=== PATIENT | female | born 1935 | race Caucasian/White ===

== ENCOUNTER 2016-05-31 07:00 | Inpatient (IN) | payer OTHER ==
[~2016-05-31] VITALS: Ht 157.5 cm; Wt 78.7 kg
[~2016-05-31 07:00] MED LIST: ALL100 PO; BCTRO; CALC0.2510 PO; CLC150 PO; CLON0.3T PO; CPROT OT; DEXT1SYP PO; NVLGIPEN SC; OXYC-57 PO
[2016-05-31] MEDS ORDERED: CLON0.3T PO (07:29)
[2016-05-31] MEDS ORDERED: NVLGI/PEN SQ ×2 (07:33)
[2016-05-31] MEDS ORDERED: CYAN500T PO (07:41)
[2016-05-31] MEDS ORDERED: OXYCODONE HCL IR 5 MG TAB (IMMEDIATE RELEASE) PO STA ×2 (08:09→15:21)
--- NOTE | 2016-05-31 08:22 | EMERGENCY ROOM VISIT NOTE ---
ED Visit Note First contact with patient: 07:02 Resident Physician Supervision Note: I was present with Dr. Hanna during the history and exam. I discussed the case with the resident and agree with the findings and plan as documented in the note. Documented By: Favio Moralez
[2016-05-31] MEDS ORDERED: CARV25TA2 PO (08:24)
[2016-05-31] MEDS ORDERED: OMEG10007 PO (08:24)
[2016-05-31] MEDS ORDERED: SITA25TA PO (08:24)
[2016-05-31] MEDS ORDERED: LEVO112T4 PO (08:24)
[2016-05-31] MEDS ORDERED: HYDR100T12 PO (08:24)
[2016-05-31] MEDS ORDERED: TRAV0.00 OP (08:24)
[2016-05-31] MEDS ORDERED: ASPI81TA28 PO (08:24)
[2016-05-31] MEDS ORDERED: NTRGSL/4 UT (08:24)
[2016-05-31] MEDS ORDERED: IMD/2 PO (08:24)
[2016-05-31] MEDS ORDERED: CYANCRY6 PO (08:24)
[2016-05-31] MEDS ORDERED: CALC667C4 PO (08:24)
[2016-05-31] MEDS ORDERED: EPOE10003 SC (08:24)
[2016-05-31 08:29] LABS: BASO % 0.2 %; BASO ABS # 0.02 K/uL (0-0.2); COMPLETE YES; EOS % 0.3 %; HEMATOCRIT 37.6 % (37-47); IG% 0.6 %; LYMPH % 17.3 %; LYMPH ABS # 1.93 K/uL (1.2-3.4); MEAN CELL VOLUME 95.2 fL (80-100); MEAN CORPUSCULAR HEMOGLOBIN 31.4 pg (25-34); MEAN PLATELET VOLUME 10.9 fL (7.4-10.4); MONO % 8.6 %; PLATELET COUNT 221 K/uL (130-400); RED BLOOD COUNT 3.95 M/uL (4.2-5.4); WHITE BLOOD COUNT 11.13 K/uL (4.8-10.8)
[2016-05-31 08:42] LABS: PARTIAL THROMBOPLASTIN RATIO 1.2; PROTHROMBIN TIME (PATIENT) 10.4 SECONDS (9.0-12.0)
--- NOTE | 2016-05-31 08:44 | EMERGENCY ROOM VISIT NOTE ---
History First contact with patient: 07:03 Chief Complaint: LEG PAIN,LEG INJURY Stated Complaint: RIGHT LEG PAIN/ LEFT KNEE PAIN History of Present Illness The patient is a 80 year old female BIBA w/ hx of DM on insulin, CKD on Dialysis ( Last Dialysis Treatment 05/28) who presents to the Emergency Room with complaints of RLE pain since day before arrival. Pain is 9/10 intensity, constant mainly located in the calf and behind the knee. She denies associated injury. She tried Tramadol last night but it did not give her relief. She denies Hx of DVT Hx of malignancy thought she is particularly concerned of it. Patient is a non-smoker, minimally active, uses a walker at home. Review of Systems See HPI for pertinent positives & negatives. A total of 10 systems reviewed and were otherwise negative. Past Medical/Surgical History Medical Problems: (1) Acute pain of right lower extremity (2) DM2 (diabetes mellitus, type 2) (3) HTN (hypertension) (4) Hyperkalemia (5) Hyperparathyroidism (6) Hypertension (7) Hypothyroid (8) Kidney stones (9) Pneumonia (10) Sepsis Surgical Problems: (1) AV fistula (2) History of parathyroid surgery (3) History of parathyroid surgery Family History Cancer Diabetes mellitus Heart disease Hypertension Social History Smoking Status: Current Every Day Smoker Marital Status: single Housing Status: lives alone Occupation Status: retired Current/Historical Medications Scheduled Allopurinol (Allopurinol), 100 MG PO DAILY Aspirin (Aspirin Ec), 81 MG PO DAILY Calcium Acetate (Phoslo 667 Mg), 1 CAP PO TIDM Carvedilol (Coreg), 25 MG PO BID Clonidine Hcl (Catapres), 0.3 MG PO BID Cyanocobalamin (Vitamin B-12), 500 MCG PO DAILY Epoetin Danielito (Epogen), 10,000 SC [id number] Ergocalciferol (Vitamin D 68266 Unit), 1 CAP PO WK Fish Oil ([place]-3), 1 CAP PO BID Hydralazine Hcl (Apresoline), 100 MG PO TID Insulin Aspart (Novolog Flexpen), 4 UNITS SQ QDB Insulin Aspart (Novolog Flexpen), 5 UNITS SQ QDD Insulin Glargine (Lantus), 10 UNITS SC QDB Levothyroxine Sodium (Levothyroxine Sodium), 1 TAB PO DAILY Loperamide Hcl (Imodium), 2 MG PO PRN UD Nitroglycerin (Nitrostat), 0.4 MG UT PRN Sitagliptin (Januvia), 25 MG PO DAILY Tramadol Hcl (Ultram), 50 MG PO Q12H Travoprost (Travatan Z), 1 DROPS OP HS Allergies Coded Allergies: Amoxicillin (Verified Allergy, Intermediate, HIVES, 05/31/16) Clavulanic Acid (Verified Allergy, Unknown, RASH, 05/31/16) INFO FROM [facility] Statins (Verified Allergy, Unknown, Unknown rxn, 05/31/16) Codeine (Verified Adverse Reaction, Mild, GIVES PT A HEADACHE, 05/31/16) Morphine (Verified Adverse Reaction, Unknown, HEADACHE, 05/31/16) INFO FROM [facility] Physical Exam Vital Signs Date Time Temp Pulse Resp B/P Pulse Ox O2 Delivery O2 Flow Rate FiO2 05/31/16 15:00 64 12 195/59 97 05/31/16 14:30 67 18 176/48 96 Room Air 05/31/16 12:50 63 05/31/16 12:28 67 20 171/54 96 Room Air 05/31/16 10:32 85 20 169/82 97 Room Air 05/31/16 08:44 36.7 72 166/45 95 Room Air 05/31/16 07:17 79 05/31/16 07:07 36.6 98 26 117/65 100 Room Air Physical Exam GENERAL: alert, well appearing, well nourished, no distress, non-toxic EYE EXAM: normal conjunctiva, PERRL and EOM's grossly intact NECK: supple, no nuchal rigidity, no adenopathy, non-tender LUNGS: Clear to auscultation. Normal chest wall mechanics HEART: + systolic murmur, S1 normal and S2 normal ABDOMEN: abdomen soft, non-tender, normo-active bowel sounds, no masses, no rebound or guarding. SKIN: no rashes and no bruising UPPER EXTREMITIES: upper extremities are grossly normal. LOWER EXTREMITIES: Joshua 2+ non-pitting edema, erythema/ flaking bilaterally, varicose veins, pulses intact NEURO EXAM: Normal sensorium, cranial nerves II-XII grossly intact, normal speech, no gross weakness of arms, no gross weakness of legs. Medical Decision & Procedures ER Provider Diagnostic Interpretation: RIGHT KNEE 1 OR 2 VIEWS ROUTINE CLINICAL HISTORY: Right knee pain COMPARISON: None. DISCUSSION: No fractures or dislocations are visualized. There are mild osteoarthritic changes. There is mild narrowing medial joint compartment. There are tiny dorsal patellar spurs. The bones appear mildly osteopenic. Vascular calcifications are visualized. IMPRESSION: Mild degenerative change. No fractures are visualized. Venous Doppler right leg RIGHT VENOUS DOPP LOWER EXT UNILAT CLINICAL HISTORY: r/o dv Right pain. Edema. TECHNIQUE: Venous Doppler COMPARISON STUDY: None FINDINGS: Normal study IMPRESSION: Normal study Arterial Doppler right leg RIGHT ART DOP DUPLEX LW EXT UNI CLINICAL HISTORY: Rt Leg pain Right pain. Claudication. TECHNIQUE: Arterial Doppler COMPARISON STUDY: None FINDINGS: Limited study. The patient declined ankle brachial indices measurements. Patient also declined arterial velocity measurements of the lower leg. Increased velocity characteristics of the right 5. This is identified uniformly throughout. Possibility of a cardiac etiology is considered, versus multilevel in flow disease. IMPRESSION: 1. Very limited study as the patient declined the bulk of the study. . 2. Increased velocity characteristics of the right thigh which may indicate inflow disease, increased cardiac output, versus multifocal stenotic change. 3. CT angiography of the lower extremities is suggested if clinically indicated. Laboratory Results 05/31/16 08:15 Red Blood Count 3.95, Mean Corpuscular Volume 95.2, Mean Corpuscular Hemoglobin 31.4, Mean Corpuscular Hemoglobin Concent 33.0, Mean Platelet Volume 10.9, Neutrophils (%) (Auto) 73.0, Lymphocytes (%) (Auto) 17.3, Monocytes (%) (Auto) 8.6, Eosinophils (%) (Auto) 0.3, Basophils (%) (Auto) 0.2, Neutrophils # (Auto) 8.12, Lymphocytes # (Auto) 1.93, Monocytes # (Auto) 0.96, Eosinophils # (Auto) 0.03, Basophils # (Auto) 0.02 05/31/16 08:15 Test 05/31/16 08:15 White Blood Count 11.13 K/uL (4.8-10.8) Red Blood Count 3.95 M/uL (4.2-5.4) Hemoglobin 12.4 g/dL (12.0-16.0) Hematocrit 37.6 % (37-47) Mean Corpuscular Volume 95.2 fL (80-100) Mean Corpuscular Hemoglobin 31.4 pg (25-34) Mean Corpuscular Hemoglobin Concent 33.0 g/dl (32-36) Platelet Count 221 K/uL (130-400) Mean Platelet Volume 10.9 fL (7.4-10.4) Neutrophils (%) (Auto) 73.0 % Lymphocytes (%) (Auto) 17.3 % Monocytes (%) (Auto) 8.6 % Eosinophils (%) (Auto) 0.3 % Basophils (%) (Auto) 0.2 % Neutrophils # (Auto) 8.12 K/uL (1.4-6.5) Lymphocytes # (Auto) 1.93 K/uL (1.2-3.4) Monocytes # (Auto) 0.96 K/uL (0.11-0.59) Eosinophils # (Auto) 0.03 K/uL (0-0.5) Basophils # (Auto) 0.02 K/uL (0-0.2) RDW Standard Deviation 52.7 fL (36.4-46.3) RDW Coefficient of Variation 15.1 % (11.5-14.5) Immature Granulocyte % (Auto) 0.6 % Immature Granulocyte # (Auto) 0.07 K/uL (0.00-0.02) Erythrocyte Sedimentation Rate 84 mm/hr (0-21) Prothrombin Time 10.4 SECONDS (9.0-12.0) Prothromb Time International Ratio 1.0 (0.9-1.1) Activated Partial Thromboplast Time 31.0 SECONDS (21.0-31.0) Partial Thromboplastin Ratio 1.2 Anion Gap 11.0 mmol/L (3-11) Est Creatinine Clear Calc Drug Dose 10.2 ml/min Estimated GFR () 9.9 Estimated GFR (Non- 8.5 BUN/Creatinine Ratio 12.9 (10-20) Calcium Level 8.7 mg/dl (8.5-10.1) C-Reactive Protein 9.71 mg/dl (0-0.29) Medications Administered Medications (Trade) Dose Ordered Sig/Bill Route Start Time Stop Time Status Last Admin Dose Admin Oxycodone HCl (Roxicodone Immediate Rel Tab) 5 mg NOW STAT PO 05/31/16 08:09 05/31/16 08:11 DC 05/31/16 08:23 5 MG Medical Decision 80 yo F w/ Hx of CKD on Dialysis( last treatment 05/28), DM, on insulin p/w RLE pain x 1 day ddx: DVT vs. Cellulitis vs. Muscular vs. Neuropathy vs. Arterial Occlusion, also considered, gout, septic joint, osteoarthritis for Knee pain CBC: Wt Ct 11.13, otherwise unremarkable BMP: K 5.2, BUN 5.9 Cr 4.6 ( Baseline 2.7-4.9) PT/INR: 10.4/1.0 PTT: 1.2 CRP: 9.7 -US Doppler RLE: normal study -Arterial Doppler RLE: limited study due to patient refusing bulk of the study due to pain, Increased velocity characteristics of the right thigh which may indicate inflow disease, increased cardiac output, versus multifocal stenotic change. - Given Oxycodone IR 5 mg for pain which provided relief. Etiology of RLE pain unknown. DVT unlikely based on negative Venous Doppler. Knee XR unremarkable ,Arterial Doppler could not rule out stenotic change. Hyper Kalemia secondary to Renal failure which will be treated with Dialysis. Cr within baseline. - Radiologist recommended CT angiogram for further evaluation, however patient is on Dialysis and contrast study would have to be coordinated with Dialysis treatment therefore case was discussed with [facility] Hospitalist BELA who agreed to evaluate her for inpatient service so that she could get CT study and dialysis of indicated Departure Information Dispostion Admitted as an inpatient Condition GOOD Referrals Jonathan Nunn MD (PCP) Patient Instructions My [facility] Resident Tracking Resident Involvement: Resident Care Provided Care Provided: Adult ED
[2016-05-31 08:56] LABS: BUN/CREATININE RATIO 12.9 (10-20); C-REACTIVE PROTEIN 9.71 mg/dl (0-0.29); CALCIUM 8.7 mg/dl (8.5-10.1); CREATININE 4.6 mg/dl (0.60-1.20); POTASSIUM 5.2 mmol/L (3.5-5.1)
--- NOTE | 2016-05-31 09:51 | DIAGNOSTIC IMAGING REPORT ---
RIGHT KNEE 1 OR 2 VIEWS ROUTINE CLINICAL HISTORY: Right knee pain COMPARISON: None. DISCUSSION: No fractures or dislocations are visualized. There are mild osteoarthritic changes. There is mild narrowing medial joint compartment. There are tiny dorsal patellar spurs. The bones appear mildly osteopenic. Vascular calcifications are visualized. IMPRESSION: Mild degenerative change. No fractures are visualized. Electronically signed by: Jake Brown M.D. 05/31/2016 9:49 AM Dictated Date/Time: 05/31/2016 9:49 AM
--- NOTE | 2016-05-31 11:25 | DIAGNOSTIC IMAGING REPORT ---
Venous Doppler right leg RIGHT VENOUS DOPP LOWER EXT UNILAT CLINICAL HISTORY: r/o dv Right pain. Edema. TECHNIQUE: Venous Doppler COMPARISON STUDY: None FINDINGS: Normal study IMPRESSION: Normal study Electronically signed by: Talha Osorio M.D. 05/31/2016 11:24 AM Dictated Date/Time: 05/31/2016 11:13 AM
--- NOTE | 2016-05-31 14:01 | DIAGNOSTIC IMAGING REPORT ---
Arterial Doppler right leg RIGHT ART DOP DUPLEX LW EXT UNI CLINICAL HISTORY: Rt Leg pain Right pain. Claudication. TECHNIQUE: Arterial Doppler COMPARISON STUDY: None FINDINGS: Limited study. The patient declined ankle brachial indices measurements. Patient also declined arterial velocity measurements of the lower leg. Increased velocity characteristics of the right 5. This is identified uniformly throughout. Possibility of a cardiac etiology is considered, versus multilevel in flow disease. IMPRESSION: 1. Very limited study as the patient declined the bulk of the study. . 2. Increased velocity characteristics of the right thigh which may indicate inflow disease, increased cardiac output, versus multifocal stenotic change. 3. CT angiography of the lower extremities is suggested if clinically indicated. Electronically signed by: Talha Osorio M.D. 05/31/2016 2:00 PM Dictated Date/Time: 05/31/2016 1:56 PM
[2016-05-31] MEDS ORDERED: ONDANSETRON INJ 2 MG/ML 2 ML VIAL IV PRN (15:00)
[2016-05-31] MEDS ORDERED: TRAM-453 PO (15:30)
[2016-05-31] MEDS ORDERED: HYDROmorphone INJ 0.5 MG/0.5 ML SYR IV PRN (15:30)
[2016-05-31] MEDS ORDERED: DEXTROSE 50% 50 ML SYR IV PRN (15:45)
[2016-05-31] MEDS ORDERED: GLUCOSE 10 TABS/TUBE PO PRN (15:45)
[2016-05-31] MEDS ORDERED: GLUCAGON FOR INJ 1 MG VIAL SQ PRN (15:45)
[2016-05-31] MEDS ORDERED: GLUCOSE 40% GEL 15 GM TUBE PO PRN (15:45)
[2016-05-31] MEDS ORDERED: HYDROmorphone INJ 0.5 MG/0.5 ML SYR IV SCH (15:45)
--- NOTE | 2016-05-31 16:00 | History and Physical ---
History & Physical Date & Time of Service: May 31, 2016 at 15:45 Chief Complaint: Right Leg Pain/ Left Knee Pain Primary Care Physician: Jonathan Nunn MD History of Present Illness Source: patient, clinic records, hospital records Patient seen and examined. 80 year old female with PMHx of ESRD on dialysis, IDDM, HTN, hypothyroidism, and HLD presents to the ED complaining of right leg pain x 1 day. Patient reports the pain is from her toes to her knee. She states yesterday it was more like a toothache but since then it has progressively worsened. She describes the pain as crampy and rates it as a 8/10. She states it radiates to the groin and hip and describes that pain as a"hurt." She states she has associated edema to the leg. She states it is very painful to walk on the leg. She denies fevers, chills, URI symptoms, chest pain, SOB, nausea, vomiting, diarrhea, dysuria, calf pain, leg erythema, or injury. She has dialysis MWF and she missed dialysis today. In the ED patient is hypertensive. Venous US is negative for DVT. Arterial US is incomplete d/t pain and a CT angio is recommended. Patient has ESRD so the hospitalist service was consulted for admission to manage possible need for contrast dye. Patient will be admitted for further workup and treatment. Past Medical/Surgical History Medical Problems: (1) DM2 (diabetes mellitus, type 2) Status: Chronic (2) HTN (hypertension) Status: Chronic (3) Hyperparathyroidism Status: Chronic (4) Hypertension Status: Chronic (5) Hypothyroid Status: Chronic (6) Kidney stones Status: Resolved (7) Pneumonia Status: Resolved Surgical Problems: (1) AV fistula Status: Resolved (2) History of parathyroid surgery Status: Resolved Family History Cancer Diabetes mellitus Heart disease Hypertension Social History Smoking Status: Former Smoker Alcohol Use: none Marital Status: single Housing status: lives alone Occupational Status: retired Multi-Drug Resistant Organisms History of MDRO: No Type of MDRO: MRSA Allergies Coded Allergies: Amoxicillin (Verified Allergy, Intermediate, HIVES, 05/31/16) Clavulanic Acid (Verified Allergy, Unknown, RASH, 05/31/16) INFO FROM [facility] Statins (Verified Allergy, Unknown, Unknown rxn, 05/31/16) Codeine (Verified Adverse Reaction, Mild, GIVES PT A HEADACHE, 05/31/16) Morphine (Verified Adverse Reaction, Unknown, HEADACHE, 05/31/16) INFO FROM [facility] Home Medications Scheduled Allopurinol (Allopurinol), 100 MG PO DAILY Aspirin (Aspirin Ec), 81 MG PO DAILY Calcium Acetate (Phoslo 667 Mg), 1 CAP PO TIDM Carvedilol (Coreg), 25 MG PO BID Clonidine Hcl (Catapres), 0.3 MG PO BID Cyanocobalamin (Vitamin B-12), 500 MCG PO DAILY Epoetin Danielito (Epogen), 10,000 SC [id number] Ergocalciferol (Vitamin D 46921 Unit), 1 CAP PO WK Fish Oil ([place]-3), 1 CAP PO BID Hydralazine Hcl (Apresoline), 100 MG PO TID Insulin Aspart (Novolog Flexpen), 4 UNITS SQ QDB Insulin Aspart (Novolog Flexpen), 5 UNITS SQ QDD Insulin Glargine (Lantus), 10 UNITS SC QDB Levothyroxine Sodium (Levothyroxine Sodium), 1 TAB PO DAILY Loperamide Hcl (Imodium), 2 MG PO PRN UD Nitroglycerin (Nitrostat), 0.4 MG UT PRN Sitagliptin (Januvia), 25 MG PO DAILY Tramadol Hcl (Ultram), 50 MG PO Q12H Travoprost (Travatan Z), 1 DROPS OP HS Review of Systems See above for pertinent positives & negatives. A total of 10 systems reviewed and were otherwise negative. Physical Exam Vital Signs Date Time Temp Pulse Resp B/P Pulse Ox O2 Delivery O2 Flow Rate FiO2 05/31/16 15:00 64 12 195/59 97 05/31/16 14:30 67 18 176/48 96 Room Air 05/31/16 12:50 63 05/31/16 12:28 67 20 171/54 96 Room Air 05/31/16 10:32 85 20 169/82 97 Room Air 05/31/16 08:44 36.7 72 166/45 95 Room Air 05/31/16 07:17 79 05/31/16 07:07 36.6 98 26 117/65 100 Room Air General Appearance: + pertinent finding (80 year old female lying in bed in NAD ) Head: normocephalic, atraumatic Eyes: PERRL, EOMI, sclerae normal ENT: hearing grossly normal, pharynx normal Neck: supple, no JVD Respiratory/Chest: chest non-tender, lungs clear, normal breath sounds, no respiratory distress, no accessory muscle use Cardiovascular: regular rate, rhythm, no gallop, no JVD, normal peripheral pulses, + systolic murmur Abdomen/GI: normal bowel sounds, non tender, soft Extremities/Musculoskelatal: + calf tenderness (right calf, ), + pertinent finding (+2 edema equal BL, erythema to BL shins, no drainage. pulses intact, extrememities warm, no cyanosis ) Neurologic/Psych: alert, oriented x 3, + pertinent finding (no focal deficits noted on gross exam ) Skin: warm/dry Lymphatic: no adenopathy Diagnostics Laboratory Results Results Past 24 Hours Test 05/31/16 08:15 Range/Units White Blood Count 11.13 4.8-10.8 K/uL Red Blood Count 3.95 4.2-5.4 M/uL Hemoglobin 12.4 12.0-16.0 g/dL Hematocrit 37.6 37-47 % Mean Corpuscular Volume 95.2 80-100 fL Mean Corpuscular Hemoglobin 31.4 25-34 pg Mean Corpuscular Hemoglobin Concent 33.0 32-36 g/dl Platelet Count 221 130-400 K/uL Mean Platelet Volume 10.9 7.4-10.4 fL Neutrophils (%) (Auto) 73.0 % Lymphocytes (%) (Auto) 17.3 % Monocytes (%) (Auto) 8.6 % Eosinophils (%) (Auto) 0.3 % Basophils (%) (Auto) 0.2 % Neutrophils # (Auto) 8.12 1.4-6.5 K/uL Lymphocytes # (Auto) 1.93 1.2-3.4 K/uL Monocytes # (Auto) 0.96 0.11-0.59 K/uL Eosinophils # (Auto) 0.03 0-0.5 K/uL Basophils # (Auto) 0.02 0-0.2 K/uL RDW Standard Deviation 52.7 36.4-46.3 fL RDW Coefficient of Variation 15.1 11.5-14.5 % Immature Granulocyte % (Auto) 0.6 % Immature Granulocyte # (Auto) 0.07 0.00-0.02 K/uL Erythrocyte Sedimentation Rate 84 0-21 mm/hr Prothrombin Time 10.4 9.0-12.0 SECONDS Prothromb Time International Ratio 1.0 0.9-1.1 Activated Partial Thromboplast Time 31.0 21.0-31.0 SECONDS Partial Thromboplastin Ratio 1.2 Sodium Level 137 136-145 mmol/L Potassium Level 5.2 3.5-5.1 mmol/L Chloride Level 104 98-107 mmol/L Carbon Dioxide Level 22 21-32 mmol/L Anion Gap 11.0 3-11 mmol/L Blood Urea Nitrogen 59 7-18 mg/dl Creatinine 4.60 0.60-1.20 mg/dl Est Creatinine Clear Calc Drug Dose 10.2 ml/min Estimated GFR () 9.9 Estimated GFR (Non- 8.5 BUN/Creatinine Ratio 12.9 10-20 Random Glucose 163 70-99 mg/dl Calcium Level 8.7 8.5-10.1 mg/dl C-Reactive Protein 9.71 0-0.29 mg/dl Diagnostic Radiology RLE ARTERIAL US Per radiologist read: IMPRESSION: 1. Very limited study as the patient declined the bulk of the study. . 2. Increased velocity characteristics of the right thigh which may indicate inflow disease, increased cardiac output, versus multifocal stenotic change. 3. CT angiography of the lower extremities is suggested if clinically indicated. RLE VENOUS US Per radiologist read: IMPRESSION: Normal study KNEE XR Per radiologist read: IMPRESSION: Mild degenerative change. No fractures are visualized. Impression Assessment and Plan RIGHT LOWER EXTREMITY PAIN -Admit to tele 80 year old female presents to the ED complaining of RLE pain x 1 day. ? claudication. Arterial doppler inconclusive as patient could not tolerate study secondary to pain. Radiology suggesting CT angiography -Distal pulses intact, extremities warm, ESR, CRP elevated, mild leukocytosis 11K -Will try arterial Doppler study again with pain control regimen prior -Oxycodone, Dilaudid prn pain -Nephrology consult placed to discuss possible contrast use if arterial Doppler still intolerable, awaiting call back -Patient may need vascular surgery consult depending on arterial US results, will hold off until study is completed -CBC, PRP, Mg in AM END STAGE RENAL DISEASE -missed dialysis today, has dialysis MWF follows with Dr. Doherty -Consult placed for Dr. Doherty for dialysis -K+ 5.2, monitor in tele IDDM -SSI coverage -BSG AC HS -consistent carb diet HLD -statin intolerance noted -continue fish oil HTN uncontrolled -running high, missed morning meds and dialysis -continue Coreg, clonidine, hydralazine -monitor in tele HYPOTHYROIDISM -continue Synthroid GOUT -continue allopurinol DVT PROPHYLAXIS: Sq heparin CODE STATUS:FULL CODE DISPO:In my clinical judgment this beneficiary meets acute admission criteria, established by [facility], that includes being hospitalized through two midnights. Patient seen in collaboration with Dr. Tolentino ATTENDING ADDENDUM care coordinated with BELA Recinos please refer to her notes for full details, I agree with her notes patient seen and examined, records reviewed by myself as well on exam, patient seen resting in bed reports right heel pain at this time right leg pain this AM, worse with movement no other symptoms VS noted and reviewed oriented x 3, not in distress, speaks in sentences with no effort nor accessory muscle use normal rate, regular rhythm, no murmurs clear breath sounds bilaterally non distended, soft, nontender grade 1 lower leg edema with erythema right > left, moderate tenderness good pedal pulses, warm no neuro deficits WBC 11.1 Crea 4.6 ASSESSMENT/PLAN> 80 year old female with history of ESRD, DM, HTN presenting with right leg pain since yesterday. RIGHT LEG PAIN POSSIBLE CELLULITIS R/O PAD - has history of MRSA 01/2016 - empiric Vancomycin ff up Arterial Doppler ESRD HD per Nephro other diagnoses and plan of care as per BELA Tolentino MD VTE Prophylaxis VTE Risk Assessment Done? Y/N: Yes Risk Level: Moderate
[2016-05-31 16:25] VITALS: BP 168/70; PULSE 66; TEMP 36.8; O2SAT 97; Ht 157.5 cm; Wt 78.7 kg
[2016-05-31] MEDS ORDERED: VANCOMYCIN CONSULT ACTIVE PRN (16:30)
[2016-05-31] MEDS: INSULIN ASPART 100 UNITS/ML 3 ML PEN SC SCH ×2 (17:20→20:19)
--- NOTE | 2016-05-31 17:26 | Pharmacy Progress Note ---
Pharmacy Antibiotic Consult Date of Service: May 31, 2016. Pharmacy Dosing Scope Pharmacy is consulted to initiate VANCOMYCIN IV dosing therapy, order appropriate labs and adjust drug dose/frequency. Subjective The patient is a 80 year old female admitted on May 31, 2016 at 15:03. Objective Height (Feet): 5 Height (Inches): 2.00 Weight (Kilograms): 77.500 Lab Results (24hrs): Laboratory Tests Test 05/31/16 08:15 BUN/Creatinine Ratio 12.9 Blood Urea Nitrogen 59 mg/dl Creatinine 4.60 mg/dl White Blood Count 11.13 K/uL Red Blood Count 3.95 M/uL Hemoglobin 12.4 g/dL Hematocrit 37.6 % Mean Corpuscular Volume 95.2 fL Mean Corpuscular Hemoglobin 31.4 pg Mean Corpuscular Hemoglobin Concent 33.0 g/dl Platelet Count 221 K/uL Mean Platelet Volume 10.9 fL Neutrophils (%) (Auto) 73.0 % Lymphocytes (%) (Auto) 17.3 % Monocytes (%) (Auto) 8.6 % Eosinophils (%) (Auto) 0.3 % Basophils (%) (Auto) 0.2 % Neutrophils # (Auto) 8.12 K/uL Lymphocytes # (Auto) 1.93 K/uL Monocytes # (Auto) 0.96 K/uL Eosinophils # (Auto) 0.03 K/uL Basophils # (Auto) 0.02 K/uL Assessment & Plan Pharmacy is consulted to initiate IV Vancomycin for possible lower extremity cellulitis. Pt w/ h/o MRSA in 01/2016. Pt w/ESRD on HD M,W,F. HD missed today - unsure if patient will receive HD this evening vs tomorrow. PLAN: Loading dose: Vancomycin 1,350 mg (~17mg/kg) IV X 1 dose * Wanted to keep volume of dosing small d/t missing HD today Goal trough level estimate: between 10 - 20 mcg/mL based on h/o MRSA. Random level has been ordered for: with AM labs. Will re-dose IV vancomycin when pre-HD vancomycin random level is in goal trough range Pharmacy will continue to follow and will adjust dose/frequency as necessary. Thank you
[2016-05-31] MEDS ORDERED: VANCOMYCIN INJ 1,350 MG in SODIUM CHLORIDE 0.9% 250ML 250 ML IV ONE (17:30)
[2016-05-31] MEDS: CALCIUM ACETATE 667MG GELCAP PO SCH (17:50)
[2016-05-31] MEDS ORDERED: DAPTOMYCIN CONSULT ACTIVE PRN ×2 (18:27)
[2016-05-31] MEDS ORDERED: DAPTOmycin IV 325 MG in SODIUM CHLORIDE 0.9% 50ML 50 ML IV SCH (19:00)
[2016-05-31 19:31] VITALS: BP 175/85; PULSE 62; TEMP 36.8; O2SAT 97
[2016-05-31] MEDS ORDERED: INSDGI SC (20:13)
[2016-05-31] MEDS: TRAVOPROST Z 0.004% OPH SOLN 2.5 ML BTL OP SCH (20:16)
[2016-05-31] MEDS: CARVEDILOL 25 MG TAB PO SCH (20:17)
[2016-05-31] MEDS: OMEGA-3 (PURIFIED FISH OIL) 1 GM CAP PO SCH (20:18)
[2016-05-31] MEDS: CLONIDINE HCL 0.3 MG TAB PO SCH (20:18)
[2016-05-31] MEDS ORDERED: ERGO500011 PO (20:29)
[2016-05-31] MEDS: HEPARIN SOD 5000 UNIT/0.5 ML CARP SQ SCH (22:13)
[2016-06-01] VITALS (20 sets, daily range): BP systolic 116–185; BP diastolic 52–73; PULSE 55–80; TEMP 36.5–37; O2SAT 92–97
[2016-06-01] MEDS: LEVOTHYROXINE 112 MCG TAB PO SCH (05:34)
[2016-06-01] MEDS: HEPARIN SOD 5000 UNIT/0.5 ML CARP SQ SCH ×3 (05:46→21:26)
[2016-06-01 06:04] LABS: HEMATOCRIT 36.9 % (37-47); MEAN CELL VOLUME 97.9 fL (80-100); MEAN CORPUSCULAR HEMOGLOBIN 31.3 pg (25-34); MEAN PLATELET VOLUME 11.2 fL (7.4-10.4); PLATELET COUNT 206 K/uL (130-400); RED BLOOD COUNT 3.77 M/uL (4.2-5.4); WHITE BLOOD COUNT 7.36 K/uL (4.8-10.8)
[2016-06-01 06:19] LABS: ESTIMATED AVERAGE GLUCOSE 140 mg/dl; HA1C FLAG Normal (Normal)
[2016-06-01 06:43] LABS: CALCIUM 8.7 mg/dl (8.5-10.1); CREATININE 4.6 mg/dl (0.60-1.20); MAGNESIUM 2.4 mg/dl (1.8-2.4); POTASSIUM 5.2 mmol/L (3.5-5.1)
[2016-06-01] MEDS: OMEGA-3 (PURIFIED FISH OIL) 1 GM CAP PO SCH ×2 (07:59→21:30)
[2016-06-01] MEDS: CALCIUM ACETATE 667MG GELCAP PO SCH ×3 (07:59→18:15)
[2016-06-01] MEDS: INSULIN ASPART 100 UNITS/ML 3 ML PEN SC SCH ×4 (07:59→21:25)
[2016-06-01] MEDS: ASPIRIN 81 MG ECTAB PO SCH (07:59)
[2016-06-01] MEDS: ALLOPURINOL 100 MG TAB PO SCH (07:59)
[2016-06-01] MEDS: CYANOCOBALAMIN 500 MCG TAB (VIT B-12) PO SCH (08:00)
[2016-06-01] MEDS: CLONIDINE HCL 0.3 MG TAB PO SCH ×2 (08:08→21:28)
[2016-06-01] MEDS: CARVEDILOL 25 MG TAB PO SCH ×2 (08:08→21:29)
[2016-06-01 08:29] LABS: HEPATITIS B AB NEG
--- NOTE | 2016-06-01 08:34 | DIAGNOSTIC IMAGING REPORT ---
Right lower extremity arterial Doppler study CLINICAL HISTORY: ? Ischemic leg pain, repeat scan following pain medication Right COMPARISON STUDY: Right lower terminate arterial Doppler study 05/31/2016. FINDINGS: Only the right lower leg arterial structures and the ankle brachial indices as were performed at the request of the referring physician. The more proximal right lower extremity arteries were completed on a study performed one hour later. The ankle-brachial index calculated with the digits/toes on the right was 0.21 and on the left was 0.15. Monophasic waveforms within the proximal right posterior tibial artery measuring 61 cm/s. No definite flow detected within the mid to distal right posterior tibial artery. Monophasic low velocity waveforms within the proximal right peroneal artery measuring 28 cm/s. Trace flow identified within the mid to distal right peroneal artery. IMPRESSION: 1. Abnormally low ankle brachial indices measuring 0.21 on the right and 0.15 and the left. 2. No flow detected within the mid to distal right posterior tibial artery suggestive of occlusion. 3. Trace flow identified within the mid to distal right peroneal artery. Electronically signed by: Balaji Duque M.D. 06/01/2016 8:32 AM Dictated Date/Time: 06/01/2016 8:25 AM
--- NOTE | 2016-06-01 09:27 | NEPHROLOGY CONSULTATION ---
DATE OF CONSULTATION: 06/01/2016 DATE OF CONSULTATION: 06/01/2016. ATTENDING OF RECORD: Dr. Tolentino. REASON FOR CONSULTATION: End-stage renal disease. HISTORY OF PRESENT ILLNESS: This is a 80-year-old female who dialyzes Mondays, Wednesdays, and Fridays at the [facility], last treatment was Tuesday. The patient also last week developed what appeared to be Afib with RVR; however, patient at that time refused to come into the ER to be evaluated. The patient's heart rate is currently under control. The patient has chronic leg swelling, unable to tolerate aggressive UF on dialysis and continues to have baseline swelling of the lower extremities. The patient states that she started to have pain in her right lower extremity that was very tender to palpation and was warm. Venous ultrasound was negative for DVT. However, was unable to complete the arterial ultrasound so they were considering possibly doing a CT angio to further evaluate an arterial blood clot. The patient still does urinate and was hesitant to give more contrast. The patient had more pain meds and tolerated the arterial ultrasound which showed abnormally low ABIs measuring 0.21 on the right and 0.15 on the left. No flow detected within the mid to distal right posterior tibial artery suggestive of occlusion, trace flow identified within the mid to distal right peroneal artery. Vascular surgery has been consulted. This morning pain is much better. Swelling has improved. Legs elevated. PAST MEDICAL HISTORY: Type 2 diabetes, hypertension, renal osteodystrophy, hypothyroidism, nephrolithiasis, end-stage renal disease secondary to diabetes. PAST SURGICAL HISTORY: Parathyroid adenoma removal, AV fistula creation. FAMILY HISTORY: Significant for diabetes and hypertension. SOCIAL HISTORY: Former smoker, no alcohol, no drugs. Lives alone. CURRENT MEDICATIONS: Daptomycin 325 IV q. 48 hours, allopurinol 100 mg daily, aspirin 81 mg daily, vitamin B12 500 mcg daily, Synthroid 112 mcg daily, heparin 5000 units subQ q. 8, Coreg 25 mg p.o. b.i.d., clonidine 0.3 mg p.o. b.i.d., hydralazine 100 mg p.o. t.i.d., fish oil 1 gram p.o. b.i.d., PhosLo 1 p.o. t.i.d. with meals. REVIEW OF SYSTEMS: No fevers or chills. No headaches, no blurry vision, no dysphagia, no chest pain, no shortness of breath, no nausea or vomiting, no diarrhea or constipation, no dysuria. Only complaint is the right lower extremity pain and swelling which is improving. All other review of systems otherwise negative. PHYSICAL EXAMINATION: VITAL SIGNS: Temperature 36.5, pulse 64, respiratory rate 18, blood pressure 185 systolic, satting 97% on room air. GENERAL: Awake, alert, oriented x3. EYES: No scleral icterus. EARS, NOSE, THROAT: Moist mucous membranes. NECK: Supple. PULMONARY: Clear to auscultation. CARDIAC: A 2/6 systolic murmur. ABDOMEN: Bowel sounds positive, soft, nontender. EXTREMITIES: +1 edema with some erythema of both extremities. Appears to be better compared to admission. NEUROLOGICALLY: Nonfocal. DERMATOLOGIC: Does have some chronic venous stasis changes as well as some erythema of the right lower extremity. No ulcers noted. LABORATORY DATA: White count 7, H\T\H 11 and 36, platelet count is 206, sodium level is 140, potassium is 5.2, chloride 107, bicarb is 21, BUN 60, creatinine is 4.6, glucose 99. Hemoglobin A1c 6.5, calcium is 8.7. Mag is 2.4. INR is 1. IMPRESSION AND PLAN: 1. End-stage renal disease: Did not have dialysis yesterday. Will plan on dialysis today and try to remove 1 liter as blood pressure tolerates. The patient does tend to cramp easily. Lungs are clear and edema in the lower extremities does appear better so okay if unable to remove fluid. We will dialyze to help lower the potassium and clear toxins. 2. Anemia of renal failure. Hemoglobin levels are above 11, so will hold on Procrit at this time. 3. Renal osteodystrophy. We will continue the patient's phosphate binders and follow phosphorus levels intermittently. I appreciate consultation. PABLO
--- NOTE | 2016-06-01 09:43 | Surgery Consultation ---
Consultation Date of Service Jun 01, 2016. Chief Complaint R leg pain History of Present Illness The patient is a 80 year old female with hx of DMII, HTN, ESRD on HD, seen in consultation today for RLE pain in setting of PAD. Pt states she was ambulating as normal at home with her walker until 2 days ago when she developed severe pain in RLE from knee to foot, which worsened yesterday to radiation to thigh as well, so came to ED for evaluation. Pt denies any known injury. States RLE pain much improved today. Admits chronic edema in BLE, worse in RLE, no worse than usual for her. Denies VILLALOBOS, fever, chills, chest pain , SOB abd pain, N,V, rest pain, ulcerations, claudication, other complaints. US demonstrates diffuse atherosclerosis of BLE, with significantly decreased OSCAR , although study difficult d/t pt pain level. Vitals Vital Signs Past 12 Hours Date Time Temp Pulse Resp B/P Pulse Ox O2 Delivery O2 Flow Rate FiO2 06/01/16 08:17 36.5 64 18 185/68 97 Room Air 06/01/16 08:00 Room Air 06/01/16 04:00 Room Air 06/01/16 02:54 37.0 66 17 143/52 95 Room Air 06/01/16 00:00 36.9 80 20 151/73 96 Room Air 05/31/16 23:59 Room Air Allergies Coded Allergies: Amoxicillin (Verified Allergy, Intermediate, HIVES, 05/31/16) Clavulanic Acid (Verified Allergy, Unknown, RASH, 05/31/16) INFO FROM [facility] [place] Statins (Verified Allergy, Unknown, Unknown rxn, 05/31/16) Codeine (Verified Adverse Reaction, Mild, GIVES PT A HEADACHE, 05/31/16) Morphine (Verified Adverse Reaction, Unknown, HEADACHE, 05/31/16) INFO FROM [facility] [place] Home Medications Scheduled Allopurinol (Allopurinol), 100 MG PO DAILY Aspirin (Aspirin Ec), 81 MG PO DAILY Calcium Acetate (Phoslo 667 Mg), 1 CAP PO TIDM Carvedilol (Coreg), 25 MG PO BID Clonidine Hcl (Catapres), 0.3 MG PO BID Cyanocobalamin (Vitamin B-12), 500 MCG PO DAILY Epoetin Danielito (Epogen), 10,000 SC [id number] Ergocalciferol (Vitamin D 67742 Unit), 1 CAP PO WK Fish Oil ([place]-3), 1 CAP PO BID Hydralazine Hcl (Apresoline), 100 MG PO TID Insulin Aspart (Novolog Flexpen), 4 UNITS SQ QDB Insulin Aspart (Novolog Flexpen), 5 UNITS SQ QDD Insulin Glargine (Lantus), 10 UNITS SC QDB Levothyroxine Sodium (Levothyroxine Sodium), 1 TAB PO DAILY Loperamide Hcl (Imodium), 2 MG PO PRN UD Nitroglycerin (Nitrostat), 0.4 MG UT PRN Sitagliptin (Januvia), 25 MG PO DAILY Tramadol Hcl (Ultram), 50 MG PO Q12H Travoprost (Travatan Z), 1 DROPS OP HS Problem List Medical Problems: (1) Acute pain of right lower extremity (2) DM2 (diabetes mellitus, type 2) (3) HTN (hypertension) (4) Hyperkalemia (5) Hyperparathyroidism (6) Hypertension (7) Hypothyroid (8) Kidney stones (9) Pneumonia (10) Sepsis Surgical Problems: (1) AV fistula (2) History of parathyroid surgery (3) History of parathyroid surgery Surgical / Medical History Hx Cardiac Surgery: No Hx Abdominal Surgery: No Hx Cancer Surgery: No Hx Thoracic Surgery: No Hx Orthopedic: No Hx Urinary Tract Surgery: No HX Other Surgery: Yes (perm cath) Past Medical/Surgical History: Diabetes, Heart Disease, High Cholesterol, Hypertension, Kidney Disease Family History Cancer Diabetes mellitus Heart disease Hypertension Social History Smoking Status: Never Smoker Hx Tobacco Use In Past Year?: No Hx Alcohol Use - Type & Amnt: No Hx Substance Use -Type & Amnt: No Review of Systems Constitutional: No chills, No fever, No malaise Skin: + change in color (RLE erythema) Eyes: No visual changes ENMT: No sore throat Respiratory: No LAWSON, No cough, No hemoptysis, No short of breath Cardiovascular: + edema, No chest pain, No intermittent claudication, No palpitations, No syncope Gastrointestinal: No abdominal pain, No nausea, No vomiting Neurologic: No dizziness, No headache, No lethargy, No numbness, No tingling Physical Exam Constitutional: General Apperance: well-nourished, well-developed Level of Distress: NAD, chronically ill Psychiatric: Mental Status: active & alert, normal mood, normal affect Orientation: oriented except where noted, to time, to place, to person Memory: recent memory normal, remote memory normal Head: normocephalic, atraumatic Eyes: EOM: EOMI ENMT: normal ENT inspection, hearing grossly normal Neck: supple, trachea midline Lungs: Respiratory effort: no dyspnea Auscultation: no wheezing, no rales/crackles, no rhonchi Cardiovascular: Apical Impulse: not displaced Heart Auscultation: no murmurs, no rubs, pertinent finding (irregular) Peripheral Pulses: Pulses: full and equal, in all extremities except if noted Bruits: none appreciated Carotid Pulse: normal on the left, normal on the right Brachial Pulses: normal on the left, normal on the right Radial Pulse: normal on the left, normal on the right Femoral Pulse: normal on the left, normal on the right Posterior Tibialis Pulse: pertinent finding (Nonpalpable BLE) Dorsalis Pedis Pulse: pertinent finding (+2 BLE, brisk cap refill BLE, feet warm and pink) Abdomen: Bowel Sounds: normal Inspection & Palpation: soft, non-distended, no tenderness, guarding & rebound Musculoskeletal: normal strength (5/5 throughout), normal tone Extremities: Upper Right: no cyanosis, no edema, no varicosities Upper Left: no cyanosis, no edema, no varicosities Lower Right: no cyanosis, no varicosities, no palpable cord, edema, pertinent finding (mid-distal lower leg with warmth and erythema, + edema) Lower Left: no cyanosis, no varicosities, no palpable cord, edema Neurologic: Cranial Nerves: grossly intact Sensation: grossly intact Assessment and Plan ASSESSMENT and PLAN: PAD RLE cellulitis Pt asymptomatic from PAD, no signs of distal ischemia, and RLE does appear cellulitic. OSCAR likely inaccurate. No vacular surgical intervention recommended at this time. Please call if needed.
--- NOTE | 2016-06-01 13:06 | Progress Note ---
Internal Med Progress Note Date of Service: Jun 01, 2016. Provider Documentation: SUBJECTIVE: The patient was seen and examined Feels a lot better following admission Denies any more pain in leg No Issues with the heart overnight OBJECTIVE: Vital Signs-as noted below Exam: General-No distress at rest Eyes-Normal ENT-Normal Neck-Supple Lungs-clear to ausucltate bilaterally Heart-Regular Abdomen-Benign,no masses,bowel sound present Extremities-Trace edema bilaterally ,Chronic skin changes Bilateral leg redness ,right > Left -improved Neuro-AAox3 Lab data as noted below. ASSESSMENT & PLAN: Pain right leg -Distal pulses intact, extremities warm, ESR, CRP elevated, mild leukocytosis 11K -Arterial Doppler:1. Very limited study as the patient declined the bulk of the study. . 2. Increased velocity characteristics of the right thigh which may indicate inflow disease, increased cardiac output, versus multifocal stenotic change. 3. CT angiography of the lower extremities is suggested if clinically indicated. -Appreciate Vascular surgery input-No intervention -Clinically better today -PT/OT -Oxycodone, Dilaudid prn pain Cellulitis of the legs Has chronic skin changes in Bilateral legs Redness is improved -US-negatibve for any clot END STAGE RENAL DISEASE -missed dialysis today, has dialysis MWF follows with Dr. Doherty -Consult placed for Dr. Doherty for dialysis -K+ 5.2, monitor in tele IDDM -SSI coverage -BSG AC HS -consistent carb diet -Hb A1c 6.5 Uncontrolled HTN -running high, missed morning meds and dialysis -continue Coreg, clonidine, hydralazine -BP is controlled now HYPOTHYROIDISM -continue Synthroid GOUT -continue allopurinol DVT PROPHYLAXIS: Sq heparin CODE STATUS:FULL CODE DISPO: PT/OT Social service for discharge planning Vital Signs: Date Time Temp Pulse Resp B/P Pulse Ox O2 Delivery O2 Flow Rate FiO2 06/01/16 12:00 36.5 61 16 133/71 92 2.0 06/01/16 11:37 Room Air 06/01/16 08:17 36.5 64 18 185/68 97 Room Air 06/01/16 08:00 Room Air 06/01/16 04:00 Room Air 06/01/16 02:54 37.0 66 17 143/52 95 Room Air 06/01/16 00:00 36.9 80 20 151/73 96 Room Air 05/31/16 23:59 Room Air 05/31/16 20:00 Room Air 05/31/16 19:31 36.8 62 18 175/85 97 Room Air 05/31/16 16:25 36.8 66 20 168/70 97 Room Air 05/31/16 15:00 64 12 195/59 97 05/31/16 14:30 67 18 176/48 96 Room Air Lab Results: Results Past 24 Hours Test 05/31/16 16:14 06/01/16 05:49 06/01/16 06:49 06/01/16 07:37 Range/Units Bedside Glucose 78 100 70-90 mg/dl White Blood Count 7.36 4.8-10.8 K/uL Red Blood Count 3.77 4.2-5.4 M/uL Hemoglobin 11.8 12.0-16.0 g/dL Hematocrit 36.9 37-47 % Mean Corpuscular Volume 97.9 80-100 fL Mean Corpuscular Hemoglobin 31.3 25-34 pg Mean Corpuscular Hemoglobin Concent 32.0 32-36 g/dl RDW Standard Deviation 54.8 36.4-46.3 fL RDW Coefficient of Variation 15.3 11.5-14.5 % Platelet Count 206 130-400 K/uL Mean Platelet Volume 11.2 7.4-10.4 fL Sodium Level 140 136-145 mmol/L Potassium Level 5.2 3.5-5.1 mmol/L Chloride Level 107 98-107 mmol/L Carbon Dioxide Level 21 21-32 mmol/L Anion Gap 12.0 3-11 mmol/L Blood Urea Nitrogen 60 7-18 mg/dl Creatinine 4.60 0.60-1.20 mg/dl Est Creatinine Clear Calc Drug Dose 9.7 ml/min Estimated GFR () 9.9 Estimated GFR (Non- 8.5 BUN/Creatinine Ratio 13.0 10-20 Random Glucose 99 70-99 mg/dl Estimated Average Glucose 140 mg/dl Hemoglobin A1c 6.5 4.5-5.6 % Calcium Level 8.7 8.5-10.1 mg/dl Magnesium Level 2.4 1.8-2.4 mg/dl Hepatitis B Surface Antigen NEG NEG Hepatitis B Surface Antibody NEG Test 06/01/16 11:24 Range/Units Bedside Glucose 180 70-90 mg/dl
[2016-06-01] MEDS: OXYCODONE HCL IR 5 MG TAB (IMMEDIATE RELEASE) PO PRN ×2 (14:54→22:09)
[2016-06-01] MEDS: HYDROmorphone INJ 0.5 MG/0.5 ML SYR IV PRN (18:24)
[2016-06-01] MEDS: CEPHALEXIN MONOHYDRATE 500 MG CAP PO SCH (21:31)
[2016-06-01] MEDS: TRAVOPROST Z 0.004% OPH SOLN 2.5 ML BTL OP SCH (21:32)
[2016-06-01] MEDS: DOXYCYCLINE HYCLATE 100 MG CAP PO SCH (22:06)
[2016-06-02] VITALS (22 sets, daily range): BP systolic 95–159; BP diastolic 45–80; PULSE 58–83; TEMP 36.4–36.8; O2SAT 93–99
[2016-06-02] MEDS: LEVOTHYROXINE 112 MCG TAB PO SCH (06:22)
[2016-06-02] MEDS: OXYCODONE HCL IR 5 MG TAB (IMMEDIATE RELEASE) PO PRN ×3 (06:23→21:03)
[2016-06-02] MEDS: HEPARIN SOD 5000 UNIT/0.5 ML CARP SQ SCH ×3 (06:23→20:59)
[2016-06-02] MEDS: CARVEDILOL 25 MG TAB PO SCH ×2 (07:21→21:07)
[2016-06-02] MEDS: CLONIDINE HCL 0.3 MG TAB PO SCH ×2 (07:21→21:06)
[2016-06-02] MEDS: CALCIUM ACETATE 667MG GELCAP PO SCH ×3 (08:37→16:38)
[2016-06-02] MEDS: INSULIN ASPART 100 UNITS/ML 3 ML PEN SC SCH ×4 (08:39→20:59)
[2016-06-02] MEDS: ACETAMINOPHEN 325 MG TAB PO PRN ×2 (08:43→23:28)
--- NOTE | 2016-06-02 10:03 | Dialysis Progress Note ---
Nephrology Dialysis Note Date of Service: Jun 02, 2016. Subjective 80 yo female with esrd who was seen on dialysis. swelling is better although chronically has leg edema. right leg is feeling better but left leg hurts today. has been able to stand but has not walked yet. pt afraid to go home at this time since having difficulty with ambulation but does not want to go to senior care. Objective Date Time Temp Pulse Resp B/P Pulse Ox O2 Delivery O2 Flow Rate FiO2 06/02/16 09:47 36.7 69 130/54 06/02/16 08:00 Room Air 06/02/16 07:56 36.7 65 18 155/64 97 Room Air 06/02/16 00:16 36.6 69 18 133/54 95 Room Air 06/02/16 00:01 Room Air 06/01/16 21:28 65 174/68 06/01/16 15:25 36.5 62 140/52 06/01/16 15:15 60 116/57 06/01/16 15:10 36.5 60 16 92 2.0 06/01/16 15:00 57 125/62 06/01/16 14:45 55 119/63 06/01/16 14:30 60 128/62 06/01/16 14:15 60 135/62 06/01/16 14:00 64 132/61 06/01/16 13:45 60 129/54 06/01/16 13:30 56 131/55 06/01/16 13:15 58 127/57 06/01/16 13:00 56 123/53 06/01/16 12:45 58 126/55 06/01/16 12:30 56 138/58 06/01/16 12:15 60 145/57 06/01/16 12:00 36.9 60 145/57 06/01/16 12:00 36.5 61 16 133/71 92 2.0 06/01/16 11:37 Room Air Physical Exam: General-aaox3 Eyes-no scleral icterus ENT-mmm Neck-supple Lungs-cta Heart-rrr with ectopy Abdomen-bs+ s/nt/nd Extremities-+1 edema Neuro-nonfocal Current Inpatient Medications Medications (Trade) Dose Ordered Sig/Bill Route Start Time Stop Time Status Last Admin Dose Admin Heparin Sodium (Porcine) (Heparin Sq 5000 Unit/0.5ml) 5,000 unit Q8 SQ 05/31/16 22:00 06/30/16 21:59 06/02/16 06:23 5,000 UNIT Acetaminophen (Tylenol Tab) 650 mg Q4H PRN PO 05/31/16 15:00 06/30/16 14:59 06/02/16 08:43 650 MG Ondansetron HCl (Zofran Inj) 4 mg Q6H PRN IV 05/31/16 15:00 06/30/16 14:59 Oxycodone HCl (Roxicodone Immediate Rel Tab) 5 mg Q6H PRN PO 05/31/16 15:30 06/14/16 15:29 06/02/16 06:23 5 MG Allopurinol (Zyloprim Tab) 100 mg DAILY PO 06/01/16 09:00 07/01/16 08:59 06/01/16 07:59 100 MG Aspirin (Ecotrin Tab) 81 mg DAILY PO 06/01/16 09:00 07/01/16 08:59 06/01/16 07:59 81 MG Calcium Acetate (Phoslo Cap) 667 mg TIDM PO 05/31/16 18:00 06/30/16 17:59 06/02/16 08:37 667 MG Carvedilol (Coreg Tab) 25 mg BID PO 05/31/16 21:00 06/30/16 20:59 06/01/16 21:29 25 MG Clonidine HCl (Catapres Tab) 0.3 mg BID PO 05/31/16 21:00 06/30/16 20:59 06/01/16 21:28 0.3 MG Cyanocobalamin (Vitamin B-12 Tab) 500 mcg DAILY PO 06/01/16 09:00 07/01/16 08:59 06/01/16 08:00 500 MCG Fish Oil ([place]-3 (Purified Fish Oil) Cap) 1 gm BID PO 05/31/16 21:00 06/30/16 20:59 06/01/16 21:30 1 GM Hydralazine HCl (Apresoline Tab) 100 mg TID PO 05/31/16 21:00 06/30/16 20:59 06/01/16 21:28 100 MG Levothyroxine Sodium (Synthroid Tab) 112 mcg DAILYBB PO 06/01/16 06:00 07/01/16 06:59 06/02/16 06:22 112 MCG Travoprost (Travatan Z) 1 drops HS OP 05/31/16 21:00 06/30/16 20:59 06/01/16 21:32 1 DROPS Insulin Aspart (novoLOG ASPART) SLIDING SCALE If C... ACHS SC 05/31/16 16:15 06/30/16 16:14 06/02/16 08:39 1 UNITS Glucose (Glucose 40% Gel) 15-30 GRAMS 15 GRAMS... UD PRN PO 05/31/16 15:45 06/30/16 15:44 Glucose (Glucose Chew Tab) 4-8 Tablets 4 Tabl... UD PRN PO 05/31/16 15:45 06/30/16 15:44 Dextrose (Dextrose 50% 50ML Syringe) 25-50ML OF 50% DW IV FOR... UD PRN IV 05/31/16 15:45 06/30/16 15:44 Glucagon (Glucagon Inj) 1 mg UD PRN SQ 05/31/16 15:45 06/30/16 15:44 Hydromorphone HCl (Dilaudid Inj) 0.5 mg Q6H PRN IV 05/31/16 21:30 06/14/16 21:29 06/01/16 18:24 0.5 MG Doxycycline Hyclate (Vibramycin Cap) 100 mg BID PO 06/01/16 20:00 06/11/16 20:59 06/01/16 22:06 100 MG Cephalexin Monohydrate (Keflex Cap) 500 mg QPM PO 06/01/16 21:00 06/11/16 20:59 06/01/16 21:31 500 MG Last 24 Hours Test 06/01/16 11:24 06/01/16 17:16 06/01/16 20:24 06/02/16 08:08 Bedside Glucose 180 mg/dl 125 mg/dl 150 mg/dl 129 mg/dl Assessment & Plan ESRD-pt seen on dialysis. taking off about a liter. does not tolerate aggressive uf. pt feels good but continues to have pain in legs and difficulty with walking. will plan on dialysis m-w-f while inpatient.
[2016-06-02] MEDS: ALLOPURINOL 100 MG TAB PO SCH (13:38)
[2016-06-02] MEDS: ASPIRIN 81 MG ECTAB PO SCH (13:38)
[2016-06-02] MEDS: CYANOCOBALAMIN 500 MCG TAB (VIT B-12) PO SCH (13:38)
[2016-06-02] MEDS: OMEGA-3 (PURIFIED FISH OIL) 1 GM CAP PO SCH ×2 (13:38→21:07)
[2016-06-02] MEDS: DOXYCYCLINE HYCLATE 100 MG CAP PO SCH ×2 (13:38→21:08)
--- NOTE | 2016-06-02 16:06 | Progress Note ---
Internal Med Progress Note Date of Service: Jun 02, 2016. Provider Documentation: SUBJECTIVE: The patient was seen and examined Feels a lot better following admission Denies any more pain in leg No Issues with the heart overnight Still complains of pain in legs on ambulation OBJECTIVE: Vital Signs-as noted below Exam: General-No distress at rest Eyes-Normal ENT-Normal Neck-Supple Lungs-clear to ausucltate bilaterally Heart-Regular Abdomen-Benign,no masses,bowel sound present Extremities-Trace edema bilaterally ,Chronic skin changes Bilateral leg redness ,right > Left -improved a lot No ulceration Neuro-AAox3 Lab data as noted below. ASSESSMENT & PLAN: Pain right leg -Distal pulses intact, extremities warm, ESR, CRP elevated, mild leukocytosis 11K -Arterial Doppler:1. Very limited study as the patient declined the bulk of the study. . 2. Increased velocity characteristics of the right thigh which may indicate inflow disease, increased cardiac output, versus multifocal stenotic change. 3. CT angiography of the lower extremities is suggested if clinically indicated. -Appreciate Vascular surgery input-No intervention and no additional intervention now -Clinically a little better today -PT/OT -Oxycodone, Dilaudid prn pain -increase ambulation -likely home tomorrow Cellulitis of the legs Has chronic skin changes in Bilateral legs Redness is improved US-negative for any clot Continue current oral medications END STAGE RENAL DISEASE -missed dialysis today, has dialysis MWF follows with Dr. Doherty -Consult placed for Dr. Doherty for dialysis -K+ 5.2, monitor in tele -chaec PRP tomorrow IDDM -SSI coverage -BSG AC HS -consistent carb diet -Hb A1c 6.5 Uncontrolled HTN -running high, missed morning meds and dialysis -continue Coreg, clonidine, hydralazine -BP is controlled now HYPOTHYROIDISM -continue Synthroid GOUT -continue allopurinol DVT PROPHYLAXIS: Sq heparin CODE STATUS:FULL CODE DISPO: PT/OT Likely discharge tomorrow Vital Signs: Date Time Temp Pulse Resp B/P Pulse Ox O2 Delivery O2 Flow Rate FiO2 06/02/16 15:37 36.4 70 17 117/67 98 Room Air 06/02/16 14:46 62 99 06/02/16 12:30 36.6 58 150/56 06/02/16 12:02 63 125/53 06/02/16 11:45 65 107/53 06/02/16 11:30 61 115/45 06/02/16 11:25 59 102/48 06/02/16 11:15 66 95/52 06/02/16 11:00 60 108/52 06/02/16 10:45 68 117/62 06/02/16 10:30 68 110/48 06/02/16 10:15 66 113/49 06/02/16 10:00 66 123/50 06/02/16 09:47 36.7 69 130/54 06/02/16 09:45 69 106/52 06/02/16 09:30 70 116/49 06/02/16 09:15 69 129/52 06/02/16 08:00 Room Air 06/02/16 07:56 36.7 65 18 155/64 97 Room Air 06/02/16 00:16 36.6 69 18 133/54 95 Room Air 06/02/16 00:01 Room Air 06/01/16 21:28 65 174/68 Lab Results: Results Past 24 Hours Test 06/01/16 17:16 06/01/16 20:24 06/02/16 08:08 06/02/16 11:27 Range/Units Bedside Glucose 125 150 129 130 70-90 mg/dl
[2016-06-02] MEDS ORDERED: DAPTOmycin IV 325 MG in SODIUM CHLORIDE 0.9% 50ML 50 ML IV SCH (19:00)
[2016-06-02] MEDS: TRAVOPROST Z 0.004% OPH SOLN 2.5 ML BTL OP SCH (21:08)
[2016-06-02] MEDS: CEPHALEXIN MONOHYDRATE 500 MG CAP PO SCH (21:09)
[2016-06-03] MEDS: OXYCODONE HCL IR 5 MG TAB (IMMEDIATE RELEASE) PO PRN ×3 (04:23→18:14)
[2016-06-03] MEDS: HEPARIN SOD 5000 UNIT/0.5 ML CARP SQ SCH ×3 (06:19→21:28)
[2016-06-03] MEDS: LEVOTHYROXINE 112 MCG TAB PO SCH (06:29)
[2016-06-03] MEDS: ACETAMINOPHEN 325 MG TAB PO PRN ×2 (06:34→21:11)
[2016-06-03 06:50] LABS: HEMATOCRIT 36.9 % (37-47); MEAN CELL VOLUME 97.6 fL (80-100); MEAN CORPUSCULAR HEMOGLOBIN 31.7 pg (25-34); MEAN CORPUSCULAR HGB CONC 32.5 g/dl (32-36); MEAN PLATELET VOLUME 11.3 fL (7.4-10.4); PLATELET COUNT 195 K/uL (130-400); RED BLOOD COUNT 3.78 M/uL (4.2-5.4); WHITE BLOOD COUNT 8.46 K/uL (4.8-10.8)
[2016-06-03 07:24] LABS: BUN/CREATININE RATIO 6.7 (10-20); CALCIUM 8.8 mg/dl (8.5-10.1); CREATININE 3.6 mg/dl (0.60-1.20)
[2016-06-03 07:58] VITALS: BP 162/77; PULSE 62; TEMP 36.7; O2SAT 95
[2016-06-03] MEDS: CALCIUM ACETATE 667MG GELCAP PO SCH ×3 (08:09→17:30)
[2016-06-03] MEDS: CARVEDILOL 25 MG TAB PO SCH ×2 (08:09→21:13)
[2016-06-03] MEDS: ALLOPURINOL 100 MG TAB PO SCH (08:09)
[2016-06-03] MEDS: DOXYCYCLINE HYCLATE 100 MG CAP PO SCH ×2 (08:09→21:14)
[2016-06-03] MEDS: ASPIRIN 81 MG ECTAB PO SCH (08:09)
[2016-06-03] MEDS: OMEGA-3 (PURIFIED FISH OIL) 1 GM CAP PO SCH ×2 (08:10→21:14)
[2016-06-03] MEDS: CYANOCOBALAMIN 500 MCG TAB (VIT B-12) PO SCH (08:10)
[2016-06-03] MEDS: CLONIDINE HCL 0.3 MG TAB PO SCH ×2 (08:10→21:13)
[2016-06-03] MEDS: INSULIN ASPART 100 UNITS/ML 3 ML PEN SC SCH ×4 (08:17→21:27)
[2016-06-03 11:27] VITALS: BP 162/77; PULSE 62; O2SAT 95
[2016-06-03 11:45] VITALS: BP 117/74; PULSE 64; TEMP 36.4; O2SAT 99
--- NOTE | 2016-06-03 15:30 | Progress Note ---
Internal Med Progress Note Date of Service: Jun 03, 2016. Provider Documentation: SUBJECTIVE: The patient was seen and examined Still has leg pain Has had Physical Therapy -recommended Rehab OBJECTIVE: Vital Signs-as noted below Exam: General-No distress at rest Eyes-Normal ENT-Normal Neck-Supple Lungs-clear to ausucltate bilaterally Heart-Regular Abdomen-Benign,no masses,bowel sound present Extremities-Trace edema bilaterally ,Chronic skin changes Bilateral leg redness ,right > Left -improved a lot No ulceration Neuro-AAox3 Lab data as noted below. ASSESSMENT & PLAN: Pain right leg -Distal pulses intact, extremities warm, ESR, CRP elevated, mild leukocytosis 11K -Arterial Doppler:1. Very limited study as the patient declined the bulk of the study. . 2. Increased velocity characteristics of the right thigh which may indicate inflow disease, increased cardiac output, versus multifocal stenotic change. 3. CT angiography of the lower extremities is suggested if clinically indicated. -Appreciate Vascular surgery input-No intervention and no additional intervention now -Clinically a little better today -PT/OT -Recommended Rehab -Oxycodone, Dilaudid prn pain -going to need Rehab placement -Social Service involved Cellulitis of the legs Has chronic skin changes in Bilateral legs Redness is improved US-negative for any clot Continue current oral medications Improved significantly END STAGE RENAL DISEASE -missed dialysis today, has dialysis MWF follows with Dr. Doherty -Consult placed for Dr. Doherty for dialysis -K+ 5.2, monitor in tele -check PRP tomorrow-normalized IDDM -SSI coverage -BSG AC HS -consistent carb diet -Hb A1c 6.5 Uncontrolled HTN -running high, missed morning meds and dialysis -continue Coreg, clonidine, hydralazine -BP is controlled now HYPOTHYROIDISM -continue Synthroid GOUT -continue allopurinol DVT PROPHYLAXIS: Sq heparin CODE STATUS:FULL CODE DISPO: PT/OT Likely discharge tomorrow Vital Signs: Date Time Temp Pulse Resp B/P Pulse Ox O2 Delivery O2 Flow Rate FiO2 06/03/16 11:45 36.4 64 16 117/74 99 Room Air 06/03/16 11:27 62 95 06/03/16 11:09 Room Air 06/03/16 08:00 Room Air 06/03/16 07:58 36.7 62 16 162/77 95 Room Air 06/03/16 00:28 Room Air 06/02/16 23:58 36.8 68 20 159/75 93 Room Air 06/02/16 21:05 83 159/68 06/02/16 16:30 98 Room Air 06/02/16 15:37 36.4 70 17 117/67 98 Room Air Lab Results: Results Past 24 Hours Test 06/02/16 16:07 06/02/16 19:53 06/03/16 06:03 06/03/16 07:56 Range/Units Bedside Glucose 143 140 128 70-90 mg/dl White Blood Count 8.46 4.8-10.8 K/uL Red Blood Count 3.78 4.2-5.4 M/uL Hemoglobin 12.0 12.0-16.0 g/dL Hematocrit 36.9 37-47 % Mean Corpuscular Volume 97.6 80-100 fL Mean Corpuscular Hemoglobin 31.7 25-34 pg Mean Corpuscular Hemoglobin Concent 32.5 32-36 g/dl RDW Standard Deviation 54.2 36.4-46.3 fL RDW Coefficient of Variation 15.1 11.5-14.5 % Platelet Count 195 130-400 K/uL Mean Platelet Volume 11.3 7.4-10.4 fL Sodium Level 136 136-145 mmol/L Potassium Level 4.0 3.5-5.1 mmol/L Chloride Level 98 98-107 mmol/L Carbon Dioxide Level 28 21-32 mmol/L Anion Gap 10.0 3-11 mmol/L Blood Urea Nitrogen 24 7-18 mg/dl Creatinine 3.60 0.60-1.20 mg/dl Est Creatinine Clear Calc Drug Dose 12.7 ml/min Estimated GFR () 13.3 Estimated GFR (Non- 11.5 BUN/Creatinine Ratio 6.7 10-20 Random Glucose 136 70-99 mg/dl Calcium Level 8.8 8.5-10.1 mg/dl Test 06/03/16 11:27 Range/Units Bedside Glucose 184 70-90 mg/dl
[2016-06-03 15:45] VITALS: BP 155/74; PULSE 62; TEMP 36.4; O2SAT 97
[2016-06-03 16:00] VITALS: O2SAT 97
[2016-06-03] MEDS: CEPHALEXIN MONOHYDRATE 500 MG CAP PO SCH (21:14)
[2016-06-03] MEDS: TRAVOPROST Z 0.004% OPH SOLN 2.5 ML BTL OP SCH (21:15)
[2016-06-03] MEDS: HYDROmorphone INJ 0.5 MG/0.5 ML SYR IV PRN (21:31)
[2016-06-04] VITALS (20 sets, daily range): BP systolic 85–167; BP diastolic 25–72; PULSE 55–70; TEMP 36.3–36.8; O2SAT 94–97
[2016-06-04] MEDS: OXYCODONE HCL IR 5 MG TAB (IMMEDIATE RELEASE) PO PRN ×4 (00:21→18:36)
[2016-06-04] MEDS: LEVOTHYROXINE 112 MCG TAB PO SCH (06:00)
[2016-06-04] MEDS: HEPARIN SOD 5000 UNIT/0.5 ML CARP SQ SCH ×3 (06:01→21:10)
[2016-06-04] MEDS: CALCIUM ACETATE 667MG GELCAP PO SCH ×3 (07:58→17:36)
[2016-06-04] MEDS: ALLOPURINOL 100 MG TAB PO SCH (07:58)
[2016-06-04] MEDS: ASPIRIN 81 MG ECTAB PO SCH (07:58)
[2016-06-04] MEDS: CYANOCOBALAMIN 500 MCG TAB (VIT B-12) PO SCH ×2 (07:59→19:48)
[2016-06-04] MEDS: DOXYCYCLINE HYCLATE 100 MG CAP PO SCH ×2 (07:59→19:49)
[2016-06-04] MEDS: CARVEDILOL 25 MG TAB PO SCH ×2 (07:59→19:49)
[2016-06-04] MEDS: OMEGA-3 (PURIFIED FISH OIL) 1 GM CAP PO SCH ×2 (07:59→19:51)
[2016-06-04] MEDS: CLONIDINE HCL 0.3 MG TAB PO SCH ×2 (08:00→19:50)
--- NOTE | 2016-06-04 08:14 | Nephrology Progress Note ---
Nephrology Progress Note Date of Service: Jun 04, 2016. Subjective 80 yo female with esrd who was seen on dialysis. patient continues to have pain in the legs and is agreeable to short term rehab. appetite is good. no sob. Objective Date Time Temp Pulse Resp B/P Pulse Ox O2 Delivery O2 Flow Rate FiO2 06/04/16 07:58 36.3 64 18 150/66 97 Room Air 06/04/16 02:06 Room Air 2.0 06/04/16 01:16 36.6 69 20 167/59 94 Room Air 06/03/16 16:00 97 Room Air 06/03/16 15:45 36.4 62 18 155/74 97 Room Air 06/03/16 11:45 36.4 64 16 117/74 99 Room Air 06/03/16 11:27 62 95 06/03/16 11:09 Room Air Physical Exam: General-aaox3 Eyes-no scleral icterus ENT-mmm Neck-supple Lungs-clear Heart-regular Abdomen-bs+ s/nt/nd Extremities-+1 edema Neuro-nonfocal Current Inpatient Medications Medications (Trade) Dose Ordered Sig/Bill Route Start Time Stop Time Status Last Admin Dose Admin Heparin Sodium (Porcine) (Heparin Sq 5000 Unit/0.5ml) 5,000 unit Q8 SQ 05/31/16 22:00 06/30/16 21:59 06/04/16 06:01 5,000 UNIT Acetaminophen (Tylenol Tab) 650 mg Q4H PRN PO 05/31/16 15:00 06/30/16 14:59 06/03/16 21:11 650 MG Ondansetron HCl (Zofran Inj) 4 mg Q6H PRN IV 05/31/16 15:00 06/30/16 14:59 06/02/16 12:32 4 MG Oxycodone HCl (Roxicodone Immediate Rel Tab) 5 mg Q6H PRN PO 05/31/16 15:30 06/14/16 15:29 06/04/16 06:07 5 MG Allopurinol (Zyloprim Tab) 100 mg DAILY PO 06/01/16 09:00 07/01/16 08:59 06/04/16 07:58 100 MG Aspirin (Ecotrin Tab) 81 mg DAILY PO 06/01/16 09:00 5/4/17 08:59 06/04/16 07:58 81 MG Calcium Acetate (Phoslo Cap) 667 mg TIDM PO 05/31/16 18:00 06/30/16 17:59 06/04/16 07:58 667 MG Carvedilol (Coreg Tab) 25 mg BID PO 05/31/16 21:00 06/30/16 20:59 06/04/16 07:59 25 MG Clonidine HCl (Catapres Tab) 0.3 mg BID PO 05/31/16 21:00 06/30/16 20:59 06/04/16 08:00 0.3 MG Cyanocobalamin (Vitamin B-12 Tab) 500 mcg DAILY PO 06/01/16 09:00 07/01/16 08:59 06/04/16 07:59 500 MCG Fish Oil ([place]-3 (Purified Fish Oil) Cap) 1 gm BID PO 05/31/16 21:00 06/30/16 20:59 06/04/16 07:59 1 GM Hydralazine HCl (Apresoline Tab) 100 mg TID PO 05/31/16 21:00 06/30/16 20:59 06/04/16 07:59 100 MG Levothyroxine Sodium (Synthroid Tab) 112 mcg DAILYBB PO 06/01/16 06:00 07/01/16 06:59 06/04/16 06:00 112 MCG Travoprost (Travatan Z) 1 drops HS OP 05/31/16 21:00 06/30/16 20:59 06/03/16 21:15 1 DROPS Insulin Aspart (novoLOG ASPART) SLIDING SCALE If C... ACHS SC 05/31/16 16:15 06/30/16 16:14 06/03/16 21:27 1 UNITS Glucose (Glucose 40% Gel) 15-30 GRAMS 15 GRAMS... UD PRN PO 05/31/16 15:45 06/30/16 15:44 Glucose (Glucose Chew Tab) 4-8 Tablets 4 Tabl... UD PRN PO 05/31/16 15:45 06/30/16 15:44 Dextrose (Dextrose 50% 50ML Syringe) 25-50ML OF 50% DW IV FOR... UD PRN IV 05/31/16 15:45 06/30/16 15:44 Glucagon (Glucagon Inj) 1 mg UD PRN SQ 05/31/16 15:45 06/30/16 15:44 Hydromorphone HCl (Dilaudid Inj) 0.5 mg Q6H PRN IV 05/31/16 21:30 06/14/16 21:29 06/03/16 21:31 0.5 MG Doxycycline Hyclate (Vibramycin Cap) 100 mg BID PO 06/01/16 20:00 06/11/16 20:59 06/04/16 07:59 100 MG Cephalexin Monohydrate (Keflex Cap) 500 mg QPM PO 06/01/16 21:00 06/11/16 20:59 06/03/16 21:14 500 MG Last 24 Hours Test 06/03/16 11:27 06/03/16 16:29 06/03/16 20:21 06/04/16 07:45 Bedside Glucose 184 mg/dl 121 mg/dl 166 mg/dl 125 mg/dl Assessment & Plan ESRD-pt for dialysis today and does not tolerate aggressive uf. edema rather well controlled with chronic leg elevation. volume status appears acceptable. plan on dialysis -- while inpatient.
[2016-06-04] MEDS: INSULIN ASPART 100 UNITS/ML 3 ML PEN SC SCH ×4 (09:06→21:09)
--- NOTE | 2016-06-04 16:07 | Progress Note ---
Internal Med Progress Note Date of Service: Jun 04, 2016. Provider Documentation: SUBJECTIVE: The patient was seen and examined Still has leg pain Has had Physical Therapy -recommended Rehab Severe back pain following Dialysis Not ready to be discharge today OBJECTIVE: Vital Signs-as noted below Exam: General-No distress at rest Eyes-Normal ENT-Normal Neck-Supple Lungs-clear to ausucltate bilaterally Heart-Regular Abdomen-Benign,no masses,bowel sound present Extremities-Trace edema bilaterally ,Chronic skin changes Bilateral leg redness ,right > Left -improved a lot No ulceration Neuro-AAox3 Lab data as noted below. ASSESSMENT & PLAN: Back pain Since this morning No radiation of pain No neurological symptoms Not to discharge today Pain right leg -Distal pulses intact, extremities warm, ESR, CRP elevated, mild leukocytosis 11K -Arterial Doppler:1. Very limited study as the patient declined the bulk of the study. . 2. Increased velocity characteristics of the right thigh which may indicate inflow disease, increased cardiac output, versus multifocal stenotic change. 3. CT angiography of the lower extremities is suggested if clinically indicated. -Appreciate Vascular surgery input-No intervention and no additional intervention now -PT/OT -Recommended Rehab -Oxycodone, Dilaudid prn pain -going to need Rehab placement -Social Service involved -clinically better Cellulitis of the legs Has chronic skin changes in Bilateral legs Redness is improved US-negative for any clot Continue current oral medications Improved significantly END STAGE RENAL DISEASE -missed dialysis today, has dialysis MWF follows with Dr. Doherty -Consult placed for Dr. Doherty for dialysis -K+ 5.2, monitor in tele -remains stable IDDM -SSI coverage -BSG AC HS -consistent carb diet -Hb A1c 6.5 Uncontrolled HTN -running high, missed morning meds and dialysis -continue Coreg, clonidine, hydralazine -BP is controlled now HYPOTHYROIDISM -continue Synthroid GOUT -continue allopurinol DVT PROPHYLAXIS: Sq heparin CODE STATUS:FULL CODE DISPO: PT/OT Likely discharge tomorrow Vital Signs: Date Time Temp Pulse Resp B/P Pulse Ox O2 Delivery O2 Flow Rate FiO2 06/04/16 14:58 36.8 65 18 148/71 95 Room Air 06/04/16 14:37 60 148/60 06/04/16 12:32 36.3 63 136/46 06/04/16 12:15 59 115/42 06/04/16 12:00 55 108/36 06/04/16 11:45 59 119/46 06/04/16 11:30 57 128/48 06/04/16 11:15 57 86/37 06/04/16 11:00 58 125/59 06/04/16 10:45 59 99/25 06/04/16 10:30 59 98/46 06/04/16 10:15 60 85/40 06/04/16 10:00 59 106/41 06/04/16 09:45 59 100/40 06/04/16 09:25 59 113/43 06/04/16 09:15 36.6 63 111/44 06/04/16 08:00 Room Air 06/04/16 07:58 36.3 64 18 150/66 97 Room Air 06/04/16 02:06 Room Air 2.0 06/04/16 01:16 36.6 69 20 167/59 94 Room Air Lab Results: Results Past 24 Hours Test 06/03/16 16:29 06/03/16 20:21 06/04/16 07:45 06/04/16 11:12 Range/Units Bedside Glucose 121 166 125 138 70-90 mg/dl
[2016-06-04] MEDS: CEPHALEXIN MONOHYDRATE 500 MG CAP PO SCH (19:51)
[2016-06-04] MEDS: TRAVOPROST Z 0.004% OPH SOLN 2.5 ML BTL OP SCH (19:53)
[2016-06-05] MEDS: LEVOTHYROXINE 112 MCG TAB PO SCH (06:12)
[2016-06-05] MEDS: HEPARIN SOD 5000 UNIT/0.5 ML CARP SQ SCH ×2 (06:18→14:00)
[2016-06-05] MEDS: ASPIRIN 81 MG ECTAB PO SCH (07:37)
[2016-06-05] MEDS: ALLOPURINOL 100 MG TAB PO SCH (07:37)
[2016-06-05] MEDS: DOXYCYCLINE HYCLATE 100 MG CAP PO SCH (07:38)
[2016-06-05] MEDS: CALCIUM ACETATE 667MG GELCAP PO SCH ×2 (07:38→12:10)
[2016-06-05] MEDS: CARVEDILOL 25 MG TAB PO SCH (07:39)
[2016-06-05] MEDS: CLONIDINE HCL 0.3 MG TAB PO SCH (07:39)
[2016-06-05] MEDS: OMEGA-3 (PURIFIED FISH OIL) 1 GM CAP PO SCH (07:39)
[2016-06-05 07:54] VITALS: O2SAT 95
[2016-06-05 08:37] VITALS: BP 176/71; PULSE 84; TEMP 36.8; O2SAT 97
[2016-06-05] MEDS: INSULIN ASPART 100 UNITS/ML 3 ML PEN SC SCH ×2 (08:39→13:04)
[2016-06-05] MEDS ORDERED: PSYLLIUM 58.6% PWD PACK S\\F PO ONE (10:00)
[2016-06-05] MEDS ORDERED: BISACODYL 10 MG SUPP PR ONE (10:00)
[2016-06-05] MEDS: OXYCODONE HCL IR 5 MG TAB (IMMEDIATE RELEASE) PO PRN (12:12)
[2016-06-05 14:07] VITALS: BP 176/71; PULSE 84; TEMP 36.8; O2SAT 97
[2016-06-05 14:10] VITALS: BP 148/72; PULSE 72
[2016-06-05] MEDS ORDERED: LCTX PO (14:20)
[2016-06-05] MEDS ORDERED: KFL500 PO (14:20)
[2016-06-05] MEDS ORDERED: DXY100 PO (14:20)
[2016-06-05] MEDS ORDERED: MTML PO (14:20)
--- NOTE | 2016-06-05 14:25 | Discharge Instructions ---
Discharge Instructions Date of Service Jun 05, 2016. Admission Reason for Admission: Acute Pain Of Right Lower Extremity, Hyperkalemia Discharge Discharge Diagnosis / Problem: Bilateral Leg cellulitis,PAD with bilateral leg pain,ESRD on HD Discharge Goals Goal(s): Prevent Disease Progression Activity Recommendations Activity Level: Assistance Required Therapies: Physical Therapy, Occupational Therapy . Additional Information Patient informed of condition: Yes Advance Directives: No DNR: No Level of Care: Skilled Communicable Disease: No Prognosis: Stable Oxygen at (LPM): 2 liters/min via NC as needed Norris Catheter: No Instructions / Follow-Up Instructions / Follow-Up Please make an appointment with your PCP in 1 week.Continue Hemodialysis Current Hospital Diet Patient's current hospital diet: AHA Diet (Heart Healthy), Diabetes Type 1 Diet , Renal Diet Discharge Diet Recommended Diet: Diabetes Type 2 Diet, Renal Diet Fluid Restriction: 1500 ml (6 cups) Pending Studies Studies pending at discharge: no Laboratory Results Hemoglobin A1c Test 06/01/16 05:49 Range/Units Estimated Average Glucose 140 mg/dl Hemoglobin A1c 6.5 H 4.5-5.6 % Medical Emergencies . Who to Call and When: Medical Emergencies: If at any time you feel your situation is an emergency, please call 911 immediately. . Non-Emergent Contact Non-Emergency issues call your: Primary Care Provider . Past History Medical & Surgical History: (1) Hypertension (2) DM2 (diabetes mellitus, type 2) (3) HTN (hypertension) (4) Hyperparathyroidism (5) Hypothyroid (6) Hyperkalemia (7) Acute pain of right lower extremity (8) Sepsis . "Provider Documentation" section prepared by Ene Washington. Core Measure Problem Core Measures: None
[2016-06-05] MEDS ORDERED: TRAM-453 PO (14:27)
--- NOTE | 2016-06-05 17:53 | Discharge Summary ---
Discharge Summary Date of Service Jun 05, 2016. Discharge Summary Admission Date: May 31, 2016 at 15:03 Discharge Date: Jun 05, 2016 Discharge Disposition: Rehab Principal Diagnosis: Bilateral Leg cellulitis,PAD with bilateral leg pain,ESRD on HD Secondary Diagnoses/Problems: Jethroe see H&P and Hospital Progress note Consultations: Nephrology and Vascular Surgery Medication Reconciliation New Medications: Lactobacillus Acidophilus (Lactinex) Tab 2 TAB PO BIDM, #20 TAB Cephalexin Monohydrate (Cephalexin) 500 Mg Cap 500 MG PO QPM for 5 Days, #5 CAP Doxycycline Hyclate (Doxycycline Hyclate) 100 Mg Cap 100 MG PO BID for 5 Days, #5 CAP Psyllium (Konsyl) 1 Pkt Pack 1 PKT PO QAM for 30 Days, #30 Changed Medications: Tramadol Hcl (Ultram) 50 Mg Tab 50 MG PO Q12H PRN for Pain for 10 Days, #20 TAB (Medication details modified) PRN PAIN Continued Medications: Allopurinol (Allopurinol) 100 Mg Tab 100 MG PO DAILY, #30 TAB Aspirin (Aspirin Ec) 81 Mg Tab 81 MG PO DAILY Calcium Acetate (Phoslo 667 Mg) 667 Mg Cap 1 CAP PO TIDM, CAP Carvedilol (Coreg) 25 Mg Tab 25 MG PO BID, TAB Clonidine Hcl (Catapres) 0.3 Mg Tab 0.3 MG PO BID, TAB Cyanocobalamin (Vitamin B-12) 500 Mcg Tab 500 MCG PO DAILY, TAB Epoetin Danielito (Epogen) 10,000 Unit/Ml Inj 72655 SC [id number] Ergocalciferol (Vitamin D 05794 Unit) 50,000 Unit Cap 1 CAP PO WK for 28 Days, #4 CAP 2 Refills TAKE ON SAT Fish Oil ([place]-3) 1 Ea Cap 1 CAP PO BID, CAP Hydralazine Hcl (Apresoline) 100 Mg Tab 100 MG PO TID, TAB Insulin Aspart (Novolog Flexpen) 100 Units/Ml Inj 4 UNITS SQ QDB Insulin Aspart (Novolog Flexpen) 100 Units/Ml Inj 5 UNITS SQ QDD Insulin Glargine (Lantus) 100 Unit/Ml Inj 10 UNITS SC QDB, VIAL Levothyroxine Sodium (Levothyroxine Sodium) 112 Mcg Tab 1 TAB PO DAILY, TAB Loperamide Hcl (Imodium) 2 Mg Cap 2 MG PO PRN UD, CAP Nitroglycerin (Nitrostat) 0.4 Mg Tab 0.4 MG UT PRN, BTL Sitagliptin (Januvia) 25 Mg Tab 25 MG PO DAILY, TAB Travoprost (Travatan Z) 0.004 % Mack 1 DROPS OP HS, #2.5 ML 2 Refills Admission Information HPI (per Admitting provider): Patient seen and examined. 80 year old female with PMHx of ESRD on dialysis, IDDM, HTN, hypothyroidism, and HLD presents to the ED complaining of right leg pain x 1 day. Patient reports the pain is from her toes to her knee. She states yesterday it was more like a toothache but since then it has progressively worsened. She describes the pain as crampy and rates it as a 8/10. She states it radiates to the groin and hip and describes that pain as a"hurt." She states she has associated edema to the leg. She states it is very painful to walk on the leg. She denies fevers, chills, URI symptoms, chest pain, SOB, nausea, vomiting, diarrhea, dysuria, calf pain, leg erythema, or injury. She has dialysis MWF and she missed dialysis today. In the ED patient is hypertensive. Venous US is negative for DVT. Arterial US is incomplete d/t pain and a CT angio is recommended. Patient has ESRD so the hospitalist service was consulted for admission to manage possible need for contrast dye. Patient will be admitted for further workup and treatment. Past Medical/Surgical History Medical Problems: (1) DM2 (diabetes mellitus, type 2) Status: Chronic (2) HTN (hypertension) Status: Chronic (3) Hyperparathyroidism Status: Chronic (4) Hypertension Status: Chronic (5) Hypothyroid Status: Chronic (6) Kidney stones Status: Resolved (7) Pneumonia Status: Resolved Surgical Problems: (1) AV fistula Status: Resolved (2) History of parathyroid surgery Status: Resolved Family History Cancer Diabetes mellitus Heart disease Hypertension Social History Smoking Status: Former Smoker Alcohol Use: none Marital Status: single Housing status: lives alone Occupational Status: retired Multi-Drug Resistant Organisms History of MDRO: No Type of MDRO: MRSA Allergies Coded Allergies: Amoxicillin (Verified Allergy, Intermediate, HIVES, 05/31/16) Clavulanic Acid (Verified Allergy, Unknown, RASH, 05/31/16) INFO FROM [facility] Statins (Verified Allergy, Unknown, Unknown rxn, 05/31/16) Codeine (Verified Adverse Reaction, Mild, GIVES PT A HEADACHE, 05/31/16) Morphine (Verified Adverse Reaction, Unknown, HEADACHE, 05/31/16) INFO FROM [facility] Home Medications Scheduled Allopurinol (Allopurinol), 100 MG PO DAILY Aspirin (Aspirin Ec), 81 MG PO DAILY Calcium Acetate (Phoslo 667 Mg), 1 CAP PO TIDM Carvedilol (Coreg), 25 MG PO BID Clonidine Hcl (Catapres), 0.3 MG PO BID Cyanocobalamin (Vitamin B-12), 500 MCG PO DAILY Epoetin Danielito (Epogen), 10,000 SC [id number] Ergocalciferol (Vitamin D 68892 Unit), 1 CAP PO WK Fish Oil ([place]-3), 1 CAP PO BID Hydralazine Hcl (Apresoline), 100 MG PO TID Insulin Aspart (Novolog Flexpen), 4 UNITS SQ QDB Insulin Aspart (Novolog Flexpen), 5 UNITS SQ QDD Insulin Glargine (Lantus), 10 UNITS SC QDB Levothyroxine Sodium (Levothyroxine Sodium), 1 TAB PO DAILY Loperamide Hcl (Imodium), 2 MG PO PRN UD Nitroglycerin (Nitrostat), 0.4 MG UT PRN Sitagliptin (Januvia), 25 MG PO DAILY Tramadol Hcl (Ultram), 50 MG PO Q12H Travoprost (Travatan Z), 1 DROPS OP HS Review of Systems See above for pertinent positives & negatives. A total of 10 systems reviewed and were otherwise negative. Physical Ex - H&P Physical Exam Vital Signs Date Time Temp Pulse Resp B/P Pulse Ox O2 Delivery O2 Flow Rate FiO2 05/31/16 15:00 64 12 195/59 97 05/31/16 14:30 67 18 176/48 96 Room Air 05/31/16 12:50 63 05/31/16 12:28 67 20 171/54 96 Room Air 05/31/16 10:32 85 20 169/82 97 Room Air 05/31/16 08:44 36.7 72 166/45 95 Room Air 05/31/16 07:17 79 05/31/16 07:07 36.6 98 26 117/65 100 Room Air General Appearance: + pertinent finding (80 year old female lying in bed in NAD ) Head: normocephalic, atraumatic Eyes: PERRL, EOMI, sclerae normal ENT: hearing grossly normal, pharynx normal Neck: supple, no JVD Respiratory/Chest: chest non-tender, lungs clear, normal breath sounds, no respiratory distress, no accessory muscle use Cardiovascular: regular rate, rhythm, no gallop, no JVD, normal peripheral pulses, + systolic murmur Abdomen/GI: normal bowel sounds, non tender, soft Extremities/Musculoskelatal: + calf tenderness (right calf, ), + pertinent finding (+2 edema equal BL, erythema to BL shins, no drainage. pulses intact, extrememities warm, no cyanosis ) Neurologic/Psych: alert, oriented x 3, + pertinent finding (no focal deficits noted on gross exam ) Skin: warm/dry Lymphatic: no adenopathy Diagnostics - H&P Diagnostics Laboratory Results Results Past 24 Hours Test 05/31/16 08:15 Range/Units White Blood Count 11.13 4.8-10.8 K/uL Red Blood Count 3.95 4.2-5.4 M/uL Hemoglobin 12.4 12.0-16.0 g/dL Hematocrit 37.6 37-47 % Mean Corpuscular Volume 95.2 80-100 fL Mean Corpuscular Hemoglobin 31.4 25-34 pg Mean Corpuscular Hemoglobin Concent 33.0 32-36 g/dl Platelet Count 221 130-400 K/uL Mean Platelet Volume 10.9 7.4-10.4 fL Neutrophils (%) (Auto) 73.0 % Lymphocytes (%) (Auto) 17.3 % Monocytes (%) (Auto) 8.6 % Eosinophils (%) (Auto) 0.3 % Basophils (%) (Auto) 0.2 % Neutrophils # (Auto) 8.12 1.4-6.5 K/uL Lymphocytes # (Auto) 1.93 1.2-3.4 K/uL Monocytes # (Auto) 0.96 0.11-0.59 K/uL Eosinophils # (Auto) 0.03 0-0.5 K/uL Basophils # (Auto) 0.02 0-0.2 K/uL RDW Standard Deviation 52.7 36.4-46.3 fL RDW Coefficient of Variation 15.1 11.5-14.5 % Immature Granulocyte % (Auto) 0.6 % Immature Granulocyte # (Auto) 0.07 0.00-0.02 K/uL Erythrocyte Sedimentation Rate 84 0-21 mm/hr Prothrombin Time 10.4 9.0-12.0 SECONDS Prothromb Time International Ratio 1.0 0.9-1.1 Activated Partial Thromboplast Time 31.0 21.0-31.0 SECONDS Partial Thromboplastin Ratio 1.2 Sodium Level 137 136-145 mmol/L Potassium Level 5.2 3.5-5.1 mmol/L Chloride Level 104 98-107 mmol/L Carbon Dioxide Level 22 21-32 mmol/L Anion Gap 11.0 3-11 mmol/L Blood Urea Nitrogen 59 7-18 mg/dl Creatinine 4.60 0.60-1.20 mg/dl Est Creatinine Clear Calc Drug Dose 10.2 ml/min Estimated GFR () 9.9 Estimated GFR (Non- 8.5 BUN/Creatinine Ratio 12.9 10-20 Random Glucose 163 70-99 mg/dl Calcium Level 8.7 8.5-10.1 mg/dl C-Reactive Protein 9.71 0-0.29 mg/dl Diagnostic Radiology RLE ARTERIAL US Per radiologist read: IMPRESSION: 1. Very limited study as the patient declined the bulk of the study. . 2. Increased velocity characteristics of the right thigh which may indicate inflow disease, increased cardiac output, versus multifocal stenotic change. 3. CT angiography of the lower extremities is suggested if clinically indicated. RLE VENOUS US Per radiologist read: IMPRESSION: Normal study KNEE XR Per radiologist read: IMPRESSION: Mild degenerative change. No fractures are visualized. Impression - H&P Impression Assessment and Plan RIGHT LOWER EXTREMITY PAIN -Admit to tele 80 year old female presents to the ED complaining of RLE pain x 1 day. ? claudication. Arterial doppler inconclusive as patient could not tolerate study secondary to pain. Radiology suggesting CT angiography -Distal pulses intact, extremities warm, ESR, CRP elevated, mild leukocytosis 11K -Will try arterial Doppler study again with pain control regimen prior -Oxycodone, Dilaudid prn pain -Nephrology consult placed to discuss possible contrast use if arterial Doppler still intolerable, awaiting call back -Patient may need vascular surgery consult depending on arterial US results, will hold off until study is completed -CBC, PRP, Mg in AM END STAGE RENAL DISEASE -missed dialysis today, has dialysis MWF follows with Dr. Doherty -Consult placed for Dr. Doherty for dialysis -K+ 5.2, monitor in tele IDDM -SSI coverage -BSG AC HS -consistent carb diet HLD -statin intolerance noted -continue fish oil HTN uncontrolled -running high, missed morning meds and dialysis -continue Coreg, clonidine, hydralazine -monitor in tele HYPOTHYROIDISM -continue Synthroid GOUT -continue allopurinol DVT PROPHYLAXIS: Sq heparin CODE STATUS:FULL CODE DISPO:In my clinical judgment this beneficiary meets acute admission criteria, established by [facility], that includes being hospitalized through two midnights. Patient seen in collaboration with Dr. Tolentino ATTENDING ADDENDUM care coordinated with BELA Recinos please refer to her notes for full details, I agree with her notes patient seen and examined, records reviewed by myself as well on exam, patient seen resting in bed reports right heel pain at this time right leg pain this AM, worse with movement no other symptoms VS noted and reviewed oriented x 3, not in distress, speaks in sentences with no effort nor accessory muscle use normal rate, regular rhythm, no murmurs clear breath sounds bilaterally non distended, soft, nontender grade 1 lower leg edema with erythema right > left, moderate tenderness good pedal pulses, warm no neuro deficits WBC 11.1 Crea 4.6 ASSESSMENT/PLAN> 80 year old female with history of ESRD, DM, HTN presenting with right leg pain since yesterday. RIGHT LEG PAIN POSSIBLE CELLULITIS R/O PAD - has history of MRSA 01/2016 - empiric Vancomycin ff up Arterial Doppler ESRD HD per Nephro other diagnoses and plan of care as per BELA Tolentino MD VTE Prophylaxis VTE Risk Assessment Done? Y/N: Yes Risk Level: Moderate Physical Exam (per Admitting): General Appearance: + pertinent finding (80 year old female lying in bed in NAD ) Head: normocephalic, atraumatic Eyes: PERRL, EOMI, sclerae normal ENT: hearing grossly normal, pharynx normal Neck: supple, no JVD Respiratory/Chest: chest non-tender, lungs clear, normal breath sounds, no respiratory distress, no accessory muscle use Cardiovascular: regular rate, rhythm, no gallop, no JVD, normal peripheral pulses, + systolic murmur Abdomen/GI: normal bowel sounds, non tender, soft Extremities/Musculoskelatal: + calf tenderness (right calf, ), + pertinent finding (+2 edema equal BL, erythema to BL shins, no drainage. pulses intact, extrememities warm, no cyanosis ) Neurologic/Psych: alert, oriented x 3, + pertinent finding (no focal deficits noted on gross exam ) Skin: warm/dry Lymphatic: no adenopathy Hospital Course Back pain Since this morning No radiation of pain No neurological symptoms Not to discharge today Pain right leg -Distal pulses intact, extremities warm, ESR, CRP elevated, mild leukocytosis 11K -Arterial Doppler:1. Very limited study as the patient declined the bulk of the study. . 2. Increased velocity characteristics of the right thigh which may indicate inflow disease, increased cardiac output, versus multifocal stenotic change. 3. CT angiography of the lower extremities is suggested if clinically indicated. -Appreciate Vascular surgery input-No intervention and no additional intervention now -PT/OT -Recommended Rehab -Oxycodone, Dilaudid prn pain -going to need Rehab placement -Social Service involved -clinically better Cellulitis of the legs Has chronic skin changes in Bilateral legs Redness is improved US-negative for any clot Continue current oral medications Improved significantly END STAGE RENAL DISEASE -missed dialysis today, has dialysis MWF follows with Dr. Doherty -Consult placed for Dr. Doherty for dialysis -K+ 5.2, monitor in tele -remains stable IDDM -SSI coverage -BSG AC HS -consistent carb diet -Hb A1c 6.5 Uncontrolled HTN -running high, missed morning meds and dialysis -continue Coreg, clonidine, hydralazine -BP is controlled now HYPOTHYROIDISM -continue Synthroid GOUT -continue allopurinol DVT PROPHYLAXIS: Sq heparin CODE STATUS:FULL CODE DISPO: PT/OT Likely discharge tomorrow Total time spent on discharge = 35 minutes This includes examination of the patient, discharge planning, medication reconciliation, and communication with other providers. Discharge Instructions Date of Service Jun 05, 2016. Admission Reason for Admission: Acute Pain Of Right Lower Extremity, Hyperkalemia Discharge Discharge Diagnosis / Problem: Bilateral Leg cellulitis,PAD with bilateral leg pain,ESRD on HD Discharge Goals Goal(s): Prevent Disease Progression Activity Recommendations Activity Level: Assistance Required Therapies: Physical Therapy, Occupational Therapy . Additional Information Patient informed of condition: Yes Advance Directives: No DNR: No Level of Care: Skilled Communicable Disease: No Prognosis: Stable Oxygen at (LPM): 2 liters/min via NC as needed Norris Catheter: No Instructions / Follow-Up Instructions / Follow-Up Please make an appointment with your PCP in 1 week.Continue Hemodialysis Current Hospital Diet Patient's current hospital diet: AHA Diet (Heart Healthy), Diabetes Type 1 Diet , Renal Diet Discharge Diet Recommended Diet: Diabetes Type 2 Diet, Renal Diet Fluid Restriction: 1500 ml (6 cups) Pending Studies Studies pending at discharge: no Laboratory Results Hemoglobin A1c Test 06/01/16 05:49 Range/Units Estimated Average Glucose 140 mg/dl Hemoglobin A1c 6.5 H 4.5-5.6 % Medical Emergencies . Who to Call and When: Medical Emergencies: If at any time you feel your situation is an emergency, please call 911 immediately. . Non-Emergent Contact Non-Emergency issues call your: Primary Care Provider . Past History Medical & Surgical History: (1) Hypertension (2) DM2 (diabetes mellitus, type 2) (3) HTN (hypertension) (4) Hyperparathyroidism (5) Hypothyroid (6) Hyperkalemia (7) Acute pain of right lower extremity (8) Sepsis . "Provider Documentation" section prepared by Ene Washington. Core Measure Problem Core Measures: None <Electronically signed by Ene Washington M.D.> Additional Copies To Jonathan Nunn MD
[2016-06-06] MEDS ORDERED: PSYLLIUM 58.6% PWD PACK S\\F PO SCH (08:00)
== END 2016-06-05 15:00 | DRG 602 ==
LOC: ENRESERVDT → ENRESERVTM → EDBD 07:00 → C.EDA 07:01 → C.2T 15:03 → C.4E 06-01 15:26
PROVIDERS: ADMIT Internal Medicine; ATTEND Internal Medicine
DX: L03.115 Cellulitis of right lower limb (principal); N18.6 End stage renal disease; F17.200 Nicotine dependence, unspecified, uncomplicated; E11.9 Type 2 diabetes mellitus without complications; I10 Essential (primary) hypertension; E03.9 Hypothyroidism, unspecified; E87.5 Hyperkalemia; Z99.2 Dependence on renal dialysis; M10.9 Gout, unspecified; Z79.82 Long term (current) use of aspirin; Z79.4 Long term (current) use of insulin

== ENCOUNTER 2018-05-14 09:51 | Inpatient (IN) ==
[2018-05-14] MEDS ORDERED: dilTIAZem HCl 5 MG/ML 5 ML VIAL IV ONE (10:20)
[2018-05-14 10:52] LABS: Basophils # (auto) 0.01 K/uL (0-0.2); Basophils % (auto) 0.1 %; Eosinophils # (auto) 0.07 K/uL (0-0.5); Hematocrit (blood only) 32.8 % (37-47); Hemoglobin 10.4 g/dL (12.0-16.0); Immature Granulocytes # (auto) 0.03 K/uL (0.00-0.02); Immature Granulocytes % (auto) 0.4 %; Lymphocytes # (auto) 2.58 K/uL (1.2-3.4); Lymphocytes % (auto) 35.2 %; Mean Corpuscular Hgb Conc 31.7 g/dL (32-36); Mean Corpuscular Volume 103.8 fL (80-100); Monocytes # (auto) 1.08 K/uL (0.11-0.59); Monocytes % (auto) 14.8 %; Neutrophils # (auto) 3.55 K/uL (1.4-6.5); Neutrophils % (auto) 48.5 %; Platelet Count 310 K/uL (130-400); RDW Coefficient of Variation 16.9 % (11.5-14.5); RDW Standard Deviation 64.3 fL (36.4-46.3); Red Blood Count 3.16 M/uL (4.2-5.4); White Blood Count 7.32 K/uL (4.8-10.8)
--- NOTE | 2018-05-14 10:59 | XRay Report ---
XR chest 1V portable CLINICAL HISTORY: Atypical chest pain COMPARISON STUDY: 02/24/2016 FINDINGS: The heart is the upper limits of normal in size. There are aortic calcifications present. T here is no overt failure. There is no lobar consolidation. There are no significant pleural effusions . There is mild interstitial thickening at the lung bases, improved compared the prior study.[ There is a proximal left humeral deformity which is felt to be old. IMPRESSION: Mild basilar interstitial thickening. No acute findings. Electronically signed by: Jake Brown M.D. 05/14/2018 10:58 AM
[2018-05-14 11:00] LABS: Alanine Aminotransferase 24 U/L (12-78); Albumin Level 2.2 gm/dl (3.4-5.0); Aspartate Aminotransferase 30 U/L (15-37); BUN Creatinine Ratio 10.1 (10-20); Blood Urea Nitrogen 41 mg/dl (7-18); Calcium 8.3 mg/dl (8.5-10.1); Carbon Dioxide 24 mmol/L (21-32); Chloride 100 mmol/L (98-107); Creatinine Clr Calc Pharmacy 10.6 ml/min; Est GFR (African American) 11.2; Est GFR (Non-African American) 9.7; Glucose 78 mg/dl (70-99); Magnesium 2.3 mg/dl (1.8-2.4); Potassium 4.3 mmol/L (3.5-5.1); Sodium 134 mmol/L (136-145)
[2018-05-14 11:05] LABS: Albumin Globulin Ratio 0.4 (0.9-2); Alkaline Phosphatase 866 U/L (45-117); Bilirubin,Total 0.5 mg/dl (0.2-1); Globulin 5.5 gm/dl (2.5-4.0); Phosphorus 4.3 mg/dl (2.5-4.9); Total Protein 7.7 gm/dl (6.4-8.2); Troponin I < 0.015 ng/ml (0-0.045)
[2018-05-14] MEDS ORDERED: METOPROLOL TARTRATE 1 MG/ML VIAL IV STA (11:12)
[2018-05-14] MEDS ORDERED: ACETAMINOPHEN 325 MG TAB PO STA (12:50)
--- NOTE | 2018-05-14 14:11 | History & Physical Report ---
Date of Service May 14, 2018 Assessment & Plan (1) Chest pain: * EKG with no ST elevation * No response to nitroglycerin sublingually * Patient has reproducible chest pain in the left chest with deep palpation and with movement * Troponin negative * Repeat serial troponins * Repeat serial EKG as well as EKG her chest pain * Transthoracic echocardiogram * Follow electrolytes * Admit on telemetry unit * Continue home tramadol * Will start Dilaudid 0.25 mg IV every 4 hours as needed for pain (2) Atrial fibrillation: * Diagnosed in January 2016 * Check echocardiogram * Continue home carvedilol 25 mg p.o. twice daily * Patient received 20 mg of IV Cardizem with conversion to normal sinus within a couple seconds but then reverted to A. fib. She then received 5 mg of IV metoprolol and has been in normal sinus rhythm since that point. * We will write for metoprolol tartrate 2.5 mg every 4 hours as needed arrhythmia * Follow on PCU/telemetry. * Check TSH with reflex T4 (3) Elevated alkaline phosphatase level: * This is chronic going back to 2015 * Workup outpatient * No indication to follow serially while inpatient (4) End stage renal disease on dialysis due to type 2 diabetes mellitus: * Began dialysis December 2015 * Currently with a well formed arterial venous graft in the left forearm * I spoke with Dr. Wiley who follows her as an outpatient * At this point we will output and nephrology hospice care consultant. It is anticipated the patient may be ruled out for her chest pain by morning and can be discharged from the hospital to her scheduled dialysis * Follow electrolytes and renal function * Strict I's and O's * Lantus 5 units before dinner each day * NovoLog sliding scale before meals at bedtime * Check hemoglobin A1c * Renal, cardiac, diabetic diet (5) Hyperkalemia: * Patient does have a history of hyperkalemia. * Current potassium is 4.4; magnesium is 2.3 (6) Hypothyroid: * History of hyperparathyroidism with resection 25 years ago * Patient has been on a stable dose of levothyroxine; continue home dose * Check TSH with reflex T4 * Continue outpatient meds (7) HTN (hypertension): * Continue home meds * Treat pain from chest pain * Follow on telemetry (8) DVT prophylaxis: * Heparin 5000 units subcutaneously every 12 hours * Ambulate as tolerated * No MATTHEW hose or SCDs secondary to peripheral neuropathy and chronic venous stasis of the bilateral lower extremities. History of Present Illness Chief Complaint: Chest pain Primary Care Provider: Jonathan Nunn MD Attending: Dr. Wilson This is an 82-year-old female with a past medical history of end-stage renal disease secondary to diabetes mellitus type 2 receiving hemodialysis Tuesday, Tuesday, Tuesday. She also has a history of paroxysmal atrial fib with first episode in January 2016. She has a history of hyperparathyroidism with resection, hypothyroidism, hyperkalemia, hypertension, matured AV fistula in the left forearm. She presents with chest pain starting at 07:45 a.m. this morning. The patient states that she sleeps in a recliner and was uncomfortable last night and was moving around in the recliner. This morning she woke with chest pain to her left chest midway between the axillary line and the midclavicular line. Pain has been persistent with palpation and with movement. She was given Tylenol with minimal response. She was also given nitroglycerin with no response. Troponins are negative. Other labs are otherwise consistent with her long-term hemodialysis. The patient does follow with Dr. Wiley and receives hemodialysis Tuesday. She has been on her schedule and takes all of her medications as listed. The patient has no hypoxia or shortness of breath. She has no back pain or side pain. She has no abdominal pain. No nausea or vomiting. She denies fever, chills, sweats, rigors. She has no syncope or near syncope. She has no dizziness or lightheadedness. She has no hemoptysis or pleuritic pain. She is unaware of any tachyarrhythmias. She has no cough or sputum production. She has no recent travel or recent illness. Allergies Allergy/AdvReac Type Severity Reaction Status Date / Time amoxicillin Allergy Intermediate HIVES Verified 05/14/18 12:18 clavulanic acid Allergy Unknown RASH Verified 05/14/18 12:18 Lppbksg-Fxa-Ryr Reductase Allergy Unknown Unknown rxn Verified 05/14/18 12:18 Inhibitor codeine AdvReac Mild GIVES PT A Verified 05/14/18 12:18 HEADACHE morphine AdvReac Unknown HEADACHE Verified 05/14/18 12:18 Home Medications Home Medications Medication Instructions Recorded Confirmed Type acetaminophen 1,000 mg PO Q6H PRN 05/14/18 05/14/18 History allopurinol 100 mg PO DAILY 05/14/18 05/14/18 History aspirin [Aspirin Low Dose] 81 mg PO DAILY 05/14/18 05/14/18 History carvedilol 25 mg PO BID 05/14/18 05/14/18 History epoetin mahin 1 dose IV DIRECTED 05/14/18 05/14/18 History ergocalciferol (vitamin D2) 50,000 unit PO WK 05/14/18 05/14/18 History insulin aspart U-100 [Novolog 0 unit SUBCUT PM 05/14/18 05/14/18 History Flexpen U-100 Insulin] insulin glargine [Lantus U-100 0 unit SUBCUT QAM 05/14/18 05/14/18 History Insulin] lanolin nvmxfxj-cv-w.pet-ceres 1 applic TOPICAL QID 05/14/18 05/14/18 History [Eucerin] levothyroxine 112 mcg PO QAM 05/14/18 05/14/18 History loperamide [Imodium A-D] 2 mg PO DIRECTED PRN 05/14/18 05/14/18 History nitroglycerin [Nitrostat] 0.4 mg SUBLINGUAL DIRECTED PRN 05/14/18 05/14/18 History omega-3 fatty acids [Fish Oil 1,000 mg PO BID 05/14/18 05/14/18 History Concentrate] sevelamer HCl 800 mg PO TID 05/14/18 05/14/18 History tramadol 50 mg PO BID 05/14/18 05/14/18 History travoprost [Travatan Z] 1 drp OPHTHALMIC (EYE) PM 05/14/18 05/14/18 History Past Med/Surg History Medical History Hypertension (Chronic) DM2 (diabetes mellitus, type 2) (Chronic) HTN (hypertension) (Chronic) Hyperparathyroidism (Chronic) Hypothyroid (Chronic) Atrial fibrillation, chronic Hemodialysis access site with arteriovenous graft Family History Other Family history non-contributory Social History Preferred Language: [place] Beliefs That Will Affect Care: None Current Living Situation: Alone Other Information That Helps Us Care for You: No Feels Safe at Home: Yes Safety Concerns: Feels Safe At This Time Smoking Status: Never smoker Hx Alcohol Use: No Hx Substance Use: No Immunizations: Patient received her pneumonia vaccination Patient reports receiving her influenza vaccination annually Review of Systems All systems reviewed & are unremarkable except as noted in HPI & below Physical Exam Vital Signs (Past 24 Hours): Last Vital Signs Temp 36.5 C 05/14/18 10:00 Pulse 83 05/14/18 13:40 Resp 18 05/14/18 13:40 BP 181/93 H 05/14/18 13:31 Pulse Ox 99 05/14/18 13:40 Physical Exam: GENERAL : No acute distress EYES: No icterus, gaze conjugate. Pupils equal round and reactive to light NOSE: No evidence of epistaxis MOUTH: No lesions or candidiasis. 2 upper teeth and one lower tooth present no other teeth or dentures or bridges. Bottom tooth is broken. Patient denies pain NECK: Supple CHEST: Reproducible chest pain on the left side in the fourth rib space midline between the midclavicular line in the axillary line. This is also where the patient has pain when she moves. No trauma or ecchymosis appreciated. LUNGS: CTA B/L, no wheezes, rales or rhonchi HEART: Regular, rate controlled. Telemetry currently with normal sinus rhythm ABDOMEN: Soft, NT, ND, BS Present EXTREMITIES: Matured AV fistula in left forearm. Good bruit and pulse. No LE edema, pedal pulses intact. Chronic venous stasis bilateral lower extremities. Good sensation bilateral lower extremities. No other focal deficits NEURO: A&OX3 Results & Data Laboratory Results Abnormal lab results 05/14/18 05/14/18 Range/Units 09:25 09:25 RBC 3.16 L (4.2-5.4) M/uL Hgb 10.4 L (12.0-16.0) g/dL Hct 32.8 L (37-47) % MCV 103.8 H (80-100) fL MCHC 31.7 L (32-36) g/dL RDW Std Deviation 64.3 H (36.4-46.3) fL RDW Coeff of Katerina 16.9 H (11.5-14.5) % Immature Gran # (Auto) 0.03 H (0.00-0.02) K/uL [place] # (Auto) 1.08 H (0.11-0.59) K/uL Sodium 134 L (136-145) mmol/L BUN 41 H (7-18) mg/dl Creatinine 4.10 H (0.6-1.2) mg/dl Calcium 8.3 L (8.5-10.1) mg/dl Alkaline Phosphatase 866 H (45-117) U/L Albumin 2.2 L (3.4-5.0) gm/dl Globulin 5.5 H (2.5-4.0) gm/dl Albumin/Globulin Ratio 0.4 L (0.9-2) Diagnostic Findings XR chest 1V portable CLINICAL HISTORY: Atypical chest pain COMPARISON STUDY: 02/24/2016 FINDINGS: The heart is the upper limits of normal in size. There are aortic calcifications present. There is no overt failure. There is no lobar consolidation. There are no significant pleural effusions. There is mild interstitial thickening at the lung bases, improved compared the prior study.[ There is a proximal left humeral deformity which is felt to be old. IMPRESSION: Mild basilar interstitial thickening. No acute findings. Electronically signed by: Jake Brown M.D. 05/14/2018 10:58 AM ECG Indication: chest pain Rhythm: sinus rhythm Findings: no ST elevation Code Status & VTE Plan Code Status Level 5; DNR/DNI. Patient states that she does not wish heroics in the event of cardiac arrest. In the event that she would develop respiratory failure secondary to pneumonia or a reversible cause, she may consider endotracheal intubation with mechanical ventilation but wants us to discuss that with her and her daughter at the time of the event. Critical Care Time Critical Care Time: No Supervising Physician Co-Signing Physician Notes Pt was seen and examined . Agreed with Carlos LANG exam, assessment and plan. 82-year-old female with a past medical history of end-stage renal disease on HD on MWF, diabetes mellitus type 2, paroxysmal atrial fib, hyperparathyroidism with resection, hypothyroidism, hyperkalemia, hypertension, present to the ER with reproducible chest pain associated with tachypalpitation. EKG on admission showed atrial fibrillation/flutter with a rapid ventricular response. Received 20 mg of IV Cardizem with conversion back to sinus rhythm then shortly back to atrial fibrillation/flutter where received 5 mg of IV metoprolol that converted her back to NSR. Will check Echo, cardiology consult. Continue monitor in tele. Continue Lopressor IV prn for HR above 120. MD Katie
--- NOTE | 2018-05-14 15:54 | Emergency Department Note ---
Entered by Lacy Gramajo acting as a scribe for Loren Harris MD History of Present Illness General Chief complaint: Chest Pain Stated complaint: chest pain Time Seen by Provider: 05/14/18 10:40 Source: patient History of Present Illness Onset (ago): hour(s) (3.5) Location: chest Pain Consistency: + other (persistent) Maximum Pain Intensity: 6 Exacerbated By: + other (deep breaths) Associated symptoms: + other (positive racing heartbeat) Treatments prior to arrival: other (Tylenol ) The patient is a 82 year old female who presents to the Emergency Room with complaints of persistent chest pain that began around 0700, 3.5 hours prior to arrival. She states that her pain is exacerbated by deep breaths. The patient states that her heart is racing. The patient states that she has a history of Afib. She denies taking blood thinners regularly, but states that she takes baby aspirin regularly. The patient states that she took Tylenol for her pain. The patient states that she has a history of diabetes. She was ordered IV cardizem en route by my medical command but the IV access was lost [employer]. Nursing re- established the IV and admin the cardizem on arrival. Home Medications Home Medications Medication Instructions Recorded Confirmed Type acetaminophen 1,000 mg PO Q6H PRN 05/14/18 05/14/18 History allopurinol 100 mg PO DAILY 05/14/18 05/14/18 History aspirin [Aspirin Low Dose] 81 mg PO DAILY 05/14/18 05/14/18 History carvedilol 25 mg PO BID 05/14/18 05/14/18 History epoetin mahin 1 dose IV DIRECTED 05/14/18 05/14/18 History ergocalciferol (vitamin D2) 50,000 unit PO WK 05/14/18 05/14/18 History insulin aspart U-100 [Novolog 0 unit SUBCUT PM 05/14/18 05/14/18 History Flexpen U-100 Insulin] insulin glargine [Lantus U-100 0 unit SUBCUT QAM 05/14/18 05/14/18 History Insulin] lanolin tjpccuk-fv-a.pet-ceres 1 applic TOPICAL QID 05/14/18 05/14/18 History [Eucerin] levothyroxine 112 mcg PO QAM 05/14/18 05/14/18 History loperamide [Imodium A-D] 2 mg PO DIRECTED PRN 05/14/18 05/14/18 History nitroglycerin [Nitrostat] 0.4 mg SUBLINGUAL DIRECTED PRN 05/14/18 05/14/18 History omega-3 fatty acids [Fish Oil 1,000 mg PO BID 05/14/18 05/14/18 History Concentrate] sevelamer HCl 800 mg PO TID 05/14/18 05/14/18 History tramadol 50 mg PO BID 05/14/18 05/14/18 History travoprost [Travatan Z] 1 drp OPHTHALMIC (EYE) PM 05/14/18 05/14/18 History Allergies Allergy/AdvReac Type Severity Reaction Status Date / Time amoxicillin Allergy Intermediate HIVES Verified 05/14/18 12:18 clavulanic acid Allergy Unknown RASH Verified 05/14/18 12:18 Ggapvha-Dgw-Dru Reductase Allergy Unknown Unknown rxn Verified 05/14/18 12:18 Inhibitor codeine AdvReac Mild GIVES PT A Verified 05/14/18 12:18 HEADACHE morphine AdvReac Unknown HEADACHE Verified 05/14/18 12:18 Past Med/Surg History Medical History Hypertension (Chronic) DM2 (diabetes mellitus, type 2) (Chronic) HTN (hypertension) (Chronic) Hyperparathyroidism (Chronic) Hypothyroid (Chronic) Atrial fibrillation, chronic Hemodialysis access site with arteriovenous graft Family History Other Family history non-contributory Social History Preferred Language: Setswana Beliefs That Will Affect Care: None Current Living Situation: Alone Other Information That Helps Us Care for You: No Feels Safe at Home: Yes Safety Concerns: Feels Safe At This Time Smoking Status: Never smoker Hx Alcohol Use: No Hx Substance Use: No Review of Systems See HPI for pertinent positives & negatives. and A total of 10 systems reviewed and were otherwise negative Physical Exam Vital Signs Vital Signs - 24 hr 05/15/18 23:29 05/15/18 23:51 05/16/18 00:00 Temperature 36.0 C L 36.6 C Temperature Source Oral Pulse Rate Pulse Rate [Finger] 56 L 73 Pulse Rhythm [Finger] Regular Pulse Strength [Finger] Normal Respiratory Rate 18 Respiratory Effort / Characteristics Non-Labored Spontaneous Respiratory Depth Normal Respiratory Pattern Regular Blood Pressure [Right Arm] 106/63 161/70 H Blood Pressure Mean [Right Arm] 100 Blood Pressure Position [Right Arm] Lying Pulse Oximetry 99 Oxygen Delivery Method Room Air 05/16/18 04:12 05/16/18 07:28 05/16/18 07:35 Temperature 36.5 C 37.1 C Temperature Source Oral Oral Pulse Rate 76 Pulse Rate [Finger] 70 68 Pulse Rhythm [Finger] Pulse Strength [Finger] Respiratory Rate 18 14 Respiratory Effort / Characteristics Non-Labored Spontaneous Respiratory Depth Normal Respiratory Pattern Regular Blood Pressure [Right Arm] 148/66 H 149/69 H Blood Pressure Mean [Right Arm] 93 95 Blood Pressure Position [Right Arm] Sitting Pulse Oximetry 99 97 Oxygen Delivery Method Room Air Room Air Room Air 05/16/18 12:45 05/16/18 12:52 05/16/18 14:20 Temperature 36.6 C Temperature Source Oral Pulse Rate 61 Pulse Rate [Finger] 64 62 Pulse Rhythm [Finger] Regular Pulse Strength [Finger] Normal Respiratory Rate 20 Respiratory Effort / Characteristics Respiratory Depth Respiratory Pattern Blood Pressure [Right Arm] 187/76 H 157/74 H Blood Pressure Mean [Right Arm] 113 101 Blood Pressure Position [Right Arm] Sitting Lying Pulse Oximetry 96 Oxygen Delivery Method Room Air 05/16/18 15:10 05/16/18 19:17 Temperature 36.3 C L 36.6 C Temperature Source Oral Oral Pulse Rate Pulse Rate [Finger] 62 62 Pulse Rhythm [Finger] Pulse Strength [Finger] Respiratory Rate 16 16 Respiratory Effort / Characteristics Respiratory Depth Respiratory Pattern Blood Pressure [Right Arm] 197/69 H 184/70 H Blood Pressure Mean [Right Arm] 111 108 Blood Pressure Position [Right Arm] Lying Lying Pulse Oximetry 92 96 Oxygen Delivery Method Room Air Room Air Vital signs reviewed. General: Well-appearing, in no significant distress. HEENT: No scleral icterus, PERRLA, neck supple. Atraumatic. Cardiovascular: Rapid rate and irregular rhythm. Systolic ejection murmur. Pulmonary: Left basilar crackles. Normal WOB. Abdomen: Soft, nontender, nondistended, positive bowel sounds. Musculoskeletal: Atraumatic, no peripheral edema. Neurologic: Patient awake alert and oriented x 3 Skin: Warm, dry, no rash Course 1024: Past medical records reviewed. The patient was evaluated in room C4, and a complete history and physical examination were performed. 1249: I checked on the patient and updated her. 1258: I discussed the case with Carlos Messer PA-C who will further evaluate the patient. Consultations Consultation #1: I discussed the case with Carlos Messer PA-C who will further evaluate the patient. Time: 12:58 Administered Medications Acetaminophen (Tylenol) 1,000 mg PO Q6H PRN PRN Reason: Pain Stop: 06/13/18 15:54 Last Admin: 05/15/18 13:56 Dose: 1,000 mg Documented by: [id number] Admin: 05/15/18 03:03 Dose: 1,000 mg Documented by: [id number] Admin: 05/14/18 17:36 Dose: 1,000 mg Documented by: [id number] Allopurinol (Zyloprim) 100 mg PO DAILY JOSE Stop: 06/13/18 15:54 Last Admin: 05/16/18 10:03 Dose: 100 mg Documented by: [id number] Admin: 05/15/18 08:08 Dose: 100 mg Documented by: [id number] Admin: 05/14/18 17:00 Dose: 100 mg Documented by: [id number] Aspirin (Ecotrin Ectab) 81 mg PO DAILY JOSE Stop: 06/13/18 15:54 Last Admin: 05/16/18 09:04 Dose: 81 mg Documented by: [id number] Admin: 05/15/18 08:09 Dose: 81 mg Documented by: [id number] Admin: 05/14/18 17:01 Dose: 81 mg Documented by: [id number] Baclofen (Lioresal) 5 mg PO BID JOSE Stop: 06/14/18 09:59 Last Admin: 05/16/18 09:04 Dose: 5 mg Documented by: [id number] Admin: 05/15/18 23:49 Dose: 5 mg Documented by: [id number] Admin: 05/15/18 10:34 Dose: 5 mg Documented by: [id number] Fish Oil ([place]-3 (Purified Fish Oil)) 1 gm PO BID JOSE Stop: 06/13/18 20:59 Last Admin: 05/16/18 09:04 Dose: 1 gm Documented by: [id number] Admin: 05/15/18 23:48 Dose: 1 gm Documented by: [id number] Admin: 05/15/18 08:09 Dose: 1 gm Documented by: [id number] Admin: 05/14/18 21:21 Dose: 1 gm Documented by: [id number] Heparin Sodium (Porcine) (Heparin Sodium (Porcine)) 5,000 units SQ Q12 JOSE Stop: 06/13/18 20:59 Last Admin: 05/16/18 09:05 Dose: 5,000 units Documented by: [id number] Cosigned by: [id number] Admin: 05/16/18 00:00 Dose: 5,000 units Documented by: [id number] Cosigned by: [id number] Admin: 05/15/18 08:09 Dose: 5,000 units Documented by: [id number] Cosigned by: [id number] Admin: 05/14/18 21:20 Dose: 5,000 units Documented by: [id number] Cosigned by: [id number] Hydromorphone HCl (Dilaudid) 0.25 mg IV Q4H PRN PRN Reason: Pain Stop: 05/28/18 15:54 Last Admin: 05/14/18 23:43 Dose: 0.25 mg Documented by: [id number] Admin: 05/14/18 16:58 Dose: 0.25 mg Documented by: [id number] Insulin Aspart (Novolog Flexpen) 0 units SQ ACHS JOSE Stop: 06/13/18 16:29 Last Admin: 05/16/18 17:17 Dose: Not Given Documented by: [id number] Cosigned by: [id number] Admin: 05/16/18 12:17 Dose: Not Given Documented by: [id number] Cosigned by: [id number] Admin: 05/16/18 08:37 Dose: Not Given Documented by: [id number] Cosigned by: [id number] Admin: 05/15/18 23:48 Dose: Not Given Documented by: [id number] Cosigned by: [id number] Admin: 05/15/18 17:27 Dose: 4 units Documented by: [id number] Cosigned by: [id number] Admin: 05/15/18 13:14 Dose: Not Given Documented by: [id number] Cosigned by: [id number] Admin: 05/15/18 08:11 Dose: Not Given Documented by: [id number] Cosigned by: [id number] Admin: 05/14/18 21:15 Dose: Not Given Documented by: [id number] Cosigned by: [id number] Admin: 05/14/18 17:02 Dose: Not Given Documented by: [id number] Cosigned by: [id number] Insulin Glargine (Lantus Solostar Pen) 5 units SQ DAILYBD [facility] Stop: 06/13/18 16:59 Last Admin: 05/16/18 15:56 Dose: 5 units Documented by: [id number] Cosigned by: [id number] Admin: 05/15/18 17:25 Dose: 5 units Documented by: [id number] Cosigned by: [id number] Admin: 05/14/18 17:01 Dose: 5 units Documented by: [id number] Cosigned by: [id number] Labetalol HCl (Normodyne) 5 mg IV Q6H PRN PRN Reason: For SBP above 165 Stop: 06/13/18 20:23 Last Admin: 05/15/18 03:03 Dose: 5 mg Documented by: [id number] Cosigned by: [id number] Levothyroxine Sodium (Synthroid) 112 mcg PO DAILYBB [facility] Stop: 06/14/18 06:29 Last Admin: 05/16/18 07:13 Dose: 112 mcg Documented by: [id number] Admin: 05/15/18 05:21 Dose: 112 mcg Documented by: [id number] Metoprolol Succinate (Toprol Xl) 50 mg PO BID [facility] Stop: 06/14/18 13:08 Last Admin: 05/16/18 09:03 Dose: 50 mg Documented by: [id number] Admin: 05/15/18 23:48 Dose: 50 mg Documented by: [id number] Admin: 05/15/18 13:56 Dose: 50 mg Documented by: [id number] Sevelamer HCl (Renagel) 800 mg PO AC [facility] Stop: 06/13/18 16:29 Last Admin: 05/16/18 16:32 Dose: 800 mg Documented by: [id number] Admin: 05/16/18 12:15 Dose: 800 mg Documented by: [id number] Admin: 05/16/18 08:31 Dose: 800 mg Documented by: [id number] Admin: 05/15/18 17:26 Dose: 800 mg Documented by: [id number] Admin: 05/15/18 11:25 Dose: 800 mg Documented by: [id number] Admin: 05/15/18 08:08 Dose: 800 mg Documented by: [id number] Admin: 05/14/18 17:01 Dose: 800 mg Documented by: [id number] Tramadol HCl (Ultram) 50 mg PO BID [facility] Stop: 06/13/18 20:59 Last Admin: 05/16/18 09:18 Dose: 50 mg Documented by: [id number] Admin: 05/15/18 23:59 Dose: 50 mg Documented by: [id number] Admin: 05/15/18 08:11 Dose: 50 mg Documented by: [id number] Admin: 05/14/18 21:19 Dose: 50 mg Documented by: [id number] Warfarin Sodium (Coumadin) 4 mg PO DAILY@1600 [facility] Stop: 06/14/18 15:59 Last Admin: 05/16/18 16:31 Dose: 4 mg Documented by: [id number] Admin: 05/15/18 17:26 Dose: 4 mg Documented by: [id number] Discontinued Medications Acetaminophen (Tylenol) 650 mg PO NOW STA Stop: 05/14/18 12:51 Last Admin: 05/14/18 12:59 Dose: 650 mg Documented by: [id number] Carvedilol (Coreg) 25 mg PO BID [facility] Stop: 06/13/18 20:59 Last Admin: 05/15/18 08:09 Dose: 25 mg Documented by: [id number] Admin: 05/14/18 21:20 Dose: 25 mg Documented by: [id number] Diltiazem HCl (Cardizem) Confirm Administered Dose 25 mg IV .STK-MED ONE Stop: 05/14/18 10:21 Last Increment: 05/14/18 10:23 Dose: 20 mg Documented by: [id number] Cosigned by: [id number] Heparin Sodium (Porcine) (Heparin Iv Bolus) 400 units IV Q1H [facility] Stop: 05/15/18 15:46 Last Admin: 05/16/18 19:01 Dose: Not Given Documented by: [id number] Admin: 05/16/18 19:01 Dose: Not Given Documented by: [id number] Admin: 05/16/18 19:01 Dose: Not Given Documented by: [id number] Heparin Sodium (Porcine) (Heparin Iv Bolus) 1,000 units IV ONE ONE Stop: 05/15/18 13:44 Last Admin: 05/16/18 19:01 Dose: Not Given Documented by: [id number] Hydralazine HCl (Hydralazine Hcl) 10 mg IV NOW STA Stop: 05/14/18 16:44 Last Admin: 05/14/18 16:58 Dose: 10 mg Documented by: [id number] Hydralazine HCl (Hydralazine Hcl) 5 mg IV NOW ONE Stop: 05/16/18 15:39 Last Admin: 05/16/18 15:46 Dose: 5 mg Documented by: [id number] Metoprolol Tartrate (Lopressor) 5 mg IV NOW STA Stop: 05/14/18 11:13 Last Admin: 05/14/18 11:17 Dose: 5 mg Documented by: [id number] Ondansetron HCl (Zofran) Confirm Administered Dose 4 mg .ROUTE .STK-MED ONE Stop: 05/16/18 00:00 Last Admin: 05/16/18 00:08 Dose: 4 mg Documented by: [id number] Perflutren Lipid Microsphere (Definity) 2 ml IV ONCE ONE Stop: 05/15/18 06:56 Last Admin: 05/15/18 06:56 Dose: 2 ml Documented by: [id number] Medical Decision Making Differential Diagnosis DDx: Acute coronary syndrome, pulmonary embolus, aortic dissection, musculoskeletal pain, pneumonia, pleural effusion, pneumothorax, GERD, PUD Medical Records Attestation: I reviewed the patient's medical records. Home Medications Current Medication List: was personally reviewed by me Laboratory Data Attestation: I reviewed the patient's lab results. Result diagrams: 05/15/18 06:18 05/15/18 06:18 Lab Results 05/14/18 05/14/18 05/14/18 Range/Units 09:25 09:25 09:25 WBC 7.32 (4.8-10.8) K/uL RBC 3.16 L (4.2-5.4) M/uL Hgb 10.4 L (12.0-16.0) g/dL Hct 32.8 L (37-47) % MCV 103.8 H (80-100) fL MCH 32.9 (25-34) pg MCHC 31.7 L (32-36) g/dL RDW Std Deviation 64.3 H (36.4-46.3) fL RDW Coeff of Katerina 16.9 H (11.5-14.5) % Plt Count 310 (130-400) K/uL MPV 10.0 (7.4-10.4) fL Immature Gran % (Auto) 0.4 % Neut % (Auto) 48.5 % Lymph % (Auto) 35.2 % [place] % (Auto) 14.8 % Eos % (Auto) 1.0 % Baso % (Auto) 0.1 % Immature Gran # (Auto) 0.03 H (0.00-0.02) K/uL Neut # (Auto) 3.55 (1.4-6.5) K/uL Lymph # (Auto) 2.58 (1.2-3.4) K/uL [place] # (Auto) 1.08 H (0.11-0.59) K/uL Eos # (Auto) 0.07 (0-0.5) K/uL Baso # (Auto) 0.01 (0-0.2) K/uL PT 10.2 (9.0-12.0) Seconds INR 1.0 (0.9-1.1) Sodium 134 L (136-145) mmol/L Potassium 4.3 (3.5-5.1) mmol/L Chloride 100 (98-107) mmol/L Carbon Dioxide 24 (21-32) mmol/L Anion Gap 10.0 (3-11) BUN 41 H (7-18) mg/dl Creatinine 4.10 H (0.6-1.2) mg/dl Est Cr Clr Drug Dosing 10.6 ml/min Est GFR ( Amer) 11.2 Est GFR (Non-Af Amer) 9.7 BUN/Creatinine Ratio 10.1 (10-20) Glucose 78 (70-99) mg/dl POC Glucose (70-99) Estimat Average Glucose mg/dl Hemoglobin A1c (4.5-5.6) % Calcium 8.3 L (8.5-10.1) mg/dl Phosphorus 4.3 (2.5-4.9) mg/dl Magnesium 2.3 (1.8-2.4) mg/dl Total Bilirubin 0.5 (0.2-1) mg/dl AST 30 (15-37) U/L ALT 24 (12-78) U/L Alkaline Phosphatase 866 H (45-117) U/L Troponin I < 0.015 (0-0.045) ng/ml Total Protein 7.7 (6.4-8.2) gm/dl Albumin 2.2 L (3.4-5.0) gm/dl Globulin 5.5 H (2.5-4.0) gm/dl Albumin/Globulin Ratio 0.4 L (0.9-2) Lipase 95 (73-393) U/L TSH (0.300-4.500) uIu/ml Nasal Screen MRSA (PCR) (Negative) 05/14/18 05/14/18 05/14/18 Range/Units 16:29 20:28 21:52 WBC (4.8-10.8) K/uL RBC (4.2-5.4) M/uL Hgb (12.0-16.0) g/dL Hct (37-47) % MCV (80-100) fL MCH (25-34) pg MCHC (32-36) g/dL RDW Std Deviation (36.4-46.3) fL RDW Coeff of Katerina (11.5-14.5) % Plt Count (130-400) K/uL MPV (7.4-10.4) fL Immature Gran % (Auto) % Neut % (Auto) % Lymph % (Auto) % [place] % (Auto) % Eos % (Auto) % Baso % (Auto) % Immature Gran # (Auto) (0.00-0.02) K/uL Neut # (Auto) (1.4-6.5) K/uL Lymph # (Auto) (1.2-3.4) K/uL [place] # (Auto) (0.11-0.59) K/uL Eos # (Auto) (0-0.5) K/uL Baso # (Auto) (0-0.2) K/uL PT (9.0-12.0) Seconds INR (0.9-1.1) Sodium (136-145) mmol/L Potassium (3.5-5.1) mmol/L Chloride (98-107) mmol/L Carbon Dioxide (21-32) mmol/L Anion Gap (3-11) BUN (7-18) mg/dl Creatinine (0.6-1.2) mg/dl Est Cr Clr Drug Dosing ml/min Est GFR ( Amer) Est GFR (Non-Af Amer) BUN/Creatinine Ratio (10-20) Glucose (70-99) mg/dl POC Glucose 89 104 H (70-99) Estimat Average Glucose mg/dl Hemoglobin A1c (4.5-5.6) % Calcium (8.5-10.1) mg/dl Phosphorus (2.5-4.9) mg/dl Magnesium (1.8-2.4) mg/dl Total Bilirubin (0.2-1) mg/dl AST (15-37) U/L ALT (12-78) U/L Alkaline Phosphatase (45-117) U/L Troponin I < 0.015 (0-0.045) ng/ml Total Protein (6.4-8.2) gm/dl Albumin (3.4-5.0) gm/dl Globulin (2.5-4.0) gm/dl Albumin/Globulin Ratio (0.9-2) Lipase (73-393) U/L TSH (0.300-4.500) uIu/ml Nasal Screen MRSA (PCR) (Negative) 05/14/18 05/15/18 05/15/18 Range/Units Unknown 06:18 06:18 WBC 5.40 (4.8-10.8) K/uL RBC 3.24 L (4.2-5.4) M/uL Hgb 10.7 L (12.0-16.0) g/dL Hct 33.5 L (37-47) % MCV 103.4 H (80-100) fL MCH 33.0 (25-34) pg MCHC 31.9 L (32-36) g/dL RDW Std Deviation 63.7 H (36.4-46.3) fL RDW Coeff of Katerina 17.0 H (11.5-14.5) % Plt Count 313 (130-400) K/uL MPV 9.8 (7.4-10.4) fL Immature Gran % (Auto) 0.4 % Neut % (Auto) 44.8 % Lymph % (Auto) 46.1 % [place] % (Auto) 7.2 % Eos % (Auto) 1.1 % Baso % (Auto) 0.4 % Immature Gran # (Auto) 0.02 (0.00-0.02) K/uL Neut # (Auto) 2.42 (1.4-6.5) K/uL Lymph # (Auto) 2.49 (1.2-3.4) K/uL [place] # (Auto) 0.39 (0.11-0.59) K/uL Eos # (Auto) 0.06 (0-0.5) K/uL Baso # (Auto) 0.02 (0-0.2) K/uL PT (9.0-12.0) Seconds INR (0.9-1.1) Sodium 137 (136-145) mmol/L Potassium 4.7 (3.5-5.1) mmol/L Chloride 103 (98-107) mmol/L Carbon Dioxide 24 (21-32) mmol/L Anion Gap 10.0 (3-11) BUN 54 H (7-18) mg/dl Creatinine 4.88 H* D (0.6-1.2) mg/dl Est Cr Clr Drug Dosing 8.7 ml/min Est GFR ( Amer) 9.1 Est GFR (Non-Af Amer) 7.8 BUN/Creatinine Ratio 11.1 (10-20) Glucose 93 (70-99) mg/dl POC Glucose (70-99) Estimat Average Glucose mg/dl Hemoglobin A1c (4.5-5.6) % Calcium 8.2 L (8.5-10.1) mg/dl Phosphorus (2.5-4.9) mg/dl Magnesium (1.8-2.4) mg/dl Total Bilirubin (0.2-1) mg/dl AST (15-37) U/L ALT (12-78) U/L Alkaline Phosphatase (45-117) U/L Troponin I (0-0.045) ng/ml Total Protein (6.4-8.2) gm/dl Albumin (3.4-5.0) gm/dl Globulin (2.5-4.0) gm/dl Albumin/Globulin Ratio (0.9-2) Lipase (73-393) U/L TSH 3.900 (0.300-4.500) uIu/ml Nasal Screen MRSA (PCR) Negative (Negative) 05/15/18 05/15/18 05/15/18 Range/Units 06:18 06:18 07:19 WBC (4.8-10.8) K/uL RBC (4.2-5.4) M/uL Hgb (12.0-16.0) g/dL Hct (37-47) % MCV (80-100) fL MCH (25-34) pg MCHC (32-36) g/dL RDW Std Deviation (36.4-46.3) fL RDW Coeff of Katerina (11.5-14.5) % Plt Count (130-400) K/uL MPV (7.4-10.4) fL Immature Gran % (Auto) % Neut % (Auto) % Lymph % (Auto) % [place] % (Auto) % Eos % (Auto) % Baso % (Auto) % Immature Gran # (Auto) (0.00-0.02) K/uL Neut # (Auto) (1.4-6.5) K/uL Lymph # (Auto) (1.2-3.4) K/uL [place] # (Auto) (0.11-0.59) K/uL Eos # (Auto) (0-0.5) K/uL Baso # (Auto) (0-0.2) K/uL PT (9.0-12.0) Seconds INR (0.9-1.1) Sodium (136-145) mmol/L Potassium (3.5-5.1) mmol/L Chloride (98-107) mmol/L Carbon Dioxide (21-32) mmol/L Anion Gap (3-11) BUN (7-18) mg/dl Creatinine (0.6-1.2) mg/dl Est Cr Clr Drug Dosing ml/min Est GFR ( Amer) Est GFR (Non-Af Amer) BUN/Creatinine Ratio (10-20) Glucose (70-99) mg/dl POC Glucose 85 (70-99) Estimat Average Glucose 120 mg/dl Hemoglobin A1c 5.8 H (4.5-5.6) % Calcium (8.5-10.1) mg/dl Phosphorus (2.5-4.9) mg/dl Magnesium (1.8-2.4) mg/dl Total Bilirubin (0.2-1) mg/dl AST (15-37) U/L ALT (12-78) U/L Alkaline Phosphatase (45-117) U/L Troponin I < 0.015 (0-0.045) ng/ml Total Protein (6.4-8.2) gm/dl Albumin (3.4-5.0) gm/dl Globulin (2.5-4.0) gm/dl Albumin/Globulin Ratio (0.9-2) Lipase (73-393) U/L TSH (0.300-4.500) uIu/ml Nasal Screen MRSA (PCR) (Negative) 05/15/18 05/15/18 05/15/18 Range/Units 11:16 16:11 22:48 WBC (4.8-10.8) K/uL RBC (4.2-5.4) M/uL Hgb (12.0-16.0) g/dL Hct (37-47) % MCV (80-100) fL MCH (25-34) pg MCHC (32-36) g/dL RDW Std Deviation (36.4-46.3) fL RDW Coeff of Katerina (11.5-14.5) % Plt Count (130-400) K/uL MPV (7.4-10.4) fL Immature Gran % (Auto) % Neut % (Auto) % Lymph % (Auto) % [place] % (Auto) % Eos % (Auto) % Baso % (Auto) % Immature Gran # (Auto) (0.00-0.02) K/uL Neut # (Auto) (1.4-6.5) K/uL Lymph # (Auto) (1.2-3.4) K/uL [place] # (Auto) (0.11-0.59) K/uL Eos # (Auto) (0-0.5) K/uL Baso # (Auto) (0-0.2) K/uL PT (9.0-12.0) Seconds INR (0.9-1.1) Sodium (136-145) mmol/L Potassium (3.5-5.1) mmol/L Chloride (98-107) mmol/L Carbon Dioxide (21-32) mmol/L Anion Gap (3-11) BUN (7-18) mg/dl Creatinine (0.6-1.2) mg/dl Est Cr Clr Drug Dosing ml/min Est GFR ( Amer) Est GFR (Non-Af Amer) BUN/Creatinine Ratio (10-20) Glucose (70-99) mg/dl POC Glucose 107 H 133 H 117 H (70-99) Estimat Average Glucose mg/dl Hemoglobin A1c (4.5-5.6) % Calcium (8.5-10.1) mg/dl Phosphorus (2.5-4.9) mg/dl Magnesium (1.8-2.4) mg/dl Total Bilirubin (0.2-1) mg/dl AST (15-37) U/L ALT (12-78) U/L Alkaline Phosphatase (45-117) U/L Troponin I (0-0.045) ng/ml Total Protein (6.4-8.2) gm/dl Albumin (3.4-5.0) gm/dl Globulin (2.5-4.0) gm/dl Albumin/Globulin Ratio (0.9-2) Lipase (73-393) U/L TSH (0.300-4.500) uIu/ml Nasal Screen MRSA (PCR) (Negative) 05/16/18 05/16/18 05/16/18 Range/Units 07:13 07:18 11:13 WBC (4.8-10.8) K/uL RBC (4.2-5.4) M/uL Hgb (12.0-16.0) g/dL Hct (37-47) % MCV (80-100) fL MCH (25-34) pg MCHC (32-36) g/dL RDW Std Deviation (36.4-46.3) fL RDW Coeff of Katerina (11.5-14.5) % Plt Count (130-400) K/uL MPV (7.4-10.4) fL Immature Gran % (Auto) % Neut % (Auto) % Lymph % (Auto) % [place] % (Auto) % Eos % (Auto) % Baso % (Auto) % Immature Gran # (Auto) (0.00-0.02) K/uL Neut # (Auto) (1.4-6.5) K/uL Lymph # (Auto) (1.2-3.4) K/uL [place] # (Auto) (0.11-0.59) K/uL Eos # (Auto) (0-0.5) K/uL Baso # (Auto) (0-0.2) K/uL PT 10.9 (9.0-12.0) Seconds INR 1.1 (0.9-1.1) Sodium (136-145) mmol/L Potassium (3.5-5.1) mmol/L Chloride (98-107) mmol/L Carbon Dioxide (21-32) mmol/L Anion Gap (3-11) BUN (7-18) mg/dl Creatinine (0.6-1.2) mg/dl Est Cr Clr Drug Dosing ml/min Est GFR ( Amer) Est GFR (Non-Af Amer) BUN/Creatinine Ratio (10-20) Glucose (70-99) mg/dl POC Glucose 70 107 H (70-99) Estimat Average Glucose mg/dl Hemoglobin A1c (4.5-5.6) % Calcium (8.5-10.1) mg/dl Phosphorus (2.5-4.9) mg/dl Magnesium (1.8-2.4) mg/dl Total Bilirubin (0.2-1) mg/dl AST (15-37) U/L ALT (12-78) U/L Alkaline Phosphatase (45-117) U/L Troponin I (0-0.045) ng/ml Total Protein (6.4-8.2) gm/dl Albumin (3.4-5.0) gm/dl Globulin (2.5-4.0) gm/dl Albumin/Globulin Ratio (0.9-2) Lipase (73-393) U/L TSH (0.300-4.500) uIu/ml Nasal Screen MRSA (PCR) (Negative) 05/16/18 Range/Units 15:53 WBC (4.8-10.8) K/uL RBC (4.2-5.4) M/uL Hgb (12.0-16.0) g/dL Hct (37-47) % MCV (80-100) fL MCH (25-34) pg MCHC (32-36) g/dL RDW Std Deviation (36.4-46.3) fL RDW Coeff of Katerina (11.5-14.5) % Plt Count (130-400) K/uL MPV (7.4-10.4) fL Immature Gran % (Auto) % Neut % (Auto) % Lymph % (Auto) % [place] % (Auto) % Eos % (Auto) % Baso % (Auto) % Immature Gran # (Auto) (0.00-0.02) K/uL Neut # (Auto) (1.4-6.5) K/uL Lymph # (Auto) (1.2-3.4) K/uL [place] # (Auto) (0.11-0.59) K/uL Eos # (Auto) (0-0.5) K/uL Baso # (Auto) (0-0.2) K/uL PT (9.0-12.0) Seconds INR (0.9-1.1) Sodium (136-145) mmol/L Potassium (3.5-5.1) mmol/L Chloride (98-107) mmol/L Carbon Dioxide (21-32) mmol/L Anion Gap (3-11) BUN (7-18) mg/dl Creatinine (0.6-1.2) mg/dl Est Cr Clr Drug Dosing ml/min Est GFR ( Amer) Est GFR (Non-Af Amer) BUN/Creatinine Ratio (10-20) Glucose (70-99) mg/dl POC Glucose 84 (70-99) Estimat Average Glucose mg/dl Hemoglobin A1c (4.5-5.6) % Calcium (8.5-10.1) mg/dl Phosphorus (2.5-4.9) mg/dl Magnesium (1.8-2.4) mg/dl Total Bilirubin (0.2-1) mg/dl AST (15-37) U/L ALT (12-78) U/L Alkaline Phosphatase (45-117) U/L Troponin I (0-0.045) ng/ml Total Protein (6.4-8.2) gm/dl Albumin (3.4-5.0) gm/dl Globulin (2.5-4.0) gm/dl Albumin/Globulin Ratio (0.9-2) Lipase (73-393) U/L TSH (0.300-4.500) uIu/ml Nasal Screen MRSA (PCR) (Negative) Imaging Data Radiologist's Impression: Radiology results as stated below per my review and the radiologist's interpretation: XR chest 1V portable CLINICAL HISTORY: Atypical chest pain COMPARISON STUDY: 02/24/2016 FINDINGS: The heart is the upper limits of normal in size. There are aortic calcifications present. There is no overt failure. There is no lobar consolidation. There are no significant pleural effusions. There is mild interstitial thickening at the lung bases, improved compared the prior study.[ There is a proximal left humeral deformity which is felt to be old. IMPRESSION: Mild basilar interstitial thickening. No acute findings. Electronically signed by: Jake Brown M.D. 05/14/2018 10:58 AM ECG Data Attestation: I personally reviewed and interpreted this ECG as follows: Indication: chest pain Rate (beats per minute): 142 Rhythm: atrial fibrillation (rapid) Findings: + other (previous inferior and anterior infarcts; QTC 483) and + PVC Blood Pressure Blood Pressure Findings: Elevated blood pressure Blood Pressure Disposition: further management by hospitalist MDM Narrative THis pt was evaluated and appeared to be in no distress. She is found to be in a rapid atrial fib, given 20 mg of IV cardizem with good result initially. CXR reveals no acute findings. Lab work is reassuring. Pt flipped back into a rapid atrial fib and was then given 5 mg IV metoprolol. This did help tremendously with rate control. EKG reveals no acute ischemia. Pt was d/w the hospitalist service for further management. She is aware of the plan and agrees. Impression & Plan Atrial fibrillation with rapid ventricular response Discharge Plan Visit Data *Final* Discharge Date/Time: 05/14/18 15:22 Chief Complaint: Chest Pain Stated Complaint: chest pain ED Provider: Loren Harris Discharge Problem: Atrial fibrillation with rapid ventricular response Patient Disposition: Admitted As Inpatient Discharge Instructions Interventions: ED Discharge Assessment Last Done: 05/14/18 15:22 The scribe's documentation has been prepared under my direction and personally reviewed by me in its entirety. I confirm that the note above accurately reflects all work, treatment, procedures, and medical decision making performed by me.
[2018-05-14] MEDS ORDERED: METOPROLOL TARTRATE 1 MG/ML VIAL IV PRN (15:55)
[2018-05-14] MEDS ORDERED: NITROGLYCERIN SL 0.4 MG/TAB TAB SL PRN ×2 (15:55)
[2018-05-14] MEDS ORDERED: HydrALAZINE HCL 20 MG/ML VIAL IV STA (16:43)
[2018-05-14 16:50] LABS: Prothrombin Time 10.2 Seconds (9.0-12.0)
[2018-05-14] MEDS: HYDROmorphone INJ 0.5 MG/0.5 ML SYR IV PRN ×2 (16:58→23:43)
[2018-05-14] MEDS: ALLOPURINOL 100 MG TAB PO SCH (17:00)
[2018-05-14] MEDS: SEVELAMER HCL 800 MG TABLET PO SCH (17:01)
[2018-05-14] MEDS: INSULIN GLARGINE SOLOSTAR 100 UNITS/ML 3 ML PEN SQ SCH (17:01)
[2018-05-14] MEDS: ASPIRIN 81 MG ECTAB PO SCH (17:01)
[2018-05-14] MEDS: INSULIN ASPART 100 UNITS/ML 3 ML PEN SQ SCH ×2 (17:02→21:15)
[2018-05-14] MEDS: ACETAMINOPHEN 500 MG TAB PO PRN (17:36)
[2018-05-14] MEDS: TRAMADOL HCL 50 MG TABLET PO SCH (21:19)
[2018-05-14] MEDS: CARVEDILOL 25 MG TAB PO SCH (21:20)
[2018-05-14] MEDS: HEPARIN SOD 5,000 UNIT/0.5 ML VIAL SQ SCH (21:20)
[2018-05-14] MEDS: TRAVOPROST Z 0.004% OPH SOLN 2.5 ML BTL OP SCH (21:21)
[2018-05-14] MEDS: OMEGA-3 (PURIFIED FISH OIL) 1 GM CAP PO SCH (21:21)
[2018-05-15] MEDS: LABETALOL HCL IV 5 MG/ML 20ML IV PRN (03:03)
[2018-05-15] MEDS: ACETAMINOPHEN 500 MG TAB PO PRN ×2 (03:03→13:56)
[2018-05-15] MEDS: LEVOTHYROXINE SODIUM 112 MCG TABLET PO SCH (05:21)
[2018-05-15 06:34] LABS: Basophils # (auto) 0.02 K/uL (0-0.2); Basophils % (auto) 0.4 %; Eosinophils # (auto) 0.06 K/uL (0-0.5); Eosinophils % (auto) 1.1 %; Hematocrit (blood only) 33.5 % (37-47); Hemoglobin 10.7 g/dL (12.0-16.0); Immature Granulocytes # (auto) 0.02 K/uL (0.00-0.02); Immature Granulocytes % (auto) 0.4 %; Lymphocytes # (auto) 2.49 K/uL (1.2-3.4); Lymphocytes % (auto) 46.1 %; Mean Corpuscular Hgb Conc 31.9 g/dL (32-36); Mean Corpuscular Volume 103.4 fL (80-100); Mean Platelet Volume 9.8 fL (7.4-10.4); Monocytes # (auto) 0.39 K/uL (0.11-0.59); Monocytes % (auto) 7.2 %; Neutrophils # (auto) 2.42 K/uL (1.4-6.5); Neutrophils % (auto) 44.8 %; Platelet Count 313 K/uL (130-400); RDW Standard Deviation 63.7 fL (36.4-46.3); Red Blood Count 3.24 M/uL (4.2-5.4)
[2018-05-15] MEDS ORDERED: PERFLUTREN LIPID MICROSPHERE (DEFINITY) IV ONE (06:55)
[2018-05-15 07:16] LABS: BUN Creatinine Ratio 11.1 (10-20); Calcium 8.2 mg/dl (8.5-10.1); Creatinine Clr Calc Pharmacy 8.7 ml/min; Est GFR (African American) 9.1; Est GFR (Non-African American) 7.8; Potassium 4.7 mmol/L (3.5-5.1)
[2018-05-15] MEDS: SEVELAMER HCL 800 MG TABLET PO SCH ×3 (08:08→17:26)
[2018-05-15] MEDS: ALLOPURINOL 100 MG TAB PO SCH (08:08)
[2018-05-15] MEDS: CARVEDILOL 25 MG TAB PO SCH (08:09)
[2018-05-15] MEDS: OMEGA-3 (PURIFIED FISH OIL) 1 GM CAP PO SCH ×2 (08:09→23:48)
[2018-05-15] MEDS: ASPIRIN 81 MG ECTAB PO SCH (08:09)
[2018-05-15] MEDS: HEPARIN SOD 5,000 UNIT/0.5 ML VIAL SQ SCH (08:09)
[2018-05-15] MEDS: INSULIN ASPART 100 UNITS/ML 3 ML PEN SQ SCH ×4 (08:11→23:48)
[2018-05-15] MEDS: TRAMADOL HCL 50 MG TABLET PO SCH ×2 (08:11→23:59)
[2018-05-15 09:52] LABS: Estimated Average Glucose 120 mg/dl; Hemoglobin A1C 5.8 % (4.5-5.6)
--- NOTE | 2018-05-15 10:30 | Cardiology Consultation ---
Date of Consultation May 15, 2018 Assessment & Plan (1) Atrial flutter: Symptomatic paroxysmal atrial fibrillation/flutter with rapid ventricular response status post spontaneous conversion as detailed above. [id number] Score is 7 points Start with changing carvedilol to metoprolol succinate, hopefully providing additional rhythm control as well as aiding symptomatic hypotensive spells during hemodialysis Elevated alk phos. Chart history of autoimmune liver disease . ? candidate for amiodarone therapy and anticoagulation. Consult [facility] (2) Chest pain: Reproducible left lateral chest pain Chest discomfort in association with a symptomatic paroxysmal atrial flutter. EKG is without acute changes. Troponin negative x3. Resting echocardiography with normal systolic function, without wall motion abnormalities Recommend conservative medical management. (3) End stage renal disease on dialysis due to type 2 diabetes mellitus: Hemodialysis is under the direction of Dr. Maxwell Recommend consideration for Nephrology consultation, inpatient hemodialysis (4) HTN (hypertension): See above Supervising Physician Co-Signing Physician Notes Pt seen and examined, agree with findings and assessment as per Talha Anderson PA-C. Paroxysmal atrial flutter with rvr. Hepatic history is concerning from cardiac standpoint given hepatic clearance of meds appreciate our GI colleagues input. Cont metoprolol and will start warfarin with close monitoring of INR. History of Present Illness Reason for Consultation: Chest pain. Atrial fibrillation Requesting Physician: Mr. aLra PA-C Attending Physician: Rafaela Wilson MD History of Present Illness Ms. Marinelli is an 82-year-old female who presented to [facility] ER on May 14, 2018 with complaints of chest discomfort upon awakening at 7:15 in the morning. Patient describes experiencing left sided chest pain that was reproducible with palpation of the chest, some pleuritic chest discomfort, and tachypalpitations. EKG on presentation is poor technical quality, revealing atrial fibrillation/flutter with a rapid ventricular response. Ventricular rate was 142 bpm. Possible old septal infarct. Possible old inferior infarct. QTC was 483 ms. She was given 20 mg of IV Cardizem with conversion back to sinus rhythm however shortly thereafter she reverted back to atrial fibrillation/flutter. She then received 5 mg of IV metoprolol, again with return to sinus rhythm and notably with improvement in complaints of palpitations and substernal pleuritic type pain. Serial troponins have been negative. EKG this morning reveals normal sinus rhythm at 67 bpm with sinus arrhythmia, left axis deviation, possible old inferior and anterior infarcts. QTC is 469 ms. Continuous telemetry monitoring reveals that the patient is currently in sinus rhythm in the 70s. 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 There are possible short episodes of SVT noted as well. No significant bradycardia observed on continuous telemetry monitoring. Resting echocardiography performed earlier this morning revealed normal LV chamber size with mild concentric LVH, sigmoid appearing septum. Left ventricular systolic function was normal, EF 60-65%. No segmental left ventricular wall motion abnormalities noted. Grade 1 diastolic dysfunction observed. Moderate aortic valve sclerosis noted, without significant stenosis. Moderate mitral annular calcification is noted as well. Past Medical and Surgical History: End-stage renal disease requiring hemodialysis on Mondays, Wednesdays, and Fridays under the direction of Dr. Maxwell, at [facility] [place]. 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 Specifics are unknown. Father in his 70s of bladder cancer. She has 1 brother who is alive at the age of 78 or 79, without cardiac issues. Social History: Non-smoker. No smokeless tobacco use. No alcohol. No illegal drug use. Lives alone, [facility] in [place]. . One daughter in [place]. Retired, previously working for [employer] x 43 years. Complete Review of Systems: Syncopal episode in February 2018, attributed to hypotension. Diffuse arthralgias. Intermittent nausea. No recent falls, last approximately 2 years ago. Complete review of systems is otherwise as stated above, negative, noncontributory. Allergies Allergy/AdvReac Type Severity Reaction Status Date / Time amoxicillin Allergy Intermediate HIVES Verified 05/14/18 12:18 clavulanic acid Allergy Unknown RASH Verified 05/14/18 12:18 [id number] Reductase Allergy Unknown Unknown rxn Verified 05/14/18 12:18 Inhibitor codeine AdvReac Mild GIVES PT A Verified 05/14/18 12:18 HEADACHE morphine AdvReac Unknown HEADACHE Verified 05/14/18 12:18 Home Medications Home Medications Medication Instructions Recorded Confirmed Type acetaminophen 1,000 mg PO Q6H PRN 05/14/18 05/14/18 History allopurinol 100 mg PO DAILY 05/14/18 05/14/18 History aspirin [Aspirin Low Dose] 81 mg PO DAILY 05/14/18 05/14/18 History carvedilol 25 mg PO BID 05/14/18 05/14/18 History epoetin mahin 1 dose IV DIRECTED 05/14/18 05/14/18 History ergocalciferol (vitamin D2) 50,000 unit PO WK 05/14/18 05/14/18 History insulin aspart U-100 [Novolog 0 unit SUBCUT PM 05/14/18 05/14/18 History Flexpen U-100 Insulin] insulin glargine [Lantus U-100 0 unit SUBCUT QAM 05/14/18 05/14/18 History Insulin] lanolin [id number] 1 applic TOPICAL QID 05/14/18 05/14/18 History [Eucerin] levothyroxine 112 mcg PO QAM 05/14/18 05/14/18 History loperamide [Imodium A-D] 2 mg PO DIRECTED PRN 05/14/18 05/14/18 History nitroglycerin [Nitrostat] 0.4 mg SUBLINGUAL DIRECTED PRN 05/14/18 05/14/18 History omega-3 fatty acids [Fish Oil 1,000 mg PO BID 05/14/18 05/14/18 History Concentrate] sevelamer HCl 800 mg PO TID 05/14/18 05/14/18 History tramadol 50 mg PO BID 05/14/18 05/14/18 History travoprost [Travatan Z] 1 drp OPHTHALMIC (EYE) PM 05/14/18 05/14/18 History Patient History Medical History Hypertension (Chronic) DM2 (diabetes mellitus, type 2) (Chronic) HTN (hypertension) (Chronic) Hyperparathyroidism (Chronic) Hypothyroid (Chronic) Atrial fibrillation, chronic Hemodialysis access site with arteriovenous graft Family History Other Family history non-contributory Social History Preferred Language: Estonian Beliefs That Will Affect Care: None Current Living Situation: Alone Other Information That Helps Us Care for You: No Feels Safe at Home: Yes Safety Concerns: Feels Safe At This Time Smoking Status: Never smoker Hx Alcohol Use: No Hx Substance Use: No Physical Exam Vital Signs (Past 24 Hours): Last Vital Signs Temp 36.3 C L 05/15/18 07:39 Pulse 73 05/15/18 07:39 Resp 19 05/15/18 07:39 BP 170/60 H 05/15/18 07:39 Pulse Ox 98 05/15/18 07:39 Physical Exam: General: A&Ox3. NAD. HEENT: Normocephalic. Atraumatic. PER. Conjunctiva pink, sclera clear. Neck: Transmitted systolic murmur to the base of the carotids. Bilateral carotid bruits. No JVD. Heart: RRR, 70 bpm. Grade II/ systolic ejection murmur. Normal S1 and S2. No diastolic murmur. No rub. PMI is nondisplaced. Lungs: Diminished but clear to auscultation. Abdomen: +BS. Soft. Nontender. No masses or organomegaly. Extremities: Lymphedematous changes. Stasis changes. Decreased peripheral pulses. Left upper extremity AV fistula. Limited neurological examination is without focal deficits. Results & Data Laboratory Results Laboratory Results - last 24 hr 05/14/18 05/14/18 05/14/18 09:25 09:25 09:25 WBC 7.32 RBC 3.16 L Hgb 10.4 L Hct 32.8 L MCV 103.8 H MCH 32.9 MCHC 31.7 L RDW Std Deviation 64.3 H RDW Coeff of Katerina 16.9 H Plt Count 310 MPV 10.0 Immature Gran % (Auto) 0.4 Neut % (Auto) 48.5 Lymph % (Auto) 35.2 [place] % (Auto) 14.8 Eos % (Auto) 1.0 Baso % (Auto) 0.1 Immature Gran # (Auto) 0.03 H Neut # (Auto) 3.55 Lymph # (Auto) 2.58 Erath # (Auto) 1.08 H Eos # (Auto) 0.07 Baso # (Auto) 0.01 PT 10.2 INR 1.0 Sodium 134 L Potassium 4.3 Chloride 100 Carbon Dioxide 24 Anion Gap 10.0 BUN 41 H Creatinine 4.10 H Est Cr Clr Drug Dosing 10.6 Est GFR ( Amer) 11.2 Est GFR (Non-Af Amer) 9.7 BUN/Creatinine Ratio 10.1 Glucose 78 POC Glucose Estimat Average Glucose Hemoglobin A1c Calcium 8.3 L Phosphorus 4.3 Magnesium 2.3 Total Bilirubin 0.5 AST 30 ALT 24 Alkaline Phosphatase 866 H Troponin I < 0.015 Total Protein 7.7 Albumin 2.2 L Globulin 5.5 H Albumin/Globulin Ratio 0.4 L Lipase 95 TSH Nasal Screen MRSA (PCR) 05/14/18 05/14/18 05/14/18 16:29 20:28 21:52 WBC RBC Hgb Hct MCV MCH MCHC RDW Std Deviation RDW Coeff of Katerina Plt Count MPV Immature Gran % (Auto) Neut % (Auto) Lymph % (Auto) [place] % (Auto) Eos % (Auto) Baso % (Auto) Immature Gran # (Auto) Neut # (Auto) Lymph # (Auto) [place] # (Auto) Eos # (Auto) Baso # (Auto) PT INR Sodium Potassium Chloride Carbon Dioxide Anion Gap BUN Creatinine Est Cr Clr Drug Dosing Est GFR ( Amer) Est GFR (Non-Af Amer) BUN/Creatinine Ratio Glucose POC Glucose 89 104 H Estimat Average Glucose Hemoglobin A1c Calcium Phosphorus Magnesium Total Bilirubin AST ALT Alkaline Phosphatase Troponin I < 0.015 Total Protein Albumin Globulin Albumin/Globulin Ratio Lipase TSH Nasal Screen MRSA (PCR) 05/14/18 05/15/18 05/15/18 Unknown 06:18 06:18 WBC 5.40 RBC 3.24 L Hgb 10.7 L Hct 33.5 L MCV 103.4 H MCH 33.0 MCHC 31.9 L RDW Std Deviation 63.7 H RDW Coeff of Katerina 17.0 H Plt Count 313 MPV 9.8 Immature Gran % (Auto) 0.4 Neut % (Auto) 44.8 Lymph % (Auto) 46.1 [place] % (Auto) 7.2 Eos % (Auto) 1.1 Baso % (Auto) 0.4 Immature Gran # (Auto) 0.02 Neut # (Auto) 2.42 Lymph # (Auto) 2.49 [place] # (Auto) 0.39 Eos # (Auto) 0.06 Baso # (Auto) 0.02 PT INR Sodium 137 Potassium 4.7 Chloride 103 Carbon Dioxide 24 Anion Gap 10.0 BUN 54 H Creatinine 4.88 H* D Est Cr Clr Drug Dosing 8.7 Est GFR ( Amer) 9.1 Est GFR (Non-Af Amer) 7.8 BUN/Creatinine Ratio 11.1 Glucose 93 POC Glucose Estimat Average Glucose Hemoglobin A1c Calcium 8.2 L Phosphorus Magnesium Total Bilirubin AST ALT Alkaline Phosphatase Troponin I Total Protein Albumin Globulin Albumin/Globulin Ratio Lipase TSH 3.900 Nasal Screen MRSA (PCR) Negative 05/15/18 05/15/18 05/15/18 06:18 06:18 07:19 WBC RBC Hgb Hct MCV MCH MCHC RDW Std Deviation RDW Coeff of Katerina Plt Count MPV Immature Gran % (Auto) Neut % (Auto) Lymph % (Auto) [place] % (Auto) Eos % (Auto) Baso % (Auto) Immature Gran # (Auto) Neut # (Auto) Lymph # (Auto) [place] # (Auto) Eos # (Auto) Baso # (Auto) PT INR Sodium Potassium Chloride Carbon Dioxide Anion Gap BUN Creatinine Est Cr Clr Drug Dosing Est GFR ( Amer) Est GFR (Non-Af Amer) BUN/Creatinine Ratio Glucose POC Glucose 85 Estimat Average Glucose 120 Hemoglobin A1c 5.8 H Calcium Phosphorus Magnesium Total Bilirubin AST ALT Alkaline Phosphatase Troponin I < 0.015 Total Protein Albumin Globulin Albumin/Globulin Ratio Lipase TSH Nasal Screen MRSA (PCR)
[2018-05-15] MEDS: BACLOFEN 10 MG TAB PO SCH ×2 (10:34→23:49)
--- NOTE | 2018-05-15 12:47 | Hospitalist Progress Note ---
Date of Service May 15, 2018 Assessment & Plan (1) Chest pain: Present with reproducible chest pain in the left chest with deep palpation and with movement EKG with no ST elevation Troponinx3 negative ECHO showed no wall motion abnormality with EF btw 60-65% Cardiology on board Continue carvedilol, aspirin Will add a low dose of baclofen for the muscle stiffness Currently denies any chest pain Clinically improves (2) Atrial fibrillation: Present with Afib and RVR received Cardizem 20mg IV in the ER Has been on NSR since yestereday Telemonitor showed no Afib since converting from the ER Continue home carvedilol 25 mg p.o. 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 cardiology on board recommended GI consult before starting on anticoagulant and possible amiodarone as per GI standpoint no contraindication to start on anticoagulant (3) Elevated alkaline phosphatase level: Elevated lipase 866 on admission Denies any abdominal tenderness U/S abdomen pending (4) End stage renal disease on dialysis due to type 2 diabetes mellitus: On HD on MWF Nephrology consult Will get HD dialysis today (5) Hyperkalemia: (6) Hypothyroid: TSH stable Continue levothyroxine (7) HTN (hypertension): BP elevated Possible related due to hospital setting Continue carvedilol (8) DVT prophylaxis: On Heparin subq CODE STATUS DNR Disposition Continue monitor in tele Subjective Pt was seen and examined Lying in bed with no distress Pt said that her chest pain improves She said that she is able to take deep breath now She would like to go home to[place] and planning to get HD done today once discharge from the hospital Denies any chest pain, palpitation, dizziness and SOB currently Physical Exam Vital Signs (Past 24 Hours): Last Vital Signs Temp 36.4 C L 05/15/18 10:47 Pulse 69 05/15/18 10:47 Resp 19 05/15/18 10:47 BP 153/66 H 05/15/18 10:47 Pulse Ox 98 05/15/18 10:47 Physical Exam: General- No acute distress Head- atraumatic Eyes- PERRL, EOMI, ENT- oropharynx clear Neck- supple, no JVD Lungs- diminished BS Heart- regular rhythm; +systolic murmur Abdomen- normal bowel sounds, soft, nontender Extremities- no calf tenderness Neuro- alert, oriented x 3; PERRL, EOMI; no facial palsy Skin- warm & dry
--- NOTE | 2018-05-15 13:35 | Gastrointestinal Consultation ---
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 GI is asked to evaluate as there is plans to start AC w/ coumadin - Isolated elevated ALKP - No prior diagnosis of cirrhosis - PLT, TB, INR WNL - Obtain RUQ US - No GI contraindication at this point in time to medical management of afib and rate control as outlined by cardiology - There are no signs of acute nor chronic GI bleeding - She is having formed brown stools every other day - Would start PO PPI daily as prophylaxis - No current plan for inpatient/outpatient GI testing per patient wishes Thank you for allowing us to participate in the care of this patient. Please call with any acute changes, questions or concerns. Please see addendum below with additional recommendation from my supervising physician. Present on Admission?: Yes (2) Atrial fibrillation with rapid ventricular response: Present on Admission?: Yes Supervising Physician Co-Signing Physician Notes Attending attestation I have seen, examined this patient, and agree with the findings and above by our mid-level provider ADOLPH Blanco. -No signs of chronic liver disease, isolated elevated alkaline phosph without positive AMA. This has been quite chronic in nature. -No signs of gi bleeding, but appears overall high risk for anticoagulation given HD and ambulation -Ok from GI liver standpoint, but unkown severity of liver disease. Normal MELD. No signs of decompensation. -Call with questions -Can follow up with Dr. 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 GI is asked to evaluate the pt as there is plans to start AC w/ coumadin. Pt was seen and evaluated, chart reviewed. [facility]. Notes she feels well from a GI stand point. No abd pain. No nausea, vomiting. No RUQ pain. Denies jaundiace, dark urine, che colored stools. No pruritis. Symptomatic paroxysmal atrial fibrillation/flutter with rapid ventricular response status post spontaneous conversion as detailed above. 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 Had deferred liver bx in the past. Has been on therapy w/ allopurinal without any change in LFT pattern CLAIR + at 160 speckled. AMA, ASMA negative. GGT 637. Amylase/Lipase normal. Meds: Zetia, Metformin, Allopurinal, Cardizem CD. Most recent LFTs as below. CT of the Abd/Pelv on 07/14/2004 at 611MRI: normal except adrenal mass. CT of the abd/Pel w/o contrast on 10/11/2008: No pancreatic abnormality appreciated. No biliary obstruction or hepatic abnormality seen. Abdominal ultrasound on 06/18/2004: prominence of the head of the pancreas Labs 11/21/2002: AST 46, ALT 141, Alk Phos 504 MRCP 2009: There is a question of a narrowing in the hepatic duct but there is no distention more cephalad to this suggesting this is probably not real, however, if there is a concern clinically ultrasound may be helpful to evaluate further.There are multiple lesions identified in the kidneys which are probably cysts but should probably be evaluated by ultrasound.No other definite abnormalities noted. Allergies Allergy/AdvReac Type Severity Reaction Status Date / Time amoxicillin Allergy Intermediate HIVES Verified 05/14/18 12:18 clavulanic acid Allergy Unknown RASH Verified 05/14/18 12:18 Turkyza-Gfp-Fwo Reductase Allergy Unknown Unknown rxn Verified 05/14/18 12:18 Inhibitor codeine AdvReac Mild GIVES PT A Verified 05/14/18 12:18 HEADACHE morphine AdvReac Unknown HEADACHE Verified 05/14/18 12:18 Home Medications Home Medications Medication Instructions Recorded Confirmed Type acetaminophen 1,000 mg PO Q6H PRN 05/14/18 05/14/18 History allopurinol 100 mg PO DAILY 05/14/18 05/14/18 History aspirin [Aspirin Low Dose] 81 mg PO DAILY 05/14/18 05/14/18 History carvedilol 25 mg PO BID 05/14/18 05/14/18 History epoetin mahin 1 dose IV DIRECTED 05/14/18 05/14/18 History ergocalciferol (vitamin D2) 50,000 unit PO WK 05/14/18 05/14/18 History insulin aspart U-100 [Novolog 0 unit SUBCUT PM 05/14/18 05/14/18 History Flexpen U-100 Insulin] insulin glargine [Lantus U-100 0 unit SUBCUT QAM 05/14/18 05/14/18 History Insulin] lanolin nmtjxud-ft-t.pet-ceres 1 applic TOPICAL QID 05/14/18 05/14/18 History [Eucerin] levothyroxine 112 mcg PO QAM 05/14/18 05/14/18 History loperamide [Imodium A-D] 2 mg PO DIRECTED PRN 05/14/18 05/14/18 History nitroglycerin [Nitrostat] 0.4 mg SUBLINGUAL DIRECTED PRN 05/14/18 05/14/18 History omega-3 fatty acids [Fish Oil 1,000 mg PO BID 05/14/18 05/14/18 History Concentrate] sevelamer HCl 800 mg PO TID 05/14/18 05/14/18 History tramadol 50 mg PO BID 05/14/18 05/14/18 History travoprost [Travatan Z] 1 drp OPHTHALMIC (EYE) PM 05/14/18 05/14/18 History Patient History Medical History Hypertension (Chronic) DM2 (diabetes mellitus, type 2) (Chronic) HTN (hypertension) (Chronic) Hyperparathyroidism (Chronic) Hypothyroid (Chronic) Atrial fibrillation, chronic Hemodialysis access site with arteriovenous graft Family History Other Family history non-contributory Social History Preferred Language: Pakistani Beliefs That Will Affect Care: None Current Living Situation: Alone Other Information That Helps Us Care for You: No Feels Safe at Home: Yes Safety Concerns: Feels Safe At This Time Smoking Status: Never smoker Hx Alcohol Use: No Hx Substance Use: No Review of Systems Constitutional: no fever, no body aches, no weakness, no weight loss and no weight gain Respiratory: no cough, no dyspnea, no pain on inspiration and no snoring Cardiovascular: no chest pain, no radiating jaw, neck or arm pain, no dyspnea on exertion, no palpitations and no edema Gastrointestinal: no abdominal pain, no early satiety, no heartburn, no vomiting, no coffee ground emesis, no hematemesis, no pain with swallowing, no cramping, no excessive flatulence, no constipation and no melena Physical Exam Vital Signs (Past 24 Hours): Last Vital Signs Temp 36.4 C L 05/15/18 13:00 Pulse 69 05/15/18 13:00 Resp 19 05/15/18 13:00 BP 153/66 H 05/15/18 13:00 Pulse Ox 98 05/15/18 13:00 Constitutional: + ill appearing (chronically ill appearing), cooperative and comfortable; no acute distress Respiratory: normal respiratory effort, lungs clear to auscultation Cardiovascular: Rate/Rhythm: regular rate and regular rhythm Heart Sounds: + murmur (systolic) Gastrointestinal (Abdomen): normal bowel sounds, soft, nontender, no hepatosplenomegaly Skin: no rashes, warm and dry no jaundice Psychiatric: A+Ox3, euthymic affect Results & Data Laboratory Results 05/15/18 05/15/18 05/15/18 Range/Units 11:16 07:19 06:18 WBC (4.8-10.8) K/uL RBC (4.2-5.4) M/uL Hgb (12.0-16.0) g/dL Hct (37-47) % MCV (80-100) fL MCH (25-34) pg MCHC (32-36) g/dL RDW Std Deviation (36.4-46.3) fL RDW Coeff of Katerina (11.5-14.5) % Plt Count (130-400) K/uL MPV (7.4-10.4) fL Immature Gran % (Auto) % Neut % (Auto) % Lymph % (Auto) % Scurry % (Auto) % Eos % (Auto) % Baso % (Auto) % Immature Gran # (Auto) (0.00-0.02) K/uL Neut # (Auto) (1.4-6.5) K/uL Lymph # (Auto) (1.2-3.4) K/uL Scurry # (Auto) (0.11-0.59) K/uL Eos # (Auto) (0-0.5) K/uL Baso # (Auto) (0-0.2) K/uL PT (9.0-12.0) Seconds INR (0.9-1.1) Sodium (136-145) mmol/L Potassium (3.5-5.1) mmol/L Chloride (98-107) mmol/L Carbon Dioxide (21-32) mmol/L Anion Gap (3-11) BUN (7-18) mg/dl Creatinine (0.6-1.2) mg/dl Est Cr Clr Drug Dosing ml/min Est GFR ( Amer) Est GFR (Non-Af Amer) BUN/Creatinine Ratio (10-20) Glucose (70-99) mg/dl POC Glucose 107 H 85 (70-99) Estimat Average Glucose mg/dl Hemoglobin A1c (4.5-5.6) % Calcium (8.5-10.1) mg/dl Troponin I < 0.015 (0-0.045) ng/ml TSH (0.300-4.500) uIu/ml Nasal Screen MRSA (PCR) (Negative) 05/15/18 05/15/18 05/15/18 Range/Units 06:18 06:18 06:18 WBC 5.40 (4.8-10.8) K/uL RBC 3.24 L (4.2-5.4) M/uL Hgb 10.7 L (12.0-16.0) g/dL Hct 33.5 L (37-47) % MCV 103.4 H (80-100) fL MCH 33.0 (25-34) pg MCHC 31.9 L (32-36) g/dL RDW Std Deviation 63.7 H (36.4-46.3) fL RDW Coeff of Katerina 17.0 H (11.5-14.5) % Plt Count 313 (130-400) K/uL MPV 9.8 (7.4-10.4) fL Immature Gran % (Auto) 0.4 % Neut % (Auto) 44.8 % Lymph % (Auto) 46.1 % Scurry % (Auto) 7.2 % Eos % (Auto) 1.1 % Baso % (Auto) 0.4 % Immature Gran # (Auto) 0.02 (0.00-0.02) K/uL Neut # (Auto) 2.42 (1.4-6.5) K/uL Lymph # (Auto) 2.49 (1.2-3.4) K/uL Scurry # (Auto) 0.39 (0.11-0.59) K/uL Eos # (Auto) 0.06 (0-0.5) K/uL Baso # (Auto) 0.02 (0-0.2) K/uL PT (9.0-12.0) Seconds INR (0.9-1.1) Sodium 137 (136-145) mmol/L Potassium 4.7 (3.5-5.1) mmol/L Chloride 103 (98-107) mmol/L Carbon Dioxide 24 (21-32) mmol/L Anion Gap 10.0 (3-11) BUN 54 H (7-18) mg/dl Creatinine 4.88 H* D (0.6-1.2) mg/dl Est Cr Clr Drug Dosing 8.7 ml/min Est GFR ( Amer) 9.1 Est GFR (Non-Af Amer) 7.8 BUN/Creatinine Ratio 11.1 (10-20) Glucose 93 (70-99) mg/dl POC Glucose (70-99) Estimat Average Glucose 120 mg/dl Hemoglobin A1c 5.8 H (4.5-5.6) % Calcium 8.2 L (8.5-10.1) mg/dl Troponin I (0-0.045) ng/ml TSH 3.900 (0.300-4.500) uIu/ml Nasal Screen MRSA (PCR) (Negative) 05/14/18 05/14/18 05/14/18 Range/Units Unknown 21:52 20:28 WBC (4.8-10.8) K/uL RBC (4.2-5.4) M/uL Hgb (12.0-16.0) g/dL Hct (37-47) % MCV (80-100) fL MCH (25-34) pg MCHC (32-36) g/dL RDW Std Deviation (36.4-46.3) fL RDW Coeff of Katerina (11.5-14.5) % Plt Count (130-400) K/uL MPV (7.4-10.4) fL Immature Gran % (Auto) % Neut % (Auto) % Lymph % (Auto) % Scurry % (Auto) % Eos % (Auto) % Baso % (Auto) % Immature Gran # (Auto) (0.00-0.02) K/uL Neut # (Auto) (1.4-6.5) K/uL Lymph # (Auto) (1.2-3.4) K/uL Scurry # (Auto) (0.11-0.59) K/uL Eos # (Auto) (0-0.5) K/uL Baso # (Auto) (0-0.2) K/uL PT (9.0-12.0) Seconds INR (0.9-1.1) Sodium (136-145) mmol/L Potassium (3.5-5.1) mmol/L Chloride (98-107) mmol/L Carbon Dioxide (21-32) mmol/L Anion Gap (3-11) BUN (7-18) mg/dl Creatinine (0.6-1.2) mg/dl Est Cr Clr Drug Dosing ml/min Est GFR ( Amer) Est GFR (Non-Af Amer) BUN/Creatinine Ratio (10-20) Glucose (70-99) mg/dl POC Glucose 104 H (70-99) Estimat Average Glucose mg/dl Hemoglobin A1c (4.5-5.6) % Calcium (8.5-10.1) mg/dl Troponin I < 0.015 (0-0.045) ng/ml TSH (0.300-4.500) uIu/ml Nasal Screen MRSA (PCR) Negative (Negative) 05/14/18 05/14/18 Range/Units 16:29 09:25 WBC (4.8-10.8) K/uL RBC (4.2-5.4) M/uL Hgb (12.0-16.0) g/dL Hct (37-47) % MCV (80-100) fL MCH (25-34) pg MCHC (32-36) g/dL RDW Std Deviation (36.4-46.3) fL RDW Coeff of Katerina (11.5-14.5) % Plt Count (130-400) K/uL MPV (7.4-10.4) fL Immature Gran % (Auto) % Neut % (Auto) % Lymph % (Auto) % Scurry % (Auto) % Eos % (Auto) % Baso % (Auto) % Immature Gran # (Auto) (0.00-0.02) K/uL Neut # (Auto) (1.4-6.5) K/uL Lymph # (Auto) (1.2-3.4) K/uL Scurry # (Auto) (0.11-0.59) K/uL Eos # (Auto) (0-0.5) K/uL Baso # (Auto) (0-0.2) K/uL PT 10.2 (9.0-12.0) Seconds INR 1.0 (0.9-1.1) Sodium (136-145) mmol/L Potassium (3.5-5.1) mmol/L Chloride (98-107) mmol/L Carbon Dioxide (21-32) mmol/L Anion Gap (3-11) BUN (7-18) mg/dl Creatinine (0.6-1.2) mg/dl Est Cr Clr Drug Dosing ml/min Est GFR ( Amer) Est GFR (Non-Af Amer) BUN/Creatinine Ratio (10-20) Glucose (70-99) mg/dl POC Glucose 89 (70-99) Estimat Average Glucose mg/dl Hemoglobin A1c (4.5-5.6) % Calcium (8.5-10.1) mg/dl Troponin I (0-0.045) ng/ml TSH (0.300-4.500) uIu/ml Nasal Screen MRSA (PCR) (Negative)
[2018-05-15] MEDS ORDERED: HEPARIN SOD (PORCINE) 1000 UNIT/ML 10 ML VIAL IV ONE (13:43)
[2018-05-15] MEDS ORDERED: SODIUM CHLORIDE 0.9% 1000ML 1,000 ML IV PRN (13:43)
[2018-05-15] MEDS: METOPROLOL SUCC 50MG EXT REL TAB PO SCH ×2 (13:56→23:48)
--- NOTE | 2018-05-15 16:34 | Nephrology Consultation ---
Date of Consultation May 15, 2018 History of Present Illness Reason for Consultation: ESRD on HD Requesting Physician: Dr Wilson Attending Physician: Rafaela Wilson MD History of Present Illness 82 y/o F unders observation since yesterday after presenting w/ chest discomfort. Her cardiac enzymes are negative but she needs further cardiac evaluation. Today is her dialysis day; last tx on 05/12. She dialyzes under my care at [facility] via [facility]. Allergies Allergy/AdvReac Type Severity Reaction Status Date / Time amoxicillin Allergy Intermediate HIVES Verified 05/14/18 12:18 clavulanic acid Allergy Unknown RASH Verified 05/14/18 12:18 Luiaxvr-Sjh-Eaq Reductase Allergy Unknown Unknown rxn Verified 05/14/18 12:18 Inhibitor codeine AdvReac Mild GIVES PT A Verified 05/14/18 12:18 HEADACHE morphine AdvReac Unknown HEADACHE Verified 05/14/18 12:18 Home Medications Home Medications Medication Instructions Recorded Confirmed Type acetaminophen 1,000 mg PO Q6H PRN 05/14/18 05/14/18 History allopurinol 100 mg PO DAILY 05/14/18 05/14/18 History aspirin [Aspirin Low Dose] 81 mg PO DAILY 05/14/18 05/14/18 History carvedilol 25 mg PO BID 05/14/18 05/14/18 History epoetin mahin 1 dose IV DIRECTED 05/14/18 05/14/18 History ergocalciferol (vitamin D2) 50,000 unit PO WK 05/14/18 05/14/18 History insulin aspart U-100 [Novolog 0 unit SUBCUT PM 05/14/18 05/14/18 History Flexpen U-100 Insulin] insulin glargine [Lantus U-100 0 unit SUBCUT QAM 05/14/18 05/14/18 History Insulin] lanolin xxpcitu-ci-b.pet-ceres 1 applic TOPICAL QID 05/14/18 05/14/18 History [Eucerin] levothyroxine 112 mcg PO QAM 05/14/18 05/14/18 History loperamide [Imodium A-D] 2 mg PO DIRECTED PRN 05/14/18 05/14/18 History nitroglycerin [Nitrostat] 0.4 mg SUBLINGUAL DIRECTED PRN 05/14/18 05/14/18 History omega-3 fatty acids [Fish Oil 1,000 mg PO BID 05/14/18 05/14/18 History Concentrate] sevelamer HCl 800 mg PO TID 05/14/18 05/14/18 History tramadol 50 mg PO BID 05/14/18 05/14/18 History travoprost [Travatan Z] 1 drp OPHTHALMIC (EYE) PM 05/14/18 05/14/18 History Patient History Medical History Hypertension (Chronic) DM2 (diabetes mellitus, type 2) (Chronic) HTN (hypertension) (Chronic) Hyperparathyroidism (Chronic) Hypothyroid (Chronic) Atrial fibrillation, chronic Hemodialysis access site with arteriovenous graft Family History Other Family history non-contributory Social History Preferred Language: Sami Beliefs That Will Affect Care: None Current Living Situation: Alone Other Information That Helps Us Care for You: No Feels Safe at Home: Yes Safety Concerns: Feels Safe At This Time Smoking Status: Never smoker Hx Alcohol Use: No Hx Substance Use: No Physical Exam Vital Signs (Past 24 Hours): Last Vital Signs Temp 36.3 C L 05/15/18 15:12 Pulse 65 05/15/18 15:12 Resp 16 05/15/18 15:12 BP 155/70 H 05/15/18 15:12 Pulse Ox 98 05/15/18 15:12
[2018-05-15] MEDS: INSULIN GLARGINE SOLOSTAR 100 UNITS/ML 3 ML PEN SQ SCH (17:25)
[2018-05-15] MEDS: WARFARIN SOD 4 MG TAB PO SCH (17:26)
[2018-05-15] MEDS: TRAVOPROST Z 0.004% OPH SOLN 2.5 ML BTL OP SCH (20:13)
[2018-05-15] MEDS ORDERED: ONDANSETRON INJ 2 MG/ML 2 ML VIAL IV PRN (23:56)
[2018-05-15] MEDS ORDERED: ONDANSETRON INJ 2 MG/ML 2 ML VIAL ONE (23:59)
[2018-05-16] MEDS: LEVOTHYROXINE SODIUM 112 MCG TABLET PO SCH (07:13)
--- NOTE | 2018-05-16 07:14 | Ultrasound Report ---
ABDOMINAL ULTRASOUND, RIGHT UPPER QUADRANT HISTORY: Elevated alkaline phosphatase.. COMPARISON: Abdomen and pelvis CT 01/01/2016. FINDINGS: Pancreas: The main pancreatic duct is normal in caliber. There are 2 small cystic foci at the pancrea tic tail measuring 8 and 6 mm. 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 Liver: No hepatic masses. Echogenic focus adjacent to the chad hepatis consistent with focal fat. Gallbladder: No gallbladder wall thickening. No gallstones. CBD: 5 mm. Right kidney: The right kidney is slightly atrophic measuring 8.7 cm in length and demonstrates corti alexis thinning. Multiple cysts with the largest in the lower pole measuring 3.8 cm. IMPRESSION: 1. Normal gallbladder. No gallstones. 2. Slightly atrophic right kidney containing cysts. No hydronephrosis. 3. There are 2 small cystic foci at the pancreatic tail measuring 8 and 6 mm. 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 Electronically signed by: Balaji Duque M.D. 05/16/2018 7:12 AM
[2018-05-16 07:42] LABS: INR 1.1 (0.9-1.1); Prothrombin Time 10.9 Seconds (9.0-12.0)
[2018-05-16] MEDS: SEVELAMER HCL 800 MG TABLET PO SCH ×3 (08:31→16:32)
[2018-05-16] MEDS: INSULIN ASPART 100 UNITS/ML 3 ML PEN SQ SCH ×4 (08:37→20:46)
--- NOTE | 2018-05-16 08:41 | Gastroenterology Progress Note ---
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 ABD US without evidence of cirrhosis or liver mass. There is mention of two small cystic lesions on the pancreas, ?IPMN. Pt does not wish to undergo further testing at this point in time - Isolated elevated ALKP - No prior diagnosis of cirrhosis - PLT, TB, INR WNL - ABD US without evidence of advanced fibrosis or cirrhosis - ?IPMN - She does not wish to have further testing at this point in time - No GI contraindication at this point in time to medical management of afib and rate control as outlined by cardiology - There are no signs of acute nor chronic GI bleeding - She is having formed brown stools every other day - Would start PO PPI daily as prophylaxis - No current plan for inpatient/outpatient GI testing per patient wishes GI to sign off. Thank you for allowing us to participate in the care of this patient. Please call with any acute changes, questions or concerns. Please see addendum below with additional recommendation from my supervising physician. (2) Atrial fibrillation with rapid ventricular response: Supervising Physician Co-Signing Physician Notes Attending attestation I have seen, examined this patient, and agree with the findings and above by our mid-level provider ADOLPH Blanco. -No complaints today, feeling well Subjective Pt was seen and evaluated, chart reviewed. No family at bedside. Just woke up, is about to eat breakfast. No abd pain. No nausea, vomiting. Having brown stools. No fever, chills, CP, SOB CLAIR + at 160 speckled. AMA, ASMA negative. GGT 637. Amylase/Lipase normal. Meds: Zetia, Metformin, Allopurinal, Cardizem CD. Most recent LFTs as below. CT of the Abd/Pelv on 07/14/2004 at 611MRI: normal except adrenal mass. CT of the abd/Pel w/o contrast on 10/11/2008: No pancreatic abnormality appreciated. No biliary obstruction or hepatic abnormality seen. Abdominal ultrasound on 06/18/2004: prominence of the head of the pancreas Labs 11/21/2002: AST 46, ALT 141, Alk Phos 504 MRCP 2009: There is a question of a narrowing in the hepatic duct but there is no distention more cephalad to this suggesting this is probably not real, however, if there is a concern clinically ultrasound may be helpful to evaluate further.There are multiple lesions identified in the kidneys which are probably cysts but should probably be evaluated by ultrasound.No other definite abnormalities noted. ABD US 2019: fatty liver, no liver lesion, 2 small panc cyst ?IPMN Constitutional: no fever, no body aches and no weakness Respiratory: no cough, no dyspnea, no pain on inspiration and no wheezing Cardiovascular: no chest pain, no radiating jaw, neck or arm pain, no dyspnea on exertion and no palpitations Gastrointestinal: no abdominal pain, no early satiety, no vomiting, no coffee ground emesis, no hematemesis, no blood in stools and no melena Physical Exam Vital Signs (Past 24 Hours): Last Vital Signs Temp 37.1 C 05/16/18 07:28 Pulse 68 05/16/18 07:28 Resp 14 05/16/18 07:28 BP 149/69 H 05/16/18 07:28 Pulse Ox 97 05/16/18 07:28 Constitutional: + ill appearing (chronically ill appearing), cooperative and comfortable; no acute distress Respiratory: normal respiratory effort, lungs clear to auscultation Cardiovascular: Rate/Rhythm: regular rate and regular rhythm Heart Sounds: + murmur (systolic) Gastrointestinal (Abdomen): normal bowel sounds, soft, nontender, no hepatosplenomegaly Skin: no rashes, warm and dry no jaundice Psychiatric: A+Ox3, euthymic affect Results & Data Laboratory Results 05/16/18 05/16/18 05/15/18 Range/Units 07:18 07:13 22:48 PT 10.9 (9.0-12.0) Seconds INR 1.1 (0.9-1.1) POC Glucose 70 117 H (70-99) Estimat Average Glucose mg/dl Hemoglobin A1c (4.5-5.6) % 05/15/18 05/15/18 05/15/18 Range/Units 16:11 11:16 06:18 PT (9.0-12.0) Seconds INR (0.9-1.1) POC Glucose 133 H 107 H (70-99) Estimat Average Glucose 120 mg/dl Hemoglobin A1c 5.8 H (4.5-5.6) %
--- NOTE | 2018-05-16 08:56 | Nephrology Consultation ---
Date of Consultation May 16, 2018 Assessment & Plan (1) End stage renal disease on dialysis due to type 2 diabetes mellitus: had HD yesterday no indication for HD today next HD tomorrow here or if for d/c can d/c to OP dialysis if feasible -slight volume overload currently on exam but clinically stable -serum chemistries, volume status, avf function, anemia acceptable Present on Admission?: Yes History of Present Illness Attending Physician: Rafaela Wilson MD History of Present Illness 82 y/o F under observation since 05/14 after presenting w/ chest discomfort and atrial fib/flutter w/ ventricular rate [id number] I'm asked to see for dialysis care. PMH includes pAF, DM on insulin, hypothyroid, HTN, chronic pain issues maintained on frequent prednisone, gout. Her cardiac enzymes are negative but she needs further cardiac evaluation. She dialyzes MWF via [facility]; last OP tx on 05/12. She dialyzes under my care at [facility] via [facility]. D/c home w/ routine OP dialysis on 05/15 had been planned but yesterday afternoon the decision was made to observe her cardiac rhthyms a bit longer. I therefore arranged inpatient dialysis yesterday. States she feels much improved today, though did have some palpitations and chest discomfort last evening. Her chronic joint pain is for now fortunately quiescent. Allergies Allergy/AdvReac Type Severity Reaction Status Date / Time amoxicillin Allergy Intermediate HIVES Verified 05/14/18 12:18 clavulanic acid Allergy Unknown RASH Verified 05/14/18 12:18 Fsmqwvc-Qoh-Iih Reductase Allergy Unknown Unknown rxn Verified 05/14/18 12:18 Inhibitor codeine AdvReac Mild GIVES PT A Verified 05/14/18 12:18 HEADACHE morphine AdvReac Unknown HEADACHE Verified 05/14/18 12:18 Home Medications Home Medications Medication Instructions Recorded Confirmed Type acetaminophen 1,000 mg PO Q6H PRN 05/14/18 05/14/18 History allopurinol 100 mg PO DAILY 05/14/18 05/14/18 History aspirin [Aspirin Low Dose] 81 mg PO DAILY 05/14/18 05/14/18 History carvedilol 25 mg PO BID 05/14/18 05/14/18 History epoetin mahin 1 dose IV DIRECTED 05/14/18 05/14/18 History ergocalciferol (vitamin D2) 50,000 unit PO WK 05/14/18 05/14/18 History insulin aspart U-100 [Novolog 0 unit SUBCUT PM 05/14/18 05/14/18 History Flexpen U-100 Insulin] insulin glargine [Lantus U-100 0 unit SUBCUT QAM 05/14/18 05/14/18 History Insulin] lanolin jkwzrmi-yj-i.pet-ceres 1 applic TOPICAL QID 05/14/18 05/14/18 History [Eucerin] levothyroxine 112 mcg PO QAM 05/14/18 05/14/18 History loperamide [Imodium A-D] 2 mg PO DIRECTED PRN 05/14/18 05/14/18 History nitroglycerin [Nitrostat] 0.4 mg SUBLINGUAL DIRECTED PRN 05/14/18 05/14/18 History omega-3 fatty acids [Fish Oil 1,000 mg PO BID 05/14/18 05/14/18 History Concentrate] sevelamer HCl 800 mg PO TID 05/14/18 05/14/18 History tramadol 50 mg PO BID 05/14/18 05/14/18 History travoprost [Travatan Z] 1 drp OPHTHALMIC (EYE) PM 05/14/18 05/14/18 History Patient History Medical History Hypertension (Chronic) DM2 (diabetes mellitus, type 2) (Chronic) HTN (hypertension) (Chronic) Hyperparathyroidism (Chronic) Hypothyroid (Chronic) Atrial fibrillation, chronic Hemodialysis access site with arteriovenous graft Family History Other Family history non-contributory Social History Preferred Language: Palau[place] Beliefs That Will Affect Care: None Current Living Situation: Alone Other Information That Helps Us Care for You: No Feels Safe at Home: Yes Safety Concerns: Feels Safe At This Time Smoking Status: Never smoker Hx Alcohol Use: No Hx Substance Use: No Review of Systems Constitutional: as per Subjective / HPI, + body aches, + fatigue and + weakness; no fever Eyes: no worsening vision Ear, Nose, Mouth, Throat: no facial pain, no dry mouth and no dental pain Respiratory: as per Subjective / HPI, + dyspnea and + dyspnea on exertion Cardiovascular: as per Subjective / HPI, + chest pain, + palpitations and + edema Gastrointestinal: no abdominal pain, no vomiting and no diarrhea/loose stools voids daily; no change in chronic voiding habits Musculoskeletal: + myalgia (chronic; slightly improved today) Integumentary: + sores (sacral) Neurologic: + gait abnormality (walker dependent) Psychiatric: no behavioral changes Endocrine: + fatigue Hematologic / Lymphatic: no easy bleeding Physical Exam Vital Signs (Past 24 Hours): Last Vital Signs Temp 37.1 C 05/16/18 07:28 Pulse 68 05/16/18 07:28 Resp 14 05/16/18 07:28 BP 149/69 H 05/16/18 07:28 Pulse Ox 97 05/16/18 07:28 Constitutional: well developed and well nourished sitting on side of bed on RA Eyes: EOM intact bilaterally ENMT: Ears: no external ear abnormality Nose: no external nose abnormality Mouth: + dry oral mucous membranes Neck: no nuchal rigidity Respiratory: normal respiratory effort Auscultation: + diminished lung sounds and + crackles (bibasilar) Cardiovascular: Rate/Rhythm: regular rate and regular rhythm (w/ occasional skipped beat) Extremities: + edema (trace BLE) and + AV fistula (+t/b) Gastrointestinal (Abdomen): Inspection/Auscultation: normal bowel sounds Percussion/Palpation: abdomen soft; abdomen nontender Musculoskeletal: Extremities: strength 5/5 throughout Skin: no rashes, warm and dry Trauma: + evidence of skin trauma (sacral bandage) Neurologic: fry, fluent speech, no tremor Psychiatric: A+Ox3, euthymic affect Insight: good insight Judgement: good judgement Genitourinary: no louise Results & Data Laboratory Results Abnormal lab results 05/15/18 05/16/18 Range/Units 22:48 11:13 POC Glucose 117 H 107 H (70-99)
[2018-05-16] MEDS: METOPROLOL SUCC 50MG EXT REL TAB PO SCH ×2 (09:03→20:42)
[2018-05-16] MEDS: OMEGA-3 (PURIFIED FISH OIL) 1 GM CAP PO SCH ×2 (09:04→20:42)
[2018-05-16] MEDS: ASPIRIN 81 MG ECTAB PO SCH (09:04)
[2018-05-16] MEDS: BACLOFEN 10 MG TAB PO SCH ×2 (09:04→20:42)
[2018-05-16] MEDS: HEPARIN SOD 5,000 UNIT/0.5 ML VIAL SQ SCH ×3 (09:05→20:46)
[2018-05-16] MEDS: TRAMADOL HCL 50 MG TABLET PO SCH ×2 (09:18→20:42)
[2018-05-16] MEDS: ALLOPURINOL 100 MG TAB PO SCH (10:03)
[2018-05-16] MEDS ORDERED: HydrALAZINE HCL 20 MG/ML VIAL IV ONE (15:38)
[2018-05-16] MEDS: INSULIN GLARGINE SOLOSTAR 100 UNITS/ML 3 ML PEN SQ SCH (15:56)
[2018-05-16] MEDS: WARFARIN SOD 4 MG TAB PO SCH (16:31)
[2018-05-16] MEDS ORDERED: CARBOHYDRATES FOR HYPOGLYCEMIA PO PRN (17:21)
[2018-05-16] MEDS ORDERED: DEXTROSE 50% 50 ML SYRINGE IV PRN (17:21)
[2018-05-16] MEDS ORDERED: GLUCOSE 10 TABS/TUBE PO PRN (17:21)
[2018-05-16] MEDS ORDERED: GLUCOSE 40% GEL 15 GM TUBE PO PRN (17:21)
[2018-05-16] MEDS ORDERED: GLUCAGON FOR INJ 1 MG VIAL SQ PRN (17:21)
--- NOTE | 2018-05-16 18:16 | Hospitalist Progress Note ---
Date of Service May 16, 2018 Assessment & Plan (1) Chest pain: Present with reproducible chest pain in the left chest with deep palpation and with movement EKG with no ST elevation Troponinx3 negative ECHO showed no wall motion abnormality with EF btw 60-65% Cardiology on board Continue carvedilol, aspirin Will add a low dose of baclofen for the muscle stiffness prn Currently denies any chest pain Clinically improves (2) Atrial fibrillation: SVT last night Present with Afib and RVR on admission received Cardizem 20mg IV in the ER Telemonitor showed no Afib since converting from the ER Continue home carvedilol 25 mg p.o. 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 No gallstones. There are 2 small cystic foci at the pancreatic tail measuring 8 and 6 mm. (4) End stage renal disease on dialysis due to type 2 diabetes mellitus: On HD on MWF Nephrology consult Last HD yesterday, will get HD tomorrow. (5) Hyperkalemia: K stable Monitor BMP (6) Hypothyroid: TSH stable Continue levothyroxine (7) HTN (hypertension): BP elevated Possible related due to hospital setting Continue carvedilol Lethargy possible related to baclofen Will d/c baclofen (8) DVT prophylaxis: On Heparin subq CODE STATUS DNR Disposition Continue monitor in tele Subjective Pt was seen and examined Lying in bed with no distress Pt is a little bit confused today He slept alot today only woke up to eat Last night had she went to [facility] around midnight HR has been stable now Physical Exam Vital Signs (Past 24 Hours): Last Vital Signs Temp 36.3 C L 05/16/18 15:10 Pulse 62 05/16/18 15:10 Resp 16 05/16/18 15:10 BP 197/69 H 05/16/18 15:10 Pulse Ox 92 05/16/18 15:10 Physical Exam: General- No acute distress Head- atraumatic Eyes- PERRL, EOMI, ENT- oropharynx clear Neck- supple, no JVD Lungs- clear to auscultation Heart- regular rhythm; +murmur Abdomen- normal bowel sounds, soft, nontender Extremities- no calf tenderness Neuro- alert, oriented x 3; PERRL, EOMI; no facial palsy; no dysarthria Skin- warm & dry
[2018-05-16] MEDS: HEPARIN SOD (PORCINE) 1000 UNIT/ML 10 ML VIAL IV SCH (19:01)
[2018-05-16] MEDS: LABETALOL HCL IV 5 MG/ML 20ML IV PRN (20:45)
[2018-05-16] MEDS: TRAVOPROST Z 0.004% OPH SOLN 2.5 ML BTL OP SCH (20:46)
[2018-05-16] MEDS ORDERED: LABETALOL HCL IV 5 MG/ML 20ML IV STA (23:55)
[2018-05-17] MEDS ORDERED: HydrALAZINE HCL 20 MG/ML VIAL IV ONE (01:42)
[2018-05-17] MEDS ORDERED: METOPROLOL TARTRATE 1 MG/ML VIAL IV STA ×3 (04:37→10:56)
[2018-05-17 05:36] LABS: Hematocrit (blood only) 37.2 % (37-47); Hemoglobin 12.1 g/dL (12.0-16.0); Mean Corpuscular Hgb Conc 32.5 g/dL (32-36); Mean Corpuscular Volume 104.5 fL (80-100); Mean Platelet Volume 9.9 fL (7.4-10.4); Platelet Count 339 K/uL (130-400); RDW Coefficient of Variation 16.4 % (11.5-14.5); Red Blood Count 3.56 M/uL (4.2-5.4); White Blood Count 7.57 K/uL (4.8-10.8)
[2018-05-17 05:45] LABS: HCO3 ABG 24 mmol/L (19-24); Oxygen Saturation ABG 97.6 % (90-95); PCO2 ABG 31 mmHg (35-46); PO2 ABG 96 mm/Hg (80-95); pH ABG 7.49 (7.35-7.45)
[2018-05-17 05:46] LABS: INR 1.2 (0.9-1.1); Prothrombin Time 11.8 Seconds (9.0-12.0)
[2018-05-17] MEDS ORDERED: dilTIAZem HCl 5 MG/ML 5 ML VIAL IV STA ×2 (05:49→11:30)
[2018-05-17] MEDS ORDERED: dilTIAZem HCl 5 MG/ML 5 ML VIAL IV ONE (05:52)
[2018-05-17 05:53] LABS: Allen Test Pos (Pos)
[2018-05-17] MEDS: LEVOTHYROXINE SODIUM 112 MCG TABLET PO SCH (06:02)
[2018-05-17 06:06] LABS: BUN Creatinine Ratio 10.1 (10-20); Calcium 8.6 mg/dl (8.5-10.1); Est GFR (Non-African American) 10.3; Potassium 4.9 mmol/L (3.5-5.1)
--- NOTE | 2018-05-17 06:48 | CT Scan Report ---
CT OF THE HEAD WITHOUT CONTRAST CLINICAL HISTORY: Confusion. COMPARISON STUDY: Head CT February 17, 2016. CT DOSE: 1074.96 mGy.cm TECHNIQUE: Helical axial images of the head were obtained without IV contrast. Automated exposure con trol was utilized for the study. A dose lowering technique was utilized adhering to the principles o f ALARA. FINDINGS: Exam is mildly compromised by motion artifact. No acute intracranial hemorrhage, midline sh ift or mass effect is present. Ventricular system is stable. Basilar cisterns are patent. Prominence of the extra-axial spaces is unchanged. A hypodensity within the right thalamus which favors an old i nfarct is unchanged. The perivascular space could appear similar. There are no findings to suggest [place] sinus thrombosis or acute territorial infarct. The appearance of the brain is unchanged. Th ere is no calvarial fracture. Fluid within the right mastoid air cells is unchanged since prior exam. IMPRESSION: No acute intracranial findings. No change since previous exam. Electronically signed by: Hal Barone M.D. 05/17/2018 6:46 AM
--- NOTE | 2018-05-17 07:35 | Nephrology Progress Note ---
Date of Service May 17, 2018 Assessment & Plan (1) End stage renal disease on dialysis due to type 2 diabetes mellitus: had HD yesterday no indication for HD today - will defer d/t altered mental status (delirium suspected) and arrhythmias will reeval for HD tomorrow not markedly overloaded on exam > gettin g D 5W at 80 ml hourly - will reduce to 50 mL hourly -serum chemistries, volume status, avf function, anemia acceptable Subjective HR in 140s today for much of day; plan had been to start dilt gtt but pt converted after dilt bolus. pt w/ altered mental status overnight/ even last evening per report and all day today. she cannot speak today but says "aahh" repeatedly Physical Exam Vital Signs (Past 24 Hours): Last Vital Signs Temp 36.3 C L 05/17/18 03:01 Pulse 74 05/17/18 05:57 Resp 16 05/17/18 03:01 BP 148/71 H 05/17/18 05:57 Pulse Ox 100 05/17/18 05:47 Constitutional: well developed and well nourished lying flat on ra Eyes: EOM intact bilaterally ENMT: Ears: no external ear abnormality Nose: no external nose abnormality Mouth: + dry oral mucous membranes Neck: no nuchal rigidity Respiratory: normal respiratory effort Auscultation: + diminished lung sounds and + crackles (bibasilar) Cardiovascular: Rate/Rhythm: regular rate and regular rhythm (again w/ occasional skipped beat) Extremities: + edema (trace BLE) and + AV fistula (+t/b) Gastrointestinal (Abdomen): Inspection/Auscultation: normal bowel sounds Percussion/Palpation: abdomen soft; abdomen nontender Musculoskeletal: Extremities: strength 5/5 throughout Skin: no rashes, warm and dry Trauma: + evidence of skin trauma (sacral bandage) Psychiatric: A+Ox3, euthymic affect Insight: good insight Judgement: good judgement Results & Data Laboratory Results reviewed
[2018-05-17] MEDS ORDERED: SODIUM CHLORIDE 0.9% 1000ML 1,000 ML IV PRN (07:36)
[2018-05-17] MEDS ORDERED: HEPARIN SOD (PORCINE) 1000 UNIT/ML 10 ML VIAL IV ONE (07:36)
[2018-05-17] MEDS: SEVELAMER HCL 800 MG TABLET PO SCH (08:31)
[2018-05-17] MEDS: METOPROLOL TARTRATE 1 MG/ML VIAL IV PRN ×2 (08:32→20:25)
[2018-05-17] MEDS: INSULIN ASPART 100 UNITS/ML 3 ML PEN SQ SCH ×5 (08:57→23:48)
[2018-05-17] MEDS: ALLOPURINOL 100 MG TAB PO SCH (08:58)
[2018-05-17] MEDS: TRAMADOL HCL 50 MG TABLET PO SCH (08:58)
[2018-05-17] MEDS: ASPIRIN 81 MG ECTAB PO SCH (08:58)
[2018-05-17] MEDS: METOPROLOL SUCC 50MG EXT REL TAB PO SCH (08:58)
[2018-05-17] MEDS: OMEGA-3 (PURIFIED FISH OIL) 1 GM CAP PO SCH (08:58)
[2018-05-17] MEDS: HEPARIN SOD 5,000 UNIT/0.5 ML VIAL SQ SCH ×2 (08:58→20:59)
[2018-05-17] MEDS ORDERED: DIGOXIN 250 MCG in SYRINGE 9 ML IV STA (11:15)
[2018-05-17] MEDS: DEXTROSE 5% 1,000 ML IV SCH (11:15)
[2018-05-17] MEDS ORDERED: Nursing to Pharmacy Communication ONE (11:21)
[2018-05-17] MEDS ORDERED: DIGOXIN 500 MCG/2 ML AMP IV ONE (11:27)
[2018-05-17 11:34] LABS: Appearance Urine Turbid (Clear); Bacteria Urine Automated Negative (Negative); Bilirubin Urine Negative (Negative); Blood Urine 1+ (Negative); Color Urine Yellow; Glucose Urine UA Negative (Negative); Ketones Urine Trace (Negative); Leukocyte Esterase Urine 3+ (Negative); Nitrite Urine Negative (Negative); Specific Gravity Urine 1.016 (1.000-1.030); Urobilinogen Urine Negative (Negative); WBC Urine Automated >30 /hpf (0-5)
[2018-05-17] MEDS ORDERED: dilTIAZem HCl 125 MG in DEXTROSE 5% 100 ML IV SCH (11:45)
[2018-05-17 12:00] LABS: Protein Urine 1+ (Negative)
[2018-05-17] MEDS: METOPROLOL TARTRATE 1 MG/ML VIAL IV SCH ×3 (12:09→23:37)
--- NOTE | 2018-05-17 13:56 | Cardiology Progress Note ---
Date of Service May 17, 2018 Assessment & Plan (1) Atrial flutter: recurrent limited given hx of autoimmune hepatitis, will avoid antiarrhythmics given hepatic clearance metoprolol changed to IV this AM and being given dose of IV dig, agree with this will also start cardizem gtt in hopes of spontaneous conversion to sinus cont warfaring (2) Chest pain: Reproducible left lateral chest pain Chest discomfort in association with a symptomatic paroxysmal atrial flutter. EKG is without acute changes. Troponin negative x3. Resting echocardiography with normal systolic function, without wall motion abnormalities Recommend conservative medical management. (3) End stage renal disease on dialysis due to type 2 diabetes mellitus: Hemodialysis is under the direction of Dr. Maxwell Recommend consideration for Nephrology consultation, inpatient hemodialysis (4) HTN (hypertension): See above Subjective Pt seen and examined, currently unresponsive, nursing reports mental status change starting yesterday PM. Has lapsed back into atrial flutter with 2:1 conduction. tele reviewed: atrial flutter with 2:1 conduction Review of Systems All systems reviewed & are unremarkable except as noted in HPI & below Physical Exam Vital Signs (Past 24 Hours): Last Vital Signs Temp 36.7 C 05/17/18 11:04 Pulse 140 H 05/17/18 12:09 Resp 18 05/17/18 07:59 BP 106/71 05/17/18 12:09 Pulse Ox 99 05/17/18 07:59 Physical Exam: General: unresponsive No acute distress. HEENT: Normocephalic, atraumatic. Pupils equal, round and reactive to light and accommodation. Extraocular muscles are intact. Anicteric sclera. Moist mucous membranes. Neck: No JVD. No bruit. Cardiovascular: irregularly irregular, unable to appreciate murmur, rub or gallop. Pulmonary: Clear to auscultation bilaterally. No rales, rhonchi, or wheezing. Abdomen: Bowel sounds x 4, soft. No rebound, guarding or tenderness. No organomegaly. Extremities: No clubbing, cyanosis or edema. +2 pedal pulses bilaterally. Skin: Warm and dry.
[2018-05-17] MEDS ORDERED: AZTREONAM 1,000 MG in DEXTROSE 5% 100 ML IV SCH (14:15)
[2018-05-17 14:34] LABS: Hepatitis B Surface Antibody Immune
[2018-05-17] MEDS ORDERED: AZTREONAM CONSULT ACTIVE PRN (14:36)
[2018-05-17 14:45] LABS: Hepatitis B Surface Antigen Neg (Neg)
[2018-05-17] MEDS ORDERED: AZTREONAM 1,000 MG in DEXTROSE 5% 100 ML IV ONE (15:00)
[2018-05-17] MEDS: INSULIN GLARGINE SOLOSTAR 100 UNITS/ML 3 ML PEN SQ SCH (16:18)
[2018-05-17] MEDS: HEPARIN SOD (PORCINE) 1000 UNIT/ML 10 ML VIAL IV SCH ×3 (19:13→19:15)
--- NOTE | 2018-05-17 20:17 | Hospitalist Progress Note ---
Date of Service May 17, 2018 Assessment & Plan (1) Chest pain: Presented with chest pain. VT ruled out. Low clinical suspicion for PE. CP appeared to be reproducible chest-wall pain. (2) Atrial flutter: Paroxysmal atrial fib / flutter. Cardiology consulted. Therapeutic options limited due to associated medical problems. Beta hakeem recommended - currently receiving IV metoprolol due to NPO status. Received IV diltiazem this morning. Continue cardiac monitoring. Started on warfarin. (3) Atrial fibrillation: As noted above. (4) Hypertension: Continue metoprolol. (5) Elevated alkaline phosphatase level: Chronic elevation of alkaline phosphatase. 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 GI consulted. No further evaluation at this time. (6) End stage renal disease on dialysis due to type 2 diabetes mellitus: Management per Nephrology. (7) DM2 (diabetes mellitus, type 2): Lantus / NovoLog per protocol. (8) Altered mental status: Increasing confusion over past [address] - no acute findings. MRI considered, but patient will not be able to tolerate the study. Possible metabolic encephalopathy secondary to meds (baclofen). Possible encephalopathy secondary to UTI. Follow. (9) Urinary tract infection: UA today showed WBC's and + leukocyte esterase. Urine culture pending. History of allergy to amoxicillin. Rx with aztreonam pending culture results. (10) DVT prophylaxis: SQ heparin --> warfarin. (11) Discharge planning issues: May need skilled care or rehab after acute hospital stay. Internal Medicine follow-up with Dr. Nunn. Daughter visiting this afternoon and given update. Subjective Recheck for multiple problems. Pt seen in her room around 0950 and reassessed later in the day. Confused since yesterday. Patient was receiving baclofen which was discontinued. Head CT during the night did not show any acute findings. Intermittent episodes of narrow complex tachyarrhythmia. Review of Systems Unobtainable due to cognitive status Physical Exam Vital Signs (Past 24 Hours): Last Vital Signs Temp 36.9 C 05/17/18 20:00 Pulse 85 05/17/18 20:00 Resp 18 05/17/18 20:00 BP 167/98 H 05/17/18 20:00 Pulse Ox 99 05/17/18 20:00 Constitutional: + altered mental status; no acute distress Respiratory: normal respiratory effort, lungs clear to auscultation Cardiovascular: Rate/Rhythm: regular rate, regular rhythm and + tachycardic Vessels: no JVD Extremities: + edema (trace) Gastrointestinal (Abdomen): Inspection/Auscultation: normal bowel sounds Percussion/Palpation: abdomen soft; abdomen nontender Musculoskeletal: Extremities: no cyanosis Neurologic: confused PERRL, EOMI does not follow commands reliably Psychiatric: confused, minimally verbal, does not follow commands consistently Results & Data Laboratory Results Laboratory Results - last 24 hr 05/17/18 05/17/18 05/17/18 05:28 05:28 05:28 WBC 7.57 RBC 3.56 L Hgb 12.1 Hct 37.2 MCV 104.5 H MCH 34.0 MCHC 32.5 RDW Std Deviation 63.0 H RDW Coeff of Katerina 16.4 H Plt Count 339 MPV 9.9 PT 11.8 INR 1.2 H ABG pH ABG pCO2 ABG pO2 ABG HCO3 ABG O2 Saturation ABG Base Excess Demond Test Barometric Pressure Oxygen Given Sodium 134 L Potassium 4.9 Chloride 101 Carbon Dioxide 24 Anion Gap 9.0 BUN 39 H Creatinine 3.88 H D Est Cr Clr Drug Dosing 11.0 Est GFR ( Amer) 12.0 Est GFR (Non-Af Amer) 10.3 BUN/Creatinine Ratio 10.1 Glucose 158 H POC Glucose Calcium 8.6 Ammonia Urine Color Urine Appearance Urine pH Ur Specific [place] Urine Protein Urine Glucose (UA) Urine Ketones Urine Blood Urine Nitrite Urine Bilirubin Urine Urobilinogen Ur Leukocyte Esterase Urine WBC (Auto) Urine RBC (Auto) U Hyaline Cast (Auto) U Epithel Cells (Auto) Urine Bacteria (Auto) Urine Yeast Hep Bs Antigen Hep Bs Antibody Hep Bs Antibody, Quant 05/17/18 05/17/18 05/17/18 05:28 05:28 07:28 WBC RBC Hgb Hct MCV MCH MCHC RDW Std Deviation RDW Coeff of Katerina Plt Count MPV PT INR ABG pH 7.49 H ABG pCO2 31 L ABG pO2 96 H ABG HCO3 24 ABG O2 Saturation 97.6 H ABG Base Excess 1.0 Demond Test Pos Barometric Pressure 739.3 Oxygen Given Room Air Sodium Potassium Chloride Carbon Dioxide Anion Gap BUN Creatinine Est Cr Clr Drug Dosing Est GFR ( Amer) Est GFR (Non-Af Amer) BUN/Creatinine Ratio Glucose POC Glucose 144 H Calcium Ammonia < 10.0 L Urine Color Urine Appearance Urine pH Ur Specific [place] Urine Protein Urine Glucose (UA) Urine Ketones Urine Blood Urine Nitrite Urine Bilirubin Urine Urobilinogen Ur Leukocyte Esterase Urine WBC (Auto) Urine RBC (Auto) U Hyaline Cast (Auto) U Epithel Cells (Auto) Urine Bacteria (Auto) Urine Yeast Hep Bs Antigen Hep Bs Antibody Hep Bs Antibody, Quant 05/17/18 05/17/18 05/17/18 11:00 11:38 13:45 WBC RBC Hgb Hct MCV MCH MCHC RDW Std Deviation RDW Coeff of Katerina Plt Count MPV PT INR ABG pH ABG pCO2 ABG pO2 ABG HCO3 ABG O2 Saturation ABG Base Excess Demond Test Barometric Pressure Oxygen Given Sodium Potassium Chloride Carbon Dioxide Anion Gap BUN Creatinine Est Cr Clr Drug Dosing Est GFR ( Amer) Est GFR (Non-Af Amer) BUN/Creatinine Ratio Glucose POC Glucose 139 H Calcium Ammonia Urine Color Yellow Urine Appearance Turbid H Urine pH 8.0 H Ur Specific [place] 1.016 Urine Protein 1+ H Urine Glucose (UA) Negative Urine Ketones Trace H Urine Blood 1+ H Urine Nitrite Negative Urine Bilirubin Negative Urine Urobilinogen Negative Ur Leukocyte Esterase 3+ H Urine WBC (Auto) >30 H Urine RBC (Auto) 5-10 H U Hyaline Cast (Auto) 1-5 U Epithel Cells (Auto) 5-10 H Urine Bacteria (Auto) Negative Urine Yeast Not Reportable Hep Bs Antigen Neg Hep Bs Antibody Immune Hep Bs Antibody, Quant 25.05 05/17/18 05/17/18 05/17/18 16:18 20:35 23:47 WBC RBC Hgb Hct MCV MCH MCHC RDW Std Deviation RDW Coeff of Katerina Plt Count MPV PT INR ABG pH ABG pCO2 ABG pO2 ABG HCO3 ABG O2 Saturation ABG Base Excess Demond Test Barometric Pressure Oxygen Given Sodium Potassium Chloride Carbon Dioxide Anion Gap BUN Creatinine Est Cr Clr Drug Dosing Est GFR ( Amer) Est GFR (Non-Af Amer) BUN/Creatinine Ratio Glucose POC Glucose 152 H 136 H 125 H Calcium Ammonia Urine Color Urine Appearance Urine pH Ur Specific [place] Urine Protein Urine Glucose (UA) Urine Ketones Urine Blood Urine Nitrite Urine Bilirubin Urine Urobilinogen Ur Leukocyte Esterase Urine WBC (Auto) Urine RBC (Auto) U Hyaline Cast (Auto) U Epithel Cells (Auto) Urine Bacteria (Auto) Urine Yeast Hep Bs Antigen Hep Bs Antibody Hep Bs Antibody, Quant
[2018-05-17] MEDS: TRAVOPROST Z 0.004% OPH SOLN 2.5 ML BTL OP SCH (21:00)
[2018-05-17] MEDS: DEXTROSE 5% IV SCH (22:58)
[2018-05-17] MEDS: AZTREONAM IV SCH (22:58)
[2018-05-18] MEDS: DEXTROSE 5% 1,000 ML IV SCH ×3 (00:10→23:59)
[2018-05-18] MEDS: HYDROmorphone INJ 0.5 MG/0.5 ML SYR IV PRN ×4 (00:11→20:57)
[2018-05-18] MEDS: METOPROLOL TARTRATE 1 MG/ML VIAL IV PRN (00:57)
[2018-05-18] MEDS ORDERED: dilTIAZem HCl 5 MG/ML 5 ML VIAL IV STA ×2 (01:47→14:19)
[2018-05-18] MEDS: METOPROLOL TARTRATE 1 MG/ML VIAL IV SCH ×3 (05:35→17:32)
[2018-05-18 06:05] LABS: Hematocrit (blood only) 39.9 % (37-47); Hemoglobin 13.1 g/dL (12.0-16.0); Mean Corpuscular Hgb Conc 32.8 g/dL (32-36); Mean Corpuscular Volume 102.6 fL (80-100); Mean Platelet Volume 10.1 fL (7.4-10.4); Platelet Count 353 K/uL (130-400); RDW Coefficient of Variation 16.3 % (11.5-14.5); RDW Standard Deviation 60.8 fL (36.4-46.3); Red Blood Count 3.89 M/uL (4.2-5.4); White Blood Count 5.59 K/uL (4.8-10.8)
[2018-05-18] MEDS: INSULIN ASPART 100 UNITS/ML 3 ML PEN SQ SCH ×3 (06:15→19:50)
[2018-05-18 06:20] LABS: INR 2.3 (0.9-1.1); Partial Thromboplastin Ratio 1.3; Partial Thromboplastin Time 35.5 Seconds (21.0-31.0); Prothrombin Time 21.9 Seconds (9.0-12.0)
[2018-05-18] MEDS ORDERED: HEPARIN SOD (PORCINE) 1000 UNIT/ML 10 ML VIAL IV ONE (06:32)
[2018-05-18] MEDS ORDERED: SODIUM CHLORIDE 0.9% 1000ML 1,000 ML IV PRN (06:32)
[2018-05-18 06:42] LABS: BUN Creatinine Ratio 10.9 (10-20); Calcium 8.7 mg/dl (8.5-10.1); Creatinine Clr Calc Pharmacy 10.7 ml/min; Est GFR (African American) 11.7; Est GFR (Non-African American) 10.1; Magnesium 2.2 mg/dl (1.8-2.4); Potassium 4.5 mmol/L (3.5-5.1)
[2018-05-18] MEDS: DEXTROSE 5% IV SCH ×3 (07:06→23:59)
[2018-05-18] MEDS: AZTREONAM IV SCH ×3 (07:06→23:59)
[2018-05-18] MEDS: HEPARIN SOD 5,000 UNIT/0.5 ML VIAL SQ SCH ×2 (07:56→21:48)
--- NOTE | 2018-05-18 09:53 | Cardiology Progress Note ---
Date of Service May 18, 2018 Assessment & Plan (1) Atrial flutter: recurrent limited given hx of autoimmune hepatitis, will avoid antiarrhythmics given hepatic clearance metoprolol being given IV will rebolus cardizem and start on gtt after dialysis, was successful in cardioverting yesterday INR therapeutic today (2) Chest pain: Reproducible left lateral chest pain Chest discomfort in association with a symptomatic paroxysmal atrial flutter. EKG is without acute changes. Troponin negative x3. Resting echocardiography with normal systolic function, without wall motion abnormalities Recommend conservative medical management. (3) End stage renal disease on dialysis due to type 2 diabetes mellitus: Hemodialysis is under the direction of Dr. Maxwell Recommend consideration for Nephrology consultation, inpatient hemodialysis (4) HTN (hypertension): See above Subjective Pt seen and examined while on HD, somewhat more alert today, reportedly answering questions appropriately. No complaints voiced. Tele reviewed: atrial flutter with 2:1 conduction Review of Systems All systems reviewed & are unremarkable except as noted in HPI & below Physical Exam Vital Signs (Past 24 Hours): Last Vital Signs Temp 36.4 C L 05/18/18 08:43 Pulse 81 05/18/18 09:30 Resp 16 05/18/18 08:42 BP 116/64 05/18/18 09:30 Pulse Ox 97 05/18/18 08:42 Physical Exam: General: Awake, alert and oriented x 3. No acute distress. HEENT: Normocephalic, atraumatic. Pupils equal, round and reactive to light and accommodation. Extraocular muscles are intact. Anicteric sclera. Moist mucous membranes. Neck: No JVD. No bruit. Cardiovascular: irregularly irregular, unable to appreciate murmur, rub or gallop. Pulmonary: Clear to auscultation bilaterally. No rales, rhonchi, or wheezing. Abdomen: Bowel sounds x 4, soft. No rebound, guarding or tenderness. No organomegaly. Extremities: No clubbing, cyanosis or edema. +2 pedal pulses bilaterally. Skin: Warm and dry.
[2018-05-18] MEDS: HEPARIN SOD (PORCINE) 1000 UNIT/ML 10 ML VIAL IV SCH ×2 (10:00→16:07)
[2018-05-18] MEDS ORDERED: dilTIAZem HCl 5 MG/ML 5 ML VIAL IV ONE (14:25)
[2018-05-18] MEDS: dilTIAZem HCl 125 MG in DEXTROSE 5% 100 ML IV SCH (14:45)
[2018-05-18] MEDS ORDERED: SODIUM CHLORIDE 0.9% 1000ML 500 ML IV ONE (16:09)
[2018-05-18] MEDS: INSULIN GLARGINE SOLOSTAR 100 UNITS/ML 3 ML PEN SQ SCH (17:30)
--- NOTE | 2018-05-18 17:52 | Nephrology Progress Note ---
Date of Service May 18, 2018 Assessment & Plan (1) End stage renal disease on dialysis due to type 2 diabetes mellitus: -remains on D5W at 80mL hourly; this IVF ok since nPO -believe HTN this am not reflective of volume overload -gentle HD today as clinical status toleratees up to 3.5 hrs w/ up to 2 L UF >> she came off after 1.4L removed over 2.5 hrs d/t hypotension -serum chemistries, volume status, avf function, anemia acceptable Subjective seen on rounds this am. had just received dilaudid. still w/ altered MS; cannot participate in ROS d/t this. earlier this am had another dilt bolus for HR 140s; some hypotension after this Physical Exam Vital Signs (Past 24 Hours): Last Vital Signs Temp 36.8 C 05/18/18 16:00 Pulse 86 05/18/18 17:32 Resp 14 05/18/18 16:00 BP 128/71 05/18/18 17:32 Pulse Ox 97 05/18/18 16:00 Constitutional: well developed, well nourished and + frail appearing lying flat on ra w/ eyes focussed on ceiling above/behind her - though does track briefly today no distress but repeats OK OK OK OK Eyes: EOM intact bilaterally ENMT: Ears: no external ear abnormality Nose: no external nose abnormality Mouth: + dry oral mucous membranes Neck: no nuchal rigidity Respiratory: Auscultation: + diminished lung sounds mouthbreathing on exam; hard to cooperate for exam Cardiovascular: Rate/Rhythm: regular rate and regular rhythm (again w/ occasional skipped beat) Extremities: + edema (minimal BLE) and + AV fistula (+t/b) Gastrointestinal (Abdomen): Inspection/Auscultation: normal bowel sounds Percussion/Palpation: abdomen soft; abdomen nontender Musculoskeletal: Extremities: strength 5/5 throughout Skin: no rashes, warm and dry Trauma: + evidence of skin trauma (sacral bandage) Neurologic: Speech / Cognition: + abnormal speech and + abnormal cognition Psychiatric: cannot assess Results & Data Laboratory Results Abnormal lab results 05/17/18 05/17/18 05/18/18 Range/Units 20:35 23:47 05:44 RBC (4.2-5.4) M/uL MCV (80-100) fL RDW Std Deviation (36.4-46.3) fL RDW Coeff of Katerina (11.5-14.5) % PT 21.9 H (9.0-12.0) Seconds INR 2.3 H (0.9-1.1) APTT 35.5 H (21.0-31.0) Seconds Sodium (136-145) mmol/L BUN (7-18) mg/dl Creatinine (0.6-1.2) mg/dl Glucose (70-99) mg/dl POC Glucose 136 H 125 H (70-99) 05/18/18 05/18/18 05/18/18 Range/Units 05:44 05:44 06:03 RBC 3.89 L (4.2-5.4) M/uL MCV 102.6 H (80-100) fL RDW Std Deviation 60.8 H (36.4-46.3) fL RDW Coeff of Katerina 16.3 H (11.5-14.5) % PT (9.0-12.0) Seconds INR (0.9-1.1) APTT (21.0-31.0) Seconds Sodium 133 L (136-145) mmol/L BUN 43 H (7-18) mg/dl Creatinine 3.96 H (0.6-1.2) mg/dl Glucose 118 H (70-99) mg/dl POC Glucose 122 H (70-99) 05/18/18 05/18/18 Range/Units 12:19 16:54 RBC (4.2-5.4) M/uL MCV (80-100) fL RDW Std Deviation (36.4-46.3) fL RDW Coeff of Katerina (11.5-14.5) % PT (9.0-12.0) Seconds INR (0.9-1.1) APTT (21.0-31.0) Seconds Sodium (136-145) mmol/L BUN (7-18) mg/dl Creatinine (0.6-1.2) mg/dl Glucose (70-99) mg/dl POC Glucose 115 H 116 H (70-99)
[2018-05-18] MEDS: TRAVOPROST Z 0.004% OPH SOLN 2.5 ML BTL OP SCH (21:49)
--- NOTE | 2018-05-18 23:01 | Hospitalist Progress Note ---
Date of Service May 18, 2018 Assessment & Plan (1) Chest pain: Presented with chest pain. [place] ruled out. Low clinical suspicion for PE. CP appeared to be reproducible chest-wall pain. (2) Atrial flutter: Paroxysmal atrial fib / flutter. Cardiology consulted. Therapeutic options limited due to associated medical problems. Receiving metoprolol + diltiazem. Continue cardiac monitoring. Started on warfarin. (3) Atrial fibrillation: As noted above. (4) Hypertension: Continue metoprolol and diltiazem. (5) Elevated alkaline phosphatase level: Chronic elevation of alkaline phosphatase. 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 GI consulted. No further evaluation at this time. (6) End stage renal disease on dialysis due to type 2 diabetes mellitus: Management per Nephrology. (7) DM2 (diabetes mellitus, type 2): Well-controlled. Hgb A1C = 5.8. FBS today = 122. Lantus / NovoLog per protocol. (8) Altered mental status: Increasing confusion noted 05/17-05/18. Head CT - no acute findings. MRI considered, but felt that patient wound not be able to tolerate the study. Possible metabolic encephalopathy secondary to meds (baclofen). Possible encephalopathy secondary to UTI. Consider follow-up CT, ? with contrast if OK with Nephrology. Follow. (9) Urinary tract infection: UA today showed WBC's and + leukocyte esterase. Urine culture growing E coli. History of allergy to amoxicillin. Continue Rx with aztreonam. (10) DVT prophylaxis: SQ heparin --> warfarin. (11) Discharge planning issues: May need skilled care or rehab after acute hospital stay. Internal Medicine follow-up with Dr. Nunn. Subjective Recheck for multiple problems. Pt seen in her room around 0810. Still confused, but more alert. Denies headache, fever, chest pain, cough, SOB, nausea, vomiting, urinary symptoms. Hemodialysis planned for today. Continues to have intermittent episodes of narrow complex tachyarrhythmia (probable atrial flutter). Physical Exam Vital Signs (Past 24 Hours): Last Vital Signs Temp 36.6 C 05/18/18 19:41 Pulse 88 05/18/18 19:41 Resp 16 05/18/18 19:41 BP 137/73 05/18/18 19:41 Pulse Ox 97 05/18/18 19:41 Constitutional: + altered mental status; no acute distress Respiratory: normal respiratory effort, lungs clear to auscultation Cardiovascular: Rate/Rhythm: regular rate and + tachycardic Vessels: no JVD Extremities: + edema (trace) Gastrointestinal (Abdomen): Inspection/Auscultation: normal bowel sounds Percussion/Palpation: abdomen soft; abdomen nontender Musculoskeletal: Extremities: no cyanosis Neurologic: confused, but more alert more verbal does not follow commands consistently PERRL, EOMI bilateral upper extremity weakness, ? effort related lower extremity weakness vs lack of effort or understanding plantar reflexes equivocal bilat Results & Data Laboratory Results Laboratory Results - last 24 hr 05/17/18 05/17/18 05/18/18 20:35 23:47 05:44 WBC RBC Hgb Hct MCV MCH MCHC RDW Std Deviation RDW Coeff of Katerina Plt Count MPV PT 21.9 H INR 2.3 H APTT 35.5 H PTT Ratio 1.3 Sodium Potassium Chloride Carbon Dioxide Anion Gap BUN Creatinine Est Cr Clr Drug Dosing Est GFR ( Amer) Est GFR (Non-Af Amer) BUN/Creatinine Ratio Glucose POC Glucose 136 H 125 H Calcium Magnesium 05/18/18 05/18/18 05/18/18 05:44 05:44 06:03 WBC 5.59 RBC 3.89 L Hgb 13.1 Hct 39.9 MCV 102.6 H MCH 33.7 MCHC 32.8 RDW Std Deviation 60.8 H RDW Coeff of Katerina 16.3 H Plt Count 353 MPV 10.1 PT INR APTT PTT Ratio Sodium 133 L Potassium 4.5 Chloride 100 Carbon Dioxide 25 Anion Gap 8.0 BUN 43 H Creatinine 3.96 H Est Cr Clr Drug Dosing 10.7 Est GFR ( Amer) 11.7 Est GFR (Non-Af Amer) 10.1 BUN/Creatinine Ratio 10.9 Glucose 118 H POC Glucose 122 H Calcium 8.7 Magnesium 2.2 05/18/18 05/18/18 12:19 16:54 WBC RBC Hgb Hct MCV MCH MCHC RDW Std Deviation RDW Coeff of Katerina Plt Count MPV PT INR APTT PTT Ratio Sodium Potassium Chloride Carbon Dioxide Anion Gap BUN Creatinine Est Cr Clr Drug Dosing Est GFR ( Amer) Est GFR (Non-Af Amer) BUN/Creatinine Ratio Glucose POC Glucose 115 H 116 H Calcium Magnesium
[2018-05-19] MEDS: INSULIN ASPART 100 UNITS/ML 3 ML PEN SQ SCH ×4 (00:01→17:16)
[2018-05-19] MEDS: HYDROmorphone INJ 0.5 MG/0.5 ML SYR IV PRN ×3 (02:44→20:24)
[2018-05-19] MEDS ORDERED: HYDROmorphone INJ 0.5 MG/0.5 ML SYR IV STA (05:07)
[2018-05-19] MEDS: METOPROLOL TARTRATE 1 MG/ML VIAL IV SCH ×2 (06:14)
[2018-05-19 06:32] LABS: Hematocrit (blood only) 38.2 % (37-47); Hemoglobin 12.2 g/dL (12.0-16.0); Mean Corpuscular Hgb Conc 31.9 g/dL (32-36); Mean Corpuscular Volume 104.4 fL (80-100); Mean Platelet Volume 10.1 fL (7.4-10.4); Platelet Count 361 K/uL (130-400); RDW Coefficient of Variation 16.2 % (11.5-14.5); RDW Standard Deviation 61.9 fL (36.4-46.3); Red Blood Count 3.66 M/uL (4.2-5.4); White Blood Count 7.45 K/uL (4.8-10.8)
[2018-05-19 06:40] LABS: INR 3.3 (0.9-1.1); Prothrombin Time 30.7 Seconds (9.0-12.0)
[2018-05-19 07:04] LABS: BUN Creatinine Ratio 7.1 (10-20); Calcium 8.4 mg/dl (8.5-10.1); Creatinine Clr Calc Pharmacy 14.1 ml/min; Est GFR (African American) 16.5; Est GFR (Non-African American) 14.2; Potassium 3.8 mmol/L (3.5-5.1)
[2018-05-19] MEDS ORDERED: HEPARIN SOD (PORCINE) 1000 UNIT/ML 10 ML VIAL IV ONE (07:39)
[2018-05-19] MEDS ORDERED: SODIUM CHLORIDE 0.9% 1000ML 1,000 ML IV PRN (07:39)
[2018-05-19 08:55] LABS: Vitamin B12 1928 pg/ml (211-911)
[2018-05-19 08:57] LABS: Folate (Folic Acid) > 24.00 ng/ml (>5.38)
[2018-05-19] MEDS: AZTREONAM IV SCH ×3 (10:16→22:29)
[2018-05-19] MEDS: DEXTROSE 5% IV SCH ×3 (10:16→22:29)
[2018-05-19] MEDS: dilTIAZem HCl 125 MG in DEXTROSE 5% 100 ML IV SCH (10:17)
[2018-05-19] MEDS ORDERED: ACETAMINOPHEN SOL 650 MG/20.3 ML UDC PO PRN (11:39)
--- NOTE | 2018-05-19 11:43 | Cardiology Progress Note ---
Date of Service May 19, 2018 Assessment & Plan (1) Atrial flutter: recurrent limited given hx of autoimmune hepatitis, will avoid antiarrhythmics given hepatic clearance now tolerating po, will change metoprolol to po change cardizem to cardizem cd 120mg daily po INR supratherapeutic today, will hold coumadin (2) Chest pain: Reproducible left lateral chest pain Chest discomfort in association with a symptomatic paroxysmal atrial flutter. EKG is without acute changes. Troponin negative x3. Resting echocardiography with normal systolic function, without wall motion abnormalities Recommend conservative medical management. (3) End stage renal disease on dialysis due to type 2 diabetes mellitus: Hemodialysis is under the direction of Dr. Maxwell Recommend consideration for Nephrology consultation, inpatient hemodialysis (4) HTN (hypertension): See above Subjective Pt seen and examined, much more alert today, answering questions appropriately. Denies cardiac complaint. Denies cp, sob, palpitations, lightheadedness or dizziness. tele reviewed: sinus rhythm without recurrence of aflutter. Review of Systems All systems reviewed & are unremarkable except as noted in HPI & below Physical Exam Vital Signs (Past 24 Hours): Last Vital Signs Temp 36.5 C 05/19/18 04:05 Pulse 65 05/19/18 06:45 Resp 16 05/19/18 04:05 BP 147/72 H 05/19/18 06:45 Pulse Ox 98 05/19/18 04:05 Physical Exam: General: Awake, alert and oriented x 3. No acute distress. HEENT: Normocephalic, atraumatic. Pupils equal, round and reactive to light and accommodation. Extraocular muscles are intact. Anicteric sclera. Moist mucous membranes. Neck: No JVD. No bruit. Cardiovascular: Regular. Positive S-4. Normal S-1 and S-2. No S-3. No murmurs or rubs. Pulmonary: Clear to auscultation B/L. No rales, rhonchi or wheezing Abdomen: Bowel sounds x 4, soft. No rebound, guarding or tenderness. No organomegaly. Extremities: No clubbing, cyanosis or edema. +2 pedal pulses bilaterally. Skin: Warm and dry.
[2018-05-19] MEDS: dilTIAZem HCL 120 MG CAPCR PO SCH (11:46)
[2018-05-19] MEDS: DICLOFENAC SOD 1% GEL 100 GM TUBE EXT SCH ×2 (12:43→20:23)
[2018-05-19] MEDS: METOPROLOL SUCC 25MG EXT REL TAB PO SCH (12:43)
[2018-05-19] MEDS: HEPARIN SOD 5,000 UNIT/0.5 ML VIAL SQ SCH ×2 (13:57→20:23)
[2018-05-19] MEDS: INSULIN GLARGINE SOLOSTAR 100 UNITS/ML 3 ML PEN SQ SCH (17:11)
--- NOTE | 2018-05-19 19:05 | Nephrology Progress Note ---
Date of Service May 19, 2018 Assessment & Plan (1) End stage renal disease on dialysis due to type 2 diabetes mellitus: -we attempted HD yesterday and stopped after 3 hrs d/t low SBP and HR 140s. today we attempted HD again - pt moved her arm reaching for her glasses and site infilitrated after 30 min; needle could not be reestablished -will eval tomorrow and/or 05/21 for another tx depending on clinical status -serum chemistries, volume status, avf function, anemia acceptable Subjective seen on rounds late this afternoon. no sob; c/o BL knee pain and asking for pain pills; no N; does not remember having HD today or having issues w/ AVF but does remember other parts of the day and her and my name Physical Exam Vital Signs (Past 24 Hours): Last Vital Signs Temp 36.7 C 05/19/18 15:52 Pulse 71 05/19/18 15:52 Resp 18 05/19/18 15:52 BP 179/67 H 05/19/18 15:52 Pulse Ox 99 05/19/18 15:52 Constitutional: well developed and + frail appearing Eyes: EOM intact bilaterally ENMT: Ears: no external ear abnormality Nose: no external nose abnormality Mouth: + dry oral mucous membranes Neck: no nuchal rigidity Respiratory: normal respiratory effort Auscultation: + diminished lung sounds Cardiovascular: Rate/Rhythm: regular rate and regular rhythm (again w/ occasional skipped beat) Extremities: + edema (minimal BLE) and + AV fistula (+t/b; some swelling/ no hematoma) Gastrointestinal (Abdomen): Inspection/Auscultation: normal bowel sounds Percussion/Palpation: abdomen soft; abdomen nontender Musculoskeletal: Extremities: strength 5/5 throughout Skin: no rashes, warm and dry Trauma: + evidence of skin trauma (sacral bandage) Neurologic: fluent, appropriate speech, limited limb mvts; does Psychiatric: A+Ox3, euthymic affect Insight: good insight Judgement: good judgement Results & Data Laboratory Results Abnormal lab results 05/18/18 05/19/18 05/19/18 Range/Units 23:55 05:44 05:44 RBC 3.66 L (4.2-5.4) M/uL MCV 104.4 H (80-100) fL MCHC 31.9 L (32-36) g/dL RDW Std Deviation 61.9 H (36.4-46.3) fL RDW Coeff of Katerina 16.2 H (11.5-14.5) % PT (9.0-12.0) Seconds INR (0.9-1.1) Sodium 130 L (136-145) mmol/L Chloride 97 L (98-107) mmol/L BUN 21 H D (7-18) mg/dl Creatinine 2.98 H D (0.6-1.2) mg/dl BUN/Creatinine Ratio 7.1 L (10-20) Glucose 139 H (70-99) mg/dl POC Glucose 109 H (70-99) Calcium 8.4 L (8.5-10.1) mg/dl Vitamin B12 (211-911) pg/ml 05/19/18 05/19/18 05/19/18 Range/Units 05:44 05:44 05:50 RBC (4.2-5.4) M/uL MCV (80-100) fL MCHC (32-36) g/dL RDW Std Deviation (36.4-46.3) fL RDW Coeff of Katerina (11.5-14.5) % PT 30.7 H (9.0-12.0) Seconds INR 3.3 H (0.9-1.1) Sodium (136-145) mmol/L Chloride (98-107) mmol/L BUN (7-18) mg/dl Creatinine (0.6-1.2) mg/dl BUN/Creatinine Ratio (10-20) Glucose (70-99) mg/dl POC Glucose 143 H (70-99) Calcium (8.5-10.1) mg/dl Vitamin B12 1928 H (211-911) pg/ml 05/19/18 05/19/18 Range/Units 11:23 16:27 RBC (4.2-5.4) M/uL MCV (80-100) fL MCHC (32-36) g/dL RDW Std Deviation (36.4-46.3) fL RDW Coeff of Katerina (11.5-14.5) % PT (9.0-12.0) Seconds INR (0.9-1.1) Sodium (136-145) mmol/L Chloride (98-107) mmol/L BUN (7-18) mg/dl Creatinine (0.6-1.2) mg/dl BUN/Creatinine Ratio (10-20) Glucose (70-99) mg/dl POC Glucose 154 H 119 H (70-99) Calcium (8.5-10.1) mg/dl Vitamin B12 (211-911) pg/ml
[2018-05-19] MEDS: TRAVOPROST Z 0.004% OPH SOLN 2.5 ML BTL OP SCH (20:23)
--- NOTE | 2018-05-19 22:10 | Hospitalist Progress Note ---
Date of Service May 19, 2018 Assessment & Plan (1) Chest pain: Presented with chest pain. [place] ruled out. Low clinical suspicion for PE. CP appeared to be reproducible chest-wall pain. (2) Atrial flutter: Paroxysmal atrial fib / flutter. Cardiology consulted. Therapeutic options limited due to associated medical problems. Receiving metoprolol + IV diltiazem. Transition to PO diltiazem. Continue cardiac monitoring. Started on warfarin. (3) Atrial fibrillation: As noted above. (4) Hypertension: Continue metoprolol and diltiazem. (5) Elevated alkaline phosphatase level: Chronic elevation of alkaline phosphatase. 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 GI consulted. No further evaluation at this time. (6) End stage renal disease on dialysis due to type 2 diabetes mellitus: Management per Nephrology. (7) DM2 (diabetes mellitus, type 2): Well-controlled. Hgb A1C = 5.8. FBS today = 143. Lantus / NovoLog per protocol. (8) Altered mental status: Increasing confusion noted 05/17-05/18. Head CT - no acute findings. MRI considered, but felt that patient wound not be able to tolerate the study. Possible metabolic encephalopathy secondary to meds (baclofen). Possible encephalopathy secondary to UTI. Improving. Follow. (9) Urinary tract infection: UA showed WBC's and + leukocyte esterase. Urine culture growing E coli. History of allergy to amoxicillin. Continue Rx with aztreonam. (10) DVT prophylaxis: SQ heparin --> warfarin. (11) Discharge planning issues: May need skilled care or rehab after acute hospital stay. Internal Medicine follow-up with Dr. Nunn. Subjective Recheck for multiple problems. Pt seen in her room around 1030. More alert. Having some bilateral knee pain. No headache. No fever. No chest pain, cough, SOB. No nausea, vomiting. No urinary symptoms. Physical Exam Vital Signs (Past 24 Hours): Last Vital Signs Temp 36.6 C 05/19/18 19:20 Pulse 74 05/19/18 19:20 Resp 20 05/19/18 19:20 BP 160/74 H 05/19/18 19:20 Pulse Ox 99 05/19/18 19:20 Constitutional: no acute distress Respiratory: normal respiratory effort, lungs clear to auscultation Cardiovascular: Rate/Rhythm: regular rate and + tachycardic Vessels: no JVD Extremities: + edema (trace) Gastrointestinal (Abdomen): Inspection/Auscultation: normal bowel sounds Percussion/Palpation: abdomen soft; abdomen nontender Musculoskeletal: Extremities: + abnormal strength (upper extr ~ 4/5, lower extr exam limited); no cyanosis Neurologic: awake and + confused (improved) Cranial Nerves: PERRL and EOM intact bilaterally Psychiatric: Orientation: alert, oriented to person and oriented to place; + not oriented to time Results & Data Laboratory Results Laboratory Results - last 24 hr 05/18/18 05/19/18 05/19/18 23:55 05:44 05:44 WBC 7.45 RBC 3.66 L Hgb 12.2 Hct 38.2 MCV 104.4 H MCH 33.3 MCHC 31.9 L RDW Std Deviation 61.9 H RDW Coeff of Katerina 16.2 H Plt Count 361 MPV 10.1 PT INR Sodium 130 L Potassium 3.8 D Chloride 97 L Carbon Dioxide 23 Anion Gap 10.0 BUN 21 H D Creatinine 2.98 H D Est Cr Clr Drug Dosing 14.1 Est GFR ( Amer) 16.5 Est GFR (Non-Af Amer) 14.2 BUN/Creatinine Ratio 7.1 L Glucose 139 H POC Glucose 109 H Calcium 8.4 L Vitamin B12 Folate 05/19/18 05/19/18 05/19/18 05:44 05:44 05:50 WBC RBC Hgb Hct MCV MCH MCHC RDW Std Deviation RDW Coeff of Katerina Plt Count MPV PT 30.7 H INR 3.3 H Sodium Potassium Chloride Carbon Dioxide Anion Gap BUN Creatinine Est Cr Clr Drug Dosing Est GFR ( Amer) Est GFR (Non-Af Amer) BUN/Creatinine Ratio Glucose POC Glucose 143 H Calcium Vitamin B12 1928 H Folate > 24.00 05/19/18 05/19/18 05/19/18 11:23 16:27 20:07 WBC RBC Hgb Hct MCV MCH MCHC RDW Std Deviation RDW Coeff of Katerina Plt Count MPV PT INR Sodium Potassium Chloride Carbon Dioxide Anion Gap BUN Creatinine Est Cr Clr Drug Dosing Est GFR ( Amer) Est GFR (Non-Af Amer) BUN/Creatinine Ratio Glucose POC Glucose 154 H 119 H 106 H Calcium Vitamin B12 Folate
[2018-05-20] MEDS: HYDROmorphone INJ 0.5 MG/0.5 ML SYR IV PRN (00:47)
[2018-05-20] MEDS: ACETAMINOPHEN 500 MG TAB PO PRN (04:28)
[2018-05-20 06:32] LABS: Hematocrit (blood only) 30.3 % (37-47); Mean Corpuscular Volume 100.3 fL (80-100); Mean Platelet Volume 9.9 fL (7.4-10.4); Platelet Count 291 K/uL (130-400); RDW Coefficient of Variation 15.6 % (11.5-14.5); RDW Standard Deviation 57.7 fL (36.4-46.3); Red Blood Count 3.02 M/uL (4.2-5.4); White Blood Count 7.89 K/uL (4.8-10.8)
[2018-05-20 06:49] LABS: Prothrombin Time 37.8 Seconds (9.0-12.0)
[2018-05-20 06:57] LABS: INR 4.1 (0.9-1.1)
[2018-05-20] MEDS ORDERED: SODIUM CHLORIDE 0.9% 1000ML 1,000 ML IV PRN (07:00)
[2018-05-20] MEDS ORDERED: HEPARIN SOD (PORCINE) 1000 UNIT/ML 10 ML VIAL IV SCH (07:00)
[2018-05-20 07:08] LABS: BUN Creatinine Ratio 9.3 (10-20); Calcium 7.9 mg/dl (8.5-10.1); Est GFR (African American) 11.6; Potassium 4.1 mmol/L (3.5-5.1)
[2018-05-20] MEDS: HEPARIN SOD (PORCINE) 1000 UNIT/ML 10 ML VIAL IV SCH ×5 (07:29→20:26)
[2018-05-20] MEDS: INSULIN ASPART 100 UNITS/ML 3 ML PEN SQ SCH ×4 (07:55→17:39)
[2018-05-20] MEDS: TRAMADOL HCL 50 MG TABLET PO SCH ×2 (08:47→21:00)
[2018-05-20] MEDS: AZTREONAM IV SCH ×3 (08:47→23:29)
[2018-05-20] MEDS: DEXTROSE 5% IV SCH ×3 (08:47→23:29)
[2018-05-20] MEDS: DICLOFENAC SOD 1% GEL 100 GM TUBE EXT SCH ×2 (08:47→20:01)
[2018-05-20] MEDS: dilTIAZem HCL 120 MG CAPCR PO SCH (08:48)
[2018-05-20] MEDS: METOPROLOL SUCC 25MG EXT REL TAB PO SCH (08:48)
[2018-05-20] MEDS: METOPROLOL SUCC 50MG EXT REL TAB PO SCH ×2 (09:24→20:00)
[2018-05-20] MEDS: ASPIRIN 81 MG ECTAB PO SCH (09:26)
[2018-05-20] MEDS: LEVOTHYROXINE SODIUM 112 MCG TABLET PO SCH (09:26)
[2018-05-20] MEDS: SEVELAMER HCL 800 MG TABLET PO SCH ×3 (09:26→17:38)
[2018-05-20] MEDS: ALLOPURINOL 100 MG TAB PO SCH (09:26)
[2018-05-20] MEDS: INSULIN GLARGINE SOLOSTAR 100 UNITS/ML 3 ML PEN SQ SCH (17:38)
[2018-05-20] MEDS: TRAVOPROST Z 0.004% OPH SOLN 2.5 ML BTL OP SCH (20:01)
--- NOTE | 2018-05-20 21:23 | Hospitalist Progress Note ---
Date of Service May 20, 2018 Assessment & Plan (1) Chest pain: Presented with chest pain. [place] ruled out. Low clinical suspicion for PE. CP appeared to be reproducible chest-wall pain. (2) Atrial flutter: Paroxysmal atrial fib / flutter. Cardiology consulted. Therapeutic options limited due to associated medical problems. Receiving IV metoprolol + IV diltiazem; transitioned to PO meds. Continue cardiac monitoring. Started on warfarin. (3) Atrial fibrillation: As noted above. (4) Hypertension: Continue metoprolol and diltiazem. (5) Elevated alkaline phosphatase level: Chronic elevation of alkaline phosphatase. 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 GI consulted. No further evaluation at this time. (6) End stage renal disease on dialysis due to type 2 diabetes mellitus: Management per Nephrology. (7) DM2 (diabetes mellitus, type 2): Well-controlled. Hgb A1C = 5.8. FBS today = 79 Lantus / NovoLog per protocol. (8) Altered mental status: Increasing confusion noted 05/17-05/18. Head CT - no acute findings. MRI considered, but felt that patient wound not be able to tolerate the study. Possible metabolic encephalopathy secondary to meds (baclofen). Possible encephalopathy secondary to UTI. Improving. Follow. (9) Urinary tract infection: UA showed WBC's and + leukocyte esterase. Urine culture growing E coli. History of allergy to amoxicillin. Continue Rx with aztreonam. (10) DVT prophylaxis: SQ heparin --> warfarin. (11) Discharge planning issues: May need skilled care or rehab after acute hospital stay. Internal Medicine follow-up with Dr. Nunn. Subjective Recheck for multiple problems. Pt seen in her room around 1100. Doing much better. More alert. Ambulated to toilet with assistance. No headache. No fever. No chest pain, cough, SOB. No nausea, vomiting. No urinary symptoms. Ongoing knee pain. Physical Exam Vital Signs (Past 24 Hours): Last Vital Signs Temp 36.4 C L 05/20/18 20:06 Pulse 71 05/20/18 20:06 Resp 18 05/20/18 20:06 BP 145/74 H 05/20/18 20:06 Pulse Ox 100 05/20/18 20:06 Constitutional: no acute distress Respiratory: normal respiratory effort, lungs clear to auscultation Cardiovascular: Rate/Rhythm: regular rate Vessels: no JVD Extremities: + edema (trace) Gastrointestinal (Abdomen): Inspection/Auscultation: normal bowel sounds Percussion/Palpation: abdomen soft; abdomen nontender Musculoskeletal: Extremities: + abnormal strength (upper extr ~ 4/5, lower extr exam limited); no cyanosis Neurologic: awake and + confused (improved) Cranial Nerves: PERRL and EOM intact bilaterally Psychiatric: Orientation: alert, oriented to person and oriented to place; + not oriented to time Results & Data Laboratory Results Laboratory Results - last 24 hr 05/19/18 05/20/18 05/20/18 23:58 05:59 05:59 WBC 7.89 RBC 3.02 L Hgb 10.0 L Hct 30.3 L MCV 100.3 H MCH 33.1 MCHC 33.0 RDW Std Deviation 57.7 H RDW Coeff of Katerina 15.6 H Plt Count 291 MPV 9.9 PT 37.8 H INR 4.1 H Sodium Potassium Chloride Carbon Dioxide Anion Gap BUN Creatinine Est Cr Clr Drug Dosing Est GFR ( Amer) Est GFR (Non-Af Amer) BUN/Creatinine Ratio Glucose POC Glucose 113 H Calcium 05/20/18 05/20/18 05/20/18 05:59 07:30 11:30 WBC RBC Hgb Hct MCV MCH MCHC RDW Std Deviation RDW Coeff of Katerina Plt Count MPV PT INR Sodium 127 L Potassium 4.1 Chloride 95 L Carbon Dioxide 23 Anion Gap 10.0 BUN 37 H D Creatinine 3.97 H D Est Cr Clr Drug Dosing 11.0 Est GFR ( Amer) 11.6 Est GFR (Non-Af Amer) 10.0 BUN/Creatinine Ratio 9.3 L Glucose 86 POC Glucose 79 113 H Calcium 7.9 L 05/20/18 05/20/18 17:18 20:25 WBC RBC Hgb Hct MCV MCH MCHC RDW Std Deviation RDW Coeff of Katerina Plt Count MPV PT INR Sodium Potassium Chloride Carbon Dioxide Anion Gap BUN Creatinine Est Cr Clr Drug Dosing Est GFR ( Amer) Est GFR (Non-Af Amer) BUN/Creatinine Ratio Glucose POC Glucose 135 H 162 H Calcium
[2018-05-20] MEDS ORDERED: Nursing to Pharmacy Communication ONE (22:15)
[2018-05-21] MEDS: LEVOTHYROXINE SODIUM 112 MCG TABLET PO SCH (06:01)
[2018-05-21 06:29] LABS: INR 2.6 (0.9-1.1); Prothrombin Time 24.5 Seconds (9.0-12.0)
[2018-05-21 06:55] LABS: BUN Creatinine Ratio 11.4 (10-20); Calcium 7.6 mg/dl (8.5-10.1); Creatinine Clr Calc Pharmacy 16.2 ml/min; Est GFR (African American) 19.2; Est GFR (Non-African American) 16.6; Potassium 3.6 mmol/L (3.5-5.1)
[2018-05-21] MEDS: DEXTROSE 5% IV SCH (08:29)
[2018-05-21] MEDS: AZTREONAM IV SCH (08:29)
[2018-05-21] MEDS: DICLOFENAC SOD 1% GEL 100 GM TUBE EXT SCH ×2 (08:30→21:31)
[2018-05-21] MEDS: METOPROLOL SUCC 25MG EXT REL TAB PO SCH (08:30)
[2018-05-21] MEDS: ALLOPURINOL 100 MG TAB PO SCH (08:30)
[2018-05-21] MEDS: dilTIAZem HCL 120 MG CAPCR PO SCH (08:30)
[2018-05-21] MEDS: SEVELAMER HCL 800 MG TABLET PO SCH ×3 (08:30→17:32)
[2018-05-21] MEDS: ASPIRIN 81 MG ECTAB PO SCH (08:30)
[2018-05-21] MEDS: METOPROLOL SUCC 50MG EXT REL TAB PO SCH ×2 (08:30→21:30)
[2018-05-21] MEDS: TRAMADOL HCL 50 MG TABLET PO SCH ×2 (08:32→21:29)
[2018-05-21] MEDS: INSULIN ASPART 100 UNITS/ML 3 ML PEN SQ SCH ×4 (08:41→21:32)
[2018-05-21] MEDS ORDERED: POLYETHYLENE (MIRALAX) 17 GM PACK PO PRN (11:15)
[2018-05-21] MEDS ORDERED: POLYETHYLENE (MIRALAX) 17 GM PACK PO ONE ×2 (11:18→11:19)
[2018-05-21] MEDS: WARFARIN SOD 1 MG TAB PO SCH (17:29)
[2018-05-21] MEDS: INSULIN GLARGINE SOLOSTAR 100 UNITS/ML 3 ML PEN SQ SCH (17:30)
--- NOTE | 2018-05-21 19:51 | Hospitalist Progress Note ---
Date of Service May 21, 2018 Assessment & Plan (1) Chest pain: Presented with chest pain. [place] ruled out. Low clinical suspicion for PE. CP appeared to be reproducible chest-wall pain. (2) Atrial flutter: Paroxysmal atrial fib / flutter. Cardiology consulted. Therapeutic options limited due to associated medical problems. Receiving IV metoprolol + IV diltiazem; transitioned to PO meds. Continue cardiac monitoring. Started on warfarin. (3) Atrial fibrillation: As noted above. (4) Hypertension: Continue metoprolol and diltiazem. (5) Elevated alkaline phosphatase level: Chronic elevation of alkaline phosphatase. 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 GI consulted. No further evaluation at this time. (6) End stage renal disease on dialysis due to type 2 diabetes mellitus: Management per Nephrology. (7) DM2 (diabetes mellitus, type 2): Well-controlled. Hgb A1C = 5.8. FBS today = 97. Lantus / NovoLog per protocol. (8) Altered mental status: Increasing confusion noted 05/17-05/18. Head CT - no acute findings. MRI considered, but felt that patient wound not be able to tolerate the study. Possible metabolic encephalopathy secondary to meds (baclofen). Possible encephalopathy secondary to UTI. Improved Follow. (9) Urinary tract infection: UA showed WBC's and + leukocyte esterase. Urine culture growing E coli. History of allergy to amoxicillin. Receiving Rx with aztreonam; transition to oral therapy with cephalexin. (10) DVT prophylaxis: SQ heparin --> warfarin. (11) Discharge planning issues: Poor functional status; not safe for DC to home. Will need skilled care or rehab after acute hospital stay. Internal Medicine follow-up with Dr. Nunn. Daughter visiting this afternoon and given update. Subjective Recheck for multiple problems. Pt seen in her room around 0950. Confused last night, better this morning. Nursing staff reports hard stools. No headache. No fever. No chest pain, cough, SOB. No nausea, vomiting. No urinary symptoms. Ongoing knee pain. Physical Exam Vital Signs (Past 24 Hours): Last Vital Signs Temp 36.6 C 05/21/18 15:20 Pulse 69 05/21/18 15:20 Resp 18 05/21/18 15:20 BP 142/82 H 05/21/18 15:20 Pulse Ox 100 05/21/18 15:20 Constitutional: no acute distress Respiratory: normal respiratory effort, lungs clear to auscultation Cardiovascular: Rate/Rhythm: regular rate Vessels: no JVD Extremities: + edema (trace) Gastrointestinal (Abdomen): Inspection/Auscultation: normal bowel sounds Percussion/Palpation: abdomen soft; abdomen nontender Musculoskeletal: Extremities: + abnormal strength (generalized mild weakness); no cyanosis Neurologic: awake and + confused (improved) Cranial Nerves: PERRL and EOM intact bilaterally Psychiatric: Orientation: alert, oriented to person and oriented to place; + not oriented to time ("1989") Results & Data Laboratory Results Laboratory Results - last 24 hr 05/20/18 05/21/18 05/21/18 20:25 05:39 05:39 PT 24.5 H INR 2.6 H Sodium 132 L Potassium 3.6 Chloride 97 L Carbon Dioxide 27 Anion Gap 8.0 BUN 30 H Creatinine 2.62 H D Est Cr Clr Drug Dosing 16.2 Est GFR ( Amer) 19.2 Est GFR (Non-Af Amer) 16.6 BUN/Creatinine Ratio 11.4 Glucose 100 H POC Glucose 162 H Calcium 7.6 L 05/21/18 05/21/18 05/21/18 07:33 11:31 16:00 PT INR Sodium Potassium Chloride Carbon Dioxide Anion Gap BUN Creatinine Est Cr Clr Drug Dosing Est GFR ( Amer) Est GFR (Non-Af Amer) BUN/Creatinine Ratio Glucose POC Glucose 97 149 H 121 H Calcium
[2018-05-21] MEDS: cephALEXin 500 MG CAP PO SCH (21:30)
[2018-05-21] MEDS: TRAVOPROST Z 0.004% OPH SOLN 2.5 ML BTL OP SCH (21:31)
[2018-05-22] MEDS: LEVOTHYROXINE SODIUM 112 MCG TABLET PO SCH (05:04)
[2018-05-22 06:41] LABS: INR 2.4 (0.9-1.1)
[2018-05-22 06:58] LABS: BUN Creatinine Ratio 12.6 (10-20); Calcium 7.7 mg/dl (8.5-10.1); Creatinine Clr Calc Pharmacy 11.6 ml/min; Est GFR (African American) 12.8; Potassium 3.6 mmol/L (3.5-5.1)
[2018-05-22] MEDS ORDERED: SODIUM CHLORIDE 0.9% 1000ML 1,000 ML IV PRN (07:00)
[2018-05-22] MEDS: dilTIAZem HCL 120 MG CAPCR PO SCH (08:06)
[2018-05-22] MEDS: METOPROLOL SUCC 25MG EXT REL TAB PO SCH (08:07)
[2018-05-22] MEDS: ALLOPURINOL 100 MG TAB PO SCH (08:07)
[2018-05-22] MEDS: METOPROLOL SUCC 50MG EXT REL TAB PO SCH ×2 (08:07→21:29)
[2018-05-22] MEDS: SEVELAMER HCL 800 MG TABLET PO SCH ×3 (08:07→16:48)
[2018-05-22] MEDS: ASPIRIN 81 MG ECTAB PO SCH (08:07)
[2018-05-22] MEDS: DICLOFENAC SOD 1% GEL 100 GM TUBE EXT SCH ×2 (08:08→21:29)
[2018-05-22] MEDS: INSULIN ASPART 100 UNITS/ML 3 ML PEN SQ SCH ×4 (08:09→21:28)
[2018-05-22] MEDS: TRAMADOL HCL 50 MG TABLET PO SCH ×2 (08:11→21:26)
[2018-05-22] MEDS: DEXTROSE 5% IV SCH (15:40)
[2018-05-22] MEDS: AZTREONAM IV SCH (15:40)
[2018-05-22] MEDS: INSULIN GLARGINE SOLOSTAR 100 UNITS/ML 3 ML PEN SQ SCH (16:47)
[2018-05-22] MEDS: WARFARIN SOD 1 MG TAB PO SCH (16:48)
--- NOTE | 2018-05-22 17:54 | Nephrology Progress Note ---
Date of Service May 22, 2018 Assessment & Plan (1) End stage renal disease on dialysis due to type 2 diabetes mellitus: -Patient is tolerating dialysis well this afternoon. She has had problems with intradialytic hypotension. We will monitor closely. To get UF 1.5 L. Recommend using a 3K bath. Next dialysis will be on Tuesday Subjective Patient seen and examined while on dialysis. She is tolerating dialysis well this afternoon. She denies any shortness of breath or chest pain. She has pain in the lower extremities. She has mild leg swelling. Review of Systems All systems reviewed & are unremarkable except as noted in HPI & below Physical Exam Vital Signs (Past 24 Hours): Last Vital Signs Temp 37.0 C 05/22/18 17:09 Pulse 64 05/22/18 17:20 Resp 18 05/22/18 15:36 BP 112/48 L 05/22/18 17:20 Pulse Ox 99 05/22/18 15:36 Physical Exam: General exam: Appears comfortable, no acute distress HEENT: Pupils are equal and reactive to light Neck: No JVD, neck is supple trachea is midline Respiratory system: Clear breath sounds bilaterally. Gastrointestinal: Abdomen is soft, non distended, non tender, bowel sounds are present CVS: Regular rate and rhythm. No murmurs, rubs or gallops Musculoskeletal: No joint or muscle tenderness Extremities: Non tender, no edema, peripheral pulses are present Neuro: Oriented, no tremors, no focal neurological deficits Skin: No rashes Access: Left forearm AV fistula Results & Data Laboratory Results Reviewed including sodium 129, potassium of 3.6
--- NOTE | 2018-05-22 20:43 | Hospitalist Progress Note ---
Date of Service May 22, 2018 Assessment & Plan (1) Chest pain: Presented with chest pain. [place] ruled out. Low clinical suspicion for PE. CP appeared to be reproducible chest-wall pain. (2) Atrial flutter: Paroxysmal atrial fib / flutter. Cardiology consulted. Therapeutic options limited due to associated medical problems. Receiving IV metoprolol + IV diltiazem; transitioned to PO meds. Continue cardiac monitoring. Started on warfarin. INR today = 2.4. (3) Atrial fibrillation: As noted above. (4) Hypertension: Continue metoprolol and diltiazem. (5) Elevated alkaline phosphatase level: Chronic elevation of alkaline phosphatase. 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 GI consulted. No further evaluation at this time. (6) End stage renal disease on dialysis due to type 2 diabetes mellitus: Management per Nephrology. (7) DM2 (diabetes mellitus, type 2): Well-controlled. Hgb A1C = 5.8. FBS today = 81. Lantus / NovoLog per protocol. (8) Altered mental status: Increasing confusion noted 05/17-05/18. Head CT - no acute findings. MRI considered, but felt that patient wound not be able to tolerate the study. Possible metabolic encephalopathy secondary to meds (baclofen). Possible encephalopathy secondary to UTI. Improved Follow. (9) Urinary tract infection: UA showed WBC's and + leukocyte esterase. Urine culture growing E coli. History of allergy to amoxicillin. Receiving Rx with aztreonam; transitioned to oral therapy with cephalexin. (10) DVT prophylaxis: SQ heparin --> warfarin. (11) Discharge planning issues: Poor functional status; not safe for DC to home. Will need skilled care or rehab after acute hospital stay. Patient would like to go home, but does not have good insight due to her congitive status. Internal Medicine follow-up with Dr. Nunn. Subjective Recheck for multiple problems. Pt seen in her room around 1050. Intermittent confusion. No headache. No fever. No chest pain, cough, SOB. No nausea, vomiting. No urinary symptoms. Ongoing knee pain. Physical Exam Vital Signs (Past 24 Hours): Last Vital Signs Temp 37.0 C 05/22/18 17:09 Pulse 64 05/22/18 18:20 Resp 18 05/22/18 15:36 BP 126/46 L 05/22/18 18:20 Pulse Ox 99 05/22/18 15:36 Constitutional: no acute distress Respiratory: normal respiratory effort, lungs clear to auscultation Cardiovascular: Rate/Rhythm: regular rate Vessels: no JVD Extremities: + edema (trace) Gastrointestinal (Abdomen): Inspection/Auscultation: normal bowel sounds Percussion/Palpation: abdomen soft; abdomen nontender Musculoskeletal: Extremities: + abnormal strength (generalized mild weakness); no cyanosis Neurologic: awake and + confused (improved) Cranial Nerves: PERRL and EOM intact bilaterally Psychiatric: Orientation: alert, oriented to person and oriented to place; + not oriented to time ("1989") Results & Data Laboratory Results Laboratory Results - last 24 hr 05/22/18 05/22/18 05/22/18 06:03 06:03 07:32 PT 23.0 H INR 2.4 H Sodium 129 L Potassium 3.6 Chloride 95 L Carbon Dioxide 27 Anion Gap 7.0 BUN 46 H D Creatinine 3.67 H D Est Cr Clr Drug Dosing 11.6 Est GFR ( Amer) 12.8 Est GFR (Non-Af Amer) 11.0 BUN/Creatinine Ratio 12.6 Glucose 69 L POC Glucose 81 Calcium 7.7 L 05/22/18 05/22/18 11:14 16:04 PT INR Sodium Potassium Chloride Carbon Dioxide Anion Gap BUN Creatinine Est Cr Clr Drug Dosing Est GFR ( Amer) Est GFR (Non-Af Amer) BUN/Creatinine Ratio Glucose POC Glucose 106 H 100 H Calcium
[2018-05-22] MEDS: cephALEXin 500 MG CAP PO SCH (21:27)
[2018-05-22] MEDS: TRAVOPROST Z 0.004% OPH SOLN 2.5 ML BTL OP SCH (21:29)
[2018-05-23] MEDS: ACETAMINOPHEN 500 MG TAB PO PRN (03:35)
[2018-05-23] MEDS: LEVOTHYROXINE SODIUM 112 MCG TABLET PO SCH (06:19)
[2018-05-23 06:57] LABS: Hemoglobin 9.1 g/dL (12.0-16.0); Mean Corpuscular Hgb Conc 32.5 g/dL (32-36); Mean Corpuscular Volume 101.8 fL (80-100); Mean Platelet Volume 10.1 fL (7.4-10.4); Platelet Count 325 K/uL (130-400); RDW Coefficient of Variation 15.9 % (11.5-14.5); RDW Standard Deviation 59.9 fL (36.4-46.3); Red Blood Count 2.75 M/uL (4.2-5.4); White Blood Count 8.59 K/uL (4.8-10.8)
[2018-05-23 07:15] LABS: INR 2.2 (0.9-1.1)
[2018-05-23] MEDS: INSULIN ASPART 100 UNITS/ML 3 ML PEN SQ SCH ×2 (08:19→12:04)
[2018-05-23] MEDS: ASPIRIN 81 MG ECTAB PO SCH (08:21)
[2018-05-23] MEDS: SEVELAMER HCL 800 MG TABLET PO SCH ×2 (08:21→12:05)
[2018-05-23] MEDS: dilTIAZem HCL 120 MG CAPCR PO SCH (08:22)
[2018-05-23] MEDS: TRAMADOL HCL 50 MG TABLET PO SCH (08:22)
[2018-05-23] MEDS: ALLOPURINOL 100 MG TAB PO SCH (08:22)
[2018-05-23] MEDS: DICLOFENAC SOD 1% GEL 100 GM TUBE EXT SCH (08:22)
[2018-05-23] MEDS: METOPROLOL SUCC 25MG EXT REL TAB PO SCH (08:27)
[2018-05-23] MEDS: METOPROLOL SUCC 50MG EXT REL TAB PO SCH (08:27)
--- NOTE | 2018-05-23 15:20 | Hospitalist Progress Note ---
Date of Service May 23, 2018 Assessment & Plan (1) Chest pain: Presented with chest pain. [place] ruled out. Low clinical suspicion for PE. CP appeared to be reproducible chest-wall pain. (2) Atrial flutter: Paroxysmal atrial fib / flutter. Cardiology consulted. Therapeutic options limited due to associated medical problems. Receiving IV metoprolol + IV diltiazem; transitioned to PO meds. Continue cardiac monitoring. Started on warfarin. INR today = 2.2. Continue warfarin 1 mg daily and monitor INR closely. (3) Atrial fibrillation: As noted above. (4) Hypertension: Continue metoprolol and diltiazem. (5) Elevated alkaline phosphatase level: Chronic elevation of alkaline phosphatase. 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 GI consulted. No further evaluation at this time. (6) End stage renal disease on dialysis due to type 2 diabetes mellitus: Management per Nephrology. (7) DM2 (diabetes mellitus, type 2): Well-controlled. Hgb A1C = 5.8. FBS today = 82. Lantus / NovoLog per protocol. (8) Altered mental status: Increasing confusion noted 05/17-05/18. Head CT - no acute findings. MRI considered, but felt that patient wound not be able to tolerate the study. Possible metabolic encephalopathy secondary to meds (baclofen). Possible encephalopathy secondary to UTI. Improved Follow. (9) Urinary tract infection: UA showed WBC's and + leukocyte esterase. Urine culture growing E coli. History of allergy to amoxicillin. Receiving Rx with aztreonam; transitioned to oral therapy with cephalexin. Completed adequate course of therapy by discharge. (10) DVT prophylaxis: SQ heparin --> warfarin. (11) Discharge planning issues: Poor functional status; not safe for DC to home. Will need skilled care or rehab after acute hospital stay. Case Management consulted. Arrangements being made for transfer to [facility]. Internal Medicine follow-up with Dr. Nunn. Nephrology follow-up with Dr. Maxwell; hemodialysis MWF at [facility] in [place]. Subjective Recheck for multiple problems. Pt seen in her room around 0950. Confusion improved. Pt now understands that she needs skilled care before returning to her apartment. She tires easily with exertion. No fever. No chest pain, cough, SOB. No nausea, vomiting. No urinary symptoms. Ongoing knee pain. Cardiac monitoring data reviewed- NSR with PVC's; no atrial flutter for several days. Physical Exam Vital Signs (Past 24 Hours): Last Vital Signs Temp 36.3 C L 05/23/18 11:13 Pulse 65 05/23/18 11:13 Resp 18 05/23/18 11:13 BP 146/70 H 05/23/18 11:13 Pulse Ox 93 05/23/18 11:13 Constitutional: no acute distress Respiratory: normal respiratory effort, lungs clear to auscultation Cardiovascular: Rate/Rhythm: regular rate Vessels: no JVD Extremities: + edema (trace) Gastrointestinal (Abdomen): Inspection/Auscultation: normal bowel sounds Percussion/Palpation: abdomen soft; abdomen nontender Musculoskeletal: Extremities: + abnormal strength (generalized mild weakness); no cyanosis Neurologic: awake and + confused (improved) Cranial Nerves: PERRL and EOM intact bilaterally Psychiatric: Orientation: alert, oriented to person and oriented to place; + not oriented to time Results & Data Laboratory Results Laboratory Results - last 24 hr 05/22/18 05/22/18 05/23/18 16:04 21:26 06:33 WBC RBC Hgb Hct MCV MCH MCHC RDW Std Deviation RDW Coeff of Katerina Plt Count MPV PT 21.0 H INR 2.2 H POC Glucose 100 H 94 05/23/18 05/23/18 05/23/18 06:33 07:07 11:11 WBC 8.59 RBC 2.75 L Hgb 9.1 L Hct 28.0 L MCV 101.8 H MCH 33.1 MCHC 32.5 RDW Std Deviation 59.9 H RDW Coeff of Katerina 15.9 H Plt Count 325 MPV 10.1 PT INR POC Glucose 82 108 H
[2018-05-23] MEDS: INSULIN GLARGINE SOLOSTAR 100 UNITS/ML 3 ML PEN SQ SCH (15:34)
[2018-05-23] MEDS: WARFARIN SOD 1 MG TAB PO SCH (15:35)
--- NOTE | 2018-05-23 15:45 | Discharge Summary ---
Date of Service Date of admission: 05/14/18 Date of discharge: 05/23/18 Admission HPI Per Admitting Provider Attending: Dr. Wilson This is an 82-year-old female with a past medical history of end-stage renal disease secondary to diabetes mellitus type 2 receiving hemodialysis Tuesday, Tuesday, Tuesday. She also has a history of paroxysmal atrial fib with first episode in January 2016. She has a history of hyperparathyroidism with resection, hypothyroidism, hyperkalemia, hypertension, matured AV fistula in the left forearm. She presents with chest pain starting at 07:45 a.m. this morning. The patient states that she sleeps in a recliner and was uncomfortable last night and was moving around in the recliner. This morning she woke with chest pain to her left chest midway between the axillary line and the midclavicular line. Pain has been persistent with palpation and with movement. She was given Tylenol with minimal response. She was also given nitroglycerin with no response. Troponins are negative. Other labs are otherwise consistent with her long-term hemodialysis. The patient does follow with Dr. Wiley and receives hemodialysis Tuesday. She has been on her schedule and takes all of her medications as listed. The patient has no hypoxia or shortness of breath. She has no back pain or side pain. She has no abdominal pain. No nausea or vomiting. She denies fever, chills, sweats, rigors. She has no syncope or near syncope. She has no dizziness or lightheadedness. She has no hemoptysis or pleuritic pain. She is unaware of any tachyarrhythmias. She has no cough or sputum production. She has no recent travel or recent illness. Admission Exam Per Admitting Provider GENERAL : No acute distress EYES: No icterus, gaze conjugate. Pupils equal round and reactive to light NOSE: No evidence of epistaxis MOUTH: No lesions or candidiasis. 2 upper teeth and one lower tooth present no other teeth or dentures or bridges. Bottom tooth is broken. Patient denies pain NECK: Supple CHEST: Reproducible chest pain on the left side in the fourth rib space midline between the midclavicular line in the axillary line. This is also where the patient has pain when she moves. No trauma or ecchymosis appreciated. LUNGS: CTA B/L, no wheezes, rales or rhonchi HEART: Regular, rate controlled. Telemetry currently with normal sinus rhythm ABDOMEN: Soft, NT, ND, BS Present EXTREMITIES: Matured AV fistula in left forearm. Good bruit and pulse. No LE edema, pedal pulses intact. Chronic venous stasis bilateral lower extremities. Good sensation bilateral lower extremities. No other focal deficits Principal Diagnosis chest pain- acute MD ruled out atrial flutter delirium urinary tract infection - E coli Discharge Data Allergies Allergy/AdvReac Type Severity Reaction Status Date / Time amoxicillin Allergy Intermediate HIVES Verified 05/14/18 12:18 clavulanic acid Allergy Intermediate RASH Verified 05/19/18 07:51 Owrgbvb-Ghk-Qxy Reductase Allergy Unknown Unknown rxn Verified 05/14/18 12:18 Inhibitor codeine AdvReac Mild GIVES PT A Verified 05/14/18 12:18 HEADACHE morphine AdvReac Mild HEADACHE Verified 05/19/18 07:51 Consultations 05/14/18 13:29 ED Decision to Admit Stat 05/14/18 15:55 Consult Case Management - Discharge Planning Routine 05/15/18 13:09 Consult Gastroenterology Routine 05/15/18 13:35 Consult Cardiology Routine Consult Nephrology Routine 05/23/18 14:44 Burn CD for patient Stat Ordered Studies 05/16/18 13:59 US abdomen limited Routine 05/17/18 04:55 CT head/brain wo con Urgent Hospital Course (1) Chest pain: Presented with chest pain. Cardiology consulted. [place] ruled out. Low clinical suspicion for PE. CP appeared to be reproducible chest-wall pain. (2) Atrial flutter: Paroxysmal atrial fib / flutter. Cardiology consulted. Therapeutic options limited due to associated medical problems. Received IV metoprolol + IV diltiazem; transitioned to PO meds. Started on warfarin. INR day of discharge was 2.2. Continue warfarin 1 mg daily and monitor INR closely. (3) Atrial fibrillation: As noted above. (4) Hypertension: Continue metoprolol and diltiazem. (5) Elevated alkaline phosphatase level: Chronic elevation of alkaline phosphatase. 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 GI consulted. No further evaluation at this time. (6) End stage renal disease on dialysis due to type 2 diabetes mellitus: Management per Nephrology. (7) DM2 (diabetes mellitus, type 2): Well-controlled. Hgb A1C = 5.8. FBS day of discharge was 82. Lantus / NovoLog per protocol. (8) Altered mental status: Increasing confusion noted 05/17-05/18. Head CT - no acute findings. MRI considered, but felt that patient wound not be able to tolerate the study. Possible metabolic encephalopathy secondary to meds (baclofen). Possible encephalopathy secondary to UTI. Improved; mental status back to baseline by discharge. Follow. (9) Urinary tract infection: UA showed WBC's and + leukocyte esterase. Urine culture growing E coli. History of allergy to amoxicillin. Receiving Rx with aztreonam; transitioned to oral therapy with cephalexin. Completed adequate course of therapy by discharge. (10) DVT prophylaxis: SQ heparin --> warfarin. (11) Discharge planning issues: Poor functional status; not safe for DC to home. Will need skilled care or rehab after acute hospital stay. Case Management consulted. Arrangements being made for transfer to [facility]. Internal Medicine follow-up with Dr. Nunn. Nephrology follow-up with Dr. Maxwell; hemodialysis MWF at [facility] in [place]. Total Time Total Time Spent Total Time Spent (In Minutes): 45 Discharge Plan Discharge Items Patient Disposition: Transfer Correction Fac Reason For Visit: chest pain Discharge Diagnosis: chest pain atrial flutter delirium UTI Condition: Fair Discharge Goals: Decrease discomfort, Improve disease control and Improve function Activity: As commented below Activity Comment: as tolerated with walker and assistance Non-emergency contact: Primary Care Provider, Hospitalist and Direct Support Staff Call non-emergency contact if: you have any medication questions, your symptoms worsen and your temperature is above 101 Follow-up/Referrals: Jonathan Nunn MD [Primary Care Provider] - Diet: Carb Consistent or DM2, Dialysis Renal and Heart Healthy Addtl Provider Instructions: Fall precautions. Aspiration precautions. Skin precautions. Delirium precautions. Hemodialysis every MWF at [facility]. Please monitor INR's twice a week until stable, then per your protocol. Dx: atrial flutter INR goal 2-3 Thank you for receiving this patient in transfer. Please call if you have any questions. Pancho Dougherty Prescriptions: New warfarin [Coumadin] 1 mg Tablet 1 mg PO DAILY@1600 Qty: 30 RF: 1 diltiazem HCl 120 mg Capsule,Extended Release 24hr 120 mg PO QAM Qty: 30 RF: 1 metoprolol succinate 25 mg Tablet Extended Release 24 Hr 25 mg PO QAM Qty: 30 RF: 1 metoprolol succinate 50 mg Tablet Extended Release 24 Hr 50 mg PO BID Qty: 60 RF: 1 tramadol 50 mg tablet 50 mg PO BID Qty: 6 RF: 0 Continued sevelamer HCl 800 mg Tablet 800 mg PO TID RF: 0 loperamide [Imodium A-D] 2 mg Tablet 2 mg PO DIRECTED PRN (Reason: Unknown) RF: 0 Travatan Z 0.004 % Drops 1 drp OPHTHALMIC (EYE) PM RF: 0 allopurinol 100 mg Tablet 100 mg PO DAILY RF: 0 aspirin [Aspirin Low Dose] 81 mg Tablet,Delayed Release (Dr/Ec) 81 mg PO DAILY RF: 0 acetaminophen 500 mg Tablet 1,000 mg PO Q6H PRN (Reason: Pain) RF: 0 nitroglycerin [Nitrostat] 0.4 mg Tablet, Sublingual 0.4 mg Sublingual DIRECTED PRN (Reason: Chest Pain) RF: 0 ergocalciferol (vitamin D2) 50,000 unit Capsule 50,000 unit PO WK RF: 0 epoetin mahin 10,000 unit/mL Solution 1 dose IV DIRECTED RF: 0 levothyroxine 112 mcg Tablet 112 mcg PO QAM RF: 0 Eucerin Cream 1 applic TOPICAL QID RF: 0 Changed Lantus U-100 Insulin 100 unit/mL Solution 5 units SUBCUT HS Qty: 0 RF: 0 Novolog Flexpen U-100 Insulin 100 unit/mL Insulin Pen See Rx Instructions .ROUTE .COMPLEX Qty: 0 RF: 0 Discontinued carvedilol 25 mg Tablet 25 mg PO BID RF: 0 omega-3 fatty acids [Fish Oil Concentrate] 1,000 mg Capsule 1,000 mg PO BID RF: 0 tramadol 50 mg Tablet 50 mg PO BID RF: 0 Stand-Alone Forms: Call Back Authorization, [facility] Discharge Orders: Discharge Order (Routine); Ordered 05/23/18 Ordered By: Pancho Dougherty Skilled Items Patient informed of condition?: Yes DNR: Yes Discharge Level of Care: Skilled Communicable Disease: No Discharge Prognosis: Improving Admission Data Admit Date/Time: 05/16/18 19:57 Attending Provider: Pancho Dougherty Admit Provider: Rafaela Wilson Primary Care Provider: Jonathan Nunn Other Providers: Rafaela Wilson ; Cristina Vilchis ; Mary Mackey ; Nicole Miguel ; Matteo Oviedo ; Melly Gannon ; Brandie Crespo ; Nila Ma ; Favio Peterson ; Durga Mckeon ; Bekah Vega ; Nelida Long ; Dinorah Roque ; Elis Romero ; Mikel Talamantes ; Jas Otto ; Trudy Maxwell Service: Telemetry Other Interventions: Discharge Summary Assessment (RN) Last Done: 05/23/18 15:52 Pending Studies at Discharge: No
== END 2018-05-23 16:47 | DRG 308 ==
LOC: ED 09:51 → 2S 09:51 → SUATTDRO 05-16 19:57 → 2S 05-17 12:24

== ENCOUNTER 2018-08-23 14:18 | Inpatient (IN) ==
[2018-08-23] MEDS ORDERED: SODIUM CHLORIDE 0.9% 250 ML IV ONE (15:08)
--- NOTE | 2018-08-23 15:50 | XRay Report ---
XR chest 1V portable CLINICAL HISTORY: 83 years-old Female presenting with Chest Pain. TECHNIQUE: Portable upright AP view of the chest was obtained. COMPARISON: 05/14/2018. FINDINGS: Atherosclerosis of the aortic arch. Cardiac silhouette mildly enlarged. No focal opacity. No large ef fusion or pneumothorax. Osteopenia suspected. Upper abdomen normal. IMPRESSION: 1. Mild cardiomegaly. No other convincing evidence of acute cardiopulmonary disease. Electronically signed by: Will Cedillo M.D. 08/23/2018 3:49 PM
[2018-08-23 16:03] LABS: INR 2.9 (0.9-1.1); Prothrombin Time 27.8 Seconds (9.0-12.0)
[2018-08-23 16:07] LABS: Hematocrit (blood only) 18.1 % (37-47); Hemoglobin 5.7 g/dL (12.0-16.0); Mean Corpuscular Hgb Conc 31.5 g/dL (32-36); Mean Corpuscular Volume 101.7 fL (80-100); Mean Platelet Volume 9.7 fL (7.4-10.4); Platelet Count 287 K/uL (130-400); RDW Coefficient of Variation 18.5 % (11.5-14.5); RDW Standard Deviation 68.2 fL (36.4-46.3); Red Blood Count 1.78 M/uL (4.2-5.4); White Blood Count 9.25 K/uL (4.8-10.8)
[2018-08-23 16:09] LABS: Albumin Level 2.5 gm/dl (3.4-5.0); BUN Creatinine Ratio 12.2 (10-20); Calcium 8.3 mg/dl (8.5-10.1); Creatinine Clr Calc Pharmacy 26.2 ml/min; Est GFR (African American) 35.5; Est GFR (Non-African American) 30.6; Magnesium 1.9 mg/dl (1.8-2.4); Potassium 3.6 mmol/L (3.5-5.1)
[2018-08-23] MEDS ORDERED: SODIUM CHLORIDE 0.9% 250 ML IV PRN (16:11)
[2018-08-23 16:14] LABS: Anisocytosis Present; Basophilic Stippling Occasional; Basophils # (auto) 0.01 K/uL (0-0.2); Basophils % (auto) 0.1 %; Eosinophils # (auto) 0.07 K/uL (0-0.5); Eosinophils % (auto) 0.8 %; Immature Granulocytes # (auto) 0.08 K/uL (0.00-0.02); Immature Granulocytes % (auto) 0.9 %; Lymphocytes # (auto) 3.15 K/uL (1.2-3.4); Lymphocytes % (auto) 34.1 %; Monocytes # (auto) 0.62 K/uL (0.11-0.59); Monocytes % (auto) 6.7 %; Neutrophils # (auto) 5.32 K/uL (1.4-6.5); Neutrophils % (auto) 57.4 %; Polychromasia 1+
[2018-08-23 16:23] LABS: Albumin Globulin Ratio 0.7 (0.9-2); Bilirubin,Total 0.2 mg/dl (0.2-1); Globulin 3.6 gm/dl (2.5-4.0); Phosphorus 2.5 mg/dl (2.5-4.9); Total Protein 6.1 gm/dl (6.4-8.2); Troponin I 0.024 ng/ml (0-0.045)
--- NOTE | 2018-08-23 16:55 | CT Scan Report ---
CT chest wo con CLINICAL HISTORY: 83 years-old Female presenting with left flank ecchymosis, severe anemia. TECHNIQUE: Multidetector CT imaging of the chest was performed without the use of intravenous contras t. IV contrast: None. One or more dose lowering techniques were used consistent with the principles o f ALARA (as low as reasonably achievable), including automatic exposure control, mA or kV adjustment to individual patient size, and/or use of iterative reconstruction. COMPARISON: Chest x-ray from earlier today. CT DOSE (mGy.cm): The estimated cumulative dose is 754.53. FINDINGS: Editor Producer topogram: Unremarkable. Soft tissues: Normal thyroid and thoracic inlet. No axillary, supraclavicular, or mediastinal lymphad enopathy. Evaluation of the kat limited without intravenous contrast. Atherosclerosis of the aorta. Top normal cardiac size. Coronary artery, aortic valve, and mitral annular calcification. No pericard ial or pleural effusion. Upper abdomen normal. Lungs and airways: No pneumothorax. Central airways patent. Pulmonary arteries are not significantly enlarged relative to adjacent bronchi. No interlobular septal thickening. Scattered punctate solid no dules throughout the bilateral lungs, nonspecific. Additionally, scattered pulmonary cysts, which are predominantly less than 1 to 2 cm scattered throughout the lungs. These overall have a mild basilar prominence. No superimposed infiltrate. Musculoskeletal: Degenerative changes of the spine. IMPRESSION: 1. 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 Less likely diagnostic considerations include lymphangioleiomyomatosis, pneumocystis pneumonia, or Langerhans cell histiocytosis. Electronically signed by: Will Cedillo M.D. 08/23/2018 4:54 PM
--- NOTE | 2018-08-23 17:06 | CT Scan Report ---
CT abd pelvis wo con CLINICAL HISTORY: 83 years-old Female presenting with left flank ecchymosis, severe anemia. TECHNIQUE: Multidetector CT of the abdomen and pelvis was performed without the use of intravenous co ntrast. IV contrast: None. One or more dose lowering techniques were used consistent with the princip les of ALA (as low as reasonably achievable), including automatic exposure control, mA or kV adjust ment to individual patient size, and/or use of iterative reconstruction. COMPARISON: 01/01/2016. CT DOSE (mGy.cm): The estimated cumulative dose is 754.53 mGy.cm. FINDINGS: Cloth Layer topogram: Unremarkable. Lung bases: Mitral annular calcification. Top normal heart size. No pericardial or pleural effusion. Numerous pulmonary cysts as seen on chest CT performed the same day. Liver: Normal morphology. Normal density. Biliary: No gross biliary ductal dilatation allowing for noncontrast technique. Gallbladder contains gallstones. Pancreas: Normal noncontrast appearance. Spleen: Normal noncontrast appearance. 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 Right adrenal gland normal. Kidneys and ureters: Prominent renal vascular calcification. Suspected underlying renal cysts. No nep hrolithiasis or hydronephrosis. Resolution of prior left pelvocaliectasis. Ureters nondistended. Bladder: Incompletely evaluated secondary to underdistention. Pelvic organs: Normal noncontrast appearance. Bowel: Normal appendix. No bowel obstruction. Peritoneal cavity: No free fluid or intraperitoneal gas. Lymph nodes: No gross lymphadenopathy allowing for noncontrast technique. Vasculature: Severe calcified atherosclerotic plaque likely indicating underlying diabetes. Abdominal wall: Diastasis of the rectus abdominis. Small fat-containing periumbilical hernia. No supe rficial hematoma. No infiltration of the subcutaneous fat in the left flank. Musculoskeletal: Degenerative changes of the spine. No acute osseous injury. IMPRESSION: 1. Allowing for noncontrast technique, no acute intra-abdominal pathology. 2. Cholelithiasis. 3. Please see separately dictated CT chest performed the same day. Electronically signed by: Will Cedillo M.D. 08/23/2018 5:05 PM
--- NOTE | 2018-08-23 17:57 | History & Physical Report ---
Date of Service August 23, 2018 Assessment & Plan (1) Atrial fibrillation with rapid ventricular response: Atrial Fibrillation RVR: TSH:0.568 CXR:Mild cardiomegaly. No other convincing evidence of acute cardiopulmonary disease. Monitor electrolytes Received Cardizem in ED Currently heart rate is controlled Continue metoprolol, Cardizem IV Lopressor PRN No anticoagulation for now due to GI bleed Consider Cardiology consult if needed Melena/Acute GI Bleeding: H/O hemorrhoids as per patient In setting of Coagulopathy on coumadin for afib INR:2.9 Hb:5.7 Baseline Hb ~10 Monitor H&H Transfuse 2 units PRBCs S/P Vit K 5mg Hold Aspirin, Coumadin Avoids NASIDs Started on IV protonix BID NPO , gentle IV fluids GI consulted Diarrhea: Likely due to GI bleed Stool studies to R/O C.diff Dizziness: Likely multifactorial due to significant anemia, afib RVR Monitor Abnormal CT: CT chest:Basilar predominant pulmonary cysts and 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 Less likely diagnostic considerations include lymphangioleiomyomatosis, pneumocystis pneumonia, or Langerhans cell histiocytosis. Patient denies respiratory symptoms May need further work up when appropriate Saturating well on Room air Check Procalcitonin DM II Last Hb A1C: 5.8 on 05/15/18 Hold Lantus Continue insulin sliding scale while hospitalized Hypertension Stable Continue home meds Dyslipidemia History of intolerance to statins as per records ESRD on dialysis Usual dialysis Tuesday Follows with nephrology Dr. Wiley Nephrology consulted for dialysis management Autoimmune hepatitis Stable Follows with GI Dr. Crespo Hypothyroidism Normal TSH Continue levothyroxine Secondary hyperparathyroidism S/P parathyroidectomy DVT prophylaxis: SCDs Re: GI bleed CODE STATUS: DNI DNR Disposition: PT OT prior to discharge Has [facility] at home services History of Present Illness Chief Complaint: Palpitations Primary Care Provider: Jonathan Nunn MD Patient is an 83-year-old female with history of DM II, hypertension, dyslipidemia, gout, SVT, atrial fibrillation, ESRD on dialysis, autoimmune hepatitis, hypothyroidism, secondary hyperparathyroidism and other problems presents with history of palpitations, nausea, dizziness, diarrhea, blood in stools. Patient is a poor historian. She states that she was doing well until this morning. After having dialysis today she noted to have palpitations intermittently, associated with nausea or dizziness while she was trying to stand up. Patient's daughter informs that patient has been having nausea, dizziness since last 1 week. No history of fall, loss of consciousness. Patient also had diarrhea since 2 days and has been using Imodium as needed. She noticed dark blood in her stools x2 on Tuesday. States having hemorrhoids diagnosed in the past. Currently is on Coumadin for atrial fibrillation and also is on aspirin. 2 weeks ago she noticed bleeding from AV fistula site which prompted her to visit ED. She was noted to have black-colored stool on exam. Denies any history of chest pain, SOB, cough, wheezing, hemoptysis, fever, chills, headache, change in vision, vomiting, abdominal pain, change in appetite, dysuria, hematuria. She was noted to have a hemoglobin of 5.7 today. Also noted to be in A. fib RVR while in ED which resolved with IV Cardizem. Her INR is elevated at 2.9. Allergies Allergy/AdvReac Type Severity Reaction Status Date / Time amoxicillin Allergy Intermediate HIVES Verified 08/23/18 16:45 clavulanic acid Allergy Intermediate RASH Verified 08/23/18 16:45 Qobjehe-Sks-Bmw Reductase Allergy Unknown Unknown rxn Verified 08/23/18 16:45 Inhibitor codeine AdvReac Mild GIVES PT A Verified 08/23/18 16:45 HEADACHE morphine AdvReac Mild HEADACHE Verified 08/23/18 16:45 Home Medications Home Medications Medication Instructions Recorded Confirmed Type Eucerin 1 applic TOPICAL QID 05/14/18 08/23/18 History Travatan Z 1 drp OPHTHALMIC (EYE) PM 05/14/18 08/23/18 History allopurinol 100 mg PO QAM 05/14/18 08/23/18 History aspirin [Aspirin Low Dose] 81 mg PO QAM 05/14/18 08/23/18 History epoetin mahin 1 dose IV DIRECTED 05/14/18 08/23/18 History ergocalciferol (vitamin D2) 50,000 unit PO WK 05/14/18 08/23/18 History levothyroxine 112 mcg PO QAM 05/14/18 08/23/18 History loperamide [Imodium A-D] 2 mg PO DIRECTED PRN 05/14/18 08/23/18 History nitroglycerin [Nitrostat] 0.4 mg SUBLINGUAL DIRECTED PRN 05/14/18 08/23/18 History sevelamer HCl 1,600 mg PO .WITH MEALS 05/14/18 08/23/18 History Lantus U-100 Insulin 5 units SUBCUT HS #0 ml 05/23/18 08/23/18 Rx Novolog Flexpen U-100 Insulin See Rx Instructions .ROUTE 05/23/18 08/23/18 Rx .COMPLEX #0 ml B complex with C#20-folic acid 1 cap PO QAM 08/23/18 08/23/18 History [Triphrocaps] diltiazem HCl [Cartia XT] 120 mg PO QAM 08/23/18 08/23/18 History metoprolol succinate 50 mg PO HS 08/23/18 08/23/18 History metoprolol succinate 75 mg PO QAM 08/23/18 08/23/18 History omega 5-evd-slo-fish oil [Fish Oil] 1 cap PO BID 08/23/18 08/23/18 History tramadol 50 mg PO BID PRN 08/23/18 08/23/18 History warfarin 5 mg PO QPM 08/23/18 08/23/18 History Past Med/Surg History Medical History Urinary tract infection Altered mental status Atrial flutter Atrial fibrillation with rapid ventricular response (Acute) DVT prophylaxis Chest pain Elevated alkaline phosphatase level Hemodialysis patient Hypertension (Chronic) DM2 (diabetes mellitus, type 2) (Chronic) HTN (hypertension) (Chronic) Hyperparathyroidism (Chronic) Hypothyroid (Chronic) Atrial fibrillation, chronic Hemodialysis access site with arteriovenous graft Family History Other Family history non-contributory Social History Preferred Language: Wolof Communication Ability: Effective Fishing Accessories Maker Required: No Beliefs That Will Affect Care: None Current Living Situation: Alone Other Information That Helps Us Care for You: No Feels Safe at Home: Yes Safety Concerns: Feels Safe At This Time Smoking Status: Never smoker Second Hand Exposure: No Hx Alcohol Use: No Hx Substance Use: No Review of Systems Review of Systems: All systems reviewed & are unremarkable except as noted in HPI & below Physical Exam Physical Exam: Physical Exam: Vitals signs as noted above General Appearance: Chronically appearing, thin, frail, no apparent distress Head: normocephalic, Atraumatic Eyes: normal inspection, EOMI Neck: supple, Trachea midline Respiratory/Chest: Normal breath sounds, CTA Cardiovascular: Irregularly irregular, No murmur Abdomen/GI:Soft, Non tender, Bowel sounds present Extremities/Musculoskelatal:normal inspection, chronic venous stasis changes, nonpitting lower extremity edema 1-2+ + Left UE AV Fistula Neurologic/Psych:AAOX3, grossly no focal neurological deficits Skin: normal color, warm, +Echymosis on left flank and extremities Results & Data Vital Signs (Past 12 Hours) Vital Signs Temp Pulse Resp BP Pulse Ox 08/23/18 17:30 134 H 14 08/23/18 17:01 135 H 19 08/23/18 17:00 135 H 19 120/67 08/23/18 16:59 133 H 17 08/23/18 16:58 134 H 12 128/63 08/23/18 16:30 137 H 25 H 08/23/18 16:01 136 H 14 08/23/18 16:00 135 H 14 144/60 H 08/23/18 15:44 108 H 12 136/31 L 08/23/18 15:20 96 08/23/18 15:00 124 H 21 08/23/18 14:30 124 H 16 08/23/18 14:26 123 H 14 08/23/18 14:25 37.3 C 120 H 18 119/53 L 08/23/18 14:24 109 H 17 119/53 L 100 Laboratory Results Short CBC 08/23/18 Range/Units 15:33 WBC 9.25 (4.8-10.8) K/uL Hgb 5.7 L* (12.0-16.0) g/dL Hct 18.1 L* (37-47) % Plt Count 287 (130-400) K/uL BMP 08/23/18 15:33 Sodium 135 L Potassium 3.6 Chloride 99 Carbon Dioxide 29 BUN 19 H Creatinine 1.57 H Glucose 117 H Calcium 8.3 L Cardiac Enzymes 08/23/18 Range/Units 15:33 Troponin I 0.024 (0-0.045) ng/ml Liver Function 08/23/18 Range/Units 15:33 Total Bilirubin 0.2 (0.2-1) mg/dl AST 17 (15-37) U/L ALT 19 (12-78) U/L Alkaline Phosphatase 263 H (45-117) U/L Albumin 2.5 L (3.4-5.0) gm/dl Diagnostic Findings CT chest: Basilar predominant pulmonary cysts and scattered punctate nodules most c haracteristic of lymphocytic interstitial pneumonia. Less likely diagnostic considerations include lymphangioleiomyomatosis, pneumocystis pneumonia, or Langerhans cell histiocytosis. CT ABD: 1. Allowing for noncontrast technique, no acute intra-abdominal pathology. 2. Cholelithiasis. 3. Please see separately dictated CT chest performed the same day. ECG Additional Comments: EKG: Atrial fibrillation with RVR Left axis deviation Nonspecific ST abnormalities QTC: 465
[2018-08-23] MEDS ORDERED: dilTIAZem HCl 5 MG/ML 5 ML VIAL IV STA (18:33)
[2018-08-23] MEDS ORDERED: TRAMADOL HCL 50 MG TABLET PO PRN (19:15)
[2018-08-23] MEDS ORDERED: ACETAMINOPHEN 1,000 MG/100 ML VIAL IV PRN (19:15)
[2018-08-23] MEDS ORDERED: CARBOHYDRATES FOR HYPOGLYCEMIA PO PRN (19:15)
[2018-08-23] MEDS ORDERED: DEXTROSE 50% 50 ML SYRINGE IV PRN (19:15)
[2018-08-23] MEDS ORDERED: METOPROLOL TARTRATE 1 MG/ML VIAL IV PRN (19:15)
[2018-08-23] MEDS ORDERED: NITROGLYCERIN SL 0.4 MG/TAB TAB SL PRN (19:15)
[2018-08-23] MEDS ORDERED: GLUCOSE 10 TABS/TUBE PO PRN (19:15)
[2018-08-23] MEDS ORDERED: GLUCOSE 40% GEL 15 GM TUBE PO PRN (19:15)
[2018-08-23] MEDS ORDERED: GLUCAGON FOR INJ 1 MG VIAL SQ PRN (19:15)
[2018-08-23] MEDS ORDERED: PHYTONADIONE 5 MG in SODIUM CHLORIDE 0.9% 50 ML IV ONE (19:30)
[2018-08-23] MEDS ORDERED: NSS + 20MEQ KCL 20 MEQ/1,000 ML BAG IV SCH (19:30)
[2018-08-23] MEDS: PANTOprazole 40 MG in SYRINGE 0 ML IV SCH (20:12)
[2018-08-23] MEDS: EUCERIN CR 120 GM JAR TOP SCH (20:14)
[2018-08-23] MEDS: METOPROLOL SUCC 50MG EXT REL TAB PO SCH (20:14)
[2018-08-23] MEDS: TRAVOPROST Z 0.004% OPH SOLN 2.5 ML BTL OP SCH (20:15)
[2018-08-23 20:48] LABS: Hematocrit (blood only) 18.6 % (37-47); Hemoglobin 5.7 g/dL (12.0-16.0)
[2018-08-23] MEDS: INSULIN ASPART 100 UNITS/ML 3 ML PEN SC SCH (21:15)
--- NOTE | 2018-08-23 21:44 | Emergency Department Note ---
Entered by Ligia Carrasco acting as a scribe for History of Present Illness General Chief complaint: Tachycardia Time Seen by Provider: 08/23/18 14:45 Source: patient Limitations: no limitations History of Present Illness Provider complaint: Tachycardia Onset (ago): week(s) (1.5) Location: chest Maximum Pain Intensity: 0 Associated symptoms: + denies other symptoms (-general pain), + weakness and + other (+light-headedness, +dizziness, +burning with urination) Treatments prior to arrival: other (+Dialysis ) The patient is a 83 year old female who presents to the Emergency Room with complaints of tachycardia that began approximately 1.5 weeks prior to arrival. The patient states that she was at dialysis prior to arrival and states that that her heart rate was fast after finishing. The patient denies knowing what her regular heart rate is. The patient states that she has weakness, light- headedness, dizziness. The patient denies being in any general pain. The patient denies any recent falls. The patient states that she sometimes has burning with urination and states that she urinates everyday. The patient states that she takes warfarin, metoprolol, and diltiazem. The patient states that she has a history of neuropathy and states that the redness in her legs is normal. Home Medications Home Medications Medication Instructions Recorded Confirmed Type Eucerin 1 applic TOPICAL QID 05/14/18 08/23/18 History Travatan Z 1 drp OPHTHALMIC (EYE) PM 05/14/18 08/23/18 History allopurinol 100 mg PO QAM 05/14/18 08/23/18 History aspirin [Aspirin Low Dose] 81 mg PO QAM 05/14/18 08/23/18 History epoetin mahin 1 dose IV DIRECTED 05/14/18 08/23/18 History ergocalciferol (vitamin D2) 50,000 unit PO WK 05/14/18 08/23/18 History levothyroxine 112 mcg PO QAM 05/14/18 08/23/18 History loperamide [Imodium A-D] 2 mg PO DIRECTED PRN 05/14/18 08/23/18 History nitroglycerin [Nitrostat] 0.4 mg SUBLINGUAL DIRECTED PRN 05/14/18 08/23/18 History sevelamer HCl 1,600 mg PO .WITH MEALS 05/14/18 08/23/18 History Lantus U-100 Insulin 5 units SUBCUT HS #0 ml 05/23/18 08/23/18 Rx Novolog Flexpen U-100 Insulin See Rx Instructions .ROUTE 05/23/18 08/23/18 Rx .COMPLEX #0 ml B complex with C#20-folic acid 1 cap PO QAM 08/23/18 08/23/18 History [Triphrocaps] diltiazem HCl [Cartia XT] 120 mg PO QAM 08/23/18 08/23/18 History metoprolol succinate 50 mg PO HS 08/23/18 08/23/18 History metoprolol succinate 75 mg PO QAM 08/23/18 08/23/18 History omega 2-ubj-xkg-fish oil [Fish Oil] 1 cap PO BID 08/23/18 08/23/18 History tramadol 50 mg PO BID PRN 08/23/18 08/23/18 History warfarin 5 mg PO QPM 08/23/18 08/23/18 History Allergies Allergy/AdvReac Type Severity Reaction Status Date / Time amoxicillin Allergy Intermediate HIVES Verified 08/23/18 16:45 clavulanic acid Allergy Intermediate RASH Verified 08/23/18 16:45 Ijvubyv-Fww-Ibk Reductase Allergy Unknown Unknown rxn Verified 08/23/18 16:45 Inhibitor codeine AdvReac Mild GIVES PT A Verified 08/23/18 16:45 HEADACHE morphine AdvReac Mild HEADACHE Verified 08/23/18 16:45 Past Med/Surg History Medical History Urinary tract infection Altered mental status Atrial flutter Atrial fibrillation with rapid ventricular response (Acute) DVT prophylaxis Chest pain Elevated alkaline phosphatase level Hemodialysis patient Hypertension (Chronic) DM2 (diabetes mellitus, type 2) (Chronic) HTN (hypertension) (Chronic) Hyperparathyroidism (Chronic) Hypothyroid (Chronic) Atrial fibrillation, chronic Hemodialysis access site with arteriovenous graft Family History Other Family history non-contributory Social History Preferred Language: Maltese Communication Ability: Effective Coating Manager Required: No Beliefs That Will Affect Care: None Current Living Situation: Alone Other Information That Helps Us Care for You: No Feels Safe at Home: Yes Safety Concerns: Feels Safe At This Time Smoking Status: Never smoker Second Hand Exposure: No Hx Alcohol Use: No Hx Substance Use: No Review of Systems See HPI for pertinent positives & negatives. and A total of 10 systems reviewed and were otherwise negative Physical Exam Vital Signs Vital Signs - 24 hr 08/23/18 14:24 08/23/18 14:25 08/23/18 14:26 Temperature 37.3 C Temperature Source Oral Sepsis Recent Fever Within 48 Hours No Sepsis New/Unexplained Change in Mental Status No Sepsis Action Taken by Nursing No Action Required Pulse Rate 109 H 120 H 123 H Pulse Rate from SpO2 Sensor 130 H 109 H Respiratory Rate 17 18 14 Respiratory Depth Normal Blood Pressure 119/53 L 119/53 L Blood Pressure Mean 75 75 Pulse Oximetry 100 100 100 Oxygen Delivery Method Room Air 08/23/18 14:30 08/23/18 15:00 08/23/18 15:20 Temperature Temperature Source Sepsis Recent Fever Within 48 Hours Sepsis New/Unexplained Change in Mental Status Sepsis Action Taken by Nursing Pulse Rate 124 H 124 H Pulse Rate from SpO2 Sensor 120 H 120 H Respiratory Rate 16 21 Respiratory Depth Blood Pressure Blood Pressure Mean Pulse Oximetry 100 100 96 Oxygen Delivery Method 08/23/18 15:44 08/23/18 16:00 08/23/18 16:01 Temperature Temperature Source Sepsis Recent Fever Within 48 Hours Sepsis New/Unexplained Change in Mental Status Sepsis Action Taken by Nursing Pulse Rate 108 H 135 H 136 H Pulse Rate from SpO2 Sensor 120 H 139 H 136 H Respiratory Rate 12 14 14 Respiratory Depth Blood Pressure 136/31 L 144/60 H Blood Pressure Mean 66 88 Pulse Oximetry 100 100 100 Oxygen Delivery Method 08/23/18 16:30 08/23/18 16:31 08/23/18 16:58 Temperature Temperature Source Sepsis Recent Fever Within 48 Hours Sepsis New/Unexplained Change in Mental Status Sepsis Action Taken by Nursing Pulse Rate 137 H 134 H Pulse Rate from SpO2 Sensor 137 H 133 H Respiratory Rate 25 H 12 Respiratory Depth Blood Pressure 128/63 Blood Pressure Mean 83 84 Pulse Oximetry 100 100 Oxygen Delivery Method 08/23/18 16:59 08/23/18 17:00 08/23/18 17:01 Temperature Temperature Source Sepsis Recent Fever Within 48 Hours Sepsis New/Unexplained Change in Mental Status Sepsis Action Taken by Nursing Pulse Rate 133 H 135 H 135 H Pulse Rate from SpO2 Sensor 133 H 136 H 135 H Respiratory Rate 17 19 19 Respiratory Depth Blood Pressure 120/67 Blood Pressure Mean 84 Pulse Oximetry 100 100 100 Oxygen Delivery Method 08/23/18 17:30 08/23/18 18:00 Temperature Temperature Source Sepsis Recent Fever Within 48 Hours Sepsis New/Unexplained Change in Mental Status Sepsis Action Taken by Nursing Pulse Rate 134 H 135 H Pulse Rate from SpO2 Sensor 134 H 135 H Respiratory Rate 14 17 Respiratory Depth Blood Pressure Blood Pressure Mean Pulse Oximetry 100 100 Oxygen Delivery Method GENERAL: Awake, alert, chronically ill-appearing, no distress. HENT: Normocephalic, atraumatic. TM's normal. Oropharynx with dry mucous membranes and otherwise unremarkable. EYES: PERRL. EOMI. Normal conjunctiva. Sclera non-icteric. NECK: Supple. No nuchal rigidity. FROM. No JVD or bruit. RESPIRATORY: CTAB CARDIAC: Tachycardic rate with irregular regular rhythm. 3/6 systolic murmur. ABDOMEN: Soft, non distended. No tenderness to palpation. No rebound or guarding. No masses. RECTAL: Melena, no gross blood, guaiac positive. MUSCULOSKELETAL: Unremarkable. No edema. Mild erythema and warmth of the distal pretibial region. Gross motor strength symmetric. NEURO: Normal sensorium. No sensory or motor deficits noted. SKIN: Mild pallor. No rash or jaundice noted. LYMPH: No adenopathy. Course 1454: The patient was evaluated in room B10, and a complete history and physical examination were performed. 1600: I checked on the patient. The patient was updated on their imaging and lab results. 1650: I checked on the patient. The patient was updated on their imaging and lab results. 1720: [facility] the patient for further hospitalization. 1745: I performed a rectal exam on the patient with the nursing staff by the bedside. The rectal exam revealed melena, no gross blood, guaiac positive. Consultations [facility] Time: 17:20 Administered Medications Pantoprazole Sodium 40 mg/ (Syringe) 10 mls @ 5 mls/min IV BID JOSE Stop: 09/22/18 18:59 Last Admin: 08/23/18 20:12 Dose: 5 mls/min Documented by: [id number] Potassium Chloride/Sodium Chloride (Normal Saline W/20 Meq Kcl) 20 meq in 1,000 mls @ 50 mls/hr IV .Q20H JOSE Stop: 09/22/18 19:29 Last Admin: 08/23/18 20:14 Dose: 50 mls/hr Documented by: [id number] Insulin Aspart (Novolog Flexpen) 0 units SC ACHS JOSE Stop: 09/22/18 20:59 Last Admin: 08/23/18 21:15 Dose: Not Given Documented by: [id number] Cosigned by: [id number] Metoprolol Succinate (Toprol Xl) 50 mg PO HS JOSE Stop: 09/22/18 20:59 Last Admin: 08/23/18 20:14 Dose: 50 mg Documented by: [id number] Multi-Ingredient Cream (Hydrocerin) 1 appln TOP QID JOSE Stop: 09/22/18 20:59 Last Admin: 08/23/18 20:14 Dose: 1 appln Documented by: [id number] Discontinued Medications Diltiazem HCl (Cardizem) 10 mg IV NOW STA Stop: 08/23/18 18:34 Last Admin: 08/23/18 18:39 Dose: 10 mg Documented by: [id number] Cosigned by: [id number] Sodium Chloride (Nss) 250 mls @ 999 mls/hr IV .Q16M ONE Stop: 08/23/18 15:23 Last Infusion: 08/23/18 16:02 Dose: 0 mls/hr Documented by: [id number] Admin: 08/23/18 15:45 Dose: 999 mls/hr Documented by: [id number] Phytonadione 5 mg/ Sodium (Chloride) 50.5 mls @ 101 mls/hr IV TODAY@1930 ONE Stop: 08/23/18 19:59 Last Infusion: 08/23/18 20:50 Dose: 0 mls/hr Documented by: [id number] Admin: 08/23/18 20:12 Dose: 101 mls/hr Documented by: [id number] Medical Decision Making Differential Diagnosis Differential Diagnosis includes but is not limited to dehydration, stroke, anemia, hypoglycemia, hyponatremia, hypernatremia, urinary tract infection, pneumonia, bronchitis, sepsis, gastroenteritis, additional abdominal pathology, metabolic abnormalities and infections. Medical Records Attestation: I reviewed the patient's medical records. Home Medications Current Medication List: was personally reviewed by me Laboratory Data Attestation: I reviewed the patient's lab results. Result diagrams: 08/23/18 19:55 08/23/18 15:33 Lab Results 08/23/18 08/23/18 08/23/18 Range/Units 15:33 15:33 15:33 WBC 9.25 (4.8-10.8) K/uL RBC 1.78 L (4.2-5.4) M/uL Hgb 5.7 L* (12.0-16.0) g/dL Hct 18.1 L* (37-47) % MCV 101.7 H (80-100) fL MCH 32.0 (25-34) pg MCHC 31.5 L (32-36) g/dL RDW Std Deviation 68.2 H (36.4-46.3) fL RDW Coeff of Katerina 18.5 H (11.5-14.5) % Plt Count 287 (130-400) K/uL MPV 9.7 (7.4-10.4) fL Immature Gran % (Auto) 0.9 % Neut % (Auto) 57.4 % Lymph % (Auto) 34.1 % Frederick % (Auto) 6.7 % Eos % (Auto) 0.8 % Baso % (Auto) 0.1 % Immature Gran # (Auto) 0.08 H (0.00-0.02) K/uL Neut # (Auto) 5.32 (1.4-6.5) K/uL Lymph # (Auto) 3.15 (1.2-3.4) K/uL Frederick # (Auto) 0.62 H (0.11-0.59) K/uL Eos # (Auto) 0.07 (0-0.5) K/uL Baso # (Auto) 0.01 (0-0.2) K/uL Polychromasia 1+ Basophilic Stippling Occasional Anisocytosis Present PT 27.8 H (9.0-12.0) Seconds INR 2.9 H (0.9-1.1) Sodium 135 L (136-145) mmol/L Potassium 3.6 (3.5-5.1) mmol/L Chloride 99 (98-107) mmol/L Carbon Dioxide 29 (21-32) mmol/L Anion Gap 7.0 (3-11) BUN 19 H (7-18) mg/dl Creatinine 1.57 H (0.6-1.2) mg/dl Est Cr Clr Drug Dosing 26.2 ml/min Est GFR ( Amer) 35.5 Est GFR (Non-Af Amer) 30.6 BUN/Creatinine Ratio 12.2 (10-20) Glucose 117 H (70-99) mg/dl Calcium 8.3 L (8.5-10.1) mg/dl Phosphorus 2.5 (2.5-4.9) mg/dl Magnesium 1.9 (1.8-2.4) mg/dl Total Bilirubin 0.2 (0.2-1) mg/dl AST 17 (15-37) U/L ALT 19 (12-78) U/L Alkaline Phosphatase 263 H (45-117) U/L Troponin I 0.024 (0-0.045) ng/ml Total Protein 6.1 L (6.4-8.2) gm/dl Albumin 2.5 L (3.4-5.0) gm/dl Globulin 3.6 (2.5-4.0) gm/dl Albumin/Globulin Ratio 0.7 L (0.9-2) Lipase 158 (73-393) U/L TSH 0.568 (0.300-4.500) uIu/ml Blood Type Antibody Screen Crossmatch 08/23/18 Range/Units 17:08 WBC (4.8-10.8) K/uL RBC (4.2-5.4) M/uL Hgb (12.0-16.0) g/dL Hct (37-47) % MCV (80-100) fL MCH (25-34) pg MCHC (32-36) g/dL RDW Std Deviation (36.4-46.3) fL RDW Coeff of Katerina (11.5-14.5) % Plt Count (130-400) K/uL MPV (7.4-10.4) fL Immature Gran % (Auto) % Neut % (Auto) % Lymph % (Auto) % Frederick % (Auto) % Eos % (Auto) % Baso % (Auto) % Immature Gran # (Auto) (0.00-0.02) K/uL Neut # (Auto) (1.4-6.5) K/uL Lymph # (Auto) (1.2-3.4) K/uL Frederick # (Auto) (0.11-0.59) K/uL Eos # (Auto) (0-0.5) K/uL Baso # (Auto) (0-0.2) K/uL Polychromasia Basophilic Stippling Anisocytosis PT (9.0-12.0) Seconds INR (0.9-1.1) Sodium (136-145) mmol/L Potassium (3.5-5.1) mmol/L Chloride (98-107) mmol/L Carbon Dioxide (21-32) mmol/L Anion Gap (3-11) BUN (7-18) mg/dl Creatinine (0.6-1.2) mg/dl Est Cr Clr Drug Dosing ml/min Est GFR ( Amer) Est GFR (Non-Af Amer) BUN/Creatinine Ratio (10-20) Glucose (70-99) mg/dl Calcium (8.5-10.1) mg/dl Phosphorus (2.5-4.9) mg/dl Magnesium (1.8-2.4) mg/dl Total Bilirubin (0.2-1) mg/dl AST (15-37) U/L ALT (12-78) U/L Alkaline Phosphatase (45-117) U/L Troponin I (0-0.045) ng/ml Total Protein (6.4-8.2) gm/dl Albumin (3.4-5.0) gm/dl Globulin (2.5-4.0) gm/dl Albumin/Globulin Ratio (0.9-2) Lipase (73-393) U/L TSH (0.300-4.500) uIu/ml Blood Type O Negative Antibody Screen NEGATIVE Crossmatch See Detail Imaging Data Radiologist's Impression: Radiology results as stated below per my review and the radiologist's interpretation: XR chest 1V portable CLINICAL HISTORY: 83 years-old Female presenting with Chest Pain. TECHNIQUE: Portable upright AP view of the chest was obtained. COMPARISON: 05/14/2018. FINDINGS: Atherosclerosis of the aortic arch. Cardiac silhouette mildly enlarged. No focal opacity. No large effusion or pneumothorax. Osteopenia suspected. Upper abdomen normal. IMPRESSION: 1. Mild cardiomegaly. No other convincing evidence of acute cardiopulmonary disease. Electronically signed by: Will Cedillo M.D. 08/23/2018 3:[address] abd pelvis wo con CLINICAL HISTORY: 83 years-old Female presenting with left flank ecchymosis, severe anemia. TECHNIQUE: Multidetector CT of the abdomen and pelvis was performed without the use of intravenous contrast. IV contrast: None. One or more dose lowering techniques were used consistent with the principles of ALARA (as low as reasonably achievable), including automatic exposure control, mA or kV adjust ment to individual patient size, and/or use of iterative reconstruction. COMPARISON: 01/01/2016. CT DOSE (mGy.cm): The estimated cumulative dose is 754.53 mGy.cm. FINDINGS: Quality Control Associate topogram: Unremarkable. Lung bases: Mitral annular calcification. Top normal heart size. No pericardial or pleural effusion. Numerous pulmonary cysts as seen on chest CT performed the same day. Liver: Normal morphology. Normal density. Biliary: No gross biliary ductal dilatation allowing for noncontrast technique. Gallbladder contains gallstones. Pancreas: Normal noncontrast appearance. Spleen: Normal noncontrast appearance. 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 Right adrenal gland normal. Kidneys and ureters: Prominent renal vascular calcification. Suspected underlying renal cysts. No nephrolithiasis or hydronephrosis. Resolution of prior left pelvocaliectasis. Ureters nondistended. Bladder: Incompletely evaluated secondary to underdistention. Pelvic organs: Normal noncontrast appearance. Bowel: Normal appendix. No bowel obstruction. Peritoneal cavity: No free fluid or intraperitoneal gas. Lymph nodes: No gross lymphadenopathy allowing for noncontrast technique. Vasculature: Severe calcified atherosclerotic plaque likely indicating underlying diabetes. Abdominal wall: Diastasis of the rectus abdominis. Small fat-containing periumbilical hernia. No superficial hematoma. No infiltration of the subcutaneous fat in the left flank. Musculoskeletal: Degenerative changes of the spine. No acute osseous injury. IMPRESSION: 1. Allowing for noncontrast technique, no acute intra-abdominal pathology. 2. Cholelithiasis. 3. Please see separately dictated CT chest performed the same day Electronically signed by: Will Cedillo M.D. 08/23/2018 5:[address] chest wo con CLINICAL HISTORY: 83 years-old Female presenting with left flank ecchymosis, severe anemia. TECHNIQUE: Multidetector CT imaging of the chest was performed without the use of intravenous contrast. IV contrast: None. One or more dose lowering techniques were used consistent with the principles of ALARA (as low as reasonably achievable), including automatic exposure control, mA or kV adjustment to individual patient size, and/or use of iterative reconstruction. COMPARISON: Chest x-ray from earlier today. CT DOSE (mGy.cm): The estimated cumulative dose is 754.53. FINDINGS: Quality Control Associate topogram: Unremarkable. Soft tissues: Normal thyroid and thoracic inlet. No axillary, supraclavicular, or mediastinal lymphadenopathy. Evaluation of the kat limited without intravenous contrast. Atherosclerosis of the aorta. Top normal cardiac size. Coronary artery, aortic valve, and mitral annular calcification. No pericardial or pleural effusion. Upper abdomen normal. Lungs and airways: No pneumothorax. Central airways patent. Pulmonary arteries are not significantly enlarged relative to adjacent bronchi. No interlobular septal thickening. Scattered punctate solid nodules throughout the bilateral lungs, nonspecific. Additionally, scattered pulmonary cysts, which are predominantly less than 1 to 2 cm scattered throughout the lungs. These overall have a mild basilar prominence. No superimposed infiltrate. Musculoskeletal: Degenerative changes of the spine. IMPRESSION: 1. 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 Less likely diagnostic considerations include lymphangioleiomyomatosis, pneumocystis pneumonia, or Langerhans cell histiocytosis. Electronically signed by: Will Cedillo M.D. 08/23/2018 4:54 PM ECG Data Attestation: I personally reviewed and interpreted this ECG as follows: Indication: weakness Rate (beats per minute): 121 Rhythm: atrial fibrillation (with RVR) Findings: + other (+Normal axis, +Baseline artifact) and + nonspecific-ST abn; no acute ischemic change Blood Pressure Blood Pressure Findings: Normal blood pressure MDM Narrative The patient is a pleasant 83 y/o woman with a pmhx of ESRD on HD, Afib on Coumadin, HTN, HLD, DM2 who presents to the emergency department with generalized weakness and afib with RVR per HPI. On arrival the patient is chronically ill appearing but in NAD, AF, HR 100-120s and otherwise VSS. Patient appears clinically dry. Rectal exam demonstrates melena without gross blood. Guaiac positive. EKG demonstrates AFib with RVR without overt acute ischemia. CXR negative for acute process. WBC and platelets wnl. H/H 5.7/18.1 INR 2.9. BUN 19 and Cr. 1.57 in the setting of patients ESRD. Troponin wnl at 0.024. UA pending. CT chest and abd pelvis negative for acute traumatic findings. Note is made of basilar predominant pulmonary cysts and scattered punctate nodules. Given patient's melena and acute anemia, sx most c/w upper GI bleed. Patient ordered for 2 units of PRBCs. Case was discussed with Seema Dimas, [facility], who evaluate the patient for admission. Patient given 10mg iV diltizem with improved rate control to 70s. Impression & Plan Upper GI bleed, Melena, Atrial fibrillation with rapid ventricular response, Severe anemia Critical Care Time Critical Care Time: Yes Total Critical Care Time: 65 I have personally spent 65 minutes of critical care time in the direct management of this patient. This includes bedside care, interpretation of diagnostic studies, and testing, discussion with consultants, patient, and family members, and other required patient management activities. This 65 minutes is in excess of all separately billable procedures. Discharge Plan Visit Data *Final* Discharge Date/Time: 08/23/18 19:01 Chief Complaint: Tachycardia ED Provider: Justin Kuo Discharge Problem: Upper GI bleed, Melena, Atrial fibrillation with rapid ventricular response, Severe anemia Patient Disposition: Admitted As Inpatient Discharge Instructions Interventions: ED Discharge Assessment Last Done: 08/23/18 19:01 The scribe's documentation has been prepared under my direction and personally reviewed by me in its entirety. I confirm that the note above accurately reflects all work, treatment, procedures, and medical decision making performed by me.
[2018-08-23 22:56] LABS: Appearance Urine Cloudy (Clear); Bilirubin Urine Negative (Negative); Blood Urine 3+ (Negative); Color Urine Yellow; Epithelial Cell Urine Auto >30 /lpf (0-5); Glucose Urine UA Negative (Negative); Ketones Urine Negative (Negative); Leukocyte Esterase Urine 3+ (Negative); Nitrite Urine Negative (Negative); Specific Gravity Urine 1.009 (1.000-1.030); Urobilinogen Urine Negative (Negative); WBC Urine Automated >30 /hpf (0-5); pH Urine >= 9.0 (4.5-7.5)
[2018-08-23 23:04] LABS: Protein Urine 2+ (Negative)
[2018-08-23 23:10] LABS: Bacteria Urine Automated 1+ (Negative)
[2018-08-24 05:54] LABS: Hematocrit (blood only) 23.4 % (37-47); Hemoglobin 7.7 g/dL (12.0-16.0); Mean Corpuscular Hgb Conc 32.9 g/dL (32-36); Mean Corpuscular Volume 94.4 fL (80-100); Mean Platelet Volume 9.5 fL (7.4-10.4); Platelet Count 226 K/uL (130-400); RDW Coefficient of Variation 19.5 % (11.5-14.5); Red Blood Count 2.48 M/uL (4.2-5.4)
[2018-08-24 05:59] LABS: INR 1.3 (0.9-1.1); Prothrombin Time 13.5 Seconds (9.0-12.0)
[2018-08-24 06:18] LABS: BUN Creatinine Ratio 12.8 (10-20); Calcium 7.4 mg/dl (8.5-10.1); Est GFR (African American) 23.8; Est GFR (Non-African American) 20.6; Potassium 4.2 mmol/L (3.5-5.1)
--- NOTE | 2018-08-24 09:36 | Hospitalist Progress Note ---
Date of Service August 24, 2018 Assessment & Plan (1) Atrial fibrillation with rapid ventricular response: Atrial Fibrillation RVR: -Patient came to to the hospital with atrial fibrillation with rapid ventricular response on 08/23/18 -rate was controlled with metoprolol and cardiazem and then patient returned to to sinus rhythm -continue home dose metoprololl and cardiazem for now, IV lopressor prn if heart rate increases -TSH:0.568 is within normal parameters -will continue to hold coumadin because of concern for acute blood loss anemia from GI bleed acute blood loss anemia from GI bleed In setting of Coagulopathy on coumadin for afib / history hemorrhoids as per patient -arrived with Hgb 5.7 and INR 2.9 -was Transfused 2 units PRBCs and s/p Vitamin K 5mg on 08/23/18 -continue to hold Aspirin and hold Coumadin -Avoids NASIDs -on IV protonix BID -had received IV fluids -follow up CBC is 7.7 on 08/24/18 -Gastroenterology recommendations appreciated Diarrhea: -send Stool studies to R/O C.diff -send FOBT Dizziness: -Likely multifactorial due to significant anemia, atrial fibrillation with rapid ventricular response -dizziness has resolved Hypertension -Continue home medications of metoprolol and diltiazem ESRD on dialysis Usual dialysis Tuesday last dialysis session on Tuesday08/24/18 as outpatient as per the patient Follows with nephrology Dr. 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 Less likely diagnostic considerations include lymphangioleiomyomatosis, pneumocystis pneumonia, or Langerhans cell histiocytosis. -Procalcitonin 0.68 -will send blood cultures possible right lower extremity cellulitis chronic right lower extremity pain -right lower extremity with erythema -start ceftriaxone after blood cultures are drawn -will send ultrasound of bilateral lower extremities Type II diabetes mellitus with intermission coordinator current use of insulin -HbA1C: 5.8 on 05/15/18 -Hold Lantus -Continue insulin sliding scale while hospitalized Dyslipidemia History of intolerance to statins as per records Autoimmune hepatitis Stable Follows with GI Dr. Crespo as outpatient DVT prophylaxis: SCDs CODE STATUS: DNI DNR Subjective Patient is current normal sinus rhythm. no dizziness. no headache. no vomiting. not in acute distress. Patient reports she was seen by GI service and was offered endoscopy but patient reports that she will think about it. no abdomen pain. is hemodynamically stable. patient reports chronic lower extremity swelling. also has been having more pain of lower extremities. Physical Exam Constitutional: comfortable Eyes: PERRL, conjunctivae normal, anicteric sclerae EOM intact bilaterally ENMT: external ear and nose normal, oropharynx normal Neck: trachea midline, no thyromegaly normal visual inspection Respiratory: normal respiratory effort, lungs clear to auscultation Cardiovascular: Rate/Rhythm: regular rate and regular rhythm Gastrointestinal (Abdomen): normal bowel sounds, soft, nontender, no hepatosplenomegaly Musculoskeletal: Head/Neck/Chest: normocephalic and head atraumatic Skin: left upper extremity AV fistula, chronic lower extremity venous changes. lower extremity tender toe palpation Neurologic: PERRL, EOMI, accommodation nl, no face palsy, no dysarthria CN's II-XI intact bilaterally Psychiatric: A+Ox3, euthymic affect Results & Data Vital Signs (Past 12 Hours) Vital Signs Temp Pulse Pulse Resp BP BP Pulse Ox 08/24/18 07:27 36.6 C 67 18 159/64 H 100 08/24/18 07:01 36.3 C L 75 16 176/67 H 96 08/24/18 04:15 36.4 C L 67 16 164/61 H 99 08/24/18 03:55 72 08/24/18 03:20 36 C L 64 16 133/68 100 08/24/18 02:20 64 148/66 H 97 08/24/18 01:50 36.4 C L 64 16 148/56 H 98 08/24/18 01:35 36.4 C L 69 16 145/70 H 99 08/24/18 01:19 36.4 C L 67 16 144/73 H 99 08/24/18 00:53 65 18 129/65 100 08/24/18 00:23 36.6 C 70 16 116/49 L 100 08/23/18 23:23 36.4 C L 67 16 136/54 L 100 08/23/18 22:23 36.6 C 97 H 18 123/48 L 100 08/23/18 21:53 36.4 C L 93 H 16 135/61 100 08/23/18 21:38 36.3 C L 71 18 130/66 99
[2018-08-24] MEDS: INSULIN ASPART 100 UNITS/ML 3 ML PEN SC SCH ×4 (09:54→21:04)
[2018-08-24] MEDS: LEVOTHYROXINE SODIUM 56 MCG in SYRINGE 0 ML IV SCH (09:54)
[2018-08-24] MEDS: EUCERIN CR 120 GM JAR TOP SCH ×4 (09:58→20:40)
[2018-08-24] MEDS: dilTIAZem HCL 120 MG CAPCR PO SCH (09:58)
--- NOTE | 2018-08-24 10:34 | Gastrointestinal Consultation ---
Date of Consultation August 24, 2018 Assessment & Plan (1) Melena: (2) Severe anemia: Pt is a 83 y/o w hx of Afib on Coumadin, ESRD on HD who presented to ED w c/o dizziness, nausea, palpations. On presentation noted to be on Afib w RVR, resolved w Cardizem IV. Noted she was severely anemic w Hgb of 5 (baseline 10- 11), treated w 2U PRBC transfusion and now up to 7.7. She was found to have black stools on exam. She did notice diarrhea on Tuesday and red blood in stools but not sure when she started having black stools. INR 2.9 -> 1.3 after Vit K 5mg IV x 1 dose - Monitor H/H and transfuse prn - Keep NPO - Change PPI IV BID to bolus and gtt - I discussed w her and her daughter (over phone) at length about pt's current presentation and recommended EGD evaluation to r/o UGI bleed. Pt is not willing to undergo this procedure and said "will think about it". I have relayed her decision to her daughter as well who is agreeable to watchful waiting for now but realizes that if pt's started to have more acute bleeding symptoms we will re-discuss endoscopic interventions. Daughter will come over to hospital this afternoon. After deliberation and discussion with family, patient agrees to EGD. Supervising Physician Co-Signing Physician Notes I have performed a history and physical examination of this patient and reviewed the electronic medical record. Specifically, on physical examination patient is alert and oriented, abdomen is soft and non tender. Patient agrees with plan for EGD. I have discussed the case with ADOLPH Sultana. The above note reflects my findings, conclusions, and recommendations. Favio Petesron MD History of Present Illness Reason for Consultation: Melena Requesting Physician: Dr. Herman Ozuna Attending Physician: Dr. Favio Peterson History of Present Illness Pt is a 83 y/o female w PMHx as noted below who presented to ED w c/o dizziness, nausea, palpitation. Denies any syncopal episode. She has ESRD on hemodialysis every M,W,Fr; also has Afib on Coumadin. In presentation, VS stable w/o signs of hypotension, but was noted to be in Afib RVR in ED, resolved w Cardizem IV. It's noted that she was acutely anemic w Hgb of 5.7 (baseline 10-11) and was found to have black stools. Overnight been transfused 2U PRBC, Hgb up to 7.7 today. Pt reports she's noticed "messy" stools x 2 weeks but it became diarrhea like on Tuesday for which she took 2 tabs of Imodium. She noticed on Tuesday had some red blood in stools. Hx of hemorrhoids. She's not sure when black stools started. On 08/11/18 she went to ED for bleeding on AV fistula site. INR checked and it was 6.9. Fistula bleeding resolved w/o Vit K. Coumadin held for couple of days and dose adjusted to 5mg daily. INR on presentation was 2.9, given Vit K 5mg IV x 1 dose and now down to 1.3 She had been on Acetaminophen for generalized aches, but denies any NSAIDs. Denies any hx of endoscopic evaluations. Allergies Allergy/AdvReac Type Severity Reaction Status Date / Time amoxicillin Allergy Intermediate HIVES Verified 08/23/18 16:45 clavulanic acid Allergy Intermediate RASH Verified 08/23/18 16:45 Aynaryp-Tvt-Lsv Reductase Allergy Unknown Unknown rxn Verified 08/23/18 16:45 Inhibitor codeine AdvReac Mild GIVES PT A Verified 08/23/18 16:45 HEADACHE morphine AdvReac Mild HEADACHE Verified 08/23/18 16:45 Home Medications Home Medications Medication Instructions Recorded Confirmed Type Eucerin 1 applic TOPICAL QID 05/14/18 08/23/18 History Travatan Z 1 drp OPHTHALMIC (EYE) PM 05/14/18 08/23/18 History allopurinol 100 mg PO QAM 05/14/18 08/23/18 History aspirin [Aspirin Low Dose] 81 mg PO QAM 05/14/18 08/23/18 History epoetin mahin 1 dose IV DIRECTED 05/14/18 08/23/18 History ergocalciferol (vitamin D2) 50,000 unit PO WK 05/14/18 08/23/18 History levothyroxine 112 mcg PO QAM 05/14/18 08/23/18 History loperamide [Imodium A-D] 2 mg PO DIRECTED PRN 05/14/18 08/23/18 History nitroglycerin [Nitrostat] 0.4 mg SUBLINGUAL DIRECTED PRN 05/14/18 08/23/18 History sevelamer HCl 1,600 mg PO .WITH MEALS 05/14/18 08/23/18 History Lantus U-100 Insulin 5 units SUBCUT HS #0 ml 05/23/18 08/23/18 Rx Novolog Flexpen U-100 Insulin See Rx Instructions .ROUTE 05/23/18 08/23/18 Rx .COMPLEX #0 ml B complex with C#20-folic acid 1 cap PO QAM 08/23/18 08/23/18 History [Triphrocaps] diltiazem HCl [Cartia XT] 120 mg PO QAM 08/23/18 08/23/18 History metoprolol succinate 50 mg PO HS 08/23/18 08/23/18 History metoprolol succinate 75 mg PO QAM 08/23/18 08/23/18 History omega 7-kwc-dwd-fish oil [Fish Oil] 1 cap PO BID 08/23/18 08/23/18 History tramadol 50 mg PO BID PRN 08/23/18 08/23/18 History warfarin 5 mg PO QPM 08/23/18 08/23/18 History Patient History Medical History Urinary tract infection Altered mental status Atrial flutter Atrial fibrillation with rapid ventricular response (Acute) DVT prophylaxis Chest pain Elevated alkaline phosphatase level Hemodialysis patient Hypertension (Chronic) DM2 (diabetes mellitus, type 2) (Chronic) HTN (hypertension) (Chronic) Hyperparathyroidism (Chronic) Hypothyroid (Chronic) Atrial fibrillation, chronic Hemodialysis access site with arteriovenous graft Family History Other Family history non-contributory Social History Preferred Language: Croatian Communication Ability: Effective 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 Beliefs That Will Affect Care: None Current Living Situation: Alone Other Information That Helps Us Care for You: No Feels Safe at Home: Yes Safety Concerns: Feels Safe At This Time Smoking Status: Never smoker Second Hand Exposure: No Hx Alcohol Use: No Hx Substance Use: No Review of Systems Review of Systems: All systems reviewed & are unremarkable except as noted in HPI & below Physical Exam Constitutional: WD/WN, vitals as above well groomed, cooperative and comfortable Eyes: PERRL, conjunctivae normal, anicteric sclerae ENMT: external ear and nose normal, oropharynx normal Respiratory: normal respiratory effort, lungs clear to auscultation Cardiovascular: RRR, no murmur, no edema Gastrointestinal (Abdomen): normal bowel sounds, soft, nontender, no hepatosplenomegaly Rectal: she refused internal exam. external area w dried blood that's dark in color around rectum. Skin: no rashes, warm and dry no jaundice Neurologic: Motor/Sensory: no asterixis Psychiatric: A+Ox3, euthymic affect Lymphatic: + lymphedema Bilateral LE w erythema, tender to palpation, and edema. Results & Data Vital Signs (Past 12 Hours) Vital Signs Temp Pulse Pulse Resp BP BP Pulse Ox 08/24/18 07:27 36.6 C 67 18 159/64 H 100 08/24/18 07:01 36.3 C L 75 16 176/67 H 96 08/24/18 04:15 36.4 C L 67 16 164/61 H 99 08/24/18 03:55 72 08/24/18 03:20 36 C L 64 16 133/68 100 08/24/18 02:20 64 148/66 H 97 08/24/18 01:50 36.4 C L 64 16 148/56 H 98 08/24/18 01:35 36.4 C L 69 16 145/70 H 99 08/24/18 01:19 36.4 C L 67 16 144/73 H 99 08/24/18 00:53 65 18 129/65 100 08/24/18 00:23 36.6 C 70 16 116/49 L 100 08/23/18 23:23 36.4 C L 67 16 136/54 L 100
[2018-08-24 10:41] LABS: Basophils # (auto) 0.01 K/uL (0-0.2); Basophils % (auto) 0.1 %; Eosinophils # (auto) 0.09 K/uL (0-0.5); Eosinophils % (auto) 1.1 %; Hematocrit (blood only) 27.7 % (37-47); Immature Granulocytes # (auto) 0.05 K/uL (0.00-0.02); Immature Granulocytes % (auto) 0.6 %; Lymphocytes # (auto) 2.34 K/uL (1.2-3.4); Mean Corpuscular Volume 94.5 fL (80-100); Mean Platelet Volume 9.9 fL (7.4-10.4); Monocytes # (auto) 0.59 K/uL (0.11-0.59); Monocytes % (auto) 7.1 %; Neutrophils # (auto) 5.27 K/uL (1.4-6.5); Neutrophils % (auto) 63.1 %; Platelet Count 255 K/uL (130-400); RDW Coefficient of Variation 20.5 % (11.5-14.5); RDW Standard Deviation 66.7 fL (36.4-46.3); Red Blood Count 2.93 M/uL (4.2-5.4); White Blood Count 8.35 K/uL (4.8-10.8)
[2018-08-24] MEDS: PANTOprazole 40 MG in SYRINGE 0 ML IV SCH ×2 (10:46→12:02)
[2018-08-24] MEDS: METOPROLOL SUCC 50MG EXT REL TAB PO SCH ×2 (10:46→20:41)
[2018-08-24 10:51] LABS: Mean Corpuscular Hgb Conc 32.5 g/dL (32-36)
[2018-08-24] MEDS ORDERED: PANTOprazole 80 MG in DEXTROSE 5% 100 ML IV ONE (11:00)
[2018-08-24 11:11] LABS: Anisocytosis Present
[2018-08-24] MEDS ORDERED: PANTOprazole 40 MG in DEXTROSE 5% 100 ML IV SCH (11:15)
--- NOTE | 2018-08-24 11:40 | Ultrasound Report ---
US venous doppler LE BI CLINICAL HISTORY: Leg pain and swelling COMPARISON STUDY: May 2016 FINDINGS: Real-time and color flow Doppler imaging were performed. Flow was seen within the femoral, popliteal and calf veins with no intraluminal thrombus demonstrated. The saphenous vein is patent. Ev aluation of the calf veins is limited due to extreme calf tenderness. IMPRESSION: No evidence of lower extremity DVT. Electronically signed by: Jake Brown M.D. 08/24/2018 11:38 AM
--- NOTE | 2018-08-24 12:13 | Anesthesiology Consultation ---
Date of Service August 24, 2018 Assessment & Plan (1) Encounter for pre-operative examination: Chart Review Chart Review: Acceptable Risk for Surgery and Patient NOT seen in Pre Admission Testing Consults Requested none History Surgery Operation Date: 08/24/18 09:30 Proposed Procedures p Esophagogastroduodenoscopy Dr Bourgeois - Favio Peterson MD Height/Weight Height: 5 ft 3 in Weight: 70 kg Allergies Allergy/AdvReac Type Severity Reaction Status Date / Time amoxicillin Allergy Intermediate HIVES Verified 08/23/18 16:45 clavulanic acid Allergy Intermediate RASH Verified 08/23/18 16:45 Mqnsxcs-Mre-Zqn Reductase Allergy Unknown Unknown rxn Verified 08/23/18 16:45 Inhibitor codeine AdvReac Mild GIVES PT A Verified 08/23/18 16:45 HEADACHE morphine AdvReac Mild HEADACHE Verified 08/23/18 16:45 Medications Home Medications Medication Instructions Recorded Confirmed Last Taken Eucerin 1 applic TOPICAL QID 05/14/18 08/23/18 08/23/18 Travatan Z 1 drp OPHTHALMIC (EYE) PM 05/14/18 08/23/18 Unknown allopurinol 100 mg PO QAM 05/14/18 08/23/18 08/23/18 aspirin [Aspirin Low Dose] 81 mg PO QAM 05/14/18 08/23/18 08/23/18 epoetin mahin 1 dose IV DIRECTED 05/14/18 08/23/18 Unknown ergocalciferol (vitamin D2) 50,000 unit PO WK 05/14/18 08/23/18 Unknown levothyroxine 112 mcg PO QAM 05/14/18 08/23/18 08/23/18 loperamide [Imodium A-D] 2 mg PO DIRECTED PRN 05/14/18 08/23/18 Unknown nitroglycerin [Nitrostat] 0.4 mg SUBLINGUAL DIRECTED PRN 05/14/18 08/23/18 Unknown sevelamer HCl 1,600 mg PO .WITH MEALS 05/14/18 08/23/18 08/23/18 Lantus U-100 Insulin 5 units SUBCUT HS #0 ml 05/23/18 08/23/18 08/22/18 Novolog Flexpen U-100 Insulin See Rx Instructions .ROUTE 05/23/18 08/23/18 Unkn own .COMPLEX #0 ml B complex with C#20-folic acid 1 cap PO QAM 08/23/18 08/23/18 08/23/18 [Triphrocaps] diltiazem HCl [Cartia XT] 120 mg PO QAM 08/23/18 08/23/18 08/23/18 metoprolol succinate 50 mg PO HS 08/23/18 08/23/18 08/22/18 metoprolol succinate 75 mg PO QAM 08/23/18 08/23/18 08/23/18 omega 7-yho-ris-fish oil [Fish Oil] 1 cap PO BID 08/23/18 08/23/18 08/23/18 tramadol 50 mg PO BID PRN 08/23/18 08/23/18 Unknown warfarin 5 mg PO QPM 08/23/18 08/23/18 Unknown Active Medications Generic Name Dose Route Start Last Admin Trade Name Freq PRN Reason Stop Dose Admin Diltiazem HCl 120 mg 08/24/18 09:00 08/24/18 09:58 Cardizem Cd PO 09/23/18 08:59 120 mg QAM JOSE Administration Levothyroxine Sodium 56 mcg/ 2.8 mls @ 2 mls/min 08/24/18 09:00 08/24/18 09:54 Syringe IV 09/23/18 08:59 2 mls/min DAILY@0900 JOSE Administration Pantoprazole Sodium 40 mg/ 100 mls @ 20 mls/hr 08/24/18 11:15 08/24/18 11:33 Dextrose IV 09/23/18 11:14 20 mls/hr Q5H JOSE Administration Insulin Aspart 0 units 08/23/18 21:00 08/24/18 11:32 Novolog Flexpen SC 09/22/18 20:59 Not Given ACHS JOSE Metoprolol Succinate 50 mg 08/23/18 21:00 08/23/18 20:14 Toprol Xl PO 09/22/18 20:59 50 mg HS JOSE Administration Metoprolol Succinate 75 mg 08/24/18 09:00 08/24/18 10:46 Toprol Xl PO 09/23/18 08:59 75 mg QAM JOSE Administration Multi-Ingredient Cream 1 appln 08/23/18 21:00 08/24/18 09:58 Hydrocerin TOP 09/22/18 20:59 1 appln QID JOSE Administration Past Medical History Medical History Urinary tract infection Altered mental status Atrial flutter Atrial fibrillation with rapid ventricular response (Acute) DVT prophylaxis Chest pain Elevated alkaline phosphatase level Hemodialysis patient Hypertension (Chronic) DM2 (diabetes mellitus, type 2) (Chronic) HTN (hypertension) (Chronic) Hyperparathyroidism (Chronic) Hypothyroid (Chronic) Atrial fibrillation, chronic Hemodialysis access site with arteriovenous graft Past Family History Family History Other Family history non-contributory Social History Smoking Status: Never smoker Hx Alcohol Use: No Hx Substance Use: No Review of Systems HD yesterday Physical Exam Vital Signs Last Vital Signs Temp 36.6 C 08/24/18 11:40 Pulse 67 08/24/18 11:40 Resp 18 08/24/18 11:40 BP 180/67 H 08/24/18 11:40 Pulse Ox 93 08/24/18 11:40 Testing Laboratory Results 08/24/18 10:29 08/24/18 05:26 PT 13.5 Seconds (9.0-12.0) H 08/24/18 05:26 INR 1.3 (0.9-1.1) H 08/24/18 05:26 Urine Color Yellow 08/23/18 Unknown Urine Appearance Cloudy (Clear) A 08/23/18 Unknown Urine pH >= 9.0 (4.5-7.5) H 08/23/18 Unknown Ur Specific Central 1.009 (1.000-1.030) 08/23/18 Unknown Urine Protein 2+ (Negative) H 08/23/18 Unknown Urine Glucose (UA) Negative (Negative) 08/23/18 Unknown Urine Ketones Negative (Negative) 08/23/18 Unknown Urine Nitrite Negative (Negative) 08/23/18 Unknown Ur Leukocyte Esterase 3+ (Negative) H 08/23/18 Unknown Urine WBC (Auto) >30 /hpf (0-5) H 08/23/18 Unknown Urine RBC (Auto) 5-10 /hpf (0-4) H 08/23/18 Unknown U Hyaline Cast (Auto) Not Reportable 08/23/18 Unknown U Epithel Cells (Auto) >30 /lpf (0-5) H 08/23/18 Unknown Urine Bacteria (Auto) 1+ (Negative) H 08/23/18 Unknown Blood Type O Negative 08/23/18 17:08 Antibody Screen NEGATIVE 08/23/18 17:08 08/24/18 08/24/18 08/24/18 11:32 07:25 05:55 POC Glucose 83 82 84
[2018-08-24] MEDS ORDERED: PROPOFOL IV EMULSION 10 MG/ML 20 ML VIAL IV ONE (14:28)
[2018-08-24] MEDS ORDERED: LIDOCAINE HCL 2% 2 ML VIAL/AMP(20MG/ML) INFIL ONE (14:28)
--- NOTE | 2018-08-24 14:28 | GI REPORT ---
Patient Name: Patricia Marinelli Procedure Date: 08/24/2018 1:49 PM Date of : 1935 Admit Type: Inpatient Age: 83 Gender: Female Attending MD: Favio Peterson MD Procedure: Upper GI endoscopy Providers: Favio Peterson MD Referring MD: Herman Ozuna M.d. Indications: Melena Medicines: Monitored Anesthesia Care Complications: No immediate complications. Estimated blood loss: None. Estimated Blood Loss: Estimated blood loss: none. Procedure: Pre-Anesthesia Assessment: - Prior to the procedure, a History and Physical was performed, and patient medications, allergies and sensitivities were reviewed. The patient's tolerance of previous anesthesia was reviewed. - ASA Grade Assessment: III - A patient with severe systemic disease. After obtaining informed consent, the endoscope was passed under direct vision. Throughout the procedure, the patient's blood pressure, pulse, and oxygen saturations were monitored continuously. The Endoscope was introduced through the mouth, and advanced to the third part of duodenum. The upper GI endoscopy was accomplished with ease. The patient tolerated the procedure well. Findings: The upper third of the esophagus, middle third of the esophagus and lower third of the esophagus were normal. The Z-line was regular and was found 35 cm from the incisors. Patchy mildly erythematous mucosa was found in the gastric antrum. Biopsies were taken with a cold forceps in the entire examined stomach for Helicobacter pylori testing. There is no endoscopic evidence of bleeding in the stomach. The examined duodenum was normal. There is no endoscopic evidence of bleeding in the entire examined stomach. The examined duodenum was normal. Verification of patient identification for the specimen was done by the physician and nurse using the patient's name, date and medical record number. Impression: - Normal upper third of esophagus, middle third of esophagus and lower third of esophagus. - Z-line regular, 35 cm from the incisors. - Erythematous mucosa in the antrum. - Normal examined duodenum. - Normal examined duodenum. - Biopsies were taken with a cold forceps for Helicobacter pylori testing. Recommendation: - Return patient to [facility] for ongoing care. Favio Peterson M.D. Favio Peterson MD 08/24/2018 2:28:11 PM This report has been signed electronically. Note Initiated On: 08/24/2018 1:49 PM Number of Addenda: 0 I attest to the content of the Intraoperative Record and orders documented therein, exceptions below {[id number]}
--- NOTE | 2018-08-24 14:48 | Anesthesiology Progress Note ---
Date of Service August 24, 2018 Anesthesia Post Procedure Vital Signs Vital Signs: Temp Pulse Pulse Resp BP BP Pulse Ox 08/24/18 14:42 58 L 16 130/43 L 95 08/24/18 14:37 59 L 16 119/38 L 97 08/24/18 14:32 63 16 108/40 L 99 08/24/18 14:27 62 16 105/38 L 98 08/24/18 14:06 36.7 C 66 16 180/58 H 97 08/24/18 14:01 36.7 C 66 16 180/58 H 97 08/24/18 11:40 36.6 C 67 18 180/67 H 93 08/24/18 07:27 36.6 C 67 18 159/64 H 100 08/24/18 07:01 36.3 C L 75 16 176/67 H 96 08/24/18 04:15 36.4 C L 67 16 164/61 H 99 08/24/18 03:55 72 08/24/18 03:20 36 C L 64 16 133/68 100 08/24/18 02:20 64 148/66 H 97 08/24/18 01:50 36.4 C L 64 16 148/56 H 98 08/24/18 01:35 36.4 C L 69 16 145/70 H 99 08/24/18 01:19 36.4 C L 67 16 144/73 H 99 08/24/18 00:53 65 18 129/65 100 08/24/18 00:23 36.6 C 70 16 116/49 L 100 08/23/18 23:23 36.4 C L 67 16 136/54 L 100 08/23/18 22:23 36.6 C 97 H 18 123/48 L 100 08/23/18 21:53 36.4 C L 93 H 16 135/61 100 08/23/18 21:38 36.3 C L 71 18 130/66 99 08/23/18 21:22 36.5 C 70 16 146/72 H 100 08/23/18 21:14 36.5 C 74 18 131/63 100 08/23/18 20:01 78 08/23/18 19:28 36.5 C 82 18 145/64 H 100 08/23/18 19:01 80 16 136/51 L 99 08/23/18 18:42 71 17 98 08/23/18 18:00 135 H 17 100 08/23/18 17:30 134 H 14 100 08/23/18 17:01 135 H 19 100 08/23/18 17:00 135 H 19 120/67 100 08/23/18 16:59 133 H 17 100 08/23/18 16:58 134 H 12 128/63 100 08/23/18 16:30 137 H 25 H 100 08/23/18 16:01 136 H 14 100 08/23/18 16:00 135 H 14 144/60 H 100 08/23/18 15:44 108 H 12 136/31 L 100 08/23/18 15:20 96 08/23/18 15:00 124 H 21 100 Transfer of Care Handoff Completed per policy Notes Mental Status: alert / awake / arousable Patient Amnestic to Procedure: Yes Nausea / Vomiting: adequately controlled Pain: adequately controlled Airway Patency, RR, SpO2: stable & adequate BP & HR: stable & adequate Hydration State: stable & adequate Anesthetic Complications: no major complications apparent
--- NOTE | 2018-08-24 15:46 | Anesthesiology Progress Note ---
Date of Service August 24, 2018 Anesthesia Post Procedure Vital Signs Vital Signs: Temp Pulse Pulse Resp BP BP BP 08/24/18 15:25 36.6 C 57 L 18 176/75 H 08/24/18 15:17 58 L 08/24/18 14:50 61 14 142/43 H 08/24/18 14:42 58 L 16 130/43 L 08/24/18 14:37 59 L 16 119/38 L 08/24/18 14:32 63 16 108/40 L 08/24/18 14:27 62 16 105/38 L 08/24/18 14:06 36.7 C 66 16 180/58 H 08/24/18 14:01 36.7 C 66 16 180/58 H 08/24/18 11:40 36.6 C 67 18 180/67 H 08/24/18 08:00 62 08/24/18 07:27 36.6 C 67 18 159/64 H 08/24/18 07:01 36.3 C L 75 16 176/67 H 08/24/18 04:15 36.4 C L 67 16 164/61 H 08/24/18 03:55 72 08/24/18 03:20 36 C L 64 16 133/68 08/24/18 02:20 64 148/66 H 08/24/18 01:50 36.4 C L 64 16 148/56 H 08/24/18 01:35 36.4 C L 69 16 145/70 H 08/24/18 01:19 36.4 C L 67 16 144/73 H 08/24/18 00:53 65 18 129/65 08/24/18 00:23 36.6 C 70 16 116/49 L 08/23/18 23:23 36.4 C L 67 16 136/54 L 08/23/18 22:23 36.6 C 97 H 18 123/48 L 08/23/18 21:53 36.4 C L 93 H 16 135/61 08/23/18 21:38 36.3 C L 71 18 130/66 08/23/18 21:22 36.5 C 70 16 146/72 H 08/23/18 21:14 36.5 C 74 18 131/63 08/23/18 20:01 78 08/23/18 19:28 36.5 C 82 18 145/64 H 08/23/18 19:01 80 16 136/51 L 08/23/18 18:42 71 17 08/23/18 18:00 135 H 17 08/23/18 17:30 134 H 14 08/23/18 17:01 135 H 19 08/23/18 17:00 135 H 19 120/67 08/23/18 16:59 133 H 17 08/23/18 16:58 134 H 12 128/63 08/23/18 16:30 137 H 25 H 08/23/18 16:01 136 H 14 08/23/18 16:00 135 H 14 144/60 H Pulse Ox 08/24/18 15:25 98 08/24/18 15:17 08/24/18 14:50 97 08/24/18 14:42 95 08/24/18 14:37 97 08/24/18 14:32 99 08/24/18 14:27 98 08/24/18 14:06 97 08/24/18 14:01 97 08/24/18 11:40 93 08/24/18 08:00 08/24/18 07:27 100 08/24/18 07:01 96 08/24/18 04:15 99 08/24/18 03:55 08/24/18 03:20 100 08/24/18 02:20 97 08/24/18 01:50 98 08/24/18 01:35 99 08/24/18 01:19 99 08/24/18 00:53 100 08/24/18 00:23 100 08/23/18 23:23 100 08/23/18 22:23 100 08/23/18 21:53 100 08/23/18 21:38 99 08/23/18 21:22 100 08/23/18 21:14 100 08/23/18 20:01 08/23/18 19:28 100 08/23/18 19:01 99 08/23/18 18:42 98 08/23/18 18:00 100 08/23/18 17:30 100 08/23/18 17:01 100 08/23/18 17:00 100 08/23/18 16:59 100 08/23/18 16:58 100 08/23/18 16:30 100 08/23/18 16:01 100 08/23/18 16:00 100 Transfer of Care Handoff Completed per policy Notes Mental Status: alert / awake / arousable Patient Amnestic to Procedure: Yes Nausea / Vomiting: adequately controlled Pain: adequately controlled Airway Patency, RR, SpO2: stable & adequate BP & HR: stable & adequate Hydration State: stable & adequate Anesthetic Complications: no major complications apparent
[2018-08-24] MEDS: TRAVOPROST Z 0.004% OPH SOLN 2.5 ML BTL OP SCH (20:40)
[2018-08-24] MEDS: PANTOprazole 40 MG TAB PO SCH (20:41)
--- NOTE | 2018-08-24 23:00 | Nephrology Consultation ---
Date of Consultation August 24, 2018 Assessment & Plan (1) End stage renal disease on dialysis due to type 2 diabetes mellitus: ESRD pt on HD MWF. She uses left FA AVF. Last HD was Tuesday which was complicated by weakness and palpitations at the end. No indication for HD today. WIll dialyse her on tuesday for 4 hrs and target UF2 litres. (2) Severe anemia: Due to ESRD and GI bleed. Patient planned for EGD. Will give epogen with HD (3) Atrial fibrillation with rapid ventricular response: Rate controlled now with dialtiazem. She is off coumadin now. She should probably stop coumadin alltogether given paucity of data supporting benefit of anticoagulation in ESRD population for A.fib. History of Present Illness Reason for Consultation: ESRD on HD Requesting Physician: Romana Gamboa MD Attending Physician: Herman Ozuna MD History of Present Illness Patient is an 83-year-old female with history of DM II, hypertension, dyslipidemia, gout, SVT, atrial fibrillation, ESRD on dialysis, autoimmune hepatitis, hypothyroidism and secondary hyperparathyroidism who was admitted on 08/23 with palpitations, nausea, dizziness, diarrhea, blood in stools. SHe was found to be in A.fib RVR and severe anemia with Hb of 5. She got 2 units of blood. Last HD was tuesday but after HD she was very tired and developed palpitations on reaching home. She is on coumadin for A.fib. She feels better now. No SOB or leg edema. No black stools now. Seen in the morning during rounds. Allergies Allergy/AdvReac Type Severity Reaction Status Date / Time amoxicillin Allergy Intermediate HIVES Verified 08/23/18 16:45 clavulanic acid Allergy Intermediate RASH Verified 08/23/18 16:45 Fbrgyvk-Pil-Psu Reductase Allergy Unknown Unknown rxn Verified 08/23/18 16:45 Inhibitor codeine AdvReac Mild GIVES PT A Verified 08/23/18 16:45 HEADACHE morphine AdvReac Mild HEADACHE Verified 08/23/18 16:45 Home Medications Home Medications Medication Instructions Recorded Confirmed Type Eucerin 1 applic TOPICAL QID 05/14/18 08/23/18 History Travatan Z 1 drp OPHTHALMIC (EYE) PM 05/14/18 08/23/18 History allopurinol 100 mg PO QAM 05/14/18 08/23/18 History aspirin [Aspirin Low Dose] 81 mg PO QAM 05/14/18 08/23/18 History epoetin mahin 1 dose IV DIRECTED 05/14/18 08/23/18 History ergocalciferol (vitamin D2) 50,000 unit PO WK 05/14/18 08/23/18 History levothyroxine 112 mcg PO QAM 05/14/18 08/23/18 History loperamide [Imodium A-D] 2 mg PO DIRECTED PRN 05/14/18 08/23/18 History nitroglycerin [Nitrostat] 0.4 mg SUBLINGUAL DIRECTED PRN 05/14/18 08/23/18 History sevelamer HCl 1,600 mg PO .WITH MEALS 05/14/18 08/23/18 History Lantus U-100 Insulin 5 units SUBCUT HS #0 ml 05/23/18 08/23/18 Rx Novolog Flexpen U-100 Insulin See Rx Instructions .ROUTE 05/23/18 08/23/18 Rx .COMPLEX #0 ml B complex with C#20-folic acid 1 cap PO QAM 08/23/18 08/23/18 History [Triphrocaps] diltiazem HCl [Cartia XT] 120 mg PO QAM 08/23/18 08/23/18 History metoprolol succinate 50 mg PO HS 08/23/18 08/23/18 History metoprolol succinate 75 mg PO QAM 08/23/18 08/23/18 History omega 2-qzp-cfg-fish oil [Fish Oil] 1 cap PO BID 08/23/18 08/23/18 History tramadol 50 mg PO BID PRN 08/23/18 08/23/18 History warfarin 5 mg PO QPM 08/23/18 08/23/18 History Patient History Medical History Urinary tract infection Altered mental status Atrial flutter Atrial fibrillation with rapid ventricular response (Acute) DVT prophylaxis Chest pain Elevated alkaline phosphatase level Hemodialysis patient Hypertension (Chronic) DM2 (diabetes mellitus, type 2) (Chronic) HTN (hypertension) (Chronic) Hyperparathyroidism (Chronic) Hypothyroid (Chronic) Atrial fibrillation, chronic Hemodialysis access site with arteriovenous graft Family History Other Family history non-contributory Social History Preferred Language: [place] Communication Ability: Effective [place] Mechanic Required: No Beliefs That Will Affect Care: None Current Living Situation: Alone Other Information That Helps Us Care for You: No Feels Safe at Home: Yes Safety Concerns: Feels Safe At This Time Smoking Status: Never smoker Second Hand Exposure: No Hx Alcohol Use: No Hx Substance Use: No Review of Systems Review of Systems: All systems reviewed & are unremarkable except as noted in HPI & below Physical Exam Physical Exam: General exam: Appears comfortable, no acute distress HEENT: Pupils are equal and reactive to light Neck: No JVD, neck is supple trachea is midline Respiratory system: Clear breath sounds bilaterally. Gastrointestinal: Abdomen is soft, non distended, non tender, bowel sounds are present CVS: Regular rate and rhythm. No murmurs, rubs or gallops Musculoskeletal: No joint or muscle tenderness Extremities: Non tender, no edema, peripheral pulses are present Neuro: Oriented, no tremors, no focal neurological deficits Skin: No rashes Access: left FA AVF with good bruit Results & Data Vital Signs (Past 12 Hours) Vital Signs Temp Pulse Pulse Resp BP BP Pulse Ox 08/24/18 18:52 36.6 C 64 18 154/54 H 100 08/24/18 16:45 36.7 C 66 18 159/64 H 98 08/24/18 16:15 36.7 C 60 18 162/72 H 98 08/24/18 15:45 36.8 C 68 18 166/74 H 100 08/24/18 15:25 36.6 C 57 L 18 176/75 H 98 08/24/18 15:17 58 L 08/24/18 14:50 61 14 142/43 H 97 08/24/18 14:42 58 L 16 130/43 L 95 08/24/18 14:37 59 L 16 119/38 L 97 08/24/18 14:32 63 16 108/40 L 99 08/24/18 14:27 62 16 105/38 L 98 08/24/18 14:06 36.7 C 66 16 180/58 H 97 08/24/18 14:01 36.7 C 66 16 180/58 H 97 08/24/18 11:40 36.6 C 67 18 180/67 H 93 Diagnostic Findings Laboratory Results - last 24 hr 08/23/18 08/23/18 08/23/18 17:08 23:40 Unknown WBC RBC Hgb Hct MCV MCH MCHC RDW Std Deviation RDW Coeff of Katerina Plt Count MPV Immature Gran % (Auto) Neut % (Auto) Lymph % (Auto) [place] % (Auto) Eos % (Auto) Baso % (Auto) Immature Gran # (Auto) Neut # (Auto) Lymph # (Auto) [place] # (Auto) Eos # (Auto) Baso # (Auto) Anisocytosis PT INR Sodium Potassium Chloride Carbon Dioxide Anion Gap BUN Creatinine Est Cr Clr Drug Dosing Est GFR ( Amer) Est GFR (Non-Af Amer) BUN/Creatinine Ratio Glucose POC Glucose 85 Calcium Procalcitonin Urine Color Yellow Urine Appearance Cloudy A Urine pH >= 9.0 H Ur Specific [place] 1.009 Urine Protein 2+ H Urine Glucose (UA) Negative Urine Ketones Negative Urine Blood 3+ H Urine Nitrite Negative Urine Bilirubin Negative Urine Urobilinogen Negative Ur Leukocyte Esterase 3+ H Urine WBC (Auto) >30 H Urine RBC (Auto) 5-10 H U Hyaline Cast (Auto) Not Reportable U Epithel Cells (Auto) >30 H Urine Bacteria (Auto) 1+ H Ur Renal Epithelial Cell Not Reportable Urine Yeast Not Reportable Stool Occult Bld Scrn Blood Type O Negative Antibody Screen NEGATIVE Crossmatch See Detail 08/24/18 08/24/18 08/24/18 05:26 05:26 05:26 WBC 7.30 RBC 2.48 L Hgb 7.7 L Hct 23.4 L MCV 94.4 D MCH 31.0 MCHC 32.9 RDW Std Deviation 64.0 H RDW Coeff of Katerina 19.5 H Plt Count 226 MPV 9.5 Immature Gran % (Auto) Neut % (Auto) Lymph % (Auto) [place] % (Auto) Eos % (Auto) Baso % (Auto) Immature Gran # (Auto) Neut # (Auto) Lymph # (Auto) [place] # (Auto) Eos # (Auto) Baso # (Auto) Anisocytosis PT 13.5 H INR 1.3 H Sodium 136 Potassium 4.2 D Chloride 104 Carbon Dioxide 27 Anion Gap 5.0 BUN 28 H Creatinine 2.18 H D Est Cr Clr Drug Dosing 19.0 Est GFR ( Amer) 23.8 Est GFR (Non-Af Amer) 20.6 BUN/Creatinine Ratio 12.8 Glucose 81 POC Glucose Calcium 7.4 L Procalcitonin Urine Color Urine Appearance Urine pH Ur Specific [place] Urine Protein Urine Glucose (UA) Urine Ketones Urine Blood Urine Nitrite Urine Bilirubin Urine Urobilinogen Ur Leukocyte Esterase Urine WBC (Auto) Urine RBC (Auto) U Hyaline Cast (Auto) U Epithel Cells (Auto) Urine Bacteria (Auto) Ur Renal Epithelial Cell Urine Yeast Stool Occult Bld Scrn Blood Type Antibody Screen Crossmatch 08/24/18 08/24/18 08/24/18 05:26 05:55 07:25 WBC RBC Hgb Hct MCV MCH MCHC RDW Std Deviation RDW Coeff of Katerina Plt Count MPV Immature Gran % (Auto) Neut % (Auto) Lymph % (Auto) [place] % (Auto) Eos % (Auto) Baso % (Auto) Immature Gran # (Auto) Neut # (Auto) Lymph # (Auto) [place] # (Auto) Eos # (Auto) Baso # (Auto) Anisocytosis PT INR Sodium Potassium Chloride Carbon Dioxide Anion Gap BUN Creatinine Est Cr Clr Drug Dosing Est GFR ( Amer) Est GFR (Non-Af Amer) BUN/Creatinine Ratio Glucose POC Glucose 84 82 Calcium Procalcitonin 0.68 H Urine Color Urine Appearance Urine pH Ur Specific [place] Urine Protein Urine Glucose (UA) Urine Ketones Urine Blood Urine Nitrite Urine Bilirubin Urine Urobilinogen Ur Leukocyte Esterase Urine WBC (Auto) Urine RBC (Auto) U Hyaline Cast (Auto) U Epithel Cells (Auto) Urine Bacteria (Auto) Ur Renal Epithelial Cell Urine Yeast Stool Occult Bld Scrn Blood Type Antibody Screen Crossmatch 08/24/18 08/24/18 08/24/18 10:29 11:32 16:12 WBC 8.35 RBC 2.93 L Hgb 9.0 L Hct 27.7 L MCV 94.5 MCH 30.7 MCHC 32.5 RDW Std Deviation 66.7 H RDW Coeff of Katerina 20.5 H Plt Count 255 MPV 9.9 Immature Gran % (Auto) 0.6 Neut % (Auto) 63.1 Lymph % (Auto) 28.0 [place] % (Auto) 7.1 Eos % (Auto) 1.1 Baso % (Auto) 0.1 Immature Gran # (Auto) 0.05 H Neut # (Auto) 5.27 Lymph # (Auto) 2.34 [place] # (Auto) 0.59 Eos # (Auto) 0.09 Baso # (Auto) 0.01 Anisocytosis Present PT INR Sodium Potassium Chloride Carbon Dioxide Anion Gap BUN Creatinine Est Cr Clr Drug Dosing Est GFR ( Amer) Est GFR (Non-Af Amer) BUN/Creatinine Ratio Glucose POC Glucose 83 137 H Calcium Procalcitonin Urine Color Urine Appearance Urine pH Ur Specific [place] Urine Protein Urine Glucose (UA) Urine Ketones Urine Blood Urine Nitrite Urine Bilirubin Urine Urobilinogen Ur Leukocyte Esterase Urine WBC (Auto) Urine RBC (Auto) U Hyaline Cast (Auto) U Epithel Cells (Auto) Urine Bacteria (Auto) Ur Renal Epithelial Cell Urine Yeast Stool Occult Bld Scrn Blood Type Antibody Screen Crossmatch 08/24/18 08/24/18 20:28 20:55 WBC RBC Hgb Hct MCV MCH MCHC RDW Std Deviation RDW Coeff of Katerina Plt Count MPV Immature Gran % (Auto) Neut % (Auto) Lymph % (Auto) [place] % (Auto) Eos % (Auto) Baso % (Auto) Immature Gran # (Auto) Neut # (Auto) Lymph # (Auto) [place] # (Auto) Eos # (Auto) Baso # (Auto) Anisocytosis PT INR Sodium Potassium Chloride Carbon Dioxide Anion Gap BUN Creatinine Est Cr Clr Drug Dosing Est GFR ( Amer) Est GFR (Non-Af Amer) BUN/Creatinine Ratio Glucose POC Glucose 115 H Calcium Procalcitonin Urine Color Urine Appearance Urine pH Ur Specific [place] Urine Protein Urine Glucose (UA) Urine Ketones Urine Blood Urine Nitrite Urine Bilirubin Urine Urobilinogen Ur Leukocyte Esterase Urine WBC (Auto) Urine RBC (Auto) U Hyaline Cast (Auto) U Epithel Cells (Auto) Urine Bacteria (Auto) Ur Renal Epithelial Cell Urine Yeast Stool Occult Bld Scrn Positive A Blood Type Antibody Screen Crossmatch
[2018-08-25 06:14] LABS: Basophils # (auto) 0.01 K/uL (0-0.2); Basophils % (auto) 0.1 %; Eosinophils # (auto) 0.12 K/uL (0-0.5); Eosinophils % (auto) 1.8 %; Hematocrit (blood only) 22.2 % (37-47); Hemoglobin 7.3 g/dL (12.0-16.0); Immature Granulocytes # (auto) 0.05 K/uL (0.00-0.02); Immature Granulocytes % (auto) 0.7 %; Lymphocytes # (auto) 2.16 K/uL (1.2-3.4); Lymphocytes % (auto) 32.1 %; Mean Corpuscular Hgb Conc 32.9 g/dL (32-36); Mean Corpuscular Volume 94.5 fL (80-100); Mean Platelet Volume 9.9 fL (7.4-10.4); Monocytes # (auto) 0.56 K/uL (0.11-0.59); Monocytes % (auto) 8.3 %; Neutrophils # (auto) 3.83 K/uL (1.4-6.5); Platelet Count 229 K/uL (130-400); RDW Coefficient of Variation 20.4 % (11.5-14.5); RDW Standard Deviation 68.4 fL (36.4-46.3); Red Blood Count 2.35 M/uL (4.2-5.4); White Blood Count 6.73 K/uL (4.8-10.8)
[2018-08-25 06:22] LABS: INR 1.1 (0.9-1.1); Prothrombin Time 10.9 Seconds (9.0-12.0)
[2018-08-25 06:44] LABS: Anisocytosis Present
[2018-08-25 06:50] LABS: Albumin Level 2.1 gm/dl (3.4-5.0); BUN Creatinine Ratio 13.4 (10-20); Calcium 7.8 mg/dl (8.5-10.1); Creatinine Clr Calc Pharmacy 13.8 ml/min; Est GFR (African American) 16.2; Potassium 4.1 mmol/L (3.5-5.1)
[2018-08-25 06:53] LABS: Albumin Globulin Ratio 0.8 (0.9-2); Bilirubin,Total 0.5 mg/dl (0.2-1); Globulin 2.7 gm/dl (2.5-4.0); Total Protein 4.8 gm/dl (6.4-8.2)
[2018-08-25] MEDS ORDERED: SODIUM CHLORIDE 0.9% 250 ML IV PRN (07:00)
--- NOTE | 2018-08-25 08:34 | Anesthesiology Progress Note ---
Date of Service August 25, 2018 Anesthesia Post Procedure Vital Signs Vital Signs: Temp Pulse Pulse Resp BP BP Pulse Ox 08/25/18 07:35 36.8 C 63 17 185/64 H 99 08/25/18 04:36 36.9 C 65 19 168/71 H 96 08/24/18 23:49 36.7 C 20 169/52 H 99 08/24/18 18:52 36.6 C 64 18 154/54 H 100 08/24/18 16:45 36.7 C 66 18 159/64 H 98 08/24/18 16:15 36.7 C 60 18 162/72 H 98 08/24/18 15:45 36.8 C 68 18 166/74 H 100 08/24/18 15:25 36.6 C 57 L 18 176/75 H 98 08/24/18 15:17 58 L 08/24/18 14:50 61 14 142/43 H 97 08/24/18 14:42 58 L 16 130/43 L 95 08/24/18 14:37 59 L 16 119/38 L 97 08/24/18 14:32 63 16 108/40 L 99 08/24/18 14:27 62 16 105/38 L 98 08/24/18 14:06 36.7 C 66 16 180/58 H 97 08/24/18 14:01 36.7 C 66 16 180/58 H 97 08/24/18 11:40 36.6 C 67 18 180/67 H 93 Notes Mental Status: alert / awake / arousable and participated in evaluation Patient Amnestic to Procedure: Yes Nausea / Vomiting: adequately controlled Pain: adequately controlled Airway Patency, RR, SpO2: stable & adequate BP & HR: stable & adequate Hydration State: stable & adequate Anesthetic Complications: no major complications apparent and Pt Satisfied with anesthetic care
[2018-08-25] MEDS ORDERED: SODIUM CHLORIDE 0.9% 1000ML 1,000 ML IV PRN (08:45)
[2018-08-25] MEDS ORDERED: EPOETIN ALFA 10,000 UNITS/ML VIAL IV SCH (09:00)
[2018-08-25] MEDS ORDERED: METOPROLOL TARTRATE 1 MG/ML VIAL IV STA ×2 (09:35→09:51)
[2018-08-25] MEDS: INSULIN ASPART 100 UNITS/ML 3 ML PEN SC SCH ×4 (09:40→20:34)
[2018-08-25] MEDS: EUCERIN CR 120 GM JAR TOP SCH ×4 (09:41→20:30)
[2018-08-25] MEDS: dilTIAZem HCL 120 MG CAPCR PO SCH ×2 (09:41→20:11)
[2018-08-25] MEDS: PANTOprazole 40 MG TAB PO SCH ×2 (09:42→19:58)
[2018-08-25] MEDS: LEVOTHYROXINE SODIUM 56 MCG in SYRINGE 0 ML IV SCH (09:42)
--- NOTE | 2018-08-25 09:46 | Gastroenterology Progress Note ---
Date of Service August 25, 2018 Assessment & Plan (1) Melena: (2) Severe anemia: Pt is a 83 y/o w hx of Afib on Coumadin, ESRD on HD who presented to ED w c/o dizziness, nausea, palpations. On presentation noted to be on Afib w RVR, resolved w Cardizem IV. Noted she was severely anemic w Hgb of 5 (baseline 10- 11), treated w 2U PRBC transfusion. She was found to have black stools on exam. INR 2.9 -> 1.3 after Vit K 5mg IV x 1 dose EGD performed yesterday to r/o UGI bleed source w finding of erythema in antrum but no signs of ulcers, angioectasia etc. Blood ct dropped down from 9 to 7 and she had some dark bloody BMs yesterday evening. I had discussed w possible possible LGIB vs small bowel bleed (AVMs). - Monitor H/H and transfuse prn - Protonix 40mg PO BID - Would monitor for now. However if she is staying over the weekend and continues to pass bloody stools, and dropping H/H would recommend calling medical receptionist GI physician (Dr. Mckeon) for possible colonoscopy on Tuesday. If colonoscopy is planned for Tuesday, she should have CL diet on Tuesday, start Golytely bowel prep Tuesday evening and keep NPO after midnight. Supervising Physician Co-Signing Physician Notes I saw and evaluated the patient. It appears that she has again developed atrial fibrillation with rapid ventricular rate. We were considering arrangements for colonoscopy on Tuesday however, given the new cardiac changes we will hold for the present time. Once the patient is clinically more stable please let us know so that we can arrange a colonoscopy to evaluate the anemia. Subjective Pt reports having palpitations this AM about 30 mins. Denies any CP, SOB. She did pass more dark bloody stools yesterday evening. Denies any abd pain, n/v. Noted Hgb up to 9 (? lab error) down to 7 again this AM. Tolerated CL diet w/o n/v. She's getting dialyzed today Review of Systems Review of Systems: All systems reviewed & are unremarkable except as noted in HPI & below Physical Exam Constitutional: WD/WN, vitals as above well groomed, cooperative and comfortable Eyes: PERRL, conjunctivae normal, anicteric sclerae ENMT: external ear and nose normal, oropharynx normal Respiratory: normal respiratory effort, lungs clear to auscultation Cardiovascular: Rate/Rhythm: regular rate and regular rhythm Heart Sounds: + murmur Gastrointestinal (Abdomen): normal bowel sounds, soft, nontender, no hepatosplenomegaly Skin: no rashes, warm and dry no jaundice Neurologic: Motor/Sensory: no asterixis Psychiatric: A+Ox3, euthymic affect Lymphatic: + lymphedema Results & Data Vital Signs (Past 12 Hours) Vital Signs Temp Pulse Pulse Pulse Resp BP BP 08/25/18 09:41 142 H 08/25/18 09:19 36.5 C 142 H 142 H 155/79 H 08/25/18 07:35 36.8 C 63 17 185/64 H 08/25/18 04:36 36.9 C 65 19 168/71 H 08/24/18 23:49 36.7 C 20 169/52 H Pulse Ox 08/25/18 09:41 08/25/18 09:19 08/25/18 07:35 99 08/25/18 04:36 96 08/24/18 23:49 99
--- NOTE | 2018-08-25 10:20 | Cardiology Consultation ---
Date of Consultation August 25, 2018 Assessment & Plan (1) Atrial fibrillation with rapid ventricular response: Patient carries a history of paroxysmal atrial fibrillation with recent increase in frequency and exacerbations in association with acute illness and hospitalization. Patient not responding to usual medications. Anticoagulation discontinued appropriately due to complications of GI bleeding and anemia Plan: We will initiate amiodarone given paroxysmal nature with attempts to m aintain sinus rhythm especially in the difficult situation of being unable to provide anticoagulation Amiodarone will begin at 400 mg 3 times daily Toprol will be reduced to 25 mg twice daily Diltiazem will be discontinued if blood pressure increases may consider addition of amlodipine Daily EKG ordered Discussed above with patient. Noted indications for chronic anticoagulation now contraindicated due to risks. May need to readdress in future depending on clinical course (2) Severe anemia: Receiving transfusion and being cared for GI possible colonoscopy in future (3) End stage renal disease on dialysis due to type 2 diabetes mellitus: Tolerating dialysis well despite atrial fibrillation with elevated ventricular response rate (4) Hypertension: As noted multiple drug adjustment History of Present Illness Reason for Consultation: Paroxysmal atrial fibrillation Requesting Physician: Dr. Ozuna Attending Physician: Herman Ozuna MD History of Present Illness Patient is an 83-year-old female with complex past medical and surgical history as listed below Past Medical and Surgical History: End-stage renal disease requiring hemodialysis on Mondays, Wednesdays, and Fridays under the direction of Dr. Maxwell, at [facility] [place]. 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 Patient was admitted with tachypalpitations and fatigue this admission found to be profoundly anemic possible GI bleeding. Anticoagulation was discontinued patient initially spontaneously converted from atrial fibrillation present on admission to sinus rhythm but has once again relapsed intermittently in the last 24 hours. Patient is referred now for further evaluation. Patient when atrial fibrillation occurs is not notable for sensed palpitations she is been aware of it prior to hospitalization. Notes no associated chest pain worsening shortness of breath syncope or near syncope. Anticoagulation currently contraindicated. Patient has received transfusion since admission and currently is on dialysis receiving additional blood transfusion. This morning she resolved lapsed into atrial fibrillation with elevated ventricular response rates 140 not responsive to IV metoprolol patient minimally symptomatic She denies history of fevers chills sweats cough or productive sputum. Notes no dysphagia. Has been aware of dark and black stools no worsening lower extremity edema with chronic lower extremity tenderness. Dialysis has been recently well- tolerated and today despite arrhythmia is being tolerated Allergies Allergy/AdvReac Type Severity Reaction Status Date / Time amoxicillin Allergy Intermediate HIVES Verified 08/23/18 16:45 clavulanic acid Allergy Intermediate RASH Verified 08/23/18 16:45 [id number]-Bjx Reductase Allergy Unknown Unknown rxn Verified 08/23/18 16:45 Inhibitor codeine AdvReac Mild GIVES PT A Verified 08/23/18 16:45 HEADACHE morphine AdvReac Mild HEADACHE Verified 08/23/18 16:45 Home Medications Home Medications Medication Instructions Recorded Confirmed Type Eucerin 1 applic TOPICAL QID 05/14/18 08/23/18 History Travatan Z 1 drp OPHTHALMIC (EYE) PM 05/14/18 08/23/18 History allopurinol 100 mg PO QAM 05/14/18 08/23/18 History aspirin [Aspirin Low Dose] 81 mg PO QAM 05/14/18 08/23/18 History epoetin mahin 1 dose IV DIRECTED 05/14/18 08/23/18 History ergocalciferol (vitamin D2) 50,000 unit PO WK 05/14/18 08/23/18 History levothyroxine 112 mcg PO QAM 05/14/18 08/23/18 History loperamide [Imodium A-D] 2 mg PO DIRECTED PRN 05/14/18 08/23/18 History nitroglycerin [Nitrostat] 0.4 mg SUBLINGUAL DIRECTED PRN 05/14/18 08/23/18 History sevelamer HCl 1,600 mg PO .WITH MEALS 05/14/18 08/23/18 History Lantus U-100 Insulin 5 units SUBCUT HS #0 ml 05/23/18 08/23/18 Rx Novolog Flexpen U-100 Insulin See Rx Instructions .ROUTE 05/23/18 08/23/18 Rx .COMPLEX #0 ml B complex with C#20-folic acid 1 cap PO QAM 08/23/18 08/23/18 History [Triphrocaps] diltiazem HCl [Cartia XT] 120 mg PO QAM 08/23/18 08/23/18 History metoprolol succinate 50 mg PO HS 08/23/18 08/23/18 History metoprolol succinate 75 mg PO QAM 08/23/18 08/23/18 History omega 4-jre-isa-fish oil [Fish Oil] 1 cap PO BID 08/23/18 08/23/18 History tramadol 50 mg PO BID PRN 08/23/18 08/23/18 History warfarin 5 mg PO QPM 08/23/18 08/23/18 History Patient History Medical History Urinary tract infection Altered mental status Atrial flutter Atrial fibrillation with rapid ventricular response (Acute) DVT prophylaxis Chest pain Elevated alkaline phosphatase level Hemodialysis patient Hypertension (Chronic) DM2 (diabetes mellitus, type 2) (Chronic) HTN (hypertension) (Chronic) Hyperparathyroidism (Chronic) Hypothyroid (Chronic) Atrial fibrillation, chronic Hemodialysis access site with arteriovenous graft Family History Other Family history non-contributory Social History Preferred Language: Occitan Communication Ability: Effective Lan Administrator Required: No Beliefs That Will Affect Care: None Current Living Situation: Alone Other Information That Helps Us Care for You: No Feels Safe at Home: Yes Safety Concerns: Feels Safe At This Time Smoking Status: Never smoker Second Hand Exposure: No Hx Alcohol Use: No Hx Substance Use: No Physical Exam Constitutional: Chronically ill-appearing female pale on dialysis during examination Eyes: PERRL, conjunctivae normal, anicteric sclerae ENMT: external ear and nose normal, oropharynx normal Neck: trachea midline, no thyromegaly Respiratory: normal respiratory effort, lungs clear to auscultation Cardiovascular: Rate/Rhythm: + tachycardic Heart Sounds: no gallop, no murmur and no cardiac rub Vessels: no JVD Extremities: no edema Gastrointestinal (Abdomen): normal bowel sounds, soft, nontender, no hepatosplenomegaly Musculoskeletal: Chronic induration changes the lower extremities trivial edema Neurologic: PERRL, EOMI, accommodation nl, no face palsy, no dysarthria Psychiatric: A+Ox3, euthymic affect Results & Data Vital Signs (Past 12 Hours) Vital Signs Temp Pulse Pulse Pulse Resp BP BP 08/25/18 10:08 36.5 C 142 H 20 157/66 H 08/25/18 09:41 142 H 08/25/18 09:40 142 H 142/77 H 08/25/18 09:19 36.5 C 142 H 142 H 155/79 H 08/25/18 07:35 36.8 C 63 17 185/64 H 08/25/18 04:36 36.9 C 65 19 168/71 H 08/24/18 23:49 36.7 C 20 169/52 H Pulse Ox 08/25/18 10:08 97 08/25/18 09:41 08/25/18 09:40 08/25/18 09:19 08/25/18 07:35 99 08/25/18 04:36 96 08/24/18 23:49 99 Laboratory Results Laboratory Results - last 24 hr 08/23/18 08/24/18 08/24/18 17:08 10:29 11:32 WBC 8.35 RBC 2.93 L Hgb 9.0 L Hct 27.7 L MCV 94.5 MCH 30.7 MCHC 32.5 RDW Std Deviation 66.7 H RDW Coeff of Katerina 20.5 H Plt Count 255 MPV 9.9 Immature Gran % (Auto) 0.6 Neut % (Auto) 63.1 Lymph % (Auto) 28.0 Willacy % (Auto) 7.1 Eos % (Auto) 1.1 Baso % (Auto) 0.1 Immature Gran # (Auto) 0.05 H Neut # (Auto) 5.27 Lymph # (Auto) 2.34 Willacy # (Auto) 0.59 Eos # (Auto) 0.09 Baso # (Auto) 0.01 Anisocytosis Present PT INR Sodium Potassium Chloride Carbon Dioxide Anion Gap BUN Creatinine Est Cr Clr Drug Dosing Est GFR ( Amer) Est GFR (Non-Af Amer) BUN/Creatinine Ratio Glucose POC Glucose 83 Calcium Total Bilirubin AST ALT Alkaline Phosphatase Total Protein Albumin Globulin Albumin/Globulin Ratio Stool Occult Bld Scrn Blood Type O Negative Antibody Screen NEGATIVE Crossmatch See Detail 08/24/18 08/24/18 08/24/18 16:12 20:28 20:55 WBC RBC Hgb Hct MCV MCH MCHC RDW Std Deviation RDW Coeff of Katerina Plt Count MPV Immature Gran % (Auto) Neut % (Auto) Lymph % (Auto) [place] % (Auto) Eos % (Auto) Baso % (Auto) Immature Gran # (Auto) Neut # (Auto) Lymph # (Auto) Will[place] # (Auto) Eos # (Auto) Baso # (Auto) Anisocytosis PT INR Sodium Potassium Chloride Carbon Dioxide Anion Gap BUN Creatinine Est Cr Clr Drug Dosing Est GFR ( Amer) Est GFR (Non-Af Amer) BUN/Creatinine Ratio Glucose POC Glucose 137 H 115 H Calcium Total Bilirubin AST ALT Alkaline Phosphatase Total Protein Albumin Globulin Albumin/Globulin Ratio Stool Occult Bld Scrn Positive A Blood Type Antibody Screen Crossmatch 08/25/18 08/25/18 08/25/18 05:25 05:25 05:25 WBC 6.73 RBC 2.35 L Hgb 7.3 L Hct 22.2 L MCV 94.5 MCH 31.1 MCHC 32.9 RDW Std Deviation 68.4 H RDW Coeff of Katerina 20.4 H Plt Count 229 MPV 9.9 Immature Gran % (Auto) 0.7 Neut % (Auto) 57.0 Lymph % (Auto) 32.1 [place] % (Auto) 8.3 Eos % (Auto) 1.8 Baso % (Auto) 0.1 Immature Gran # (Auto) 0.05 H Neut # (Auto) 3.83 Lymph # (Auto) 2.16 Willacy # (Auto) 0.56 Eos # (Auto) 0.12 Baso # (Auto) 0.01 Anisocytosis Present PT 10.9 INR 1.1 Sodium 139 Potassium 4.1 Chloride 105 Carbon Dioxide 25 Anion Gap 8.0 BUN 40 H Creatinine 3.00 H D Est Cr Clr Drug Dosing 13.8 Est GFR ( Amer) 16.2 Est GFR (Non-Af Amer) 14.0 BUN/Creatinine Ratio 13.4 Glucose 88 POC Glucose Calcium 7.8 L Total Bilirubin 0.5 AST 12 L ALT 13 Alkaline Phosphatase 170 H Total Protein 4.8 L D Albumin 2.1 L Globulin 2.7 Albumin/Globulin Ratio 0.8 L Stool Occult Bld Scrn Blood Type Antibody Screen Crossmatch 06/28/19 07:34 WBC RBC Hgb Hct MCV MCH MCHC RDW Std Deviation RDW Coeff of Katerina Plt Count MPV Immature Gran % (Auto) Neut % (Auto) Lymph % (Auto) [place] % (Auto) Eos % (Auto) Baso % (Auto) Immature Gran # (Auto) Neut # (Auto) Lymph # (Auto) Willacy # (Auto) Eos # (Auto) Baso # (Auto) Anisocytosis PT INR Sodium Potassium Chloride Carbon Dioxide Anion Gap BUN Creatinine Est Cr Clr Drug Dosing Est GFR ( Amer) Est GFR (Non-Af Amer) BUN/Creatinine Ratio Glucose POC Glucose 96 Calcium Total Bilirubin AST ALT Alkaline Phosphatase Total Protein Albumin Globulin Albumin/Globulin Ratio Stool Occult Bld Scrn Blood Type Antibody Screen Crossmatch
[2018-08-25] MEDS ORDERED: AMIODARONE 200 MG TAB PO ONE (11:30)
[2018-08-25] MEDS ORDERED: METOPROLOL SUCC 25MG EXT REL TAB PO ONE (11:30)
[2018-08-25] MEDS: ONDANSETRON INJ 2 MG/ML 2 ML VIAL IV PRN (12:24)
[2018-08-25] MEDS ORDERED: SODIUM CHLORIDE 0.9% 500 ML IV ONE (14:11)
[2018-08-25 16:03] LABS: Albumin Level 2.6 gm/dl (3.4-5.0); BUN Creatinine Ratio 9.6 (10-20); Calcium 8.5 mg/dl (8.5-10.1); Creatinine Clr Calc Pharmacy 24.6 ml/min; Est GFR (African American) 32.4
[2018-08-25 16:11] LABS: Albumin Globulin Ratio 0.7 (0.9-2); Globulin 3.7 gm/dl (2.5-4.0); Phosphorus 2.8 mg/dl (2.5-4.9); Total Protein 6.3 gm/dl (6.4-8.2)
[2018-08-25 16:51] LABS: Basophils # (auto) 0.01 K/uL (0-0.2); Basophils % (auto) 0.1 %; Eosinophils # (auto) 0.06 K/uL (0-0.5); Eosinophils % (auto) 0.8 %; Hematocrit (blood only) 29.1 % (37-47); Hemoglobin 9.5 g/dL (12.0-16.0); Immature Granulocytes # (auto) 0.05 K/uL (0.00-0.02); Immature Granulocytes % (auto) 0.7 %; Lymphocytes # (auto) 1.52 K/uL (1.2-3.4); Lymphocytes % (auto) 20.5 %; Mean Corpuscular Volume 93.6 fL (80-100); Mean Platelet Volume 9.5 fL (7.4-10.4); Monocytes # (auto) 0.53 K/uL (0.11-0.59); Monocytes % (auto) 7.1 %; Neutrophils # (auto) 5.25 K/uL (1.4-6.5); Neutrophils % (auto) 70.8 %; Platelet Count 223 K/uL (130-400); RDW Coefficient of Variation 18.9 % (11.5-14.5); Red Blood Count 3.11 M/uL (4.2-5.4); White Blood Count 7.42 K/uL (4.8-10.8)
[2018-08-25 16:55] LABS: Mean Corpuscular Hgb Conc 32.6 g/dL (32-36)
--- NOTE | 2018-08-25 17:31 | Nephrology Progress Note ---
Date of Service August 25, 2018 Assessment & Plan (1) End stage renal disease on dialysis due to type 2 diabetes mellitus: ESRD pt on HD MWF. She uses left FA AVF. Tolerated HD today despite A.fib with rapid runs. BP remained stable. We took off 1 litre. Next HD Tuesday. (2) Severe anemia: Due to ESRD and GI bleed. She got a unit of blood today Will gave epogen with HD (3) Atrial fibrillation with rapid ventricular response: Rate controlled now with dialtiazem. She is off coumadin now. She should probably stop coumadin alltogether given paucity of data supporting benefit of anticoagulation in ESRD population for A.fib. Subjective Patient seen and examined while on dialysis this morning. She is anxious about the heart rate. She was in A.fib RVR with HR in the 140's. No SOB. BP stable. No SOB or leg edema Review of Systems Review of Systems: All systems reviewed & are unremarkable except as noted in HPI & below Physical Exam Physical Exam: General exam: Appears comfortable, no acute distress HEENT: Pupils are equal and reactive to light Neck: No JVD, neck is supple trachea is midline Respiratory system: Clear breath sounds bilaterally. Gastrointestinal: Abdomen is soft, non distended, non tender, bowel sounds are present CVS: Regular rate and rhythm. No murmurs, rubs or gallops Musculoskeletal: No joint or muscle tenderness Extremities: Non tender, no edema, peripheral pulses are present Neuro: Oriented, no tremors, no focal neurological deficits Skin: No rashes Access: left FA AVF Results & Data Vital Signs (Past 12 Hours) Vital Signs Temp Pulse Pulse Pulse Resp BP BP 08/25/18 15:20 36.3 C L 145 H 18 112/73 08/25/18 12:50 36.4 C L 107 H 107 H 152/59 H 08/25/18 12:40 111 H 118/53 L 08/25/18 12:20 153 H 101/53 L 08/25/18 12:00 150 H 117/55 L 08/25/18 11:40 150 H 122/68 08/25/18 11:20 147 H 113/56 L 08/25/18 11:19 36.7 C 145 H 18 08/25/18 11:00 145 H 122/65 08/25/18 10:40 36.7 C 147 H 18 111/64 08/25/18 10:26 142 H 08/25/18 10:20 140 H 157/82 H 08/25/18 10:08 36.5 C 142 H 20 157/66 H 08/25/18 10:00 142 H 152/66 H 08/25/18 09:41 142 H 08/25/18 09:40 142 H 142/77 H 08/25/18 09:19 36.5 C 142 H 142 H 155/79 H 08/25/18 07:35 36.8 C 63 17 BP Pulse Ox 08/25/18 15:20 97 08/25/18 12:50 152/59 H 08/25/18 12:40 08/25/18 12:20 08/25/18 12:00 08/25/18 11:40 08/25/18 11:20 08/25/18 11:19 122/65 100 08/25/18 11:00 08/25/18 10:40 98 08/25/18 10:26 08/25/18 10:20 08/25/18 10:08 97 08/25/18 10:00 08/25/18 09:41 08/25/18 09:40 08/25/18 09:19 08/25/18 07:35 185/64 H 99 Laboratory Results Laboratory Results - last 24 hr 08/23/18 08/24/18 08/24/18 17:08 20:28 20:55 WBC RBC Hgb Hct MCV MCH MCHC RDW Std Deviation RDW Coeff of Katerina Plt Count MPV Immature Gran % (Auto) Neut % (Auto) Lymph % (Auto) Peach % (Auto) Eos % (Auto) Baso % (Auto) Immature Gran # (Auto) Neut # (Auto) Lymph # (Auto) Peach # (Auto) Eos # (Auto) Baso # (Auto) Absolute Nucleated RBC Nucleated RBC % (auto) Neutrophils % (Manual) Band Neutrophils % Lymphocytes % (Manual) Prolymphocyte % Reactive Lymphs % (Man) Monocytes % (Manual) Eosinophils % (Manual) Basophils % (Manual) Metamyelocytes % (Man) Myelocytes % (Man) Promyelocytes % (Man) Blast Cells % (Manual) Plasma Cell % (Manual) Other Cells % Nucleated RBC % Neutrophils # (Manual) Band Neutrophils # Total Absolute Neuts Lymphocytes # (Manual) Prolymphocyte # Reactive Lymphs # Total Abs Lymphocytes Monocytes # (Manual) Eosinophils # (Manual) Basophils # (Manual) Metamyelocytes # (Man) Myelocytes # (Manual) Promyelocytes # (Man) Blast Cells # (Man) Plasma Cell # (Manual) Other Cells # Nucleated RBCs # (Man) Hypersegmented Neuts Hyposegmented Neuts Hypogranular Neuts Large Granular Lymphs # Lrg Granular Lymphs Hairy Cells Smudge Cells Toxic Granulation Toxic Vacuolation Dohle Bodies Last Rods Platelet Estimate Hypogranular Platelets Clumped Platelets Giant Platelets Platelet Satelliting RBC Morphology Polychromasia Hypochromasia Poikilocytosis Basophilic Stippling Anisocytosis Microcytosis Macrocytosis Spherocytes Pappenheimer Bodies Sickle Cells Target Cells Tear Drop Cells Ovalocytes Stomatocytes [place] Bodies Echinocytes Acanthocytes (Spur) Rouleaux RBC Agglutinates Schistocytes RBC Morph Comment Sezary Cell PT INR Sodium Potassium Chloride Carbon Dioxide Anion Gap BUN Creatinine Est Cr Clr Drug Dosing Est GFR ( Amer) Est GFR (Non-Af Amer) BUN/Creatinine Ratio Glucose POC Glucose 115 H Calcium Phosphorus Magnesium Total Bilirubin AST ALT Alkaline Phosphatase Total Protein Albumin Globulin Albumin/Globulin Ratio Stool Occult Bld Scrn Positive A Blood Type O Negative Antibody Screen NEGATIVE Crossmatch See Detail 08/25/18 08/25/18 08/25/18 05:25 05:25 05:25 WBC 6.73 RBC 2.35 L Hgb 7.3 L Hct 22.2 L MCV 94.5 MCH 31.1 MCHC 32.9 RDW Std Deviation 68.4 H RDW Coeff of Katerina 20.4 H Plt Count 229 MPV 9.9 Immature Gran % (Auto) 0.7 Neut % (Auto) 57.0 Lymph % (Auto) 32.1 Peach % (Auto) 8.3 Eos % (Auto) 1.8 Baso % (Auto) 0.1 Immature Gran # (Auto) 0.05 H Neut # (Auto) 3.83 Lymph # (Auto) 2.16 Peach # (Auto) 0.56 Eos # (Auto) 0.12 Baso # (Auto) 0.01 Absolute Nucleated RBC Nucleated RBC % (auto) Neutrophils % (Manual) Band Neutrophils % Lymphocytes % (Manual) Prolymphocyte % Reactive Lymphs % (Man) Monocytes % (Manual) Eosinophils % (Manual) Basophils % (Manual) Metamyelocytes % (Man) Myelocytes % (Man) Promyelocytes % (Man) Blast Cells % (Manual) Plasma Cell % (Manual) Other Cells % Nucleated RBC % Neutrophils # (Manual) Band Neutrophils # Total Absolute Neuts Lymphocytes # (Manual) Prolymphocyte # Reactive Lymphs # Total Abs Lymphocytes Monocytes # (Manual) Eosinophils # (Manual) Basophils # (Manual) Metamyelocytes # (Man) Myelocytes # (Manual) Promyelocytes # (Man) Blast Cells # (Man) Plasma Cell # (Manual) Other Cells # Nucleated RBCs # (Man) Hypersegmented Neuts Hyposegmented Neuts Hypogranular Neuts Large Granular Lymphs # Lrg Granular Lymphs Hairy Cells Smudge Cells Toxic Granulation Toxic Vacuolation Dohle Bodies Last Rods Platelet Estimate Hypogranular Platelets Clumped Platelets Giant Platelets Platelet Satelliting RBC Morphology Polychromasia Hypochromasia Poikilocytosis Basophilic Stippling Anisocytosis Present Microcytosis Macrocytosis Spherocytes Pappenheimer Bodies Sickle Cells Target Cells Tear Drop Cells Ovalocytes Stomatocytes [place] Bodies Echinocytes Acanthocytes (Spur) Rouleaux RBC Agglutinates Schistocytes RBC Morph Comment Sezary Cell PT 10.9 INR 1.1 Sodium 139 Potassium 4.1 Chloride 105 Carbon Dioxide 25 Anion Gap 8.0 BUN 40 H Creatinine 3.00 H D Est Cr Clr Drug Dosing 13.8 Est GFR ( Amer) 16.2 Est GFR (Non-Af Amer) 14.0 BUN/Creatinine Ratio 13.4 Glucose 88 POC Glucose Calcium 7.8 L Phosphorus Magnesium Total Bilirubin 0.5 AST 12 L ALT 13 Alkaline Phosphatase 170 H Total Protein 4.8 L D Albumin 2.1 L Globulin 2.7 Albumin/Globulin Ratio 0.8 L Stool Occult Bld Scrn Blood Type Antibody Screen Crossmatch 08/25/18 08/25/18 08/25/18 07:34 11:18 13:12 WBC RBC Hgb Hct MCV MCH MCHC RDW Std Deviation RDW Coeff of Katerina Plt Count MPV Immature Gran % (Auto) Neut % (Auto) Lymph % (Auto) [place] % (Auto) Eos % (Auto) Baso % (Auto) Immature Gran # (Auto) Neut # (Auto) Lymph # (Auto) [place] # (Auto) Eos # (Auto) Baso # (Auto) Absolute Nucleated RBC Nucleated RBC % (auto) Neutrophils % (Manual) Band Neutrophils % Lymphocytes % (Manual) Prolymphocyte % Reactive Lymphs % (Man) Monocytes % (Manual) Eosinophils % (Manual) Basophils % (Manual) Metamyelocytes % (Man) Myelocytes % (Man) Promyelocytes % (Man) Blast Cells % (Manual) Plasma Cell % (Manual) Other Cells % Nucleated RBC % Neutrophils # (Manual) Band Neutrophils # Total Absolute Neuts Lymphocytes # (Manual) Prolymphocyte # Reactive Lymphs # Total Abs Lymphocytes Monocytes # (Manual) Eosinophils # (Manual) Basophils # (Manual) Metamyelocytes # (Man) Myelocytes # (Manual) Promyelocytes # (Man) Blast Cells # (Man) Plasma Cell # (Manual) Other Cells # Nucleated RBCs # (Man) Hypersegmented Neuts Hyposegmented Neuts Hypogranular Neuts Large Granular Lymphs # Lrg Granular Lymphs Hairy Cells Smudge Cells Toxic Granulation Toxic Vacuolation Dohle Bodies Last Rods Platelet Estimate Hypogranular Platelets Clumped Platelets Giant Platelets Platelet Satelliting RBC Morphology Polychromasia Hypochromasia Poikilocytosis Basophilic Stippling Anisocytosis Microcytosis Macrocytosis Spherocytes Pappenheimer Bodies Sickle Cells Target Cells Tear Drop Cells Ovalocytes Stomatocytes [place] Bodies Echinocytes Acanthocytes (Spur) Rouleaux RBC Agglutinates Schistocytes RBC Morph Comment Sezary Cell PT INR Sodium Potassium Chloride Carbon Dioxide Anion Gap BUN Creatinine Est Cr Clr Drug Dosing Est GFR ( Amer) Est GFR (Non-Af Amer) BUN/Creatinine Ratio Glucose POC Glucose 96 102 H 96 Calcium Phosphorus Magnesium Total Bilirubin AST ALT Alkaline Phosphatase Total Protein Albumin Globulin Albumin/Globulin Ratio Stool Occult Bld Scrn Blood Type Antibody Screen Crossmatch 08/25/18 08/25/18 08/25/18 15:35 15:35 16:09 WBC Cancelled RBC Cancelled Hgb Cancelled Hct Cancelled MCV Cancelled MCH Cancelled MCHC Cancelled RDW Std Deviation Cancelled RDW Coeff of Katerina Cancelled Plt Count Cancelled MPV Cancelled Immature Gran % (Auto) Cancelled Neut % (Auto) Cancelled Lymph % (Auto) Cancelled [place]ach % (Auto) Cancelled Eos % (Auto) Cancelled Baso % (Auto) Cancelled Immature Gran # (Auto) Cancelled Neut # (Auto) Cancelled Lymph # (Auto) Cancelled [place] # (Auto) Cancelled Eos # (Auto) Cancelled Baso # (Auto) Cancelled Absolute Nucleated RBC Cancelled Nucleated RBC % (auto) Cancelled Neutrophils % (Manual) Cancelled Band Neutrophils % Cancelled Lymphocytes % (Manual) Cancelled Prolymphocyte % Cancelled Reactive Lymphs % (Man) Cancelled Monocytes % (Manual) Cancelled Eosinophils % (Manual) Cancelled Basophils % (Manual) Cancelled Metamyelocytes % (Man) Cancelled Myelocytes % (Man) Cancelled Promyelocytes % (Man) Cancelled Blast Cells % (Manual) Cancelled Plasma Cell % (Manual) Cancelled Other Cells % Cancelled Nucleated RBC % Cancelled Neutrophils # (Manual) Cancelled Band Neutrophils # Cancelled Total Absolute Neuts Cancelled Lymphocytes # (Manual) Cancelled Prolymphocyte # Cancelled Reactive Lymphs # Cancelled Total Abs Lymphocytes Cancelled Monocytes # (Manual) Cancelled Eosinophils # (Manual) Cancelled Basophils # (Manual) Cancelled Metamyelocytes # (Man) Cancelled Myelocytes # (Manual) Cancelled Promyelocytes # (Man) Cancelled Blast Cells # (Man) Cancelled Plasma Cell # (Manual) Cancelled Other Cells # Cancelled Nucleated RBCs # (Man) Cancelled Hypersegmented Neuts Cancelled Hyposegmented Neuts Cancelled Hypogranular Neuts Cancelled Large Granular Lymphs Cancelled # Lrg Granular Lymphs Cancelled Hairy Cells Cancelled Smudge Cells Cancelled Toxic Granulation Cancelled Toxic Vacuolation Cancelled Dohle Bodies Cancelled Last Rods Cancelled Platelet Estimate Cancelled Hypogranular Platelets Cancelled Clumped Platelets Cancelled Giant Platelets Cancelled Platelet Satelliting Cancelled RBC Morphology Cancelled Polychromasia Cancelled Hypochromasia Cancelled Poikilocytosis Cancelled Basophilic Stippling Cancelled Anisocytosis Cancelled Microcytosis Cancelled Macrocytosis Cancelled Spherocytes Cancelled Pappenheimer Bodies Cancelled Sickle Cells Cancelled Target Cells Cancelled Tear Drop Cells Cancelled Ovalocytes Cancelled Stomatocytes Cancelled [place] Bodies Cancelled Echinocytes Cancelled Acanthocytes (Spur) Cancelled Rouleaux Cancelled RBC Agglutinates Cancelled Schistocytes Cancelled RBC Morph Comment Cancelled Sezary Cell Cancelled PT INR Sodium 138 Potassium 4.0 Chloride 101 Carbon Dioxide 28 Anion Gap 9.0 BUN 16 D Creatinine 1.69 H D Est Cr Clr Drug Dosing 24.6 Est GFR ( Amer) 32.4 Est GFR (Non-Af Amer) 28.0 BUN/Creatinine Ratio 9.6 L Glucose 149 H POC Glucose 154 H Calcium 8.5 Phosphorus 2.8 Magnesium 2.0 Total Bilirubin 1.0 D AST 20 ALT 18 Alkaline Phosphatase 218 H Total Protein 6.3 L D Albumin 2.6 L Globulin 3.7 Albumin/Globulin Ratio 0.7 L Stool Occult Bld Scrn Blood Type Antibody Screen Crossmatch 08/25/18 16:44 WBC 7.42 RBC 3.11 L Hgb 9.5 L Hct 29.1 L MCV 93.6 MCH 30.5 MCHC 32.6 RDW Std Deviation 62.0 H RDW Coeff of Katerina 18.9 H Plt Count 223 MPV 9.5 Immature Gran % (Auto) 0.7 Neut % (Auto) 70.8 Lymph % (Auto) 20.5 Peach % (Auto) 7.1 Eos % (Auto) 0.8 Baso % (Auto) 0.1 Immature Gran # (Auto) 0.05 H Neut # (Auto) 5.25 Lymph # (Auto) 1.52 Peach # (Auto) 0.53 Eos # (Auto) 0.06 Baso # (Auto) 0.01 Absolute Nucleated RBC Nucleated RBC % (auto) Neutrophils % (Manual) Band Neutrophils % Lymphocytes % (Manual) Prolymphocyte % Reactive Lymphs % (Man) Monocytes % (Manual) Eosinophils % (Manual) Basophils % (Manual) Metamyelocytes % (Man) Myelocytes % (Man) Promyelocytes % (Man) Blast Cells % (Manual) Plasma Cell % (Manual) Other Cells % Nucleated RBC % Neutrophils # (Manual) Band Neutrophils # Total Absolute Neuts Lymphocytes # (Manual) Prolymphocyte # Reactive Lymphs # Total Abs Lymphocytes Monocytes # (Manual) Eosinophils # (Manual) Basophils # (Manual) Metamyelocytes # (Man) Myelocytes # (Manual) Promyelocytes # (Man) Blast Cells # (Man) Plasma Cell # (Manual) Other Cells # Nucleated RBCs # (Man) Hypersegmented Neuts Hyposegmented Neuts Hypogranular Neuts Large Granular Lymphs # Lrg Granular Lymphs Hairy Cells Smudge Cells Toxic Granulation Toxic Vacuolation Dohle Bodies Last Rods Platelet Estimate Hypogranular Platelets Clumped Platelets Giant Platelets Platelet Satelliting RBC Morphology Polychromasia Hypochromasia Poikilocytosis Basophilic Stippling Anisocytosis Microcytosis Macrocytosis Spherocytes Pappenheimer Bodies Sickle Cells Target Cells Tear Drop Cells Ovalocytes Stomatocytes [place] Bodies Echinocytes Acanthocytes (Spur) Rouleaux RBC Agglutinates Schistocytes RBC Morph Comment Sezary Cell PT INR Sodium Potassium Chloride Carbon Dioxide Anion Gap BUN Creatinine Est Cr Clr Drug Dosing Est GFR ( Amer) Est GFR (Non-Af Amer) BUN/Creatinine Ratio Glucose POC Glucose Calcium Phosphorus Magnesium Total Bilirubin AST ALT Alkaline Phosphatase Total Protein Albumin Globulin Albumin/Globulin Ratio Stool Occult Bld Scrn Blood Type Antibody Screen Crossmatch
[2018-08-25] MEDS: AMIODARONE 200 MG TAB PO SCH ×2 (17:54→23:16)
--- NOTE | 2018-08-25 18:07 | Hospitalist Progress Note ---
Date of Service August 25, 2018 Assessment & Plan (1) Atrial fibrillation with rapid ventricular response: Atrial Fibrillation RVR: -Patient came to to the hospital with atrial fibrillation with rapid ventricular response on 08/23/18 -normal TSH -rate was controlled with metoprolol and cardiazem and then patient returned to to sinus rhythm and was sinus throughout 08/24/18 and continued metoprolol and cardiazem -08/25/18: Patient had 1 unit of PRBC given on 08/25/18. Patient was in rapid atrial flutter throughout much of the day. She was able to complete the dialysis. Cardiology service started patient on amiodarone. Patient then lost IV access. In the situation of seeking IV access and in the context of patient's Heart rate in the 140s with atrial flutter. ICU physician was called to assess in the late afternoon. ICU physician has found peripheral vein which may be amenable to peripheral guided line. During this search, patient's heart rate appears to have converted back to sinus rhythm in the 90s acute blood loss anemia from GI bleed In setting of Coagulopathy on coumadin for afib / history hemorrhoids as per patient -arrived with Hgb 5.7 and INR 2.9 -was Transfused 2 units PRBCs and s/p Vitamin K 5mg on 08/23/18 and Hgb trended up to as high as 9 on 08/24/18 -EGD on 08/24/18 did not find source of bleed: - Normal upper third of esophagus, middle third of esophagus and lower third of esophagus. - Z-line regular, 35 cm from the incisors. - Erythematous mucosa in the antrum. - Normal examined duodenum. - Normal examined duodenum. - Biopsies were taken with a cold forceps for Helicobacter pylori testing (negative pathology) -additional 1 unit PRBC was given in AM 08/25/18 when Hgb 7.3; follow up Hgb as 9.5 -continue Protonix as 40mg PO BID ; hold aspirin, avoid NSAIDs Diarrhea: -positive FOBT Dizziness: -from anemia and arrhythmia Hypertension -Continue home medications of metoprolol -hold diltiazem as patient now on amiodarone ESRD on dialysis -Usual dialysis Tuesday -had inpatient dialysis session on Tuesday08/25/18 Secondary hyperparathyroidism -S/P parathyroidectomy in the past Hypothyroidism -Normal TSH -Continue levothyroxine Abnormal CT: -CT chest:Basilar predominant pulmonary cysts and 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 Less likely diagnostic considerations include lymphangioleiomyomatosis, pneumocystis pneumonia, or Langerhans cell histiocytosis. -Procalcitonin 0.68 -blood cultures no growth to date -no respiratory issues at this time possible right lower extremity cellulitis chronic right lower extremity pain -right lower extremity with erythema -was started on ceftriaxone after blood cultures are drawn on 08/24/18 -No evidence of lower extremity DVT ultrasound of bilateral lower extremities -will switch to Keflex on 08/25/18 Type II diabetes mellitus with [facility] current use of insulin -HbA1C: 5.8 on 05/15/18 -Hold Lantus -Continue insulin sliding scale while hospitalized Dyslipidemia History of intolerance to statins as per records Autoimmune hepatitis Stable Follows with GI Dr. Crespo as outpatient DVT prophylaxis: SCDs CODE STATUS: DNI DNR Subjective Patient had 1 unit of PRBC given on 08/25/18. Patient was in rapid atrial flutter throughout much of the day. She was able to complete the dialysis. Cardiology service started patient on amiodarone. Patient then lost IV access. In the situation of seeking IV access and in the context of patient's Heart rate in the 140s with atrial flutter. ICU physician was called to assess in the late afternoon. ICU physician has found peripheral vein which may be amenable to peripheral guided line. During this search, patient's heart rate appears to have converted back to sinus rhythm in the 90s Patient awake and alert throughout entire day. no chest pain. no shortness of breath. no abdomen pain. Physical Exam Constitutional: comfortable Eyes: PERRL, conjunctivae normal, anicteric sclerae EOM intact bilaterally ENMT: external ear and nose normal, oropharynx normal Neck: trachea midline, no thyromegaly normal visual inspection Respiratory: normal respiratory effort, lungs clear to auscultation Cardiovascular: Rate/Rhythm: regular rate and regular rhythm Gastrointestinal (Abdomen): normal bowel sounds, soft, nontender, no hepatosplenomegaly Musculoskeletal: Head/Neck/Chest: normocephalic and head atraumatic Neurologic: PERRL, EOMI, accommodation nl, no face palsy, no dysarthria CN's II-XI intact bilaterally Psychiatric: A+Ox3, euthymic affect Results & Data Vital Signs (Past 12 Hours) Vital Signs Temp Pulse Pulse Pulse Resp BP BP 08/25/18 15:20 36.3 C L 145 H 18 112/73 08/25/18 12:50 36.4 C L 107 H 107 H 152/59 H 08/25/18 12:40 111 H 118/53 L 08/25/18 12:20 153 H 101/53 L 08/25/18 12:00 150 H 117/55 L 08/25/18 11:40 150 H 122/68 08/25/18 11:20 147 H 113/56 L 08/25/18 11:19 36.7 C 145 H 18 08/25/18 11:00 145 H 122/65 08/25/18 10:40 36.7 C 147 H 18 111/64 08/25/18 10:26 142 H 08/25/18 10:20 140 H 157/82 H 08/25/18 10:08 36.5 C 142 H 20 157/66 H 08/25/18 10:00 142 H 152/66 H 08/25/18 09:41 142 H 08/25/18 09:40 142 H 142/77 H 08/25/18 09:19 36.5 C 142 H 142 H 155/79 H 08/25/18 07:35 36.8 C 63 17 BP Pulse Ox 08/25/18 15:20 97 08/25/18 12:50 152/59 H 08/25/18 12:40 08/25/18 12:20 08/25/18 12:00 08/25/18 11:40 08/25/18 11:20 08/25/18 11:19 122/65 100 08/25/18 11:00 08/25/18 10:40 98 08/25/18 10:26 08/25/18 10:20 08/25/18 10:08 97 08/25/18 10:00 08/25/18 09:41 08/25/18 09:40 08/25/18 09:19 08/25/18 07:35 185/64 H 99
--- NOTE | 2018-08-25 19:32 | Procedure Note ---
Procedure Note Date of Service August 25, 2018 Note Central line placed in this patient due to lack of IV access while she was admitted with GI bleeding, the patient is vasculopathic, she had a renal failure, AV fistula in the left arm, right arm was attempted by nursing staff, IV team, could not thread a catheter into it, the patient was without IV access, consent obtained from the patient, risk and benefit explained details, agreed to the procedure, the procedure was done under ultrasound guidance, anterior approach, IJ position, patient was placed in supine position, the skin was prepped with chlorhexidine under strict sterile field, OR style, the skin was prepped with chlorhexidine, injected with 10 mL of 1% lidocaine, using Seldinger technique, dilator without scalpel, the line was placed to 15 cm, all ports were flushed with saline, secured with surgical sutures x2, surgical dressing was placed, chest x-ray is pending as of the time of this dictation. Patient tolerated the procedure very well, no immediate complication. Thank you Coding CPT Codes Tubes, Drains, and Vasc Access - Tubes, Drains, and Vasc Access: Place catheter in vein superior or inferior vena cava ([id number])
--- NOTE | 2018-08-25 19:50 | XRay Report ---
XR chest 1V portable CLINICAL HISTORY: Chest x-ray status post central line placement COMPARISON STUDY: 08/23/2018 FINDINGS: The heart is moderately enlarged. There is no overt failure. There is no lobar consolidatio n. There are minor basilar atelectatic changes. There is been interval insertion of a right internal jugular central venous catheter. The tip projects over the right atrium. There is no pneumothorax. IMPRESSION: 1. Interval placement of a right internal jugular central venous catheter. 2. The tip appears positioned within the right atrium 3. No evidence of pneumothorax Electronically signed by: Jake Brown M.D. 08/25/2018 7:48 PM
[2018-08-25] MEDS: cephALEXin 250 MG CAP PO SCH (19:57)
[2018-08-25] MEDS: TRAVOPROST Z 0.004% OPH SOLN 2.5 ML BTL OP SCH (19:58)
[2018-08-25] MEDS: METOPROLOL SUCC 25MG EXT REL TAB PO SCH (19:58)
[2018-08-25] MEDS: METOPROLOL SUCC 50MG EXT REL TAB PO SCH (20:12)
[2018-08-26] MEDS: LEVOTHYROXINE SODIUM 112 MCG TABLET PO SCH (05:55)
[2018-08-26] MEDS: INSULIN ASPART 100 UNITS/ML 3 ML PEN SC SCH ×4 (07:59→20:54)
[2018-08-26] MEDS: EUCERIN CR 120 GM JAR TOP SCH ×4 (08:00→19:55)
[2018-08-26] MEDS: AMIODARONE 200 MG TAB PO SCH ×3 (08:00→19:52)
[2018-08-26] MEDS: PANTOprazole 40 MG TAB PO SCH ×2 (08:01→19:53)
[2018-08-26] MEDS: METOPROLOL SUCC 25MG EXT REL TAB PO SCH ×2 (08:01→19:53)
[2018-08-26 08:10] LABS: Basophils # (auto) 0.01 K/uL (0-0.2); Basophils % (auto) 0.1 %; Eosinophils # (auto) 0.12 K/uL (0-0.5); Eosinophils % (auto) 1.6 %; Hematocrit (blood only) 25.1 % (37-47); Hemoglobin 8.1 g/dL (12.0-16.0); Immature Granulocytes # (auto) 0.05 K/uL (0.00-0.02); Immature Granulocytes % (auto) 0.7 %; Lymphocytes # (auto) 2.34 K/uL (1.2-3.4); Lymphocytes % (auto) 31.7 %; Mean Corpuscular Volume 96.2 fL (80-100); Mean Platelet Volume 9.6 fL (7.4-10.4); Monocytes % (auto) 9.5 %; Neutrophils # (auto) 4.17 K/uL (1.4-6.5); Neutrophils % (auto) 56.4 %; Platelet Count 194 K/uL (130-400); RDW Coefficient of Variation 19.5 % (11.5-14.5); RDW Standard Deviation 65.3 fL (36.4-46.3); Red Blood Count 2.61 M/uL (4.2-5.4); White Blood Count 7.39 K/uL (4.8-10.8)
[2018-08-26 08:17] LABS: Mean Corpuscular Hgb Conc 32.3 g/dL (32-36)
[2018-08-26 08:30] LABS: Creatinine Clr Calc Pharmacy 14.6 ml/min; Est GFR (African American) 17.3; Est GFR (Non-African American) 14.9; Potassium 3.9 mmol/L (3.5-5.1)
[2018-08-26 08:35] LABS: Albumin Globulin Ratio 0.7 (0.9-2); Bilirubin,Total 0.5 mg/dl (0.2-1)
--- NOTE | 2018-08-26 08:47 | Hospitalist Progress Note ---
Date of Service August 26, 2018 Assessment & Plan (1) Atrial fibrillation with rapid ventricular response: Atrial Fibrillation RVR: -Patient came to to the hospital with atrial fibrillation with rapid ventricular response on 08/23/18 -normal TSH -rate was controlled with metoprolol and cardiazem and then patient returned to to sinus rhythm and was sinus throughout 08/24/18 and continued metoprolol and cardiazem -08/25/18: Patient had 1 unit of PRBC given on 08/25/18. Patient was in rapid atrial flutter throughout much of the day. She was able to complete the dialysis. Cardiology service started patient on amiodarone. Patient then lost IV access. In the situation of seeking IV access and in the context of patient's Heart rate in the 140s with atrial flutter. ICU physician was called to assess in the late afternoon. The ICU physician also obtained IV access via triple lumen central line to vena cava on 08/25/18 -as of 08/26/18 AM: Patient continues to be in sinus rhythm evening of 08/25/18. continue amiodarone and metoprolol as per cardiology acute blood loss anemia from GI bleed In setting of Coagulopathy on coumadin for afib / history hemorrhoids as per patient -arrived with Hgb 5.7 and INR 2.9 -was Transfused 2 units PRBCs and s/p Vitamin K 5mg on 08/23/18 and Hgb trended up to as high as 9 on 08/24/18 -EGD on 08/24/18 did not find source of bleed: - Normal upper third of esophagus, middle third of esophagus and lower third of esophagus. - Z-line regular, 35 cm from the incisors. - Erythematous mucosa in the antrum. - Normal examined duodenum. - Normal examined duodenum. - Biopsies were taken with a cold forceps for Helicobacter pylori testing (negative pathology) -additional 1 unit PRBC was given in AM 08/25/18 when Hgb 7.3; follow up Hgb as 9.5 - Hgb is 8.1 in AM of 08/26/18 -continue Protonix as 40mg PO BID ; hold aspirin, avoid NSAIDs, continue to monitor patient on telemetry as inpatient Diarrhea: -positive FOBT Dizziness: -from anemia and arrhythmia -currently no dizziness Hypertension -Continue home medications of metoprolol -not on diltiazem as patient is on amiodarone ESRD on dialysis -Usual dialysis Tuesday -had inpatient dialysis session on Tuesday08/25/18 Secondary hyperparathyroidism -S/P parathyroidectomy in the past Hypothyroidism -Normal TSH -Continue levothyroxine Abnormal CT: -CT chest:Basilar predominant pulmonary cysts and 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 Less likely diagnostic considerations include lymphangioleiomyomatosis, pneumocystis pneumonia, or Langerhans cell histiocytosis. -Procalcitonin 0.68 -blood cultures no growth to date -no respiratory issues at this time possible right lower extremity cellulitis chronic right lower extremity pain -right lower extremity with erythema -was started on ceftriaxone after blood cultures are drawn on 08/24/18 -No evidence of lower extremity DVT ultrasound of bilateral lower extremities -switched to Keflex on 08/25/18, continue Type II diabetes mellitus with nursing home current use of insulin -HbA1C: 5.8 on 05/15/18 -Hold Lantus -Continue insulin sliding scale while hospitalized Dyslipidemia History of intolerance to statins as per records Autoimmune hepatitis Stable Follows with GI Dr. Crespo as outpatient DVT prophylaxis: TEDs CODE STATUS: DNI DNR Subjective Patient continues to be in sinus rhythm evening of 08/25/18. The ICU physician also obtained IV access via triple lumen central line to vena cava on 08/25/18. Nurse reports bowel movement perhaps with some heme. Hgb is 8.1 this AM. Patient denies acute neck pain. no chest pain. no palpitations. no shortness of breath. no abdomen pain. no vomiting Physical Exam Constitutional: comfortable Eyes: PERRL, conjunctivae normal, anicteric sclerae EOM intact bilaterally ENMT: external ear and nose normal, oropharynx normal Neck: trachea midline, no thyromegaly normal visual inspection Respiratory: normal respiratory effort, lungs clear to auscultation Cardiovascular: Rate/Rhythm: regular rate and + bradycardic Gastrointestinal (Abdomen): normal bowel sounds, soft, nontender, no hepatosplenomegaly Musculoskeletal: Head/Neck/Chest: normocephalic and head atraumatic Neurologic: PERRL, EOMI, accommodation nl, no face palsy, no dysarthria CN's II-XI intact bilaterally Psychiatric: A+Ox3, euthymic affect Results & Data Vital Signs (Past 12 Hours) Vital Signs Temp Pulse Pulse Resp BP BP Pulse Ox 06/29/19 07:27 36.4 C L 65 18 151/64 H 99 08/26/18 03:45 36.9 C 68 16 136/66 100 08/25/18 23:33 36.5 C 80 16 139/69 99 08/25/18 23:03 79
--- NOTE | 2018-08-26 12:31 | Cardiology Progress Note ---
Date of Service August 26, 2018 Assessment & Plan (1) Atrial fibrillation with rapid ventricular response: Patient carries a history of paroxysmal atrial fibrillation with recent increase in frequency and exacerbations in association with acute illness and hospitalization. Patient not responding to usual medications. Anticoagulation discontinued appropriately due to complications of GI bleeding and anemia Plan: has tolerated amiodarone well without recurrence of atrial fib will cont po amio and metoprolol Discussed above with patient. Noted indications for chronic anticoagulation now contraindicated due to risks. May need to readdress in future depending on clinical course (2) Severe anemia: Receiving transfusion and being cared for GI possible colonoscopy in future (3) End stage renal disease on dialysis due to type 2 diabetes mellitus: Tolerating dialysis well (4) Hypertension: As noted multiple drug adjustment Subjective Pt seen and examined, states that she feels well today. Still a little weak but denies cp, sob, palpitations, lightheadedness or dizziness. tele reviewed: sinus rhythm without arrhythmia or significant ectopy. Review of Systems Review of Systems: All systems reviewed & are unremarkable except as noted in HPI & below Physical Exam Physical Exam: General: Awake, alert and oriented x 3. No acute distress. HEENT: Normocephalic, atraumatic. Pupils equal, round and reactive to light and accommodation. Extraocular muscles are intact. Anicteric sclera. Moist mucous membranes. Neck: No JVD. No bruit. Cardiovascular: Regular. Positive S-4. Normal S-1 and S-2. No S-3. 3/6 mid to late systolic ejection murmur, greatest at the right sternal border, second intercostal space with radiation to the bilateral carotids. No rubs. Pulmonary: Clear to auscultation bilaterally. No rales, rhonchi, or wheezing. Abdomen: Bowel sounds x 4, soft. No rebound, guarding or tenderness. No organomegaly. Extremities: No clubbing, cyanosis or edema. +2 pedal pulses bilaterally. Skin: Warm and dry. Results & Data Vital Signs (Past 12 Hours) Vital Signs Temp Pulse Pulse Resp BP BP Pulse Ox 08/26/18 11:44 36.7 C 66 19 125/63 100 08/26/18 07:27 36.4 C L 65 18 151/64 H 99 08/26/18 03:45 36.9 C 68 16 136/66 100
[2018-08-26] MEDS: cephALEXin 250 MG CAP PO SCH (19:53)
[2018-08-26] MEDS: TRAVOPROST Z 0.004% OPH SOLN 2.5 ML BTL OP SCH (19:56)
[2018-08-27] MEDS: LEVOTHYROXINE SODIUM 112 MCG TABLET PO SCH (06:26)
[2018-08-27 07:36] LABS: Hemoglobin 6.9 g/dL (12.0-16.0); Mean Corpuscular Hgb Conc 32.9 g/dL (32-36); Mean Corpuscular Volume 95.5 fL (80-100); Mean Platelet Volume 9.2 fL (7.4-10.4); Platelet Count 173 K/uL (130-400); RDW Coefficient of Variation 18.7 % (11.5-14.5); RDW Standard Deviation 64.1 fL (36.4-46.3)
[2018-08-27 07:38] LABS: Basophils # (auto) 0.01 K/uL (0-0.2); Basophils % (auto) 0.2 %; Eosinophils % (auto) 1.8 %; Immature Granulocytes # (auto) 0.03 K/uL (0.00-0.02); Immature Granulocytes % (auto) 0.5 %; Lymphocytes # (auto) 2.13 K/uL (1.2-3.4); Monocytes # (auto) 0.61 K/uL (0.11-0.59); Monocytes % (auto) 10.9 %; Neutrophils # (auto) 2.72 K/uL (1.4-6.5); Neutrophils % (auto) 48.6 %; RBC Morphology Unremarkable
[2018-08-27] MEDS ORDERED: SODIUM CHLORIDE 0.9% 250 ML IV PRN ×2 (08:01→08:06)
--- NOTE | 2018-08-27 08:22 | Hospitalist Progress Note ---
Date of Service August 27, 2018 Assessment & Plan (1) Atrial fibrillation with rapid ventricular response: Atrial Fibrillation RVR / atrial flutter -Patient came to to the hospital with atrial fibrillation with rapid ventricular response on 08/23/18 -normal TSH -rate was controlled with metoprolol and cardiazem and then patient returned to to sinus rhythm and was sinus throughout 08/24/18 and continued metoprolol and cardiazem -08/25/18: Patient had 1 unit of PRBC given on 08/25/18. Patient was in rapid atrial flutter throughout much of the day. She was able to complete the dialysis. Cardiology service started patient on amiodarone. Patient then lost IV access. In the situation of seeking IV access and in the context of patient's Heart rate in the 140s with atrial flutter. ICU physician was called to assess in the late afternoon. The ICU physician also obtained IV access via triple lum en central line to vena cava on 08/25/18 -as of 08/26/18 AM: Patient continues to be in sinus rhythm evening of 08/25/18. continue amiodarone and metoprolol as per cardiology -08/26/18 noon time: had run premature ventricle contractions but otherwise sinus rhythm and remains in sinus rhythm as of 08/27/18 acute blood loss anemia from GI bleed In setting of Coagulopathy on coumadin for afib / history hemorrhoids as per patient -arrived with Hgb 5.7 and INR 2.9 -was Transfused 2 units PRBCs and s/p Vitamin K 5mg on 08/23/18 and Hgb trended up to as high as 9 on 08/24/18 -EGD on 08/24/18 did not find source of bleed: - Normal upper third of esophagus, middle third of esophagus and lower third of esophagus. - Z-line regular, 35 cm from the incisors. - Erythematous mucosa in the antrum. - Normal examined duodenum. - Normal examined duodenum. - Biopsies were taken with a cold forceps for Helicobacter pylori testing (negative pathology) -additional 1 unit PRBC was given in AM 08/25/18 when Hgb 7.3; follow up Hgb as 9.5 - Hgb is 8.1 in AM of 08/26/18 -08/27/18: nurse continues to observe some blood in bowel movements and Hgb dropped to 6.9 as of AM of 08/27/18. Patient not is distress and hemodynamically stable. She had eaten breakfast at bedside. Discussed plans with patient and senior information systems architect Gastronenterology Dr. Long that patient is to get 2 units of PRBC as recommended by Dr. Long with plans for colonoscopy on 08/28/18. patient will be on clear liquid diet and NPO after midnight. Patient will have Golytely bowel prep this evening. -continue Protonix as 40mg PO BID ; hold aspirin, avoid NSAIDs, continue to monitor patient on telemetry as inpatient Diarrhea: -positive FOBT Dizziness: -from anemia and arrhythmia -currently no dizziness Hypertension -Continue home medications of metoprolol -not on diltiazem as patient is on amiodarone ESRD on dialysis -Usual dialysis Tuesday -had inpatient dialysis session on Tuesday08/25/18 Secondary hyperparathyroidism -S/P parathyroidectomy in the past Hypothyroidism -Normal TSH -Continue levothyroxine Abnormal CT: -CT chest:Basilar predominant pulmonary cysts and 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 Less likely diagnostic considerations include lymphangioleiomyomatosis, pneumocystis pneumonia, or Langerhans cell histiocytosis. -Procalcitonin 0.68 -blood cultures no growth to date -no respiratory issues at this time possible right lower extremity cellulitis chronic right lower extremity pain -right lower extremity with erythema -was started on ceftriaxone after blood cultures are drawn on 08/24/18 -No evidence of lower extremity DVT ultrasound of bilateral lower extremities -switched to Keflex on 08/25/18, continue Keflex for now Type II diabetes mellitus with director long term care current use of insulin -HbA1C: 5.8 on 05/15/18 -Hold Lantus -Continue insulin sliding scale while hospitalized Dyslipidemia History of intolerance to statins as per records Autoimmune hepatitis Stable Follows with GI Dr. Crespo as outpatient DVT prophylaxis: TEDs CODE STATUS: DNI DNR Subjective 08/26/18 noon time: had run premature ventricle contractions but otherwise sinus rhythm and remains in sinus rhythm as of 08/27/18 nurse continues to observe some blood in bowel movements and Hgb dropped to 6.9 as of AM of 08/27/18. Patient not is distress and hemodynamically stable. She had eaten breakfast at bedside. Discussed plans with patient and senior information systems architect Gastronenterology Dr. Long that patient is to get 2 units of PRBC as recommended by Dr. Long with plans for colonoscopy on 08/28/18. patient will be on clear liquid diet and NPO after midnight. Patient will have Golytely bowel prep this evening. no lightheadedness. no dizziness. no chest pain. no palpitations. no abdomen pain. no vomiting. Physical Exam Constitutional: comfortable Eyes: PERRL, conjunctivae normal, anicteric sclerae EOM intact bilaterally ENMT: external ear and nose normal, oropharynx normal Neck: normal visual inspection IV access via triple lumen central line to vena cava Respiratory: normal respiratory effort, lungs clear to auscultation Cardiovascular: Rate/Rhythm: regular rate and + bradycardic Gastrointestinal (Abdomen): normal bowel sounds, soft, nontender, no hepatosplenomegaly Musculoskeletal: Head/Neck/Chest: normocephalic and head atraumatic Skin: left arm fistula Neurologic: PERRL, EOMI, accommodation nl, no face palsy, no dysarthria CN's II-XI intact bilaterally Psychiatric: A+Ox3, euthymic affect Results & Data Vital Signs (Past 12 Hours) Vital Signs Temp Pulse Pulse Resp BP Pulse Ox 08/27/18 06:41 36.9 C 64 16 145/77 H 96 08/27/18 03:13 36.5 C 66 18 167/68 H 97 08/26/18 23:42 60 08/26/18 23:29 36.5 C 62 16 128/63 99
[2018-08-27] MEDS ORDERED: LAVAGE SOLUTION 4000ML PO SCH ×2 (08:30→16:00)
[2018-08-27] MEDS: INSULIN ASPART 100 UNITS/ML 3 ML PEN SC SCH ×4 (08:59→21:03)
[2018-08-27] MEDS: AMIODARONE 200 MG TAB PO SCH ×3 (09:00→21:01)
[2018-08-27] MEDS: PANTOprazole 40 MG TAB PO SCH ×2 (09:01→21:01)
[2018-08-27] MEDS: METOPROLOL SUCC 25MG EXT REL TAB PO SCH ×2 (09:01→21:02)
[2018-08-27] MEDS: EUCERIN CR 120 GM JAR TOP SCH ×4 (09:01→21:02)
--- NOTE | 2018-08-27 12:17 | Cardiology Progress Note ---
Date of Service August 27, 2018 Assessment & Plan (1) Atrial fibrillation with rapid ventricular response: Patient carries a history of paroxysmal atrial fibrillation with recent increase in frequency and exacerbations in association with acute illness and hospitalization. Patient not responding to usual medications. Anticoagulation discontinued appropriately due to complications of GI bleeding and anemia Plan: has tolerated amiodarone well without recurrence of atrial fib will cont po amio and metoprolol Discussed above with patient. Noted indications for chronic anticoagulation now contraindicated due to risks. May need to readdress in future depending on clinical course (2) Severe anemia: Receiving transfusion and being cared for by GI reportedly for colonoscopy in AM (3) End stage renal disease on dialysis due to type 2 diabetes mellitus: Tolerating dialysis well (4) Hypertension: As noted multiple drug adjustment (5) Preop cardiovascular exam: pt counseled that I would place her at a moderate risk for adverse periprocedural cardiac event during colonoscopy risk approximately <5% further counseled that no further cardiac testing or intervention would further lower that risk patient states that she understands, is accepting of that risk and wishes to proceed no need to delay from a cardiac standpoint cont amio Subjective Pt seen and examined, states that she is unhappy that she will not be discharged today. Clinically feels tired and run down, but denies cp, sob, palpitations, lightheadedness or dizziness. For colonoscopy tomorrow. tele reviewed: sinus rhythm without arrhythmia or significant ectopy. Review of Systems Review of Systems: All systems reviewed & are unremarkable except as noted in HPI & below Physical Exam Physical Exam: General: Awake, alert and oriented x 3. No acute distress. HEENT: Normocephalic, atraumatic. Pupils equal, round and reactive to light and accommodation. Extraocular muscles are intact. Anicteric sclera. Moist mucous membranes. Neck: No JVD. No bruit. Cardiovascular: Regular. Positive S-4. Normal S-1 and S-2. No S-3. No murmurs or rubs. Pulmonary: Clear to auscultation B/L. No rales, rhonchi or wheezing Abdomen: Bowel sounds x 4, soft. No rebound, guarding or tenderness. No organomegaly. Extremities: No clubbing, cyanosis or edema. +2 pedal pulses bilaterally. Skin: Warm and dry. Results & Data Vital Signs (Past 12 Hours) Vital Signs Temp Pulse Pulse Resp BP BP Pulse Ox 08/27/18 11:55 36.5 C 71 18 162/63 H 98 08/27/18 10:23 36.6 C 63 16 145/59 H 99 08/27/18 10:01 63 63 H 150/52 H 100 08/27/18 09:25 36.9 C 67 18 151/65 H 100 08/27/18 06:41 36.9 C 64 16 145/77 H 96 08/27/18 03:13 36.5 C 66 18 167/68 H 97
[2018-08-27] MEDS ORDERED: FUROSEMIDE 20 MG in SYRINGE 0 ML IV ONE (15:00)
[2018-08-27] MEDS: LAVAGE SOLUTION 4000ML PO SCH (18:31)
[2018-08-27 19:23] LABS: Basophils # (auto) 0.01 K/uL (0-0.2); Basophils % (auto) 0.1 %; Eosinophils # (auto) 0.12 K/uL (0-0.5); Eosinophils % (auto) 1.7 %; Hematocrit (blood only) 31.4 % (37-47); Hemoglobin 10.4 g/dL (12.0-16.0); Immature Granulocytes # (auto) 0.03 K/uL (0.00-0.02); Immature Granulocytes % (auto) 0.4 %; Lymphocytes # (auto) 2.44 K/uL (1.2-3.4); Mean Corpuscular Hgb Conc 33.1 g/dL (32-36); Mean Corpuscular Volume 91.3 fL (80-100); Mean Platelet Volume 9.6 fL (7.4-10.4); Monocytes # (auto) 0.58 K/uL (0.11-0.59); Monocytes % (auto) 8.1 %; Neutrophils # (auto) 3.99 K/uL (1.4-6.5); Neutrophils % (auto) 55.7 %; Platelet Count 178 K/uL (130-400); RDW Coefficient of Variation 18.5 % (11.5-14.5); Red Blood Count 3.44 M/uL (4.2-5.4); White Blood Count 7.17 K/uL (4.8-10.8)
[2018-08-27] MEDS: cephALEXin 250 MG CAP PO SCH (21:01)
[2018-08-27] MEDS: TRAVOPROST Z 0.004% OPH SOLN 2.5 ML BTL OP SCH (21:02)
[2018-08-28] MEDS: LEVOTHYROXINE SODIUM 112 MCG TABLET PO SCH (06:17)
[2018-08-28] MEDS: LAVAGE SOLUTION 4000ML PO SCH (06:17)
[2018-08-28 06:35] LABS: Basophils # (auto) 0.01 K/uL (0-0.2); Basophils % (auto) 0.2 %; Eosinophils # (auto) 0.11 K/uL (0-0.5); Eosinophils % (auto) 2.1 %; Hematocrit (blood only) 27.5 % (37-47); Hemoglobin 9.2 g/dL (12.0-16.0); Immature Granulocytes # (auto) 0.02 K/uL (0.00-0.02); Immature Granulocytes % (auto) 0.4 %; Lymphocytes # (auto) 1.65 K/uL (1.2-3.4); Lymphocytes % (auto) 31.9 %; Mean Corpuscular Hgb Conc 33.5 g/dL (32-36); Mean Corpuscular Volume 91.4 fL (80-100); Mean Platelet Volume 9.6 fL (7.4-10.4); Monocytes # (auto) 0.55 K/uL (0.11-0.59); Monocytes % (auto) 10.6 %; Neutrophils # (auto) 2.83 K/uL (1.4-6.5); Neutrophils % (auto) 54.8 %; Platelet Count 174 K/uL (130-400); RDW Coefficient of Variation 18.5 % (11.5-14.5); RDW Standard Deviation 59.5 fL (36.4-46.3); Red Blood Count 3.01 M/uL (4.2-5.4); White Blood Count 5.17 K/uL (4.8-10.8)
[2018-08-28] MEDS: INSULIN ASPART 100 UNITS/ML 3 ML PEN SC SCH ×4 (07:35→21:28)
--- NOTE | 2018-08-28 07:46 | Hospitalist Progress Note ---
Date of Service August 28, 2018 Assessment & Plan (1) Atrial fibrillation with rapid ventricular response: Atrial Fibrillation RVR / atrial flutter -Patient came to to the hospital with atrial fibrillation with rapid ventricular response on 08/23/18 -normal TSH -rate was controlled with metoprolol and cardiazem and then patient returned to to sinus rhythm and was sinus throughout 08/24/18 and continued metoprolol and cardiazem -08/25/18: Patient had 1 unit of PRBC given on 08/25/18. Patient was in rapid atrial flutter throughout much of the day. She was able to complete the dialysis. Cardiology service started patient on amiodarone. Patient then lost IV access. In the situation of seeking IV access and in the context of patient's Heart rate in the 140s with atrial flutter. ICU physician was called to assess in the late afternoon. The ICU physician also obtained IV access via triple lume n central line to vena cava on 08/25/18 -as of 08/26/18 AM: Patient continues to be in sinus rhythm evening of 08/25/18. continue amiodarone and metoprolol as per cardiology -08/26/18 noon time had run premature ventricle contractions but otherwise sinus rhythm and remains in sinus rhythm as of 08/27/18; continue amiodarone and metoprolol acute blood loss anemia from GI bleed In setting of Coagulopathy on coumadin for afib / history hemorrhoids as per patient -arrived with Hgb 5.7 and INR 2.9 -was Transfused 2 units PRBCs and s/p Vitamin K 5mg on 08/23/18 and Hgb trended up to as high as 9 on 08/24/18 -EGD on 08/24/18 did not find source of bleed: - Normal upper third of esophagus, middle third of esophagus and lower third of esophagus. - Z-line regular, 35 cm from the incisors. - Erythematous mucosa in the antrum. - Normal examined duodenum. - Normal examined duodenum. - Biopsies were taken with a cold forceps for Helicobacter pylori testing (negative pathology) -additional 1 unit PRBC was given in AM 08/25/18 when Hgb 7.3; follow up Hgb as 9.5 - Hgb is 8.1 in AM of 08/26/18 -08/27/18: nurse continues to observe some blood in bowel movements and Hgb dropped to 6.9 as of AM of 08/27/18. Patient not is distress and hemodynamically stable. She had eaten breakfast at bedside. Discussed plans with patient and section housekeeper Gastronenterology Dr. Long that patient is to get 2 units of PRBC as recommended by Dr. Long with plans for colonoscopy on 08/28/18. -08/28/18: patient able the drink the Golytely. continues to have dark red bowel movements. awaiting colonoscopy. -continue Protonix as 40mg PO BID ; hold aspirin, avoid NSAIDs, continue to monitor patient on telemetry as inpatient Diarrhea: -positive FOBT Dizziness: -from anemia and arrhythmia -currently no dizziness Hypertension -Continue home medications of metoprolol -not on diltiazem as patient is on amiodarone ESRD on dialysis -Usual dialysis Tuesday -had inpatient dialysis session on Tuesday08/25/18 -nephrology service to plan to do dialysis after colonoscopy on 08/28/18 Secondary hyperparathyroidism -S/P parathyroidectomy in the past Hypothyroidism -Normal TSH -Continue levothyroxine Abnormal CT: -CT chest:Basilar predominant pulmonary cysts and 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 Less likely diagnostic considerations include lymphangioleiomyomatosis, pneumocystis pneumonia, or Langerhans cell histiocytosis. -Procalcitonin 0.68 -blood cultures no growth to date -no respiratory issues at this time possible right lower extremity cellulitis chronic right lower extremity pain -right lower extremity with erythema -was started on ceftriaxone after blood cultures are drawn on 08/24/18 -No evidence of lower extremity DVT ultrasound of bilateral lower extremities -switched to Keflex on 08/25/18, continue Keflex for now Type II diabetes mellitus with buttermaker continuous churn current use of insulin -HbA1C: 5.8 on 05/15/18 -Hold Lantus -Continue insulin sliding scale while hospitalized Dyslipidemia History of intolerance to statins as per records Autoimmune hepatitis Stable Follows with GI Dr. Crespo as outpatient DVT prophylaxis: TEDs CODE STATUS: DNI DNR Subjective Patient seen and examined in the room. She has been able to drink the Golytely and nurse fitting red clots in the stool. Hospitalist doctor saw the dark red bowel movements in the commode. Patient is not dizzy. No lightheadedness. No pain of abdomen. No chest pain. breathing on room air Physical Exam Constitutional: comfortable Eyes: PERRL, conjunctivae normal, anicteric sclerae EOM intact bilaterally ENMT: external ear and nose normal, oropharynx normal Neck: triple lumen central line to vena cava Respiratory: normal respiratory effort, lungs clear to auscultation Cardiovascular: Rate/Rhythm: regular rate and + bradycardic Gastrointestinal (Abdomen): normal bowel sounds, soft, nontender, no hepatosplenomegaly Musculoskeletal: Head/Neck/Chest: normocephalic and head atraumatic Skin: left arm AV fistula Neurologic: PERRL, EOMI, accommodation nl, no face palsy, no dysarthria CN's II-XI intact bilaterally Psychiatric: A+Ox3, euthymic affect Results & Data Vital Signs (Past 12 Hours) Vital Signs Temp Pulse Pulse Pulse Resp BP Pulse Ox 08/28/18 07:27 36.6 C 61 20 194/76 H 98 08/28/18 04:09 36.9 C 70 18 170/68 H 100 08/28/18 00:10 58 L 08/28/18 00:01 36.3 C L 61 16 177/73 H 100 08/27/18 20:00 66
[2018-08-28] MEDS ORDERED: EPOETIN ALFA 20,000 UNITS/ML VIAL IV SCH (08:00)
[2018-08-28] MEDS ORDERED: SODIUM CHLORIDE 0.9% 1000ML 1,000 ML IV PRN (08:00)
[2018-08-28 08:19] LABS: Basophils # (auto) 0.02 K/uL (0-0.2); Basophils % (auto) 0.3 %; Eosinophils # (auto) 0.13 K/uL (0-0.5); Eosinophils % (auto) 1.9 %; Hematocrit (blood only) 31.5 % (37-47); Hemoglobin 10.7 g/dL (12.0-16.0); Immature Granulocytes # (auto) 0.03 K/uL (0.00-0.02); Immature Granulocytes % (auto) 0.4 %; Lymphocytes # (auto) 1.99 K/uL (1.2-3.4); Lymphocytes % (auto) 28.6 %; Mean Corpuscular Volume 90.3 fL (80-100); Mean Platelet Volume 9.8 fL (7.4-10.4); Monocytes # (auto) 0.47 K/uL (0.11-0.59); Monocytes % (auto) 6.7 %; Neutrophils # (auto) 4.33 K/uL (1.4-6.5); Neutrophils % (auto) 62.1 %; Platelet Count 195 K/uL (130-400); RDW Coefficient of Variation 18.7 % (11.5-14.5); RDW Standard Deviation 59.1 fL (36.4-46.3); Red Blood Count 3.49 M/uL (4.2-5.4); White Blood Count 6.97 K/uL (4.8-10.8)
--- NOTE | 2018-08-28 09:55 | Gastroenterology Progress Note ---
Date of Service August 28, 2018 Assessment & Plan (1) Acute blood loss anemia: Will go forward with colonoscopy today by Dr. Talamantes. Further recommendations to follow. (2) Atrial fibrillation: Present on Admission?: Yes (3) Rectal bleeding: Present on Admission?: Yes Supervising Physician Co-Signing Physician Notes I performed a history and physical examination of the patient, including specifically on physical exam - soft, nontender abdomen. I have discussed the patient's management with Cristina. Please refer to the nurse practitioner's note for the documented findings and plan of care. Colonoscopy today for rectal bleeding Subjective Ms. Patricia Marinelli is an 83 yr old female with A-fib on coumadin who presented to the ED on 08/23 for weakness. Hb was 5.7 and INR 1.2. She received Vit K and 3 units of RBCs. Hb increased to 9. EGD was w/o cause of anemia. She continued with red/black BMs and Hb dropped to 6.9. She received another 2 units of RBCs yesterday. Today, Hb 10.7, BUN 31. Took all of last night's prep. Took about 1/2 of this morning's prep. According to the pt's RN, the pt is passing liquid red BMs with some dark red clots this morning and the BMs are without much fecal material. She is awake, alert, oriented, able to transfer to the bedside commode with small assistance. She denies pain or weakness. Recent BP 194/76. Recent HR 61 and Pulse Ox 98%. Review of Systems Review of Systems: ROS: Gen: Denies weakness, fevers, weight loss Eyes: No eye redness, or pain, no recent vision changes Resp: No SOB, no cough Cardio: No palpitations/irregular beats, no chest pain GI: + rectal bleeding, no abdominal pain, no nausea/vomiting : Denies pain on urination Skin: No jaundice, itching or new rashes Physical Exam Constitutional: WD/WN, vitals as above Eyes: PERRL, conjunctivae normal, anicteric sclerae ENMT: external ear and nose normal, oropharynx normal Neck: trachea midline, no thyromegaly Respiratory: normal respiratory effort, lungs clear to auscultation Cardiovascular: RRR, no murmur, no edema Gastrointestinal (Abdomen): Inspection/Auscultation: abdomen normal to inspection and + hyperactive bowel sounds Percussion/Palpation: abdomen soft; abdomen nontender and no ascites Skin: no rashes, warm and dry Neurologic: PERRL, EOMI, accommodation nl, no face palsy, no dysarthria Psychiatric: A+Ox3, euthymic affect Results & Data Vital Signs (Past 12 Hours) Vital Signs Temp Pulse Pulse Pulse Resp BP Pulse Ox 08/28/18 07:27 36.6 C 61 20 194/76 H 98 08/28/18 04:09 36.9 C 70 18 170/68 H 100 08/28/18 00:10 58 L 08/28/18 00:01 36.3 C L 61 16 177/73 H 100
[2018-08-28 11:18] LABS: Albumin Level 2.3 gm/dl (3.4-5.0); BUN Creatinine Ratio 11.9 (10-20); Calcium 7.5 mg/dl (8.5-10.1); Creatinine Clr Calc Pharmacy 10.1 ml/min; Est GFR (African American) 11.2; Est GFR (Non-African American) 9.7; Potassium 3.7 mmol/L (3.5-5.1)
[2018-08-28 11:21] LABS: Albumin Globulin Ratio 0.7 (0.9-2); Bilirubin,Total 0.6 mg/dl (0.2-1); Globulin 3.5 gm/dl (2.5-4.0); Total Protein 5.8 gm/dl (6.4-8.2)
[2018-08-28] MEDS ORDERED: METOPROLOL TARTRATE 1 MG/ML VIAL IV STA (13:39)
[2018-08-28] MEDS ORDERED: FUROSEMIDE 20 MG in SYRINGE 0 ML IV ONE (14:51)
[2018-08-28] MEDS: EUCERIN CR 120 GM JAR TOP SCH ×3 (14:55→22:10)
[2018-08-28] MEDS: AMIODARONE 200 MG TAB PO SCH ×3 (14:56→21:24)
[2018-08-28] MEDS: METOPROLOL SUCC 25MG EXT REL TAB PO SCH ×2 (14:56→21:26)
[2018-08-28] MEDS: PANTOprazole 40 MG TAB PO SCH ×2 (14:56→21:25)
--- NOTE | 2018-08-28 15:20 | Anesthesiology Consultation ---
Date of Service August 28, 2018 History Surgery Operation Date: 08/24/18 09:30 Proposed Procedures p Esophagogastroduodenoscopy Dr Bourgeois - Favio Peterson MD Operation Date: 08/28/18 09:00 Proposed Procedures p Colonoscopy Dr Albin Talamantes MD Height/Weight Height: 5 ft 3 in Weight: 69.2 kg Allergies Allergy/AdvReac Type Severity Reaction Status Date / Time amoxicillin Allergy Intermediate HIVES Verified 08/23/18 16:45 clavulanic acid Allergy Intermediate RASH Verified 08/23/18 16:45 Gildpvo-Mwv-Cfn Reductase Allergy Unknown Unknown rxn Verified 08/23/18 16:45 Inhibitor codeine AdvReac Mild GIVES PT A Verified 08/23/18 16:45 HEADACHE morphine AdvReac Mild HEADACHE Verified 08/23/18 16:45 Medications Home Medications Medication Instructions Recorded Confirmed Last Taken Eucerin 1 applic TOPICAL QID 05/14/18 08/23/18 08/23/18 Travatan Z 1 drp OPHTHALMIC (EYE) PM 05/14/18 08/23/18 Unknown allopurinol 100 mg PO QAM 05/14/18 08/23/18 08/23/18 aspirin [Aspirin Low Dose] 81 mg PO QAM 05/14/18 08/23/18 08/23/18 epoetin mahin 1 dose IV DIRECTED 05/14/18 08/23/18 Unknown ergocalciferol (vitamin D2) 50,000 unit PO WK 05/14/18 08/23/18 Unknown levothyroxine 112 mcg PO QAM 05/14/18 08/23/18 08/23/18 loperamide [Imodium A-D] 2 mg PO DIRECTED PRN 05/14/18 08/23/18 Unknown nitroglycerin [Nitrostat] 0.4 mg SUBLINGUAL DIRECTED PRN 05/14/18 08/23/18 Unknown sevelamer HCl 1,600 mg PO .WITH MEALS 05/14/18 08/23/18 08/23/18 Lantus U-100 Insulin 5 units SUBCUT HS #0 ml 05/23/18 08/23/18 08/22/18 Novolog Flexpen U-100 Insulin See Rx Instructions .ROUTE 05/23/18 08/23/18 Unknown .COMPLEX #0 ml B complex with C#20-folic acid 1 cap PO QAM 08/23/18 08/23/18 08/23/18 [Triphrocaps] diltiazem HCl [Cartia XT] 120 mg PO QAM 08/23/18 08/23/18 08/23/18 metoprolol succinate 50 mg PO HS 08/23/18 08/23/18 08/22/18 metoprolol succinate 75 mg PO QAM 08/23/18 08/23/18 08/23/18 omega 0-juq-svd-fish oil [Fish Oil] 1 cap PO BID 08/23/18 08/23/18 08/23/18 tramadol 50 mg PO BID PRN 08/23/18 08/23/18 Unknown warfarin 5 mg PO QPM 08/23/18 08/23/18 Unknown Active Medications Generic Name Dose Route Start Last Admin Trade Name Freq PRN Reason Stop Dose Admin Amiodarone HCl 400 mg 08/25/18 14:00 08/28/18 14:56 Cordarone PO 09/24/18 13:59 Not Given TID JOSE Cephalexin HCl 250 mg 08/25/18 21:00 08/27/18 21:01 Keflex PO 09/04/18 20:59 250 mg HS JOSE Administration Protocol Insulin Aspart 0 units 08/23/18 21:00 08/28/18 12:07 Novolog Flexpen SC 09/22/18 20:59 Not Given ACHS PENDING SALE TO [facility] Levothyroxine Sodium 112 mcg 08/26/18 06:30 08/28/18 06:17 Synthroid PO 09/25/18 06:29 112 mcg DAILYBB JOSE Administration Metoprolol Succinate 25 mg 08/25/18 21:00 08/28/18 14:56 Toprol Xl PO 09/24/18 20:59 Not Given BID JOSE Multi-Ingredient Cream 1 appln 08/23/18 21:00 08/28/18 14:55 Hydrocerin TOP 09/22/18 20:59 Not Given QID JOSE Ondansetron HCl 4 mg 08/23/18 19:15 08/25/18 12:24 Zofran IV 09/22/18 19:14 4 mg Q6H PRN Administration Nausea Pantoprazole Sodium 40 mg 08/24/18 21:00 08/28/18 14:56 Protonix PO 09/23/18 20:59 Not Given BID JOSE NPO Date Last Intake of Fluids: 08/24/18 Time Last Intake of Fluids: 10:00 Date Last Intake of Solids: 08/23/18 Time Last Intake of Solids: 06:30 Past Medical History Medical History Urinary tract infection Altered mental status Atrial flutter Atrial fibrillation with rapid ventricular response (Acute) DVT prophylaxis Chest pain Elevated alkaline phosphatase level Hemodialysis patient Hypertension (Chronic) DM2 (diabetes mellitus, type 2) (Chronic) HTN (hypertension) (Chronic) Hyperparathyroidism (Chronic) Hypothyroid (Chronic) Atrial fibrillation, chronic Hemodialysis access site with arteriovenous graft Exercise / Class Metabolic Activity IV < 2 Limit ADL/Bedbound Past Family History Family History Other Family history non-contributory Past Surgical History Surgical History History of esophagogastroduodenoscopy (EGD) Social History Smoking Status: Never smoker Hx Alcohol Use: No Hx Substance Use: No Physical Exam Vital Signs Last Vital Signs Temp 36.3 C L 08/28/18 11:01 Pulse 73 08/28/18 14:43 Resp 20 08/28/18 11:01 BP 195/68 H 08/28/18 14:43 Pulse Ox 92 08/28/18 11:01 Testing Laboratory Results 08/28/18 08:11 08/28/18 08:11 PT 10.9 Seconds (9.0-12.0) 08/25/18 05:25 INR 1.1 (0.9-1.1) 08/25/18 05:25 Urine Color Yellow 08/23/18 Unknown Urine Appearance Cloudy (Clear) A 08/23/18 Unknown Urine pH >= 9.0 (4.5-7.5) H 08/23/18 Unknown Ur Specific [place] 1.009 (1.000-1.030) 08/23/18 Unknown Urine Protein 2+ (Negative) H 08/23/18 Unknown Urine Glucose (UA) Negative (Negative) 08/23/18 Unknown Urine Ketones Negative (Negative) 08/23/18 Unknown Urine Nitrite Negative (Negative) 08/23/18 Unknown Ur Leukocyte Esterase 3+ (Negative) H 08/23/18 Unknown Urine WBC (Auto) >30 /hpf (0-5) H 08/23/18 Unknown Urine RBC (Auto) 5-10 /hpf (0-4) H 08/23/18 Unknown U Hyaline Cast (Auto) Not Reportable 08/23/18 Unknown U Epithel Cells (Auto) >30 /lpf (0-5) H 08/23/18 Unknown Urine Bacteria (Auto) 1+ (Negative) H 08/23/18 Unknown Blood Type O Negative 08/27/18 06:59 Antibody Screen NEGATIVE 08/27/18 06:59 08/24/18 10:29 Aerobic Blood Culture - Preliminary Blood No growth in Aerobic bottle after 48 hours. Anaerobic Blood Culture - Preliminary No growth in Anaerobic bottle after 48 hours. 08/24/18 10:43 Aerobic Blood Culture - Preliminary Blood No growth in Aerobic bottle after 48 hours. Anaerobic Blood Culture - Preliminary No growth in Anaerobic bottle after 48 hours. 08/23/18 Unknown Urine Culture - Final Urine,Clean Catch Three types of organisms present, all high counts. Repeat collection recommended. No further identifications or sensitivities to follow. 08/28/18 08/28/18 11:28 07:27 POC Glucose 108 H 108 H
[2018-08-28] MEDS ORDERED: PROPOFOL IV EMULSION 10 MG/ML 20 ML VIAL IV ONE (15:59)
[2018-08-28] MEDS ORDERED: LIDOCAINE HCL 2% 2 ML VIAL/AMP(20MG/ML) INFIL ONE (15:59)
--- NOTE | 2018-08-28 16:08 | GI REPORT ---
Patient Name: Patricia Marinelli Procedure Date: 08/28/2018 3:43 PM Date of : 1935 Admit Type: Inpatient Age: 83 Gender: Female Attending MD: Mikel Talamantes MD Procedure: Colonoscopy Providers: Mikel Talamantes MD Referring MD: Herman Ozuna M.d. Indications: Rectal bleeding Medicines: Monitored Anesthesia Care Complications: No immediate complications. Estimated Blood Loss: Estimated blood loss: none. Procedure: Pre-Anesthesia Assessment: - Prior to the procedure, a History and Physical was performed, and patient medications and allergies were reviewed. The patient is competent. The risks and benefits of the procedure and the sedation options and risks were discussed with the patient. All questions were answered and informed consent was obtained. Patient identification and proposed procedure were verified by the physician and the nurse in the procedure room. Mental Status Examination: alert and oriented. Airway Examination: normal oropharyngeal airway and neck mobility. Respiratory Examination: clear to auscultation. CV Examination: normal. ASA Grade Assessment: IV - A patient with severe systemic disease that is a constant threat to life. After reviewing the risks and benefits, the patient was deemed in satisfactory condition to undergo the procedure. The anesthesia plan was to use monitored anesthesia care (MAC). Immediately prior to administration of medications, the patient was re-assessed for adequacy to receive sedatives. The heart rate, respiratory rate, oxygen saturations, blood pressure, adequacy of pulmonary ventilation, and response to care were monitored throughout the procedure. The physical status of the patient was re-assessed after the procedure. After I obtained informed consent, the scope was passed under direct vision. Throughout the procedure, the patient's blood pressure, pulse, and oxygen saturations were monitored continuously. The Scope was introduced through the anus and advanced to the terminal ileum. The colonoscopy was performed without difficulty. The patient tolerated the procedure well. The quality of the bowel preparation was fair. The terminal ileum, ileocecal valve, appendiceal orifice, and rectum were photographed. Findings: The perianal and digital rectal examinations were normal. The terminal ileum was normal and contained red blood and blood clots. Red blood with clots found in the entire colon. The retroflexed view of the distal rectum and anal verge was normal and showed no anal or rectal abnormalities. There is no endoscopic evidence of diverticula in the entire colon and no clear source of bleeding from the colon. Impression: - Blood in the terminal ileum. The source of bleeding is likely small bowel. - Blood in the entire examined colon. No source of bleeding seen from the colon. - The distal rectum and anal verge are normal on retroflexion view. - No specimens collected. Recommendation: - [facility] care. - Clear liquid diet. - Do a GI bleeding (tagged RBC) scan today. If positive, please refer the patient to IR for embolization. - Monitor H/H. Mikel Talamantes MD 08/28/2018 4:07:56 PM This report has been signed electronically. Note Initiated On: 08/28/2018 3:43 PM Number of Addenda: 0 I attest to the content of the Intraoperative Record and orders documented therein, exceptions below {[id number]}
--- NOTE | 2018-08-28 16:49 | Anesthesiology Progress Note ---
Date of Service August 28, 2018 Anesthesia Post Procedure Vital Signs Vital Signs: Temp Pulse Pulse Pulse Resp BP BP 08/28/18 16:39 70 18 186/58 H 08/28/18 16:22 69 18 179/59 H 08/28/18 16:07 59 L 12 158/53 H 08/28/18 15:26 36.5 C 73 18 199/66 H 08/28/18 14:43 73 195/68 H 08/28/18 13:56 79 197/70 H 08/28/18 11:01 36.3 C L 83 20 197/70 H 08/28/18 08:00 71 08/28/18 07:27 36.6 C 61 20 194/76 H 08/28/18 04:09 36.9 C 70 18 170/68 H 08/28/18 00:10 58 L 08/28/18 00:01 36.3 C L 61 16 177/73 H 08/27/18 20:00 66 08/27/18 19:10 36.6 C 58 L 19 184/63 H Pulse Ox 08/28/18 16:39 100 08/28/18 16:22 98 08/28/18 16:07 98 08/28/18 15:26 100 08/28/18 14:43 08/28/18 13:56 08/28/18 11:01 92 08/28/18 08:00 08/28/18 07:27 98 08/28/18 04:09 100 08/28/18 00:10 08/28/18 00:01 100 08/27/18 20:00 08/27/18 19:10 96 Transfer of Care Handoff Completed per policy Notes Mental Status: alert / awake / arousable Patient Amnestic to Procedure: Yes Nausea / Vomiting: adequately controlled Pain: adequately controlled Airway Patency, RR, SpO2: stable & adequate BP & HR: stable & adequate Hydration State: stable & adequate Anesthetic Complications: no major complications apparent
--- NOTE | 2018-08-28 17:21 | Nephrology Progress Note ---
Date of Service August 28, 2018 Assessment & Plan (1) End stage renal disease on dialysis due to type 2 diabetes mellitus: ESRD pt on HD MWF. She uses left AVF. For HD today - given that she has ongoing HTN and has had 2 L pRBC, may at any point have sudden decompensation, important to maintain clearance, euvolemia. Next HD on 08/30 or as clinical status dictates; no heparin in HD (2) Severe anemia: Due to ESRD and GI bleed. She got a unit of blood on 08/25; got another 2 units on 08/27 -tagged RBC scan planned tomorrow; may need C transfer if source found -will give epogen with HD -no further AC planned (3) Atrial fibrillation with rapid ventricular response: Rate and rhythm controlled now with amiodarone Subjective seen on rounds this am at 0820 approx. sitting on commode, afraid to get off b/c stool and blood "pour out of me." had 2 units pRBC yesterday > no sob, no edema, no issues tolerating transfusion except HTN. struggling to complete prep. does not really want to do HD today after procedure. no pain. + chills Review of Systems Review of Systems: All systems reviewed & are unremarkable except as noted in HPI & below Physical Exam Constitutional: well developed and well nourished on RA, some trembling at end of interview, A& 0 x 3 Eyes: EOM intact bilaterally ENMT: Ears: no external ear abnormality Nose: no external nose abnormality Mouth: + dry oral mucous membranes Neck: no nuchal rigidity Respiratory: normal respiratory effort Auscultation: + diminished lung sounds (markedly) Cardiovascular: Rate/Rhythm: regular rate and regular rhythm Extremities: + edema (trace - 1+ ble) and + AV fistula + t/b Gastrointestinal (Abdomen): Inspection/Auscultation: normal bowel sounds Percussion/Palpation: abdomen soft; abdomen nontender Musculoskeletal: Extremities: strength 5/5 throughout Skin: no rashes, warm and dry Neurologic: fry, fluent speech, no tremor Psychiatric: Orientation: alert and oriented x 3 Affect: + anxious affect Results & Data Vital Signs (Past 12 Hours) Vital Signs Temp Pulse Pulse Pulse Resp BP BP 08/28/18 16:39 70 18 186/58 H 08/28/18 16:22 69 18 179/59 H 08/28/18 16:07 59 L 12 158/53 H 08/28/18 15:26 36.5 C 73 18 199/66 H 08/28/18 14:43 73 195/68 H 08/28/18 13:56 79 197/70 H 08/28/18 11:01 36.3 C L 83 20 197/70 H 08/28/18 08:00 71 08/28/18 07:27 36.6 C 61 20 194/76 H Pulse Ox 08/28/18 16:39 100 08/28/18 16:22 98 08/28/18 16:07 98 08/28/18 15:26 100 08/28/18 14:43 08/28/18 13:56 08/28/18 11:01 92 08/28/18 08:00 08/28/18 07:27 98 Laboratory Results Abnormal lab results 08/23/18 08/27/18 08/27/18 Range/Units 17:08 19:04 20:21 RBC 3.44 L (4.2-5.4) M/uL Hgb 10.4 L D (12.0-16.0) g/dL Hct 31.4 L (37-47) % RDW Std Deviation 59.0 H (36.4-46.3) fL RDW Coeff of Katerina 18.5 H (11.5-14.5) % Immature Gran # (Auto) 0.03 H (0.00-0.02) K/uL BUN (7-18) mg/dl Creatinine (0.6-1.2) mg/dl Glucose (70-99) mg/dl POC Glucose 102 H (70-99) Calcium (8.5-10.1) mg/dl Alkaline Phosphatase (45-117) U/L Total Protein (6.4-8.2) gm/dl Albumin (3.4-5.0) gm/dl Albumin/Globulin Ratio (0.9-2) Crossmatch See Detail 08/28/18 08/28/18 08/28/18 Range/Units 06:05 07:27 08:11 RBC 3.01 L 3.49 L (4.2-5.4) M/uL Hgb 9.2 L 10.7 L (12.0-16.0) g/dL Hct 27.5 L 31.5 L (37-47) % RDW Std Deviation 59.5 H 59.1 H (36.4-46.3) fL RDW Coeff of Katerina 18.5 H 18.7 H (11.5-14.5) % Immature Gran # (Auto) 0.03 H (0.00-0.02) K/uL BUN (7-18) mg/dl Creatinine (0.6-1.2) mg/dl Glucose (70-99) mg/dl POC Glucose 108 H (70-99) Calcium (8.5-10.1) mg/dl Alkaline Phosphatase (45-117) U/L Total Protein (6.4-8.2) gm/dl Albumin (3.4-5.0) gm/dl Albumin/Globulin Ratio (0.9-2) Crossmatch 08/28/18 08/28/18 Range/Units 08:11 11:28 RBC (4.2-5.4) M/uL Hgb (12.0-16.0) g/dL Hct (37-47) % RDW Std Deviation (36.4-46.3) fL RDW Coeff of Katerina (11.5-14.5) % Immature Gran # (Auto) (0.00-0.02) K/uL BUN 48 H (7-18) mg/dl Creatinine 4.06 H (0.6-1.2) mg/dl Glucose 125 H (70-99) mg/dl POC Glucose 108 H (70-99) Calcium 7.5 L (8.5-10.1) mg/dl Alkaline Phosphatase 198 H (45-117) U/L Total Protein 5.8 L (6.4-8.2) gm/dl Albumin 2.3 L (3.4-5.0) gm/dl Albumin/Globulin Ratio 0.7 L (0.9-2) Crossmatch Diagnostic Findings colonoscopy this PM> no bleeding source found
[2018-08-28] MEDS: LABETALOL HCL IV 5 MG/ML 20ML IV STA (17:56)
[2018-08-28] MEDS ORDERED: LORazepam 0.25 MG/0.5 ML VIAL IV STA (20:27)
[2018-08-28 21:07] LABS: Basophils # (auto) 0.02 K/uL (0-0.2); Basophils % (auto) 0.3 %; Eosinophils # (auto) 0.05 K/uL (0-0.5); Eosinophils % (auto) 0.7 %; Hematocrit (blood only) 31.2 % (37-47); Hemoglobin 10.5 g/dL (12.0-16.0); Immature Granulocytes # (auto) 0.03 K/uL (0.00-0.02); Immature Granulocytes % (auto) 0.4 %; Lymphocytes # (auto) 1.73 K/uL (1.2-3.4); Lymphocytes % (auto) 25.5 %; Mean Corpuscular Hgb Conc 33.7 g/dL (32-36); Mean Corpuscular Volume 89.9 fL (80-100); Mean Platelet Volume 9.8 fL (7.4-10.4); Monocytes % (auto) 7.4 %; Neutrophils # (auto) 4.46 K/uL (1.4-6.5); Neutrophils % (auto) 65.7 %; Platelet Count 182 K/uL (130-400); RDW Coefficient of Variation 18.5 % (11.5-14.5); RDW Standard Deviation 58.9 fL (36.4-46.3); Red Blood Count 3.47 M/uL (4.2-5.4); White Blood Count 6.79 K/uL (4.8-10.8)
[2018-08-28] MEDS: ONDANSETRON INJ 2 MG/ML 2 ML VIAL IV PRN (21:23)
[2018-08-28] MEDS: cephALEXin 250 MG CAP PO SCH (21:24)
[2018-08-28] MEDS: TRAVOPROST Z 0.004% OPH SOLN 2.5 ML BTL OP SCH (21:25)
--- NOTE | 2018-08-28 23:25 | Nuclear Medicine Report ---
TAGGED RED BLOOD CELL GI BLEEDING SCAN CLINICAL HISTORY: active bleeding COMPARISON STUDY: CT of the abdomen and pelvis August 23, 2018. TECHNIQUE: Following the IV administration of 24.8 mCi of technetium 99m UltraTag labeled red blood c ells, nuclear bleeding scan was performed. Anterior flow images were obtained every 2 seconds for a t otal 48 seconds. Anterior static images were obtained every 5 minutes for a total of 60 minutes. FINDINGS: Expected radiotracer distribution is noted. There is no evidence for active GI bleed durin g this 60 minute examination. No abnormal foci are noted. IMPRESSION: No scintigraphic evidence of active GI bleed during this 60 minute exam. Electronically signed by: Hal Barone M.D. 08/28/2018 11:23 PM
[2018-08-29] MEDS: LABETALOL HCL IV 5 MG/ML 20ML IV STA (00:09)
[2018-08-29] MEDS: LEVOTHYROXINE SODIUM 112 MCG TABLET PO SCH (06:06)
[2018-08-29 06:17] LABS: Basophils # (auto) 0.01 K/uL (0-0.2); Basophils % (auto) 0.2 %; Eosinophils # (auto) 0.06 K/uL (0-0.5); Eosinophils % (auto) 1.3 %; Hematocrit (blood only) 27.5 % (37-47); Immature Granulocytes # (auto) 0.03 K/uL (0.00-0.02); Immature Granulocytes % (auto) 0.6 %; Lymphocytes # (auto) 1.56 K/uL (1.2-3.4); Lymphocytes % (auto) 32.9 %; Mean Corpuscular Hgb Conc 32.7 g/dL (32-36); Mean Corpuscular Volume 92.6 fL (80-100); Mean Platelet Volume 9.6 fL (7.4-10.4); Monocytes # (auto) 0.45 K/uL (0.11-0.59); Monocytes % (auto) 9.5 %; Neutrophils # (auto) 2.63 K/uL (1.4-6.5); Neutrophils % (auto) 55.5 %; Platelet Count 157 K/uL (130-400); RDW Coefficient of Variation 18.7 % (11.5-14.5); RDW Standard Deviation 61.2 fL (36.4-46.3); Red Blood Count 2.97 M/uL (4.2-5.4); White Blood Count 4.74 K/uL (4.8-10.8)
[2018-08-29] MEDS: PANTOprazole 40 MG TAB PO SCH ×2 (07:52→20:16)
[2018-08-29] MEDS: AMIODARONE 200 MG TAB PO SCH ×3 (07:52→20:17)
[2018-08-29] MEDS: METOPROLOL SUCC 25MG EXT REL TAB PO SCH ×2 (07:52→20:16)
[2018-08-29] MEDS: EUCERIN CR 120 GM JAR TOP SCH ×4 (07:52→20:19)
--- NOTE | 2018-08-29 08:06 | Anesthesiology Progress Note ---
Date of Service August 29, 2018 Anesthesia Post Procedure Vital Signs Vital Signs: Temp Pulse Pulse Pulse Resp BP BP 08/29/18 07:37 36.4 C L 75 18 157/68 H 08/29/18 03:48 36.3 C L 79 16 157/66 H 08/28/18 23:54 36.4 C L 90 18 117/77 08/28/18 23:30 148 H 08/28/18 21:55 36.3 C L 96 H 154/75 H 08/28/18 21:10 36.4 C L 99 H 20 137/62 08/28/18 21:00 103 H 103/44 L 08/28/18 20:40 100 H 122/59 L 08/28/18 20:20 95 H 137/62 08/28/18 20:00 92 H 157/70 H 08/28/18 19:40 92 H 134/69 08/28/18 19:20 87 131/67 08/28/18 19:00 83 176/86 H 08/28/18 18:40 82 209/80 H 08/28/18 18:20 72 185/98 H 08/28/18 18:10 72 174/77 H 08/28/18 18:01 82 141/81 H 08/28/18 18:00 36.2 C L 82 08/28/18 16:39 70 18 186/58 H 08/28/18 16:22 69 18 179/59 H 08/28/18 16:07 59 L 12 158/53 H 08/28/18 15:26 36.5 C 73 18 199/66 H 08/28/18 14:43 73 195/68 H 08/28/18 13:56 79 197/70 H 08/28/18 11:01 36.3 C L 83 20 197/70 H Pulse Ox 08/29/18 07:37 96 08/29/18 03:48 100 08/28/18 23:54 96 08/28/18 23:30 08/28/18 21:55 08/28/18 21:10 100 08/28/18 21:00 08/28/18 20:40 08/28/18 20:20 08/28/18 20:00 08/28/18 19:40 08/28/18 19:20 08/28/18 19:00 08/28/18 18:40 08/28/18 18:20 08/28/18 18:10 08/28/18 18:01 08/28/18 18:00 08/28/18 16:39 100 08/28/18 16:22 98 08/28/18 16:07 98 08/28/18 15:26 100 08/28/18 14:43 08/28/18 13:56 08/28/18 11:01 92 Notes Mental Status: alert / awake / arousable and participated in evaluation Patient Amnestic to Procedure: Yes Nausea / Vomiting: adequately controlled Pain: adequately controlled Airway Patency, RR, SpO2: stable & adequate BP & HR: stable & adequate Hydration State: stable & adequate Anesthetic Complications: no major complications apparent and Pt Satisfied with anesthetic care
[2018-08-29] MEDS: INSULIN ASPART 100 UNITS/ML 3 ML PEN SC SCH ×4 (08:55→20:56)
--- NOTE | 2018-08-29 12:39 | Cardiology Progress Note ---
Date of Service August 29, 2018 Assessment & Plan (1) Atrial fibrillation with rapid ventricular response: Patient carries a history of paroxysmal atrial fibrillation with recent increase in frequency and exacerbations in association with acute illness and hospitalization. Patient not responding to usual medications. Anticoagulation discontinued appropriately due to complications of GI bleeding and anemia Plan: has tolerated amiodarone well without recurrence of atrial fib will cont po amio and metoprolol obviously, coumadin will not be restarted. pt counseled on risk of cardioembolic event (2) Severe anemia: Receiving transfusion and being cared for by GI no active bleed found on colonoscopy suspect small intestine bleed (3) End stage renal disease on dialysis due to type 2 diabetes mellitus: Tolerating dialysis well (4) Hypertension: As noted multiple drug adjustment (5) Preop cardiovascular exam: pt counseled that I would place her at a moderate risk for adverse periprocedural cardiac event during colonoscopy risk approximately <5% further counseled that no further cardiac testing or intervention would further lower that risk patient states that she understands, is accepting of that risk and wishes to proceed no need to delay from a cardiac standpoint cont amio Subjective Pt seen and examined, upset that she's not being discharged. Denies cp, sob, palpitations, lightheadedness or dizziness. tele reviewed: sinus rhythm with short salvos of afib overnight Review of Systems Review of Systems: All systems reviewed & are unremarkable except as noted in HPI & below Physical Exam Physical Exam: General: Awake, alert and oriented x 3. No acute distress. HEENT: Normocephalic, atraumatic. Pupils equal, round and reactive to light and accommodation. Extraocular muscles are intact. Anicteric sclera. Moist mucous membranes. Neck: No JVD. No bruit. Cardiovascular: Regular. Positive S-4. Normal S-1 and S-2. No S-3. No murmurs or rubs. Pulmonary: Clear to auscultation B/L. No rales, rhonchi or wheezing Abdomen: Bowel sounds x 4, soft. No rebound, guarding or tenderness. No organomegaly. Extremities: No clubbing, cyanosis or edema. +2 pedal pulses bilaterally. Skin: Warm and dry. Results & Data Vital Signs (Past 12 Hours) Vital Signs Temp Pulse Pulse Pulse Resp BP Pulse Ox 08/29/18 10:59 36.5 C 62 19 161/61 H 98 08/29/18 08:00 76 08/29/18 07:37 36.4 C L 75 18 157/68 H 96 08/29/18 03:48 36.3 C L 79 16 157/66 H 100
--- NOTE | 2018-08-29 12:56 | Hospitalist Progress Note ---
Date of Service August 29, 2018 Assessment & Plan (1) Atrial fibrillation with rapid ventricular response: Atrial Fibrillation RVR / atrial flutter -Patient came to to the hospital with atrial fibrillation with rapid ventricular response on 08/23/18 -normal TSH -rate was controlled with metoprolol and cardiazem and then patient returned to to sinus rhythm and was sinus throughout 08/24/18 and continued metoprolol and cardiazem -08/25/18: Patient had 1 unit of PRBC given on 08/25/18. Patient was in rapid atrial flutter throughout much of the day. She was able to complete the dialysis. Cardiology service started patient on amiodarone. Patient then lost IV access. In the situation of seeking IV access and in the context of patient's Heart rate in the 140s with atrial flutter. ICU physician was called to assess in the late afternoon. The ICU physician also obtained IV access via triple lume n central line to vena cava on 08/25/18 -then patient was in sinus rhythm with oral amiodarone and metoprolol as per cardiology -08/28/18 to 08/29/18: at night of 08/28/18 and also AM of 08/29/18, patient has had intermittent episodes of atrial fibrillation but currently in normal sinus rhythm. she reported that she felt palpitations yesterday night. Review of telemetry shows that the atrial fibrillation has not been sustained and generally her heart rates have been within normal limits. -cardiology service continues to advise to keep same dosing of amiodarone 400 mg TID and metoprolol succinate 25 mg BID acute blood loss anemia from GI bleed In setting of Coagulopathy on coumadin for afib / history hemorrhoids as per patient -arrived with Hgb 5.7 and INR 2.9 -was Transfused 2 units PRBCs and s/p Vitamin K 5mg on 08/23/18 and Hgb trended up to as high as 9 on 08/24/18 -EGD on 08/24/18 did not find source of bleed: Biopsies were taken with a cold forceps for Helicobacter pylori testing and there was negative pathology results for H.pylori -additional 1 unit PRBC was given in AM 08/25/18 when Hgb 7.3; follow up Hgb as 9.5 - Hgb is 8.1 in AM of 08/26/18 -08/27/18: nurse continues to observe some blood in bowel movements and Hgb dropped to 6.9 as of AM of 08/27/18. Patient not is distress and hemodynamically stable. She had eaten breakfast at bedside. 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 Long that patient is to get 2 units of PRBC as recommended by Dr. Long with plans for colonoscopy on 08/28/18. -08/28/18: patient had dark blood with bowel movements while on bowel prop: colonoscopy also saw blood in the colon and terminal ileum but no source of acute bleeding was identified -08/29/18: hgb from 08/28/18 to 08/29/18 did trend down slightly from 10.5 to 9. Nuclear medicine test did not find source of bleed; patient's daughter also at bedside and we discussed that the main issue would be to await for stability of blood counts and reasonable stability of heart rate before patient can be safely discharged. Patient also is due for hemodialysis on 08/30/18. gastronenterology service discussed with patient about arranging outpatient capsule endoscopy -continue Protonix as 40mg PO BID ; hold aspirin, avoid NSAIDs, continue to monitor patient on telemetry as inpatient Diarrhea: -positive FOBT -diarrhea appears resolved Dizziness: -from anemia and arrhythmia -currently no dizziness Hypertension -Continue home medications of metoprolol -not on diltiazem as patient is on amiodarone ESRD on dialysis -Usual dialysis Tuesday -had inpatient dialysis session on Tuesday08/25/18 and Tuesday08/28/18 -next dialysis is Tuesday08/30/18 Secondary hyperparathyroidism -S/P parathyroidectomy in the past Hypothyroidism -Normal TSH -Continue levothyroxine Abnormal CT: -CT chest:Basilar predominant pulmonary cysts and 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 Less likely diagnostic considerations include lymphangioleiomyomatosis, pneumocystis pneumonia, or Langerhans cell histiocytosis. -Procalcitonin 0.68 -blood cultures no growth to date -no respiratory issues at this time possible right lower extremity cellulitis chronic right lower extremity pain -right lower extremity with erythema -was started on ceftriaxone after blood cultures are drawn on 08/24/18 -No evidence of lower extremity DVT ultrasound of bilateral lower extremities -switched to Keflex on 08/25/18, last dose of Keflex 08/28/18 Type II diabetes mellitus with half-way current use of insulin -HbA1C: 5.8 on 05/15/18 -Hold Lantus -Continue insulin sliding scale while hospitalized Dyslipidemia History of intolerance to statins as per records Autoimmune hepatitis Stable Follows with GI as outpatient DVT prophylaxis: TEDs CODE STATUS: DNI DNR Subjective Overnight and this AM, patient has had intermittent episodes of atrial fibrillation but currently in normal sinus rhythm. she reported that she felt palpitations yesterday night. Review of telemetry shows that the atrial fibrillation has not been sustained and generally her heart rates have been within normal limits. Patient has not had bowel movement today. hgb from 08/28/18 to 08/29/18 did trend down slightly from 10.5 to 9. Nuclear medicine test today did not find source of bleed no abdomen pain. no vomiting. no lightheadedness. no chest pain. no palpitations currently. no shortness of breath patient's daughter also at bedside and we discussed that the main issue would be to await for stability of blood counts and reasonable stability of heart rate before patient can be safely discharged. Patient also is due for hemodialysis on 08/30/18. gastronenterology service discussed with patient about arranging outpatient capsule endoscopy Physical Exam Constitutional: comfortable Eyes: PERRL, conjunctivae normal, anicteric sclerae EOM intact bilaterally ENMT: external ear and nose normal, oropharynx normal Neck: trachea midline, no thyromegaly normal visual inspection right central line in neck Respiratory: normal respiratory effort, lungs clear to auscultation Cardiovascular: Rate/Rhythm: regular rate and + bradycardic Gastrointestinal (Abdomen): normal bowel sounds, soft, nontender, no hepatosplenomegaly Musculoskeletal: Head/Neck/Chest: normocephalic and head atraumatic Skin: left AV fistula Neurologic: PERRL, EOMI, accommodation nl, no face palsy, no dysarthria CN's II-XI intact bilaterally Psychiatric: A+Ox3, euthymic affect Results & Data Vital Signs (Past 12 Hours) Vital Signs Temp Pulse Pulse Pulse Resp BP Pulse Ox 08/29/18 10:59 36.5 C 62 19 161/61 H 98 08/29/18 08:00 76 08/29/18 07:37 36.4 C L 75 18 157/68 H 96 08/29/18 03:48 36.3 C L 79 16 157/66 H 100
--- NOTE | 2018-08-29 17:14 | Gastroenterology Progress Note ---
Date of Service August 29, 2018 Assessment & Plan (1) Acute blood loss anemia: OP VCE Advance diet. GI will sign off. (2) Atrial fibrillation: (3) Rectal bleeding: Supervising Physician Co-Signing Physician Notes I performed a history and physical examination of the patient, including specifically on physical exam - soft, nontender abdomen. I have discussed the patient's management with Cristina. Please refer to the nurse practitioner's note for the documented findings and plan of care. No rectal bleeding today. No source seen on EGD/Colonoscopy and bleeding scan negative. Likely small bowel AVM which stopped now. Plan: Advance diet VCE as OP Recall if needed Subjective 83 yr old female pt with rectal bleeding. EGD, Colonoscopy w/o cause. Pt Hb today 9.0 after 5 units of RBCs this admission. No BM since prior to colonoscopy yesterday. No abd pain. Remains hemodynamically stable. Review of Systems 2 Review of Systems: ROS: Gen: Denies weakness, fevers, weight loss Eyes: No eye redness, or pain, no recent vision changes Resp: No SOB, no cough Cardio: No palpitations/irregular beats, no chest pain GI: No rectal bleeding today. No abdominal pain, no nausea/vomiting : Denies pain on urination Skin: No jaundice, itching or new rashes Physical Exam Constitutional: WD/WN, vitals as above Eyes: PERRL, conjunctivae normal, anicteric sclerae ENMT: external ear and nose normal, oropharynx normal Neck: trachea midline, no thyromegaly Respiratory: normal respiratory effort, lungs clear to auscultation Cardiovascular: RRR, no murmur, no edema Gastrointestinal (Abdomen): Inspection/Auscultation: abdomen normal to inspection and + hyperactive bowel sounds Percussion/Palpation: abdomen soft; abdomen nontender and no ascites Skin: no rashes, warm and dry Neurologic: PERRL, EOMI, accommodation nl, no face palsy, no dysarthria Psychiatric: A+Ox3, euthymic affect Results & Data Vital Signs (Past 12 Hours) Vital Signs Temp Pulse Pulse Pulse Resp BP Pulse Ox 08/29/18 15:42 36.5 C 66 18 163/63 H 97 08/29/18 10:59 36.5 C 62 19 161/61 H 98 08/29/18 08:00 76 08/29/18 07:37 36.4 C L 75 18 157/68 H 96 Laboratory Results Hb 9. BUN 48, Cr 4.06 (dialysis pt) Diagnostic Findings Nuclear medicine scan (-).
[2018-08-29] MEDS: TRAVOPROST Z 0.004% OPH SOLN 2.5 ML BTL OP SCH (20:16)
[2018-08-29 20:51] LABS: Hemoglobin 9.6 g/dL (12.0-16.0)
[2018-08-29 21:19] LABS: BUN Creatinine Ratio 6.7 (10-20); Calcium 7.6 mg/dl (8.5-10.1); Creatinine Clr Calc Pharmacy 12.3 ml/min; Est GFR (African American) 14.5; Est GFR (Non-African American) 12.5; Magnesium 1.8 mg/dl (1.8-2.4); Potassium 3.1 mmol/L (3.5-5.1)
[2018-08-29] MEDS ORDERED: POTASSIUM CHLORIDE 10 MEQ TABCR PO STA (22:59)
[2018-08-30] MEDS: LEVOTHYROXINE SODIUM 112 MCG TABLET PO SCH (05:45)
[2018-08-30] MEDS ORDERED: SODIUM CHLORIDE 0.9% 1000ML 1,000 ML IV PRN (07:19)
[2018-08-30 07:25] LABS: Basophils # (auto) 0.02 K/uL (0-0.2); Basophils % (auto) 0.4 %; Eosinophils # (auto) 0.11 K/uL (0-0.5); Eosinophils % (auto) 2.3 %; Hematocrit (blood only) 26.7 % (37-47); Hemoglobin 8.7 g/dL (12.0-16.0); Immature Granulocytes # (auto) 0.03 K/uL (0.00-0.02); Immature Granulocytes % (auto) 0.6 %; Lymphocytes # (auto) 1.79 K/uL (1.2-3.4); Lymphocytes % (auto) 37.3 %; Mean Corpuscular Hgb Conc 32.6 g/dL (32-36); Mean Platelet Volume 9.8 fL (7.4-10.4); Monocytes # (auto) 0.43 K/uL (0.11-0.59); Neutrophils # (auto) 2.42 K/uL (1.4-6.5); Neutrophils % (auto) 50.4 %; Platelet Count 155 K/uL (130-400); RDW Standard Deviation 61.5 fL (36.4-46.3); Red Blood Count 2.84 M/uL (4.2-5.4)
[2018-08-30] MEDS: AMIODARONE 200 MG TAB PO SCH ×2 (08:27→14:27)
[2018-08-30] MEDS: PANTOprazole 40 MG TAB PO SCH (08:27)
[2018-08-30] MEDS: INSULIN ASPART 100 UNITS/ML 3 ML PEN SC SCH ×3 (08:27→17:26)
[2018-08-30] MEDS: EUCERIN CR 120 GM JAR TOP SCH ×3 (08:27→17:27)
[2018-08-30] MEDS: METOPROLOL SUCC 25MG EXT REL TAB PO SCH (08:27)
[2018-08-30 16:16] VITALS: BP 139/79; TEMP 97.9; O2SAT 99
--- NOTE | 2018-08-30 17:45 | Discharge Summary ---
Date of Service August 30, 2018 Admission HPI Per Admitting Provider Patient is an 83-year-old female with history of DM II, hypertension, dyslipidemia, gout, SVT, atrial fibrillation, ESRD on dialysis, autoimmune hepatitis, hypothyroidism, secondary hyperparathyroidism and other problems presents with history of palpitations, nausea, dizziness, diarrhea, blood in stools. Patient is a poor historian. She states that she was doing well until this morning. After having dialysis today she noted to have palpitations intermittently, associated with nausea or dizziness while she was trying to stand up. Patient's daughter informs that patient has been having nausea, dizziness since last 1 week. No history of fall, loss of consciousness. Patient also had diarrhea since 2 days and has been using Imodium as needed. She noticed dark blood in her stools x2 on Tuesday. States having hemorrhoids diagnosed in the past. Currently is on Coumadin for atrial fibrillation and also is on aspirin. 2 weeks ago she noticed bleeding from AV fistula site which prompted her to visit ED. She was noted to have black-colored stool on exam. Denies any history of chest pain, SOB, cough, wheezing, hemoptysis, fever, chills, headache, change in vision, vomiting, abdominal pain, change in appe tite, dysuria, hematuria. She was noted to have a hemoglobin of 5.7 today. Also noted to be in A. fib RVR while in ED which resolved with IV Cardizem. Her INR is elevated at 2.9. Admission Exam Per Admitting Provider Physical Exam: Vitals signs as noted above General Appearance: Chronically appearing, thin, frail, no apparent distress Head: normocephalic, Atraumatic Eyes: normal inspection, EOMI Neck: supple, Trachea midline Respiratory/Chest: Normal breath sounds, CTA Cardiovascular: Irregularly irregular, No murmur Abdomen/GI:Soft, Non tender, Bowel sounds present Extremities/Musculoskelatal:normal inspection, chronic venous stasis changes, nonpitting lower extremity edema 1-2+ + Left UE AV Fistula Neurologic/Psych:AAOX3, grossly no focal neurological deficits Skin: normal color, warm, +Echymosis on left flank and extremities Principal Diagnosis Atrial fibrillation with rapid ventricular response; acute blood loss anemia from GI bleed In setting of Coagulopathy on coumadin for atrial fibrillation; ESRD on dialysis Discharge Data Allergies Allergy/AdvReac Type Severity Reaction Status Date / Time amoxicillin Allergy Intermediate HIVES Verified 08/23/18 16:45 clavulanic acid Allergy Intermediate RASH Verified 08/23/18 16:45 Lnjgefc-Lxg-Tan Reductase Allergy Unknown Unknown rxn Verified 08/23/18 16:45 Inhibitor codeine AdvReac Mild GIVES PT A Verified 08/23/18 16:45 HEADACHE morphine AdvReac Mild HEADACHE Verified 08/23/18 16:45 Consultations 08/23/18 17:18 ED Decision to Admit Stat 08/23/18 19:15 Consult Case Management - Discharge Planning Routine Consult Gastroenterology Routine Consult Nephrology Routine 08/25/18 08:41 Consult Cardiology Routine Procedures Performed Operation Date: 08/24/18 09:30 Actual Procedures p EGD Biopsy Cytology - Favio Peterson MD Operation Date: 08/28/18 09:00 Actual Procedures p Colonoscopy - Mikel Talamantes MD Ordered Studies 08/23/18 16:12 CT abd pelvis wo con Stat CT chest wo con Stat 08/24/18 09:52 US venous doppler LE BI Stat TAGGED RED BLOOD CELL GI BLEEDING SCAN CLINICAL HISTORY: active bleeding COMPARISON STUDY: CT of the abdomen and pelvis August 23, 2018. TECHNIQUE: Following the IV administration of 24.8 mCi of technetium 99m UltraTag labeled red blood cells, nuclear bleeding scan was performed. Anterior flow images were obtained every 2 seconds for a total 48 seconds. Anterior static images were obtained every 5 minutes for a total of 60 minutes. FINDINGS: Expected radiotracer distribution is noted. There is no evidence for active GI bleed during this 60 minute examination. No abnormal foci are noted. IMPRESSION: No scintigraphic evidence of active GI bleed during this 60 minute exam. Hospital Course (1) Acute GI bleeding: (2) Acute blood loss anemia: (3) Atrial fibrillation with rapid ventricular response: (4) End stage renal disease on dialysis due to type 2 diabetes mellitus: The patient was admitted to the Hospitalist service and atrial fibrillation with rapid ventricular response. Chest x-ray revealed no evidence of acute cardiopulmonary disease. Heart rate was controlled with metoprolol and Cardizem. She was also thought to have melena and was monitored closely on telemetry in the setting of INR of 2.9 on Coumadin for atrial fibrillation. Hemoglobin was 5.7 with a baseline approximately 10. 2 units of packed red blood cells were transfused and vitamin K was given. Aspirin and Coumadin were held and NSAIDs were avoided. IV Protonix twice daily was started and she was kept n.p.o. until GI could make recommendations. Some diarrhea was present thought likely secondary to GI bleed however stool studies were performed and ruled out C. difficile toxin. GI recommended inpatient endoscopic evaluation to rule out upper GI bleed. Endoscopic examination was performed on 08/24 revealing a normal esophagus, normal duodenum and erythematous mucosa in the antrum. There were no signs of ulcers or angiectasia or other stigmata of bleeding. Her blood count dropped from hemoglobin of 9 to7 and she had some dark bloody BMs after the exam. A lower GI bleed was considered. Protonix was continued and she was monitored through the weekend. She received another 2 units of packed red blood cells and subsequently underwent a colonoscopy on 08/28. She received a total of 5 units of blood this admission. This was negative with a notable finding of red blood and blood clots in the terminal ileum with red blood and clots found in the entire colon. There was no endoscopic evidence of diverticuli in the entire colon and no clear source of bleeding from the colon. A tagged RBC scan was performed and negative. Small bowel AVMs which had stopped bleeding were considered the likely source, and a video capsule endoscopy was recommended as outpatient. Her diet was advanced and she continued to remain hemodynamically stable and afebrile with stable blood counts. At time of discharge a [id number] examination was performed revealing a soft nontender abdomen that was nondistended. Heart and lung exam were unremarkable and she was discharged in stable condition with close primary care follow-up recommended. Follow-up with [facility] gastroenterology for outpatient video capsule endoscopy. Total Time Total Time Spent Total Time Spent (In Minutes): 60 Total Time Includes: Examination of the Patient, Discharge Planning, Medication Reconciliation and Communication With Other Providers Discharge Plan Discharge Items Patient Disposition: Home - Self-Care Reason For Visit: MELENA Discharge Diagnosis: Atrial fibrillation with rapid ventricular response; acute blood loss anemia from GI bleed In setting of Coagulopathy on coumadin for atrial fibrillation; ESRD on dialysis Condition: Good Discharge Goals: Improve disease control Activity: Resume your previous activity Non-emergency contact: Primary Care Provider Call non-emergency contact if: you have any medication questions Follow-up/Referrals: Jonathan Nunn MD [Primary Care Provider] - Diet: Regular Addtl Provider Instructions: Please take all medications as instructed on discharge list below. You have the following appointments: PRIMARY CARE: 09/07/2018 11:20 AM Jonathan Nunn MD General Internal Medicine [facility] GASTROENTEROLOGY: 09/11/2018 2:20 PM Brandie Crespo MD Gastroenterology, [facility] CARDIOLOGY: 09/12/2018 1:00 PM Deng Arora DO Cardiology, [facility] It was a pleasure taking care of you! Please call if you have any questions or problems. You can reach a [facility] Hospitalist on duty at [facility] 24 hours a day by calling [phone]. Take care of yourself. Seema Morejon DO [facility] Hospitalist Prescriptions: New metoprolol succinate 25 mg Tablet Extended Release 24 Hr 25 mg PO BID Qty: 60 RF: 1 amiodarone 200 mg tablet 200 mg PO BID Qty: 60 RF: 1 Continued sevelamer HCl 800 mg Tablet 1,600 mg PO .WITH MEALS RF: 0 loperamide [Imodium A-D] 2 mg Tablet 2 mg PO DIRECTED PRN (Reason: Unknown) RF: 0 Travatan Z 0.004 % Drops 1 drp OPHTHALMIC (EYE) PM RF: 0 allopurinol 100 mg Tablet 100 mg PO QAM RF: 0 nitroglycerin [Nitrostat] 0.4 mg Tablet, Sublingual 0.4 mg Sublingual DIRECTED PRN (Reason: Chest Pain) RF: 0 ergocalciferol (vitamin D2) 50,000 unit Capsule 50,000 unit PO WK RF: 0 epoetin mahin 10,000 unit/mL Solution 1 dose IV DIRECTED RF: 0 levothyroxine 112 mcg Tablet 112 mcg PO QAM RF: 0 Eucerin Cream 1 applic TOPICAL QID RF: 0 Lantus U-100 Insulin 100 unit/mL Solution 5 units SUBCUT HS Qty: 0 RF: 0 Novolog Flexpen U-100 Insulin 100 unit/mL Insulin Pen See Rx Instructions .ROUTE .COMPLEX Qty: 0 RF: 0 Triphrocaps 1 mg capsule 1 cap PO QAM RF: 0 omega [id number]-mbj-rwk-fish oil [Fish Oil] 1,000 mg (120 mg-180 mg) Capsule 1 cap PO BID RF: 0 tramadol 50 mg tablet 50 mg PO BID PRN (Reason: Pain) RF: 0 Discontinued aspirin [Aspirin Low Dose] 81 mg Tablet,Delayed Release (Dr/Ec) 81 mg PO QAM RF: 0 metoprolol succinate 50 mg tablet extended release 24 hr 50 mg PO HS RF: 0 metoprolol succinate 50 mg tablet extended release 24 hr 75 mg PO QAM RF: 0 warfarin 2.5 mg tablet 5 mg PO QPM RF: 0 diltiazem HCl [Cartia XT] 120 mg capsule,extended release 24hr 120 mg PO QAM RF: 0 Stand-Alone Forms: [facility] Discharge Orders: Discharge Order (Routine); Ordered 08/30/18 Ordered By: Seema Morejon Admission Data Admit Date/Time: 08/23/18 18:41 Attending Provider: Seema Morejon Admit Provider: Cooper Avendano Primary Care Provider: Jonathan Nunn Other Providers: Rafaela Wilson ; Favio Peterson ; Ericka Berg ; Saleem Rivera Service: Telemetry Other Interventions: Discharge Summary Assessment (RN) Last Done: 08/30/18 18:12 DC Date/Time DO NOT enter until pt leaves facility: 08/30/18 18:46
[2018-08-30 18:10] VITALS: PULSE 65
--- NOTE | 2018-08-30 18:50 | Nephrology Progress Note ---
Date of Service August 30, 2018 Assessment & Plan (1) End stage renal disease on dialysis due to type 2 diabetes mellitus: ESRD pt on HD MWF. She uses left AVF. had uneventful HD today with 2L UF; BP maintained, HR controlled in tx. blood counts still soft but stable. volume status good at this time; chemistries controlled. Next HD on 09/01 or as clinical status dictates; no heparin in HD (2) Severe anemia: Due to ESRD and rectal bleed. She got a unit of blood on 08/25; got another 2 units on 08/27 >> as of 08/30, 5 units total this admission -no bleed source found on colonoscopy, EGD, or on tagged RBC scan -will give epogen with HD -no further AC planned (3) Atrial fibrillation with rapid ventricular response: Rate and rhythm controlled now with amiodarone Subjective seen just after she completed HD today; she tolerated tx w/o issues; denies further copious rectal bleeding; anxious for d/c home Review of Systems Review of Systems: All systems reviewed & are unremarkable except as noted in HPI & below Cardiovascular: no palpitations and no edema (states edema markedly improved) Gastrointestinal: as per Subjective / HPI; no vomiting and no cramping Genitourinary: voids daily; no hematuria or dysuria Integumentary: no rash and no non-healing lesions Physical Exam Constitutional: well developed and well nourished on RA A& 0 x 3 Eyes: EOM intact bilaterally ENMT: Ears: no external ear abnormality Nose: no external nose abnormality Mouth: + dry oral mucous membranes Neck: no nuchal rigidity Respiratory: normal respiratory effort Auscultation: + diminished lung sounds (markedly) Cardiovascular: Rate/Rhythm: regular rate and regular rhythm Extremities: + edema (trace at most BLE) and + AV fistula Gastrointestinal (Abdomen): Inspection/Auscultation: normal bowel sounds Percussion/Palpation: abdomen soft; abdomen nontender Musculoskeletal: Extremities: strength 5/5 throughout Skin: no rashes, warm and dry Neurologic: fry, fluent speech Psychiatric: Orientation: alert and oriented x 3 Affect: + anxious affect Results & Data Vital Signs (Past 12 Hours) Vital Signs Temp Pulse Pulse Pulse Resp BP BP 08/30/18 18:12 36.6 C 65 63 23 139/79 08/30/18 18:08 36.6 C 65 63 23 139/79 08/30/18 16:10 36.6 C 65 23 139/79 08/30/18 16:00 71 08/30/18 13:00 36.7 C 63 63 140/68 140/68 08/30/18 12:40 65 147/67 H 08/30/18 12:20 58 L 127/49 L 08/30/18 12:00 64 107/54 L 08/30/18 11:40 63 143/57 H 08/30/18 11:20 62 137/56 L 08/30/18 11:00 57 L 137/52 L 08/30/18 10:40 61 149/51 H 08/30/18 10:20 63 156/60 H 08/30/18 10:00 64 163/55 H 08/30/18 09:51 37.0 C 66 66 140/54 L 08/30/18 08:00 65 Pulse Ox 08/30/18 18:12 99 08/30/18 18:08 99 08/30/18 16:10 99 08/30/18 16:00 08/30/18 13:00 08/30/18 12:40 08/30/18 12:20 08/30/18 12:00 08/30/18 11:40 08/30/18 11:20 08/30/18 11:00 08/30/18 10:40 08/30/18 10:20 08/30/18 10:00 08/30/18 09:51 08/30/18 08:00 Laboratory Results Abnormal lab results 08/29/18 08/29/18 08/29/18 Range/Units 20:14 20:15 20:15 RBC (4.2-5.4) M/uL Hgb 9.6 L (12.0-16.0) g/dL Hct 30.0 L (37-47) % RDW Std Deviation (36.4-46.3) fL RDW Coeff of Katerina (11.5-14.5) % Immature Gran # (Auto) (0.00-0.02) K/uL Potassium 3.1 L D (3.5-5.1) mmol/L BUN 22 H D (7-18) mg/dl Creatinine 3.29 H D (0.6-1.2) mg/dl BUN/Creatinine Ratio 6.7 L (10-20) Glucose 180 H (70-99) mg/dl POC Glucose 162 H (70-99) Calcium 7.6 L (8.5-10.1) mg/dl 08/30/18 08/30/18 Range/Units 07:13 16:13 RBC 2.84 L (4.2-5.4) M/uL Hgb 8.7 L (12.0-16.0) g/dL Hct 26.7 L (37-47) % RDW Std Deviation 61.5 H (36.4-46.3) fL RDW Coeff of Katerina 18.0 H (11.5-14.5) % Immature Gran # (Auto) 0.03 H (0.00-0.02) K/uL Potassium (3.5-5.1) mmol/L BUN (7-18) mg/dl Creatinine (0.6-1.2) mg/dl BUN/Creatinine Ratio (10-20) Glucose (70-99) mg/dl POC Glucose 128 H (70-99) Calcium (8.5-10.1) mg/dl
[2018-08-30] MEDS ORDERED: AMIODARONE 200 MG TAB PO SCH (21:00)
== END 2018-08-30 18:46 | disposition home or self-care (01) | DRG 377 ==
LOC: ED 14:18 → SUATTDRO 18:41 → 2S 18:41
DX: D68.32 Hemorrhagic disorder due to extrinsic circulating anticoagulants; D64.9 Anemia, unspecified; I12.0 Hypertensive chronic kidney disease with stage 5 chronic kidney disease or end stage renal disease; K92.1 Melena; K75.4 Autoimmune hepatitis; E21.3 Hyperparathyroidism, unspecified; E11.9 Type 2 diabetes mellitus without complications; I48.2 Chronic atrial fibrillation; N25.81 Secondary hyperparathyroidism of renal origin; K92.2 Gastrointestinal hemorrhage, unspecified; Z99.2 Dependence on renal dialysis; N18.6 End stage renal disease; L03.115 Cellulitis of right lower limb; Z79.82 Long term (current) use of aspirin; E03.9 Hypothyroidism, unspecified; Z88.5 Allergy status to narcotic agent; Z88.1 Allergy status to other antibiotic agents; Z79.01 Long term (current) use of anticoagulants; Z66 Do not resuscitate